=== PATIENT | female | born 1950 | race Caucasian/White ===

== ENCOUNTER 2021-05-15 10:32 | Emergency (ER) | payer OTHER ==
--- OUTSIDE RECORDS SUMMARY | 2021-05-15 10:36 | XMS REPORT | Clinical Summary ---
:1950 Author Organization [facility] MD [facility] Address [address] [place] [address] Care Team Providers Name Role Phone SpikesummerMel Unavailable Jacqueline Newell MD Primary Care Provider [phone] Perez Soto MD Unavailable Allergies Active Allergy Reactions Severity Noted Date Comments Codeine Itching, Rash Low 03/05/2021 Sulfa (Sulfonamide Antibiotics) Itching, Rash Low 03/05/19 22 Medications Medication Sig Dispensed Refills Start Date End Date Status lisinopril Take 10 mg 0 02/15/2021 Active (PRINIVIL,ZESTRIL) by mouth 10 mg tablet daily. atorvastatin Take 20 mg 0 Active (LIPITOR) 20 mg by mouth tablet daily. famotidine (Pepcid) Take 20 mg 0 Active 20 mg tablet by mouth as needed. esomeprazole Take 1 0 Active (NexIUM) 20 MG capsule by capsule mouth as needed. promethazine-dextro Take 5 mL by 0 Active methorphan mouth 4 (PROMETHAZINE-DM) (four) times 6.25-15 mg/5 mL a day as syrup needed for cough. dexamethasone Take 1 8 tablet 0 03/17/2021 Activ e (DECADRON) 4 mg tablet (4 tabletIndications: mg) by mouth Small cell twice a day carcinoma for 2 doses on Day 4. ondansetron Take 1 30 tablet 5 03/17/2021 Active (Zofran) 8 mg tablet (8 3 tabletIndications: mg) by mouth Small cell every 8 carcinoma (eight) hours as needed for nausea or vomiting. promethazine-codein Take 5 mL by 0 02 Discontinued e (PHENERGAN with mouth every 2 (Therapy CODEINE) 6.25-10 4 (four) com pleted) mg/5 mL syrup hours as needed for cough. promethazine-dextro TAKE 5ML BY 0 03/06/2021 02 Discontinued methorphan MOUTH EVERY 2 (Duplic ate order) (PROMETHAZINE-DM) 4 TO 6 HOURS 6.25-15 mg/5 mL NEEDED syrup FOR COUGH Active Problems Problem Noted Date Hypertension 03/05/2021 Dyslipidemia 03/05/2021 Mass of neck 03/05/2021 Small cell carcinoma 03/04/2021 Cancer Staging: Clinical: Unsigned Encounters Date Type Specialty Care Team Description 05/02/2021 Hospital Encounter Radiation Perez Soto MD [facility] Oncology malignant neoplasm of bra in 05/01/2021 Infusion Infusion Berkley Sanchez Small cell Services NANCY Mccloud carcinoma (Primary Dx) 05/01/2021 Travel 04/30/2021 Infusion Infusion Berkley Sanchez Small cell Services Rogers [employer] carcinoma (Primary Dx) 04/30/2021 Travel 04/29/2021 Infusion Infusion Berkley Sanchez Small cell Services Rogers [employer] carcinoma (Primary Dx) 04/29/2021 Telemedicine Thoracic Inocencia Alford Small cell Medicine carcinoma (Primary Dx) 04/29/2021 Ancillary Procedure Radiology Berkley Sanchez Small cell A, [employer] carcinoma 04/29/2021 Travel 04/28/2021 Ancillary Procedure Radiology Berkley Sanchez Small cell carcinoma; A, [employer] Malignant neopl asm of upper lobe, left bronchus or lung ; Malignant neopl asm of upper lobe, left bronchus or lung 04/28/2021 Travel 04/23/2021 Orders Only Thoracic Berkley Sanchez Small cell Medicine Rogers [employer] carcinoma (Primary Dx) 04/23/2021 Orders Only Radiation Huma Kate, SCOTT Secondary Oncology malignant neoplasm of bra in (Primary Dx) 04/10/2021 Infusion Infusion Berkley Sanchez Small cell Services A, [employer] carcinoma (Primary Dx) 04/10/2021 Travel 04/09/2021 Infusion Infusion Berkley Sanchez Small cell Services A, [employer] carcinoma (Primary Dx) 04/09/2021 Travel 04/08/2021 Infusion Infusion Berkley Sanchez Small cell Services A, [employer] carcinoma (Primary Dx) 04/08/2021 Office Visit Thoracic Sonny Lackey carc inoma (Primary Dx); Medicine MD Hadley Secondary malig nant neoplasm of brain; Leukopenia, not otherwise specified; Neutropenia due to and following chemotherapy; Malignant neopl asm of upper lobe, left bronchus or lung 04/08/2021 Hospital Encounter Lab Brooke Sancheznifer Small cell A, [employer] carcinoma 04/08/2021 Orders Only Radiology Joaquín Whitten PA 04/08/2021 Orders Only Thoracic Ramiro Prabhakar Medicine PharmD 04/08/2021 Orders Only Thoracic Sonny Lackey MD 04/08/2021 Travel 03/28/2021 Hospital Encounter Cardiology Berkley Sanchez Small cell A, [employer] carcinoma 03/28/2021 Hospital Encounter Cardiology Berkley Sanchez Small cell A, [employer] carcinoma 03/28/2021 Hospital Encounter Radiation Perez Soto MD Sma l cell Oncology carcinoma 03/28/2021 Travel 03/20/2021 Infusion Infusion Inocencia Alford Small cell Peter HAGAN carcinoma (Primary Dx) 03/20/2021 Telephone Infusion Peter Grajeda RN 03/20/2021 Travel 03/19/2021 Infusion Inocencia Carlos Small cell Peter HAGAN carcinoma (Primary Dx) 03/19/2021 Travel 03/18/2021 Infusion Infusion Inocencia Alford Small cell Peter HAGAN carcinoma (Primary Dx) 03/18/2021 Telemedicine Thoracic Inocencia Alford Small cell Medicine MD carcinoma (Primary Dx) 03/18/2021 Orders Only Thoracic Berkley Sanchez APN 03/18/2021 Orders Only Thoracic Ramiro Prabhakar Medicine PharmD 03/18/2021 Travel 03/14/2021 Ancillary Procedure Radiology Perez Soto MD Can cer 03/14/2021 Ancillary Procedure Radiology Perez Soto MD Can cer 03/12/2021 Orders Only Thoracic Ramiro Prabhakar Small cell Medicine PharmD carcinoma (Primary Dx) 03/11/2021 Hospital Encounter Lab Inocencia Alford Small cell MD carcinoma 03/11/2021 Consult Thoracic Ivonne Espinoza cell carc inoma (Primary Dx); Medicine Olivia, Inocencia Marcleo MD 03/11/2021 Ancillary Procedure Radiology Manuel Strange MD carcinoma of kendy ng <Unspecified side> 03/11/2021 Orders Only Thoracic Ramiro Prabhakar Small cell Medicine PharmD carcinoma (Primary Dx) 03/11/2021 Travel 03/10/2021 Orders Only Radiation Alexandr Small cell Oncology MD Hadley carcinoma of kendy ng <Unspecified side> (Primary Dx) 03/07/2021 Hospital Encounter Radiation Namrata Aldridge PA Small cell Oncology Alexandr, carcinoma MD Hadley (Primary Dx) 03/07/2021 Orders Only Radiation Ivonne Espinoza Small cell Oncology Olivia, SCOTT carcinoma of kendy ng <Unspecified side> (Primary Dx) 03/07/2021 Travel 03/07/2021 Multidisciplinary Visit Head and Neck Namrata Aldridge PA Surgery 03/07/2021 Orders Only Head and Neck Namrata Aldridge PA Small cell Surgery carcinoma (Primary Dx) 03/05/2021 Ancillary Procedure Radiology Namrata Aldridge PA Small cell carcinoma; 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, face and neck ; 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, face and neck 03/05/2021 Hospital Encounter Head and Neck Manuel Newell ll carcinoma (Primary Dx); Surgery MD Jacqueline Mass of neck 03/05/2021 NPR Patient Access Peter Newell MD 03/05/2021 Travel 03/04/2021 Orders Only Head and Neck Namrata Aldridge PA Small cell carcinoma (Primary Dx); Surgery 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, face and neck 03/04/2021 Lab Requisition Orla Cota MD Jackson, David Wayne, MD 03/03/2021 Clinical Support Amanda Galarza MD (Primary Dx) Napoleon Finney RN 03/03/2021 Travel 02/26/2021 Travel after 05/15/2020 Immunizations Name Administration Dates Next Due [place] SARS-CoV-2 Vaccination 06/10/2020, 05/13/2020 Surgical History Surgery Date Site/Laterality Comments COLONOSCOPY 03/01/2010 - 02/28/2011 HYSTERECTOMY 03/01/1988 - 02/28/1989 Medical History Medical History Date Comments Hypertension 1994 Hyperlipidemia 2001 Hearing loss 2014 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 Unspecified lump in unspecified breast 2014 Diverticulitis 2009 Polyp of colon 2009 Menopause 1988 Rheumatoid arthritis 2001 Arthritis 2001 Malignant tumor of breast 2014 Squamous cell carcinoma in situ of skin 2018 Family History Medical History Relation Name Comments Melanoma Father Lung cancer Maternal Grandfather Colon cancer Mother Mikayla Irvin Colon cancer Paternal Grandmother Breast cancer Sister Nataly Butler Relation Name Status Comments Father Maternal Grandfather Mother Mikayla Irvin Paternal Grandmother Sister Nataly Butler Social History Tobacco Use Types Packs/Day Years Used Date Current Every Day Smoker Cigarettes 1 49 Smokeless Tobacco: Never Used Tobacco Cessation: Ready to Quit: Yes Alcohol Use Standard Drinks/Week Comments Yes 2 (1 standard drink = 0.6 oz pure alcoho l) Sex Assigned at Date Recorded Female 03/01/2021 10:20 AM [employer] Job Start Date Occupation Industry Not on file Not on file Not on file COVID-19 Exposure Response Date Recorded In the last month, have you been in contact with No / Unsure 05/01/2021 1:21 PM [employer] someone who was confirmed or suspected to have Coronavirus / COVID-19? Obstetrics History Last Filed Vital Signs Vital Sign Reading Time Taken Comments Blood Pressure 139/75 05/01/2021 12:57 PM [employer] Pulse 75 05/01/2021 12:57 PM [employer] Temperature 36.6 C (97.9 F) 05/01/2021 12:57 PM [employer] Respiratory Rate 18 05/01/2021 12:57 PM [employer] Oxygen Saturation 98% 05/01/2021 12:57 PM [employer] Inhaled Oxygen Concentration - - Weight 59.9 kg (132 lb 0.9 oz) 05/01/2021 12:56 PM [employer] Height 155 cm (5' 1.02") 04/29/2021 9:23 AM [employer] Body Mass Index 24.93 04/29/2021 9:23 AM [employer] Plan of Treatment Date Type Specialty Care Team Description 05/20/2021 Telemedicine Thoracic Medicine Inocencia Alford MD [address] [place], [place] [address] (Wo rk) 05/20/2021 Lab Lab Inocencia Alford MD [address] [place], [place] [address] (Wo rk) 05/20/2021 Infusion [place] [address] [place] [id number] (Wo rk) 05/21/2021 Infusion Infusion Services Inocencia Alford MD [address] [place], [place] [address] (Wo rk) 05/22/2021 Infusion Infusion Services Inocencia Alford MD [address] [place], [place] [address] (Wo rk) Health Maintenance Due Date Last Done Comments COVID-19 Vaccination (3 - Moderna risk 07/08/2020 1, 05/13/2020 4-dose series) Procedures Procedure Name Priority Date/Time Associated Comments Diagnosis MRI BRAIN W WO CONTRAST Routine 04/29/2021 11:19 Small cell Results for this AM [employer] carcinoma procedure are i n the results section. FRACTIONATED BILIRUBIN Routine 04/29/2021 8:19 Small cell R esults for this AM [employer] carcinoma procedure are i n the results section. TOTAL PROTEIN Routine 04/29/2021 8:19 Small cell Results fo r this AM [employer] carcinoma procedure are i n the results section. ASPARTATE Routine 04/29/2021 8:19 Small cell Results for this AMINOTRANSFERASE AM [employer] carcinoma procedure a re in the results section. ALANINE AMINOTRANSFERASE Routine 04/29/2021 8:19 Small cell Results for this AM [employer] carcinoma procedure are i n the results section. ALKALINE PHOSPHATASE Routine 04/29/2021 8:19 Small cell Res ults for this AM [employer] carcinoma procedure are i n the results section. ALBUMIN LEVEL Routine 04/29/2021 8:19 Small cell Results fo r this AM [employer] carcinoma procedure are i n the results section. CALCIUM LEVEL TOTAL Routine 04/29/2021 8:19 Small cell Resu lts for this AM [employer] carcinoma procedure are i n the results section. .GLOMERULAR FILTRATION Routine 04/29/2021 8:19 Small cell R esults for this RATE AM [employer] carcinoma procedure are i n the results section. SERUM CREATININE Routine 04/29/2021 8:19 Small cell Results for this AM [employer] carcinoma procedure are i n the results section. ELECTROLYTE PANEL Routine 04/29/2021 8:19 Small cell Result s for this AM [employer] carcinoma procedure are i n the results section. BLOOD UREA NITROGEN Routine 04/29/2021 8:19 Small cell Resu lts for this AM [employer] carcinoma procedure are i n the results section. GLUCOSE LEVEL Routine 04/29/2021 8:19 Small cell Results fo r this AM [employer] carcinoma procedure are i n the results section. MANUAL DIFFERENTIAL Routine 04/29/2021 8:19 Small cell Resu lts for this AM [employer] carcinoma procedure are i n the results section. Results CBC Routine 04/29/2021 8:19 Small cell Results for this AM [employer] carcinoma procedure are i n the results section. FREE THYROXINE Routine 04/29/2021 8:19 Small cell Results f or this AM [employer] carcinoma procedure are i n the results section. THYROID STIMULATING Routine 04/29/2021 8:19 Small cell Resu lts for this HORMONE AM [employer] carcinoma procedure are i n the results section. MAGNESIUM LEVEL Routine 04/29/2021 8:19 Small cell Results for this AM [employer] carcinoma procedure are i n the results section. PHOSPHORUS LEVEL Routine 04/29/2021 8:19 Small cell Results for this AM [employer] carcinoma procedure are i n the results section. COMPREHENSIVE METABOLIC Routine 04/29/2021 8:19 Small cell PANEL AM [employer] carcinoma COMPLETE BLOOD COUNT W/ Routine 04/29/2021 8:19 Small cell DIFFERENTIAL AM [employer] carcinoma PETCT SUBSEQUENT Routine 04/28/2021 11:24 Small cell Results for this TREATMENT STRATEGY AM [employer] carcinoma procedure are in Malignant neoplasm the resul ts of upper lobe, left section. bronchus or lung FRACTIONATED BILIRUBIN Routine 04/08/2021 7:31 Small cell R esults for this AM [employer] carcinoma procedure are i n the results section. TOTAL PROTEIN Routine 04/08/2021 7:31 Small cell Results fo r this AM [employer] carcinoma procedure are i n the results section. ASPARTATE Routine 04/08/2021 7:31 Small cell Results for this AMINOTRANSFERASE AM [employer]ER carcinoma procedure a re in the results section. ALANINE AMINOTRANSFERASE Routine 04/08/2021 7:31 Small cell Results for this AM [employer] carcinoma procedure are i n the results section. ALKALINE PHOSPHATASE Routine 04/08/2021 7:31 Small cell Res ults for this AM [employer] carcinoma procedure are i n the results section. ALBUMIN LEVEL Routine 04/08/2021 7:31 Small cell Results fo r this AM [employer] carcinoma procedure are i n the results section. CALCIUM LEVEL TOTAL Routine 04/08/2021 7:31 Small cell Resu lts for this AM [employer] carcinoma procedure are i n the results section. .GLOMERULAR FILTRATION Routine 04/08/2021 7:31 Small cell R esults for this RATE AM [employer] carcinoma procedure are i n the results section. SERUM CREATININE Routine 04/08/2021 7:31 Small cell Results for this AM [employer] carcinoma procedure are i n the results section. ELECTROLYTE PANEL Routine 04/08/2021 7:31 Small cell Result s for this AM [employer] carcinoma procedure are i n the results section. BLOOD UREA NITROGEN Routine 04/08/2021 7:31 Small cell Resu lts for this AM [employer] carcinoma procedure are i n the results section. GLUCOSE LEVEL Routine 04/08/2021 7:31 Small cell Results fo r this AM [employer] carcinoma procedure are i n the results section. MANUAL DIFFERENTIAL Routine 04/08/2021 7:31 Small cell Resu lts for this AM [employer] carcinoma procedure are i n the results section. Results CBC Routine 04/08/2021 7:31 Small cell Results for this AM [employer] carcinoma procedure are i n the results section. MAGNESIUM LEVEL Routine 04/08/2021 7:31 Small cell Results for this AM [employer] carcinoma procedure are i n the results section. PHOSPHORUS LEVEL Routine 04/08/2021 7:31 Small cell Results for this AM [employer] carcinoma procedure are i n the results section. COMPREHENSIVE METABOLIC Routine 04/08/2021 7:31 Small cell PANEL AM [employer] carcinoma COMPLETE BLOOD COUNT W/ Routine 04/08/2021 7:31 Small cell DIFFERENTIAL AM [employer] carcinoma ECHOCARDIOGRAM 2D Routine 03/28/2021 12:49 Small cell Result s for this COMPLETE W CONTRAST PM [employer] carcinoma procedur e are in the results section. EKG, 12-LEAD (SCHEDULED) Routine 03/28/2021 Small cell carcinoma FRACTIONATED BILIRUBIN Routine 03/18/2021 7:31 Small cell R esults for this AM [employer] carcinoma procedure are i n the results section. TOTAL PROTEIN Routine 03/18/2021 7:31 Small cell Results fo r this AM [employer] carcinoma procedure are i n the results section. ASPARTATE Routine 03/18/2021 7:31 Small cell Results for this AMINOTRANSFERASE AM [employer] carcinoma procedure a re in the results section. ALANINE AMINOTRANSFERASE Routine 03/18/2021 7:31 Small cell Results for this AM [employer] carcinoma procedure are i n the results section. ALKALINE PHOSPHATASE Routine 03/18/2021 7:31 Small cell Res ults for this AM [employer] carcinoma procedure are i n the results section. ALBUMIN LEVEL Routine 03/18/2021 7:31 Small cell Results fo r this AM [employer] carcinoma procedure are i n the results section. CALCIUM LEVEL TOTAL Routine 03/18/2021 7:31 Small cell Resu lts for this AM [employer] carcinoma procedure are i n the results section. .GLOMERULAR FILTRATION Routine 03/18/2021 7:31 Small cell R esults for this RATE AM [employer] carcinoma procedure are i n the results section. SERUM CREATININE Routine 03/18/2021 7:31 Small cell Results for this AM [employer] carcinoma procedure are i n the results section. ELECTROLYTE PANEL Routine 03/18/2021 7:31 Small cell Result s for this AM [employer] carcinoma procedure are i n the results section. BLOOD UREA NITROGEN Routine 03/18/2021 7:31 Small cell Resu lts for this AM [employer] carcinoma procedure are i n the results section. GLUCOSE LEVEL Routine 03/18/2021 7:31 Small cell Results fo r this AM [employer] carcinoma procedure are i n the results section. MANUAL DIFFERENTIAL Routine 03/18/2021 7:31 Small cell Resu lts for this AM [employer] carcinoma procedure are i n the results section. Results CBC Routine 03/18/2021 7:31 Small cell Results for this AM [employer] carcinoma procedure are i n the results section. FREE THYROXINE Routine 03/18/2021 7:31 Small cell Results f or this AM [employer] carcinoma procedure are i n the results section. THYROID STIMULATING Routine 03/18/2021 7:31 Small cell Resu lts for this HORMONE AM [employer] carcinoma procedure are i n the results section. MAGNESIUM LEVEL Routine 03/18/2021 7:31 Small cell Results for this AM [employer] carcinoma procedure are i n the results section. PHOSPHORUS LEVEL Routine 03/18/2021 7:31 Small cell Results for this AM [employer] carcinoma procedure are i n the results section. COMPREHENSIVE METABOLIC Routine 03/18/2021 7:31 Small cell PANEL AM [employer] carcinoma COMPLETE BLOOD COUNT W/ Routine 03/18/2021 7:31 Small cell DIFFERENTIAL AM [employer] carcinoma MANUAL DIFFERENTIAL Routine 03/11/2021 2:03 Small cell Resu lts for this PM [employer] carcinoma procedure are i n the results section. Results CBC Routine 03/11/2021 2:03 Small cell Results for this PM [employer] carcinoma procedure are i n the results section. FRACTIONATED BILIRUBIN Routine 03/11/2021 2:03 Small cell R esults for this PM [employer] carcinoma procedure are i n the results section. TOTAL PROTEIN Routine 03/11/2021 2:03 Small cell Results fo r this PM [employer] carcinoma procedure are i n the results section. ASPARTATE Routine 03/11/2021 2:03 Small cell Results for this AMINOTRANSFERASE PM [employer] carcinoma procedure a re in the results section. ALANINE AMINOTRANSFERASE Routine 03/11/2021 2:03 Small cell Results for this PM [employer] carcinoma procedure are i n the results section. ALKALINE PHOSPHATASE Routine 03/11/2021 2:03 Small cell Res ults for this PM [employer] carcinoma procedure are i n the results section. ALBUMIN LEVEL Routine 03/11/2021 2:03 Small cell Results fo r this PM [employer] carcinoma procedure are i n the results section. CALCIUM LEVEL TOTAL Routine 03/11/2021 2:03 Small cell Resu lts for this PM [employer] carcinoma procedure are i n the results section. .GLOMERULAR FILTRATION Routine 03/11/2021 2:03 Small cell R esults for this RATE PM [employer] carcinoma procedure are i n the results section. SERUM CREATININE Routine 03/11/2021 2:03 Small cell Results for this PM [employer] carcinoma procedure are i n the results section. ELECTROLYTE PANEL Routine 03/11/2021 2:03 Small cell Result s for this PM [employer] carcinoma procedure are i n the results section. BLOOD UREA NITROGEN Routine 03/11/2021 2:03 Small cell Resu lts for this PM [employer] carcinoma procedure are i n the results section. GLUCOSE LEVEL Routine 03/11/2021 2:03 Small cell Results fo r this PM [employer] carcinoma procedure are i n the results section. COMPLETE BLOOD COUNT W/ Routine 03/11/2021 2:03 Small cell DIFFERENTIAL PM [employer] carcinoma COMPREHENSIVE METABOLIC Routine 03/11/2021 2:03 Small cell PANEL PM [employer] carcinoma MRI BRAIN W WO CONTRAST Routine 03/11/2021 8:56 Small cell Results for this AM [employer] carcinoma of lung procedure are in <Unspecified side> the resul ts section. PETCT INITIAL TREATMENT Routine 03/05/2021 2:53 Small cell Results for this STRATEGY PM [employer] carcinoma procedure are in Secondary and the results unspecified section. malignant neoplasm of lymph nodes of head, face and neck POC GLUCOSE SCREEN Routine 03/05/2021 1:29 Resul ts for this PM [employer] procedure are i n the results section. COVID-19 (SARS-COV-2) Routine 03/03/2021 12:14 Suspicion Results for this PCR ASYMPTOMATIC PM [employer] procedure a re in the results section. OSI US SOFT TISSUE MASS Routine 02/14/2021 2:30 Cancer Results for this AM [employer] procedure are i n the results section. PATHOLOGY OUTSIDE Routine 02/14/2021 Results fo r this INTERPRETATION procedure are in the results section. OSI US SOFT TISSUE MASS Routine 02/11/2021 2:29 Cancer Results for this AM [employer] procedure are i n the results section. after 05/15/2020 Results MRI Brain with and without Contrast (04/29/2021 11:19 AM [employer]ER)Only the most recent of2 resultswithin the time period is included. Specimen Impressions [id number] - 04/29/2021 11:27 AM [employer] 1. Interval resolution of previously documented 0.4 cm lesion in the left cerebellar hemisphere. 2. No new intracranial metastasis. Narrative [id number] - 04/29/2021 11:27 AM [employer]ER FULL RESULT: EXAMINATION: MRI BRAIN W WO CONTRAST on 04/29/2021 11:19 AM HISTORY: Small cell carcinoma INDICATION: Cancer staging or restaging, ES-SCLC revaluate singluar brain met COMPARISON: MRI dated 03/11/2021 TECHNIQUE: Multi-sequence MRI of the bra in with and without intravenous contrast as per standard departmental protocol. FINDINGS: These 0.4 cm enhancing nodule in the med ial left cerebellar hemisphere has result. No new or progressive parenchymal or leptomeningeal enhancement is seen. There is no mass effect, midline shift o r abnormal restricted diffusion. The ventricles and cerebral sulci have normal size and configuration. No extra-axial fluid collection is seen. No focal susceptib ility artifact is noted in the brain par enchyma. The orbits, paranasal sinuses and mastoid air cells are unremarkable. Major intracranial flow voids are maintained at the skull base. No destructive osseous lesion is identified. Procedure Note Julieta Mg MD - 04/29/2021 FULL RESULT: EXAMINATION: MRI BRAIN W WO CONTRAST on 04/29/2021 11:19 AM HISTORY: Small cell carcinoma INDICATION: Cancer staging or restaging, ES-SCLC revaluate singluar brain met COMPARISON: MRI dated 03/11/2021 TECHNIQUE: Multi-sequence MRI of the bra in with and without intravenous contrast as per standard departmental protocol. FINDINGS: These 0.4 cm enhancing nodule in the med ial left cerebellar hemisphere has result. No new or progressive parenchymal or leptomeningeal enhancement is seen. There is no mass effect, midline shift o r abnormal restricted diffusion. The ventricles and cerebral sulci have normal size and configuration. No extra-axial fluid collection is seen. No focal susceptibility artifact is noted in the brain parenchyma. The orbit s, paranasal sinuses and mastoid air cells are unremarkable. Major intracranial flow voids are maintained at the skull base. No destructive osseous lesion is identified. IMPRESSION: 1. Interval resolution of previously do cumented 0.4 cm lesion in the left cerebellar hemisphere. 2. No new intracranial metastasis. Performing Organization Address [facility] [[email or web address]] Code Phon e Number [id number] .Serum Creatinine (04/29/2021 8:19 AM BAR GAUGER AND LUBRICATOR TENDER)Only the most recent of4 results within the time period is included. Pathologist Sig nature Creatinine 0.53Comment: Testing 0.51 - 0.95 mg/dL BILLINGS performed at [facility], [address] [facility], [place] [address] Specimen Blood Narrative BILLINGS - 04/29/2021 8:48 AM BAR GAUGER AND LUBRICATOR TENDER Includes: Albumin, Alk Phos, ALT, AST, T otal Bilirubin (including fractionated), Calcium, Chloride, CO2, Creatinine, Gluc ose, Potassium, Protein, Sodium, BUN Performing Organization Address City/[facility]/ZIP Code Phon e Number [facility], [place] [id number] [place] [address] (ABNORMAL) .CBC (04/29/2021 8:19 AM BAR GAUGER AND LUBRICATOR TENDER)Only the most recent of4 resultswithin the time period is included. Pathologist Sig nature WBC 6.8Comment: All 4.0 - 11.0 K/uL BILLINGS components of the CBC performed at [facility], [address] [place] [address] [id number] RBC 3.81 (L)Comment: All 4.00 - 5.50 BILLINGS components of the CBC M/uL performed at [facility], [address] [place] [address] Hgb 11.5 (L)Comment: As 12.0 - 16.0 BILLINGS part of CBC or as an gm/dL individual orderable testing performed at [facility], [address] [place] [address] Hct 34.9 (L)Comment: As 37.0 - 47.0 % BILLINGS part of CBC testing performed at [facility], [address] [place] [address] MCV 92Comment: As part of 82 - 98 fL BILLINGS CBC testing performed at [facility], [address] [place] [address] MCH 30.2Comment: As part 27.0 - 31.0 pg BILLINGS of CBC testing performed at [facility], [address] [place] [address] MCHC 33.0Comment: As part 31.0 - 36.0 BILLINGS of CBC testing gm/dL performed at [facility], [address] [place] [address] RDW-SD 47.7 (H)Comment: As 35.1 - 46.3 fL BILLINGS part of CBC testing performed at [facility], [address] [place] [address] RDW-CV 14.8Comment: As part 12.0 - 15.5 % BILLINGS of CBC testing performed at [facility], [address] [place] [address], [place] [address] Platelet count 316Comment: As part 140 - 440 K/uL BILLINGS of CBC or an individual orderable testing performed at [facility], [address] [place] [address], [place] [address] MPV 9.5Comment: As part 4.0 - 10.4 fL BILLINGS of CBC testing performed at [facility], [address] [place] [address], [place] [address] Specimen Blood Performing Organization Address City/State/ZIP [place] [address] [place] [address] Glomerular Filtration Rate (04/29/2021 8:19 AM BAR GAUGER AND LUBRICATOR TENDER)Only the most recent of4 resultswithin the time period is included. Pathologist Sig nature eGFR-AA 112 >=60 mL/min/1.73 BILLINGS Comment: sq. m Normal eGFR >= 60 mL/min/1.73 m2 Note: The eGFR is calculated using the CKD-EPI equation. The eGFR declines with age. eGFR <60 mL/min/1.73 m2 is considered as "decreased". This equation should only be used for patients 18 and older. According to the National [facility]'s Kidney Disease Outcome Quality Initiative (KDOQI) classification and 2012 Kidney Disease Improving Global Outcomes (KDIGO) Clinical Practice Guideline, the stage of CKD should be categorized based on estimated GFR. Stage Description GFR mL/min/1.73 m2 1 Normal or high GFR >=90 2 Mildly decreased GFR 60-89 3a Mildly to moderately decreased GFR 45-59 3b Moderately to severely decreased GFR 30-44 4 Severely decreased GFR 15-29 5 Kidney failure <15 Testing performed at [facility], [address] [place] [address], [place] [address] eGFR-ALLISON 97 >=60 mL/min/1.73 BILLINGS Comment: sq. m Normal eGFR >= 60 mL/min/1.73 m2 Note: The eGFR is calculated using the CKD-EPI equation. The eGFR declines with age. eGFR <60 mL/min/1.73 m2 is considered as "decreased". This equation should only be used for patients 18 and older. According to the National [facility]'s Kidney Disease Outcome Quality Initiative (KDOQI) classification and 2012 Kidney Disease Improving Global Outcomes (KDIGO) Clinical Practice Guideline, the stage of CKD should be categorized based on estimated GFR. Stage Description GFR mL/min/1.73 m2 1 Normal or high GFR >=90 2 Mildly decreased GFR 60-89 3a Mildly to moderately decreased GFR 45-59 3b Moderately to severely decreased GFR 30-44 4 Severely decreased GFR 15-29 5 Kidney failure <15 Testing performed at [facility], [address] [place] [address] [facility] - 04/29/2021 8:48 AM BAR GAUGER AND LUBRICATOR TENDER Includes: Albumin, Alk Phos, ALT, AST, T otal Bilirubin (including fractionated), Calcium, Chloride, CO2, Creatinine, Gluc ose, Potassium, Protein, Sodium, BUN Performing Organization Address City/State/[place] [address] [place] [address] Fractionated Bilirubin (04/29/2021 8:19 AM BAR GAUGER AND LUBRICATOR TENDER)Only the most recent of4 results within the time period is included. Bili Total 0.3 <=1.2 mg/dL BILLINGS Comment: Indocyanine Green (ICG) may cause falsely elevated bilirubin results. Total and direct bilirubin must not be measured from samples containing indocyanine green. False elevation of total aida irubin can be seen in patients with IgG concentrations above 28 g/L. Testing performed at [facility], [address] [place] [address] Bili Direct <0.2 <=0.3 mg/dL BILLINGS Comment: Indocyanine Green (ICG) may cause falsely elevated bilirubin results. Total and direct bilirubin must not be measured from samples containing indocyanine green. Testing performed at [facility], [address] [place] [address] Bili Indirect See Note 0.0 - 0.9 BILLINGS Comment: mg/dL Unable to calculate Indirect Bilirubin result due to some parameters are outside reportable range Testing performed at [facility], [address] [place] [address] Specimen Blood Narrative BILLINGS - 04/29/2021 8:48 AM BAR GAUGER AND LUBRICATOR TENDER Includes: Albumin, Alk Phos, ALT, AST, T otal Bilirubin (including fractionated), Calcium, Chloride, CO2, Creatinine, Gluc ose, Potassium, Protein, Sodium, BUN Performing Organization Address City/State/[place] [address] [place] [address] (ABNORMAL) Differential (04/29/2021 8:19 AM BAR GAUGER AND LUBRICATOR TENDER)Only the most recent of4 resultswithin the time period is included. Neutrophil % 64.3Comment: All 42.0 - 66.0 % BILLINGS components of the Differential performed at [facility], [address] [place] [address] Lymphocyte % 20.6 (L)Comment: As 24.0 - 44.0 % BILLINGS part of the Differential testing performed at [facility], [address] [place] [address] Monocyte % 12.3 (H)Comment: As 2.0 - 7.0 % BILLINGS part of the Differential testing performed at [facility], [address] [place] [address] Eosinophil % 0.7 (L)Comment: As 1.0 - 4.0 % BILLINGS part of the Differential testing performed at [facility], [address] [place], [place] [id number] Basophil % 0.9Comment: As part of 0.0 - 1.0 % BILLINGS the Differential testing performed at [facility], [address] [place], [place] [id number] IGRE % 1.2 (H) 0.0 - 0.4 % BILLINGS Comment: IGRE % count includes Metamyelocytes, Myelocytes, and Promyelocytes. As part of the Differential testing performed at [facility], [address] [place], [place] [phone] Neutrophil Abs 4.38Comment: As part 1.70 - 7.30 BILLINGS of the Differential K/uL testing performed at [facility], [address] [place] [address] Lymphocyte Abs 1.40Comment: As part 1.00 - 4.80 BILLINGS of the Differential K/uL testing performed at [facility], [address] [place] [address] Monocyte Abs 0.84 (H)Comment: As 0.08 - 0.70 BILLINGS part of the K/uL Differential testing performed at [facility], [address] [place] [address] Eosinophil Abs 0.05Comment: As part 0.04 - 0.40 BILLINGS of the Differential K/uL testing performed at [facility], [address] [place] [address] Basophil Abs 0.06Comment: As part 0.00 - 0.10 BILLINGS of the Differential K/uL testing performed at [facility], [address] [place] [address] IG Abs 0.08 (H)Comment: As 0.00 - 0.04 BILLINGS part of the K/uL Differential testing performed at [facility], [address] [place] [address] Specimen Blood Performing Organization Address City/State/ZIP Code Phon e Number [address] BUN (04/29/2021 8:19 AM BAR GAUGER AND LUBRICATOR TENDER)Only the most recent of4 resultswithin the time period is included. Pathologist Sig nature BUN 12Comment: Testing 6 - 23 mg/dL BILLINGS performed at [facility], [address] [place] [address] Specimen Blood Narrative BILLINGS - 04/29/2021 8:48 AM BAR GAUGER AND LUBRICATOR TENDER Includes: Albumin, Alk Phos, ALT, AST, T otal Bilirubin (including fractionated), Calcium, Chloride, CO2, Creatinine, Gluc ose, Potassium, Protein, Sodium, BUN Performing Organization Address City/State/ZIP Code Phon e Number [address] ALT (04/29/2021 8:19 AM BAR GAUGER AND LUBRICATOR TENDER)Only the most recent of4 resultswithin the time period is included. Pathologist [facility] ALT 14Comment: Testing performed <=33 U/L [facility], [address] [place] [address] [facility] - 04/29/2021 8:48 AM BAR GAUGER AND LUBRICATOR TENDER Includes: Albumin, Alk Phos, ALT, AST, T otal Bilirubin (including fractionated), Calcium, Chloride, CO2, Creatinine, Gluc ose, Potassium, Protein, Sodium, BUN Performing Organization Address City/[facility]/ZIP Code Phon e [place], [place] [id number] [place] [address] Aspartate Aminotransferase (04/29/2021 8:19 AM BAR GAUGER AND LUBRICATOR TENDER)Only the most recent of4 resultswithin the time period is included. [facility] AST 13Comment: Testing performed <=32 U/L [facility], [address] [place] [address] [facility] - 04/29/2021 8:48 AM BAR GAUGER AND LUBRICATOR TENDER Includes: Albumin, Alk Phos, ALT, AST, T otal Bilirubin (including fractionated), Calcium, Chloride, CO2, Creatinine, Gluc ose, Potassium, Protein, Sodium, BUN Performing Organization Address City/[facility] [[email or web address]] Code Phon e [place], [place] [id number] [place] [address] TSH (04/29/2021 8:19 AM BAR GAUGER AND LUBRICATOR TENDER)Only the most recent of2 resultswithin the time period is included. [facility] TSH 1.32Comment: Testing 0.27 - 4.20 BILLINGS performed at [facility], [address] [place] [address] Specimen Blood Performing Organization Address City/State/ZIP Code Phon e [address] (ABNORMAL) Free T4 (04/29/2021 8:19 AM BAR GAUGER AND LUBRICATOR TENDER)Only the most recent of2 results within the time period is included. [facility] T4 Free 0.91 (L)Comment: 0.93 - 1.70 ng/dL BILLINGS Testing performed at [facility], [address] [place] [address] Specimen Blood Performing Organization Address City/[facility] Phon [address] Total Protein (04/29/2021 8:19 AM BAR GAUGER AND LUBRICATOR TENDER)Only the most recent of4 resultswithin the time period is included. Pathologist Sig nature Total Protein 6.7Comment: Testing 6.4 - 8.3 g/dL BILLINGS performed at [facility], [address] [place] [address] [facility] - 04/29/2021 8:48 AM BAR GAUGER AND LUBRICATOR TENDER Includes: Albumin, Alk Phos, ALT, AST, T otal Bilirubin (including fractionated), Calcium, Chloride, CO2, Creatinine, Gluc ose, Potassium, Protein, Sodium, BUN Performing Organization Address [facility]/[address] Phosphorus (04/29/2021 8:19 AM BAR GAUGER AND LUBRICATOR TENDER)Only the most recent of3 resultswithin the time period is included. Pathologist Sig nature Phosphorus 4.0Comment: Testing 2.5 - 4.5 mg/dL BILLINGS performed at [facility], [address] [place] [address] Specimen Blood Performing Organization Address [facility] Phon e [address] (ABNORMAL) Alkaline Phosphatase (04/29/2021 8:19 AM BAR GAUGER AND LUBRICATOR TENDER)Only the most recent of 4 resultswithin the time period is included. Pathologist Sig nature Alk Phos 105 (H)Comment: Testing 35 - 104 U/L BILLINGS performed at [facility], [address] [place] [address] [facility] - 04/29/2021 8:48 AM BAR GAUGER AND LUBRICATOR TENDER Includes: Albumin, Alk Phos, ALT, AST, T otal Bilirubin (including fractionated), Calcium, Chloride, CO2, Creatinine, Gluc ose, Potassium, Protein, Sodium, BUN Performing Organization Address City/[facility]/[place] [address] [place] [address] Magnesium (04/29/2021 8:19 AM BAR GAUGER AND LUBRICATOR TENDER)Only the most recent of3 resultswithin the time period is included. Pathologist Sig nature Magnesium 2.0Comment: Testing 1.6 - 2.6 mg/dL BILLINGS performed at [facility], [address] [place] [address] Specimen Blood Performing Organization Address City/[facility] Phon e Number [place], [place] [phone] [place] [address] (ABNORMAL) Glucose Level (04/29/2021 8:19 AM BAR GAUGER AND LUBRICATOR TENDER)Only the most recent of4 resultswithin the time period is included. Pathologist Sig nature Glucose Level 109 (H) 70 - 99 mg/dL BILLINGS Comment: Effective 09/25/15, the gluco se reference intervals have been updated based on [place] [employer] guidelines (Standards of Medical Care in Diabetes 2016. Diabetes Care 2016; 39: S13-S22). Fasting blood glucose: Normal: 70-99 mg/dL Impaired fasting glucose (in creased risk for diabetes or pre-diabetes): 100- 125 mg/dL Diabetes mellitus: >/=126 mg/dL Random blood glucose: Normal: 70-199 mg/dL Note: Random glucose >100 mg/dL is assoc iated with increased risk for diabetes Testing performed at [facility], [address] [place] [address] Specimen Blood Narrative BILLINGS - 04/29/2021 8:48 AM BAR GAUGER AND LUBRICATOR TENDER Includes: Albumin, Alk Phos, ALT, AST, T otal Bilirubin (including fractionated), Calcium, Chloride, CO2, Creatinine, Gluc ose, Potassium, Protein, Sodium, BUN Performing Organization Address City/[facility]/[place] [address] [place] [address] Calcium Level (04/29/2021 8:19 AM BAR GAUGER AND LUBRICATOR TENDER)Only the most recent of4 resultswithin the time period is included. Pathologist Sig nature Calcium Lvl 9.5Comment: Testing 8.4 - 10.2 mg/dL BILLINGS performed at [facility], [address] [place] [address] [facility] - 04/29/2021 8:48 AM BAR GAUGER AND LUBRICATOR TENDER Includes: Albumin, Alk Phos, ALT, AST, T otal Bilirubin (including fractionated), Calcium, Chloride, CO2, Creatinine, Gluc ose, Potassium, Protein, Sodium, BUN Performing Organization Address [facility]/[place], [place] [id number] [place] [address] Albumin Level (04/29/2021 8:19 AM BAR GAUGER AND LUBRICATOR TENDER)Only the most recent of4 resultswithin the time period is included. Pathologist Sig nature Albumin Lvl 4.1Comment: Testing 3.5 - 5.2 gm/dL BILLINGS performed at [facility], [address] [place] [address] [facility] - 04/29/2021 8:48 AM BAR GAUGER AND LUBRICATOR TENDER Includes: Albumin, Alk Phos, ALT, AST, T otal Bilirubin (including fractionated), Calcium, Chloride, CO2, Creatinine, Gluc ose, Potassium, Protein, Sodium, BUN Performing Organization Address [facility]/[place], [place] [id number] [place] [address] (ABNORMAL) Electrolyte Panel (04/29/2021 8:19 AM BAR GAUGER AND LUBRICATOR TENDER)Only the most recent of4 resultswithin the time period is included. Pathologist Sig nature Sodium Lvl 139Comment: Testing 136 - 145 mEq/L BILLINGS performed at [facility], [address] [place] [address] Potassium Lvl 5.3 (H)Comment: 3.5 - 5.1 mEq/L BILLINGS Testing performed at [facility], [address] [place] [address] Chloride 105Comment: Testing 98 - 107 mEq/L BILLINGS performed at [facility], [address] [place] [address] CO2 27Comment: Testing 22 - 29 mEq/L BILLINGS performed at [facility], [address] [facility], [place] [address] Anion Gap 7Comment: Testing 4 - 14 mEq/L [facility] performed at [facility], [address] [facility] [address] [facility], [place] [address] Specimen Blood Narrative CRISTIAN FRIAS - 04/29/2021 8:48 AM BAR GAUGER AND LUBRICATOR TENDER Includes: Albumin, Alk Phos, ALT, AST, T otal Bilirubin (including fractionated), Calcium, Chloride, CO2, Creatinine, Gluc ose, Potassium, Protein, Sodium, BUN Performing Organization Address City/State/ZIP Code Phon e Number CRISTINA [facility] [place] [address] [address] [facility] PETCT Subsequent Treatment Strategy (04/28/2021 11:24 AM BAR GAUGER AND LUBRICATOR TENDER) Specimen Impressions [id number] - 04/28/2021 12:00 PM BAR GAUGER AND LUBRICATOR TENDER Left upper lobe lung malignancy has decreased in size and FDG uptake. There has been a decrease in size and FDG uptake within intrathoracic extrathoracic reg metastases. Pleural metastases in the left hemithorax and a right lower lobe nodul e consistent with metastasis have decreased in size. There is focal increased FDG uptake within the right lobe of the liver that is most consistent with superim position of increased physiologic uptake within the colon rather than a metastasis. A brain metastasis detected on MR imaging is not FDG avid and is suboptimally visualized-assessed on PET/CT. 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 Indication: To determine response to the rapy and subsequent treatment strategy. Restaging. Comparison: PET/CT 03/05/2021. Technique: Following intravenous admi nistration of 10.9 mCi F-18 fluorodeoxyglucose (FDG), a CT attenuation corrected PET scan was obtained from the vertex to the thighs. Findings: 1. A 1 cm FDG avid (SUV max 3) nodule in the left upper lobe consistent with a primary lung malignancy has decreased in size and FDG uptake (previously 1.5 cm, SUV max 6.9). In addition, previously visu alized extension of malignancy in a bron chovascular distribution to the left perihilar region has decreased in extent and FDG uptake (SUV max 1.7, previously 7). 2. There has been a decrease in size and FDG uptake of left perihilar and ipsilateral mediastinal adenopathy. For instance, a left perihilar nodes has a SUV max of 6.2 (previously 16.2), adjacent conflu ent adenopathy in the aortopulmonary win malathi and left lower paratracheal adenopathy with a short axis diameter of 2 cm and a SUV max of 4 was previously 3.5 cm and had a SUV max 13.9, a 1.5 cm FDG avid ( SUV max 3.4) preaortic lymph node was pr eviously 3 cm and had a SUV max 15.5) and a 7 mm FDG avid (SUV max 3.1) upper left superior mediastinal node was previously 2.2 cm and had a SUV max of 14.2. A le ft supraclavicular lymph node has decrea sed in size and FDG uptake and now has a short axis diameter of 1.5 cm and a SUV max of 4.5 (previously 3.5 cm, SUV max of 14.8). In addition, previously visualiz ed adjacent separate 1 cm FDG avid lymph node and FDG avid right supraclavicular lymph nodes show complete anatomic and metabolic response to therapy. 3. There has been a decrease in pleural metastases in the left major fissure and small residual nodular opacities have low-grade FDG uptake (SUV max 1.7, previously 3.2). 4. A 6 mm nodular opacity in the right l ower lobe (image 127) consistent with residua of a treated metastasis has decreased in size (previously 1.3 cm) and previously visualized increased FDG uptake has resolved. 5. There is a focal region of increased FDG uptake in the region of the right lobe of the liver (image 163, SUV max 5.4). 6. The adrenals are normal. 7. There are no FDG avid osseous metasta ses. 8. Brain metastasis detected on MR imagi ng of 03/11/2019 is not FDG avid and is suboptimally visualized assessed on PET/CT. 9. The aorta is atherosclerotic and ther e is coronary artery calcification. Procedure Note Jeffery Michelle MD - 04/28/2021 FULL RESULT: Examination: FDG PET/CT, 04/28/2021 11:24 AM Clinical History: Small cell carcinoma [ C80.1 (ICD-10-CM)]. Indication: To determine response to the rapy and subsequent treatment strategy. Restaging. Comparison: PET/CT 03/05/2021. Technique: Following intravenous admin istration of 10.9 mCi F-18 fluorodeoxyglucose (FDG), a CT attenuation corrected PET scan was obtained from the vertex to the thighs. Findings: 1. A 1 cm FDG avid (SUV max 3) nodule in the left upper lobe consistent with a primary lung malignancy has decreased in size and FDG uptake (previously 1.5 cm, SUV max 6.9). In addition, previously visualized extension of malignancy in a bronchovasc ular distribution to the left perihilar region has decreased in extent and FDG uptake (SUV max 1.7, previously 7). 2. There has been a decrease in size and FDG uptake of left perihilar and ipsilateral mediastinal adenopathy. For instance, a left perihilar nodes has a SUV max of 6.2 (previously 16.2), adjacent confluent adenopathy in the aortopulmonary window and left lower paratracheal adenopathy with a short axis diameter of 2 cm and a SUV max of 4 was previously 3.5 cm and had a SUV max 13.9, a 1.5 cm FDG avid (SUV max 3.4) preaortic lymph node was previously 3 cm and had a SUV max 15 .5) and a 7 mm FDG avid (SUV max 3.1) upper left superior mediastinal node was previously 2.2 cm and had a SUV max of 14.2. A left supraclavicular lymph node has decreased in size and FDG uptake and now has a short axis diameter of 1.5 cm and a SUV max of 4.5 (previously 3.5 cm, SUV max of 14.8). In addition, previously visualized adjacent separate 1 cm FDG avid lymph node and FDG avid right supraclavicular lymph nodes show complet e anatomic and metabolic response to therapy. 3. There has been a decrease in pleural metastases in the left major fissure and small residual nodular opacities have low-grade FDG uptake (SUV max 1.7, previously 3.2). 4. A 6 mm nodular opacity in the right l ower lobe (image 127) consistent with residua of a treated metastasis has decreased in size (previously 1.3 cm) and previously visualized increased FDG uptake has resolved. 5. There is a focal region of increased FDG uptake in the region of the right lobe of the liver (image 163, SUV max 5.4). 6. The adrenals are normal. 7. There are no FDG avid osseous metasta ses. 8. Brain metastasis detected on MR imagi ng of 03/11/2019 is not FDG avid and is suboptimally visualized assessed on PET/CT. 9. The aorta is atherosclerotic and ther e is coronary artery calcification. IMPRESSION: Left upper lobe lung malignancy has decr eased in size and FDG uptake. There has been a decrease in size and FDG uptake within intrathoracic extrathoracic reg metastases. Pleural metastases in the left hemithorax and a right lower lobe nodule consistent with metastasis have decreased in size. There is focal increased FDG uptake within the right lobe of the liver that is most consistent with superimposition of increased physiologic uptake within the colon rath er than a metastasis. A brain metastasis detected on MR imaging is not FDG avid and is suboptimally visualized-assessed on PET/CT. Performing Organization Address City/State/ZIP Code Phon e Number [id number] Echocardiogram 2D Complete with Contrast (03/28/2021 12:49 PM BAR GAUGER AND LUBRICATOR TENDER) Specimen Narrative [facility] - 03/28/2021 3:07 PM BAR GAUGER AND LUBRICATOR TENDER Echocardiographic Report Interpretation Summary Patient is in Atrial Fibrillation. Micro -Bubbles injection performed because of poor endocardial resolution. There is no comparison study available. Normal left ventricular size and systoli c function. Microbubble enhanced LVEF using the Bi-p ricky method of disks method is >70%. The right ventricle is normal in size an d function. Right ventricular systolic pressure is n ormal. There is no pericardial effusion. Mitral annular calcification is present. There is increased in LV thickness with systolic anterior motion of the mitral valve. An intracavitary gradient is present. Left Ventricle: Normal left ventricular size and systoli c function. An intracavitary gradient is present. Microbubble enhanced LVEF using the Bi-plane method of disks method is >70%. No regional wall motion abnormalities noted. I WMSI = 1.00 % Normal = 1 00 Dynamic intracavitary gradient with Valsalva (165 mm Hg) X - Cannot 1 - Normal 2 - 3 - Akinetic 4 - Dyskinetic Interpret Hyp okinetic 5 - Aneurysmal 3D imaginD volumes were not performed in this st udy. Cardiac Mechanics/Speckle Tracking Imagi ng: Speckle tracking imaging was not perform ed in this study. (GE Study). Diastology: Impaired LV relaxation pattern of diasto lic dysfunction, Doppler suggests normal LA pressures. Right Ventricle: The right ventricle is normal in size an d function. Normal RV systolic function using TAPSE criteria. Atria: Atria are normal in size. Mitral Valve: Mild thickening changes are noted. Lorenza l annular calcification is present. A dynamic gradient is observed up to 165 mm Hg with Valsalva maneuver. There is systolic anterior motion of the mitral valve, with outlet obstruction. There is mild m itral regurgitation. Tricuspid Valve: The tricuspid valve is not well visualiz ed, but is grossly normal. There is trace tricuspid regurgitation. Right ventricular systolic pressure is normal. Aortic Valve: The aortic valve is trileaflet. The aort ic valve opens well. Pulmonic Valve: The pulmonic valve is not well visualize d. Trace pulmonic valvular regurgitation. Great Vessels: The aortic root is normal size. The infe rior vena cava demonstrates normal size and normal respiratory variation. Pericardium/Pleural: There is no pericardial effusion. Preliminary Reviewer Preliminary Interpretation: Judy luna MD. MMode/2D Measurements IVSd: 1.4 cm LVIDd: 3.7 cm LVIDs: 2.5 cm LVPWd: 1.5 cm FS: 33.7 % Ao root diam: 3.6 cm Ao root area: 10.0 cm2 LA dimension: 3.3 cm LVOT diam: 2.1 cm EDV(MOD-A4C): 73.9 ml ESV(MOD-A4C): 21.2 ml LVOT area: 3.3 cm2 EF(MOD-A4C): 71.3 % EDV(MOD-A2C): 55.7 ml ESV(MOD-A2C): 10.6 ml EDV(MOD-bp): 65.7 ml EF(MOD-A2C): 81.0 % ESV(MOD-bp): 16.5 ml EF(MOD-bp): 74.9 % LAV(MOD-A2C): 41.6 ml EDV (MOD-bp) Index: 42.1 ml/m2 LAV(MOD-A4C): 49.1 ml LAV(MOD-bp): 45.2 ml LAV(MOD-bp) Indexed: 28.9 ml/m2 ESV (MOD-bp) Index: 10.6 ml/m2 RWT: 0.82 cm TAPSE (>1.6): 2.5 cm Doppler Measurements MV E max ezra: 66.1 cm/sec MV V2 max: 126.3 cm/sec MV A max ezra: 99.7 cm/sec MV max P.4 mmHg MV E/A: 0.66 MV V2 mean: 71.0 cm/sec MV mean P.3 mmHg MV V2 VTI: 20.1 cm MV dec time: 0.14 sec Ao V2 max: 179.8 cm/sec Ao max P.9 mmHg Ao V2 mean: 118.6 cm/sec Ao mean P.5 mmHg Ao V2 VTI: 27.5 cm Med Peak E' Ezra: 2.7 cm/sec Lat Peak E' Ezra: 3.7 cm/sec RAP systole: 3.0 mmHg E/e' (avg): 20.7 E/e' (lat): 18.0 E/e' (sept): 24.4 Procedure Note Nirav Gutierrez MD - 03/28/2021 Echocardiographic Report Interpretation Summary Patient is in Atrial Fibrillation. Micro -Bubbles injection performed because of poor endocardial resolution. There is no comparison study available. Normal left ventricular size and systoli c function. Microbubble enhanced LVEF using the Bi-p ricky method of disks method is >70%. The right ventricle is normal in size an d function. Right ventricular systolic pressure is n ormal. There is no pericardial effusion. Mitral annular calcification is present. There is increased in LV thickness with systolic anterior motion of the mitral valve. An intracavitary gradient is present. Left Ventricle: Normal left ventricular size and systoli c function. An intracavitary gradient is present. Microbubble enhanced LVEF using the Bi-plane method of disks method is >70%. No regional wall motion abnormalities noted. I WMSI = 1.00 % Normal = 100 Dynamic intracavitary gradient with Valsalva (165 mm Hg) X - Cannot 1 - Normal 2 - 3 - Akinetic 4 - Dyskinetic Interpret Hypokinetic 5 - Aneurysmal 3D imaginD volumes were not performed in this st udy. Cardiac Mechanics/Speckle Tracking Imagi ng: Speckle tracking imaging was not perform ed in this study. (GE Study). Diastology: Impaired LV relaxation pattern of diasto lic dysfunction, Doppler suggests normal LA pressures. Right Ventricle: The right ventricle is normal in size an d function. Normal RV systolic function using TAPSE criteria. Atria: Atria are normal in size. Mitral Valve: Mild thickening changes are noted. Lorenza l annular calcification is present. A dynamic gradient is observed up to 165 mm Hg with Valsalva maneuver. There is systolic anterior motion of the mitral valve, with outlet obstruction. There is mild mitral regurgitation. Tricuspid Valve: The tricuspid valve is not well visualiz ed, but is grossly normal. There is trace tricuspid regurgitation. Right ventricular systolic pressure is normal. Aortic Valve: The aortic valve is trileaflet. The aort ic valve opens well. Pulmonic Valve: The pulmonic valve is not well visualize d. Trace pulmonic valvular regurgitation. Great Vessels: The aortic root is normal size. The infe rior vena cava demonstrates normal size and normal respiratory variation. Pericardium/Pleural: There is no pericardial effusion. Preliminary Reviewer Preliminary Interpretation: Judy luna MD. MMode/2D Measurements IVSd: 1.4 cm LVIDd: 3.7 cm LVIDs: 2.5 cm LVPWd: 1.5 cm FS: 33.7 % Ao root ezequiel m: 3.6 cm Ao root are a: 10.0 cm2 LA dimensio n: 3.3 cm LVOT diam: 2.1 cm EDV(MOD-A4C ): 73.9 ml ESV(MOD-A4C ): 21.2 ml LVOT area: 3.3 cm2 EF(MOD-A4C) : 71.3 % EDV(MOD-A2C): 55.7 ml ESV(MOD-A2C): 10.6 ml EDV(MOD-bp) : 65.7 ml EF(MOD-A2C): 81.0 % ESV(MOD-bp) : 16.5 ml EF(MOD-bp): 74.9 % LAV(MOD-A2C): 41.6 ml EDV (MOD-bp ) Index: 42.1 ml/m2 LAV(MOD-A4C): 49.1 ml LAV(MOD-bp): 45.2 ml LAV(MOD-bp) Indexed: 28.9 ml/m2 ESV (MOD-bp) Index: 10.6 ml/m2 RWT: 0.82 c m TAPSE (>1.6): 2.5 cm Doppler Measurements MV E max ezra: 66.1 cm/sec MV V2 max: 126. 3 cm/sec MV A max ezra: 99.7 cm/sec MV max P.4 mmHg MV E/A: 0.66 MV V2 mean: 71. 0 cm/sec MV mean P.3 mmHg MV V2 VTI: 20.1 cm MV dec time: 0.14 sec Ao V2 max: 179. 8 cm/sec Ao max P.9 mmHg Ao V2 mean: 118 .6 cm/sec Ao mean P.5 mmHg Ao V2 VTI: 27.5 cm Med Peak E' Ezra: 2.7 cm/sec Lat Peak E' Ezra : 3.7 cm/sec RAP systole: 3.0 mmHg E/e' (avg): 20. 7 E/e' (lat): 18.0 E/e' (sept): 24 .4 Performing Organization Address City/State/ZIP Code Phon e Number ISCV EKG, 12-Lead (Scheduled) (03/28/2021) Specimen Narrative This result has an attachment that is no t available. Performing Organization Address [facility] Phon e Number JAYDE IECG PETCT Initial Treatment Strategy (03/05/2021 2:53 PM BAR GAUGER AND LUBRICATOR TENDER) Specimen Impressions [id number] - 03/06/2021 11:12 AM BAR GAUGER AND LUBRICATOR TENDER There is a left upper lobe nodule consistent with a primary malignancy and there is extension of the malignancy in a bronchovascular distribution to the left perihilar region. There is also extension of the malignancy to involve the adjacent pleura in the left major fissure. There are intrathoracic and extrathoracic reg metastases. There is a right lung nodule consistent with a metastasis. There are no distant-extrathoracic systemic metastases. 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 Indication: To determine initial treatme nt strategy. Staging. Comparison: None. Technique: Following intravenous admi nistration of 8.3 mCi F-18 fluorodeoxyglucose (FDG), a CT attenuation corrected PET scan was obtained from the vertex to the thighs. Dedicated imaging was performed of the head and neck. Findings: 1. There is a 1.5 cm FDG avid (SUV max 6 .9) nodule in the left upper lobe consistent with a primary lung malignancy. There is extension of soft tissue from the nodule in a bronchovascular distribution t o the left perihilar region that is FDG avid (SUV max 7) and consistent with malignancy. The nodule abuts the pleura in the major fissure and there is focal nodularity of the adjacent pleura in the fiss ure that is FDG avid and suspicious for malignancy. For instance, a 1.2 cm pleural nodule has a SUV max of 3.2. 2. There is a 1.3 cm FDG avid (SUV max 4 .6) right lower lobe nodule suspicious for a metastasis. 3. Left perihilar adenopathy with a shor t axis diameter of 4 cm is FDG avid (SUV max 16.2). The adenopathy extends into the adjacent mediastinum and is confluent with FDG avid (SUV max 13.9) aortopulmon lele window and left lower paratracheal a denopathy. In addition, there are enlarged and FDG avid preaortic lymph nodes. For instance, a preaortic lymph node with a short axis diameter of 3 cm (image 41) has a SUV max of 15.5. There is also FDG avid upper left superior mediastinal adenopathy that extends into the left infraclavicular-supraclavicular region and into the lower aspect of the neck. Within t he left supraclavicular region adenopath y has a short axis diameter of 3.5 cm and a SUV max of 14.8. Adjacent to this adenopathy there is a separate 1 cm lymph node that is FDG avid (image 99, SUV max 1 2.1). There are also FDG avid (SUV max u p to 9.7) right supraclavicular lymph nodes (image 86, 99) the largest with a short axis diameter 1.1 cm. 4. FDG uptake in the liver and spleen is physiologic. There is a nodule adjacent to the spleen consistent with a splenule. 5. The adrenals are normal. 6. There are no FDG avid osseous metasta ses. 7. The aorta is atherosclerotic and ther e is coronary artery calcification. 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 Indication: To determine initial treatme nt strategy. Staging. Comparison: None. Technique: Following intravenous admin istration of 8.3 mCi F-18 fluorodeoxyglucose (FDG), a CT attenuation corrected PET scan was obtained from the vertex to the thighs. Dedicated imaging was performed of the head and neck. Findings: 1. There is a 1.5 cm FDG avid (SUV max 6 .9) nodule in the left upper lobe consistent with a primary lung malignancy. There is extension of soft tissue from the nodule in a bronchovascular distribution to the left perihilar region that is FDG avid (SUV m ax 7) and consistent with malignancy. The nodule abuts the pleura in the major fissure and there is focal nodularity of the adjacent pleura in the fissure that is FDG avid and suspicious for malignancy. For insta nce, a 1.2 cm pleural nodule has a SUV max of 3.2. 2. There is a 1.3 cm FDG avid (SUV max 4 .6) right lower lobe nodule suspicious for a metastasis. 3. Left perihilar adenopathy with a shor t axis diameter of 4 cm is FDG avid (SUV max 16.2). The adenopathy extends into the adjacent mediastinum and is confluent with FDG avid (SUV max 13.9) aortopulmonary window and left lower paratracheal adenopathy. In a ddition, there are enlarged and FDG avid preaortic lymph nodes. For instance, a preaortic lymph node with a short axis diameter of 3 cm (image 41) has a SUV max of 15.5. There is also FDG avid upper left superior medias tinal adenopathy that extends into the left infraclavicular-supraclavicular region and into the lower aspect of the neck. Within the left supraclavicular region adenopathy has a short axis diameter of 3.5 cm and a SUV max of 14.8. Adjacent to this adenopathy there is a separate 1 cm lymph node that is FDG avid (image 99, SUV max 12.1). There are also FDG avid (SUV max up to 9.7) right supraclavicular lymph nodes (image 86, 99) the largest w ith a short axis diameter 1.1 cm. 4. FDG uptake in the liver and spleen is physiologic. There is a nodule adjacent to the spleen consistent with a splenule. 5. The adrenals are normal. 6. There are no FDG avid osseous metasta ses. 7. The aorta is atherosclerotic and ther e is coronary artery calcification. IMPRESSION: There is a left upper lobe nodule consis tent with a primary malignancy and there is extension of the malignancy in a bronchovascular distribution to the left perihilar region. There is also extension of the malignancy to involve the adjacent pleura in the left major fissure. There are intrathoracic and extrathoracic reg metastases. There is a right lung nodule consistent with a metastasis. There are no distant-extrathoracic systemic metastases. Performing Organization Address City/State/ZIP Code Phon e Number [id number] (ABNORMAL) POC Glucose Screen (03/05/2021 1:29 PM BAR GAUGER AND LUBRICATOR TENDER) POC Glucose 112 (H) 70 - 99 mg/dL POC [facility] Comment: Capillary blood samples, e.g . obtained by fingerstick, may have inaccurate results in patients with decreased peripheral blood flow. Method description: All resu lts are measured using Electrochemistry test methodology. The glucose in the sample mixes with the reagents on the test strip. The reaction produces an electric current. The amount of current produced is proportional to the glucose concentration in the blood. PO Sample Type Venous POC [facility], [address], [place] [address]; Repossessor: Shayy Antunez MD Specimen Blood Performing Organization Address City/State/ZIP Code Phon e Number POC [facility] COVID-19 (HELADIO-CoV-2) PCR Asymptomatic (03/03/2021 12:14 PM BAR GAUGER AND LUBRICATOR TENDER) [facility] COVID19 SARS Pre-Out of OR [facility] Indication Procedure [facility] COVID19 SARS Result Not Detected Not Detected [facility] COVID19 SARS SARS-CoV-2 NOT Detected. [facility] Reference Range: Not Detected Methodology: The Herrera Real Time SARS-CoV-2 assay is a qualitative real-time reverse vegetable worker polymerase chain reaction (school librarian-PCR) test to detect RNA from SARS-CoV-2 in nasal, nasopharyngeal and oropharyngeal swabs from patients with signs and symptoms of infection who ar e suspected of COVID-19 by their health care provider. The Herrera RealTime SARS-CoV-2 performed on the Leotus000 System is a dual target assay with primers and probes for the RdRp and N genes. Results must be interpreted within the context of all relevant clinical and laboratory findings, and epidemiological risk factors. Positive results are indicative of the presence of SARS-CoV-2 RNA; clinical correlation with patient history and other diagnostic information is ne cessary to determine patient infection status. Positive results do not rule out bacterial infection or co-infection with other viruses. Negative results do not preclude SARS- CoV-2 infection and should not be used as the sole basis for patient management decisions. The Herrera RealTime SARS-CoV -2 assay is for in vitro diagnostic use under FDA Emergency Use Authorization only. Testing is limited to laboratories certified under the Clinical Laboratory Improvement Imelda ndments of 1988 (CLIA), 42U.S.C. 263a, to perform high complexity tests. The T est was performed by the CLIA-certified, high- complexity Molecular Diagnostics Laboratory (MDL) at [facility] under the Food and Drug Administration (FDA) s Emergency Use Authorization. Factsheet for patients: https://www.[facility].org/Abb ottFactSheetPatients Factsheet for healthcare pro viders: https://www.[facility].org/AbbottFactSheetHCP Test performed by: [facility] [address] [place] [address] Specimen Nasopharyngeal Swab Performing Organization Address City/State/ZIP Code Phon e Number [facility] Unless otherwise noted, [place] [address] CENTER all lab tests performed by: Division of Pathology and Laboratory Medicine [address] [place] OSI US Soft Tissue Mass (02/14/2021 2:30 AM BAR GAUGER AND LUBRICATOR TENDER)Only the most recent of2 resultswithin the time period is included. Specimen Narrative Systemgenerated, Documentation - 022 2:30 AM BAR GAUGER AND LUBRICATOR TENDER Study acquired at another institution. For comparison only. No [facility] originated interpretation requested or a vailable. Pathology Outside Interpretation (02/14/2021) Materials Accession#, Stained, Block, Unstained Collected Receiv ed [facility] Received A. [id number], 7 SS, 0 BLOCKS, 0 USS 02/14/2021 022 Diagnosis Outside ([id number], 7 SS): [facility] Electronically signed by Rachael roman Left neck mass, ultrasound-guided core needle biopsy ( A1, IHC x5) MD Gage on HIGH-GRADE NEUROENDOCRINE/ SMALL CELL CARCINOMA. (SEE COMMENT) 03/06/2021 at 10:01 AM Comment The submitted [facility] immunohistochemical stains show that neoplastic cells are immunoreactive for cytokeratin AE1/AE3 (perinuclear dot-like pattern), TTF-1, chromogranin (patchy), synaptophysin, CD56. These results support the above diagnosis. Biomarker Tumor: [id number], A1 [facility] Block(s) Disclaimer "Some tests reported here [facility] may have been developed and performance characteristics determined by [facility] Pathology and Laboratory Medicine. These tests have not been specifically cleared or approved by the U.S. Food and Drug Administration. If applicable, controls were reviewed and showed appropriate reactivity." Specimen Tissue Performing Organization Address City/State/ZIP Code Phon e Number [facility] [place] [address] [address] [facility] Insurance Payer Benefit Plan Subscriber ID Effective Phone Address Typ e / Group Dates MEDICARE MEDICARE PART [id number] 2016-Pres [phone] [facility] Medicare A AND B ent [id number] SOLUTIONS [address] [place] [address] [employer]UT[employer] OF M[employer]UAL OF [id number] 2019-Pres 3300 [employer] Med igap ELIM IRAMINERVA PARKS ent [place] [address] Care Teams Firesetter Relationship Specialty Start Date End Date Mel Avery PCP - External Referring 02/25/21 [address] [place] [address] MIKHAIL Newell - General Head and Neck Surgery 02/26/21 MD Jacqueline [address] [place] [id number] Perez Soto MD Physician Radiation Oncology 03/28/21 [address] [place] [address]
--- OUTSIDE RECORDS SUMMARY | 2021-05-15 10:37 | XMS REPORT | Continuity of Care Document ---
:1950 Author Organization [facility] t Address [address] [place] [address] Dr. Cross [address] [place] [id number] Care Team Providers Name Role Phone [phone] Primary Care Physician Unavailable SYSTEM, NOT IN Attending Clinician Unavailable CHARLES Attending Clinician Unavailable Charles HAGAN Attending Clinician Rogers Sanchez APN Attending Clinician Rogers SANCHEZ Attending Clinician Unavailable Prashanth HAGAN Attending Clinician PRASHANTH Attending Clinician Unavailable Humble CHAVEZ Attending Clinician Laly Barragan MD Attending Clinician LALY BARRAGAN Attending Clinician Unavailable Rudy Moreno Attending Clinician Aki Benson Attending Clinician Taras MANZANARES Attending Clinician Unavailable Tish Horton NP Attending Clinician TISH HORTON Attending Clinician Unavailable Alexandr HAGAN Attending Clinician ALEXANDR Attending Clinician Unavailable Shameka SPAULDING Attending Clinician SHAMEKA Attending Clinician Unavailable Pam HAGAN Attending Clinician PAM Attending Clinician Unavailable Son Cota MD Attending Clinician Lee Nunes MD Attending Clinician Reg RN Attending Clinician Unavailable Payers Payer Name Policy Type Policy Number Effective Date Expiration Date Samara brown MEDICARE PART A [id number] 2016 AND B 00:00:00 JENNIFER [id number] 2019 00:00:00 Problems Condition Condition Condition Status Onset Resolution Last Treating Co mments Source Name Details Category Date Date Treatment Clinician Date Hypertensi Hypertensi Disease Active 2021-0 M D on on 03-05 Anderso 00:00: n 00 Dyslipidem Dyslipidem Disease Active 0 M D ia ia 03-05 Anderso 00:00: n 00 Mass of Mass of Disease Active neck neck 03-05 Anderso 00:00: n 00 Small cell Small cell Disease Active M D carcinoma carcinoma 03-04 Alejandro rso 00:00: n 00 Allergies, Adverse Reactions, Alerts This patient has no known allergies or adverse reactions. Family History Family Member Diagnosis Comments Start Date Stop Date Source Natural father Melanoma MD Mari n Maternal grandfather Lung cancer MD Young Natural mother Colon cancer MD Haq son Paternal grandmother Colon cancer MD Young Natural sister Breast cancer MD Alejandro king Social History Social Habit Start Date Stop Date Quantity Comments Source History of tobacco Cigarette Smoker MD Young use Exposure to Not sure MD Young SARS-CoV-2 (event) Alcohol intake 2021-03-12 2021-03-12 Current drinker of MD Young 00:00:00 00:00:00 alcohol (finding) Cigarettes smoked 2021-03-05 2021-03-05 MD Alejandro king current (pack per 00:00:00 00:00:00 day) - Reported Cigarette 2021-03-05 2021-03-05 MD Young pack-years 00:00:00 00:00:00 Tobacco use and 2021-03-05 2021-03-05 Smokeless tobacco MD Young exposure 00:00:00 00:00:00 non-user Sex [birth year] F MD Mercedes on 00:00:00 00:00:00 Smoking Status Start Date Stop Date Source Smokes tobacco daily 2021-03-05 00:00:00 MD Alejandro king Medications Ordered Filled Start Stop Current Ordering Indication Dosage Frequency Signature Comments Components Source Medication Medication Date Date Medication? Clinician (SIG) Name Name atorzariatati Yes 20mg Take 20 mg MD n (LIPITOR) 04-29 by mouth Alejandro rso 20 mg 09:33: daily. n tablet 35 promethazin Yes 5mL Take 5 mL M D e-dextromet 04-29 by mouth 4 An derso horphan 09:33: (four) n (PROMETHAZI 30 times a NE-DM) day as 6.25-15 needed for mg/5 mL cough. syrup famotidine Yes 20mg Take 20 mg M D (Pepcid) 20 04-29 by mouth Alejandro rso mg tablet 09:33: as needed. n 23 esomeprazol Yes 1{capsu Take 1 M D e (NexIUM) 04-29 le} capsule by And erso 20 MG 09:33: mouth as n capsule 15 needed. promethazin 2021- No 5mL Take 5 mL MD e-codeine 04-24 by mouth Severino so (PHENERGAN 19:44: 00:00 every 4 n with 25 :00 (four) CODEINE) hours as 6.25-10 needed for mg/5 mL cough. syrup dexamethaso Yes Small cell Take 1 MD ne 1-17 carcinoma tablet (4 Severino so (DECADRON) 00:00: mg) by n 4 mg tablet 00 mouth twice a day for 2 doses on Day 4. ondansetron 2022- Yes Small cell 8mg Take 1 MD (Zofran) 8 1-17 01-18 carcinoma tablet (8 Anderso mg tablet 00:00: 05:59 mg) by n 00 :00 mouth every 8 (eight) hours as needed for nausea or vomiting. promethazin 2021- No TAKE 5ML M D e-dextromet 03-06 BY MOUTH And erso horphan 00:00: 00:00 EVERY 4 TO n (PROMETHAZI 00 :00 6 HOURS NE-DM) NEEDED FOR 6.25-15 COUGH mg/5 mL syrup lisinopril 2020-03 Yes 10mg Take 10 mg M D (PRINIVIL,Z 2-18 by mouth Alejandro rso ESTRIL) 10 00:00: daily. n mg tablet 00 Immunizations Ordered Immunization Filled Immunization Date Status Commen ts Source Name Name Christian SARS-CoV-2 2020-06-10 Completed MD And erson Vaccination 00:00:00 Christian SARS-CoV-2 2020-05-13 Completed MD And erson Vaccination 00:00:00 Vital Signs Vital Name Observation Time Observation Value Comments Source Systolic blood pressure 2021-05-01 18:57:39 139 mm[Hg] MD Young Diastolic blood pressure 2021-05-01 18:57:39 75 mm[Hg] MD Young Heart rate 2021-05-01 18:57:39 75 /min MD Haq son Body temperature 2021-05-01 18:57:39 36.61 Karoline MD Rogers moreno Respiratory rate 2021-05-01 18:57:39 18 /min MD Rogers moreno Oxygen saturation in 2021-05-01 18:57:39 98 /min MD Young Arterial blood by Pulse oximetry Body weight 2021-05-01 18:56:00 59.9 kg MD Haq son BMI 2021-05-01 18:56:00 24.93 kg/m2 MD Haq son Body height 2021-04-29 15:23:00 155 cm MD Severino berg Procedures Procedure Date / Time Performed Performing Clinician [facility] e MRI BRAIN W WO CONTRAST 2021-04-29 17:19:00 Berkley Sanchez MD COMPLETE BLOOD COUNT W/ 2021-04-29 14:19:00 Berkley Sanchez MD DIFFERENTIAL COMPREHENSIVE METABOLIC PANEL 2021-04-29 14:19:00 Chrystal Sanchez MD PHOSPHORUS LEVEL 2021-04-29 14:19:00 Berkley Sanchez MD on MAGNESIUM LEVEL 2021-04-29 14:19:00 Berkley Sanchez MD THYROID STIMULATING HORMONE 2021-04-29 14:19:00 Berkley Sanchez MD FREE THYROXINE 2021-04-29 14:19:00 Berkley Sanchez MD Results CBC 2021-04-29 14:19:00 Berkley Sanchez MD MANUAL DIFFERENTIAL 2021-04-29 14:19:00 Berkley Sanchez MD And erson GLUCOSE LEVEL 2021-04-29 14:19:00 Berkley Sanchez MD BLOOD UREA NITROGEN 2021-04-29 14:19:00 Berkley Sanchez MD And erson ELECTROLYTE PANEL 2021-04-29 14:19:00 Berkley Sanchez MD Severino son SERUM CREATININE 2021-04-29 14:19:00 Berkley Sanchez MD Daren on .GLOMERULAR FILTRATION RATE 2021-04-29 14:19:00 Berkley Sanchez MD CALCIUM LEVEL TOTAL 2021-04-29 14:19:00 Berkley Sanchez MD And erson ALBUMIN LEVEL 2021-04-29 14:19:00 Berkley Sanchez MD ALKALINE PHOSPHATASE 2021-04-29 14:19:00 [facility]AN[facility] AMINOTRANSFERASE 2021-04-29 14:19:00 Berkley Sanchez ASPARTATE AMINOTRANSFERASE 2021-04-29 14:19:00 Berkley Sanchez MD TOTAL PROTEIN 2021-04-29 14:19:00 Berkley Sanchez MD FRACTIONATED BILIRUBIN 2021-04-29 14:19:00 Berkley Sanchez MD PETCT SUBSEQUENT TREATMENT 2021-04-28 17:24:38 Berkley Sanchez MD STRATEGY COMPLETE BLOOD COUNT W/ 2021-04-08 13:31:00 Berkley Sanchez MD DIFFERENTIAL COMPREHENSIVE METABOLIC PANEL 2021-04-08 13:31:00 Chrystal Sanchez MD PHOSPHORUS LEVEL 2021-04-08 13:31:00 Berkley Sanchez MD Daren on MAGNESIUM LEVEL 2021-04-08 13:31:00 Berkley Sanchez MD Results CBC 2021-04-08 13:31:00 Berkley Sanchez MD MANUAL DIFFERENTIAL 2021-04-08 13:31:00 Berkley Sanchez MD And erson GLUCOSE LEVEL 2021-04-08 13:31:00 Berkley Sanchez MD BLOOD UREA NITROGEN 2021-04-08 13:31:00 Berkley Sanchez MD And erson ELECTROLYTE PANEL 2021-04-08 13:31:00 Berkley Sanchez MD Severino son SERUM CREATININE 2021-04-08 13:31:00 Berkley Sanchez MD Daren on .GLOMERULAR FILTRATION RATE 2021-04-08 13:31:00 Berkley Sanchez MD CALCIUM LEVEL TOTAL 2021-04-08 13:31:00 Berkley Sanchez MD And erson ALBUMIN LEVEL 2021-04-08 13:31:00 Berkley Sanchez MD ALKALINE PHOSPHATASE 2021-04-08 13:31:00 [facility] ALANINE AMINOTRANSFERASE 2021-04-08 13:31:00 Berkley Sanchez ASPARTATE AMINOTRANSFERASE 2021-04-08 13:31:00 Berkley Sanchez MD TOTAL PROTEIN 2021-04-08 13:31:00 Berkley Sanchez MD FRACTIONATED BILIRUBIN 2021-04-08 13:31:00 Berkley Sanchez MD ECHOCARDIOGRAM 2D COMPLETE W 2021-03-28 18:49:29 Berkley Sanchez MD CONTRAST EKG, 12-LEAD (SCHEDULED) 2021-03-28 00:00:00 Berkley Sanchez COMPLETE BLOOD COUNT W/ 2021-03-18 13:31:00 Inocencia Alford MD nderson DIFFERENTIAL COMPREHENSIVE METABOLIC PANEL 2021-03-18 13:31:00 Inocencia Alford MD PHOSPHORUS LEVEL 2021-03-18 13:31:00 Inocencia Alford MD MAGNESIUM LEVEL 2021-03-18 13:31:00 Inocencia Alford MD THYROID STIMULATING HORMONE 2021-03-18 13:31:00 Inocencia Alford MD FREE THYROXINE 2021-03-18 13:31:00 Inocencia Alford MD Results CBC 2021-03-18 13:31:00 Inocencia Alford MD MANUAL DIFFERENTIAL 2021-03-18 13:31:00 Inocencia Alford MD Severinochaitanya berg GLUCOSE LEVEL 2021-03-18 13:31:00 Inocencia Alford MD BLOOD UREA NITROGEN 2021-03-18 13:31:00 Inocencia Alford MD Severino son ELECTROLYTE PANEL 2021-03-18 13:31:00 Inocencia Alford MD SERUM CREATININE 2021-03-18 13:31:00 Inocencia Alford MD .GLOMERULAR FILTRATION RATE 2021-03-18 13:31:00 Inocencia Alford MD CALCIUM LEVEL TOTAL 2021-03-18 13:31:00 Inocencia Alford MD Severino son ALBUMIN LEVEL 2021-03-18 13:31:00 Inocencia Alford MD ALKALINE PHOSPHATASE 2021-03-18 13:31:00 Inocencia Alford MD rssree ALANINE AMINOTRANSFERASE 2021-03-18 13:31:00 Inocencia Alford MD ASPARTATE AMINOTRANSFERASE 2021-03-18 13:31:00 Inocencia Alford TOTAL PROTEIN 2021-03-18 13:31:00 Inocencia Alford MD FRACTIONATED BILIRUBIN 2021-03-18 13:31:00 Inocencia Alford MDson COMPREHENSIVE METABOLIC PANEL 2021-03-11 20:03:00 Inocencia Alford MD COMPLETE BLOOD COUNT W/ 2021-03-11 20:03:00 Inocencia Alford MD nderson DIFFERENTIAL GLUCOSE LEVEL 2021-03-11 20:03:00 Inocencia Alford MD BLOOD UREA NITROGEN 2021-03-11 20:03:00 Inocencia Alford MD Severino son ELECTROLYTE PANEL 2021-03-11 20:03:00 Inocencia Alford MD SERUM CREATININE 2021-03-11 20:03:00 Inocencia Alford MD .GLOMERULAR FILTRATION RATE 2021-03-11 20:03:00 Inocencia Alford MD CALCIUM LEVEL TOTAL 2021-03-11 20:03:00 Inocencia Alford MD Severino son ALBUMIN LEVEL 2021-03-11 20:03:00 Inocencia Alford MD ALKALINE PHOSPHATASE 2021-03-11 20:03:00 Inocencia Alford MD Alejandro rson ALANINE AMINOTRANSFERASE 2021-03-11 20:03:00 VoInocencia jay MD ASPARTATE AMINOTRANSFERASE 2021-03-11 20:03:00 Inocencia Alford TOTAL PROTEIN 2021-03-11 20:03:00 Inocencia Alford MD FRACTIONATED BILIRUBIN 2021-03-11 20:03:00 Inocencia Alford MD Results CBC 2021-03-11 20:03:00 Inocencia Alford MD MANUAL DIFFERENTIAL 2021-03-11 20:03:00 Inocencia Alford MD Severino son MRI BRAIN W WO CONTRAST 2021-03-11 14:56:55 OLaly Pennington MD PETCT INITIAL TREATMENT 2021-03-05 20:53:27 Namrata Myles MD nderson STRATEGY POC GLUCOSE SCREEN 2021-03-05 19:29:00 Namrata Myles MD on COVID-19 (SARS-COV-2) PCR 2021-03-03 18:14:00 Talon Orozco MD ASYMPTOMATIC OSI US SOFT TISSUE MASS 2021-02-14 08:30:00 Aurora Soto MD PATHOLOGY OUTSIDE 2021-02-14 00:00:00 Kwaku Nunes MD INTERPRETATION OSI US SOFT TISSUE MASS 2021-02-11 08:29:00 Aurora Soto MD Plan of Care Planned Activity Planned Date Details Comments Source Future Scheduled Test 2020-07-08 00:00:00 COVID-19 Vaccination (3 MD Young - Moderna risk 4-dose series) [code = COVID-19 Vaccination (3 - Moderna risk 4-dose series)] Encounters Start End Encounter Admission Attending Care Care Encounter Source Date/Time Date/Time Type Type Clinicians Facility Department ID 2021-04-02 Outpatient SYSTEM, SUGAR WOOTEN [id number] 10:02:21 PROVIDER Daren amaro 2021-02-26 Outpatient SYSTEMSUGAR MDA [id number] 14:33:19 INDIO amaro 2021-05-02 2021-05-02 Outpatient KRISTIN SOTO MDA MDA [id number] 09:30:00 23:59:00 AURORA amaro 2021-05-01 2021-05-01 Outpatient KRISTIN SANCHEZ MDA MDA [id number] 12:34:00 16:29:50 BERKLEY Haq so n 2021-04-30 2021-04-30 Outpatient KRISTIN SANCHEZ, MDA MDA [id number] 12:25:33 17:10:30 BERKLEY Haq so n 2021-04-29 2021-04-29 Outpatient EL SANCHEZ, MDA MDA [id number] 12:48:12 17:18:54 BERKLEY Haq so n 2021-04-29 2021-04-29 Outpatient EL PRASHANTH, MDA MDA [id number] 11:55:54 12:47:27 INOCENCIA kay n 2021-04-29 2021-04-29 Outpatient KRISTIN SANCHEZ, MDA MDA [id number] 09:14:53 09:14:53 BERKLEY Haq so n 2021-04-29 2021-04-29 Outpatient KRISTIN SANCHEZ, MDA MDA [id number] 08:10:52 08:13:50 BERKLEY Haq so n 2021-04-28 2021-04-28 Outpatient SANCHEZ, MDA MDA [id number] 09:36:46 09:36:46 BERKLEY Haq so n 2021-04-10 2021-04-10 Outpatient SANCHEZ, MDA MDA [id number] 11:31:49 15:37:14 BERKLEY stahl n 2021-04-09 2021-04-09 Outpatient KRISTIN SNACHEZ, MDA MDA [id number] 11:06:24 11:06:24 BERKLEY Haq so n 2021-04-08 2021-04-08 Outpatient SANCHEZ, MDA MDA [id number] 07:02:04 23:59:00 BERKLEY Haq so n 2021-04-08 2021-04-08 Outpatient SANCHEZ, MDA MDA [id number] 10:29:42 10:29:42 BERKLEYSILVIA Haq so n 2021-04-08 2021-04-08 Outpatient EL BARRAGAN, BLADIMIR MDA MDA [id number] 08:09:48 08:56:21 Daren amaro 2021-03-28 2021-03-28 Outpatient EL SANCHEZ, MDA MDA [id number] 11:07:41 23:59:00 BERKLEYSILVIA Haq so n 2021-03-28 2021-03-28 Outpatient KRISTIN SANCHEZ, MDA MDA [id number] MD 11:00:00 11:06:00 BERKLEY Haq so n 2021-03-28 2021-03-28 Outpatient KRISTIN SOTO, MDA MDA [id number] MD 09:44:44 10:59:00 AURORA amaro 2021-03-20 2021-03-20 Outpatient KRISTIN ALFORD, MDA MDA [id number] MD 10:28:53 15:20:18 INOCENCIA amaro 2021-03-19 2021-03-19 Outpatient KRISTIN ALFORD, MDA MDA [id number] MD 09:21:50 14:13:18 INOCENCIA amaro 2021-03-18 2021-03-18 Outpatient KRISTIN ALFORD, MDA MDA [id number] MD 08:10:50 15:27:54 INOCENCIA amaro 2021-03-18 2021-03-18 Outpatient KRISTIN ALFORD, MDA MDA [id number] MD 08:42:06 08:42:06 INOCENCIA amaro 2021-03-18 2021-03-18 Outpatient KRISTIN ALFORD, MDA MDA [id number] MD 07:30:35 07:31:29 INOCENCIA amaro 2021-03-14 2021-03-14 Outpatient KRISTIN SOTO, MDA MDA [id number] MD 01:28:28 01:28:28 AURORA amaro 2021-03-14 2021-03-14 Outpatient KRISTIN SOTO, MDA MDA [id number] MD 01:28:25 01:28:25 AURORA amaro 2021-03-11 2021-03-11 Outpatient KRISTIN ALFORD, MDA MDA [id number] 12:45:00 23:59:00 INOCENCIA amaro 2021-03-11 2021-03-11 Outpatient KRISTIN HORTON, MDA MDA [id number] MD 10:31:22 12:40:53 AYE amaro 2021-03-11 2021-03-11 Outpatient KRISTIN KayINNA, MDA MDA [id number] MD 07:20:48 07:20:48 LALY amaro 2021-03-07 2021-03-07 Outpatient EL NAMRATA MYLES MDA MDA [id number] 14:46:57 23:59:00 Daren o n 2021-03-05 2021-03-05 Outpatient KRISTIN OROZCO MDA [facility] [id number] 08:20:28 23:59:00 ANASTASIOS And erso n 2021-03-05 2021-03-05 Outpatient [facility]AVIER [facility] [id number] 10:43:34 10:43:34 Daren o n 2021-03-05 2021-03-05 Outpatient KRISTIN OROZCO MDA [facility] [id number] 08:15:46 08:15:46 ANASTASIOS And erso n 2021-03-03 2021-03-03 Outpatient KRISTIN OROZCO [facility] [id number] 11:36:23 12:15:05 ANASTASIOS And erso n Results Test Description Test Time Test Comments Results Result Comments Source Pathology Outside Interpretation 2021-03-06 16:01:55 Test Item Value Reference Range Interpretation Comme nts Materials h1iiwAEyJIPsaLHuYgOsGPOpVNFcd4taEDMzzNOtXhUkVfGeZnPwEropmETpLQFnXgQai0ysn246nKNt g1jeBOPsVkR2aUDxAUBfiOPnU846ZUBcAKdrs4lag5FgDNDkwEXpf9C4HFJMtptggDy4kKotL76rr1S2 ChffE7wvZTPfDQZbH3KuRF8gXWVsWqn0NED8UWR7GNE [facility] cSQHiX6IrOL3sNXKgyHXaGKt6u0hglMasMXYbNZN6o0dsKRcgnzYnUM3iua7epVt3o1xiajNpKSXeFFG zcYDNDCBpG0SdmZnhKd7zmRv3wHlcEgnmFOR7Gfc5HQ1ftn30nvf3hMrkJHNxdhsaOgD8MNneVDNyepk qMLe5SGrlHSWwcJesJLcaMOFcgzzmUUpwUMAjtYX0KJ (test code TwkMOtQ1KvQQNcSBrnASKhpvw8ToOfZl3puOLxxAmgANass9yos1fvzZRtKyz9RUKtHoEwRbajWVzfp9 Wfv3goHAKpcz9oAGR5jQGvpZimh3P4oLGdCDHsxOIlgnIvJGUmch36wCTotDAvbKRyaq1lxjEgtYNvlX SxHYA6aNOhnyTdIXPqfZLtRUNgHJ2afQJdYSAtpS7xy = 9973) indNBTvCnIncccsCCVbxNygzcKuLt5srJphVOZ2ERjsA7ugzL6cBiF3AOntB3btuO8rRFd9ZBdhyWW2M SNfyV0oSH0apkuuq0lnDaPeXB2exxnmr8daOgXzXV8mqki6f4jwDGS1CUswSXCvRmV0lkL3ETDhiMOwM HHspUkxBZmls999XQA6XvNgAVVet4TtG9PooOcdY98e rCbxN54xNKVnfBctdM4ruUgocY4uNtRuQgBxYPk0ra66OEb6zsjwkTdrVYv5ogQcWCRuVPG2XOFlgRHj FNAmH4z0mxHqPFRwYIB7YVQqlTTlOTEgS4o9amMjTQZ6AYh8xdYjKOLgkJQkpQRfZIPxTnLnzSDjQVWh EzVbCSShpZPsdGJfmWIzaT3rbRruBKAoyAEtmY2nYLW 8EMPcfrwgXqXooEWoJMTgaVYhgs43WGHczlWmdYYngMwztITaLIZ8HVFkXOKoXCDzRPP3PRRhTkVmlpD kMBpzhAQyHHCwBGMlEPOkDNYdEDG4SWHbWxGlfxAuNEbzhBNxYCUtVPFyLEHsYLViUFP3HNMbSmMbonU lMYcemWVrDMQuJFWjICZfRHYmJMD1YZMeBfHvjbMwCL atpOMuCPFuNVdapNKkHPM0Q8ecxWAiQBJrFLysaXCbJUUhG4cmiQOgWGwaBCJbdXTnHbxsYQLnkCOfSa TqG9ixDLYmVuSrQ4FxnNl9QKSoUXOljaLpuCGpcEqocMWaVYT0HFXvGQViXGVpSOR8ZNOqAeGxfzApZD rqtDRwZJYhLHIrKTZsYEVfFBV2DYHvLjJlrzDhQMgab IZtQTRkAJQkNGTqHQPeHOI6CUMyWfDrelYxVOgvfBSnGNFzZQDkMQJpHNUpICL5SKHiVsMjzaXiGDtxb HZtRGIxIXkcbPMyJBM1U8gvzAMfYOGmQWfqmJJbGJAiF0ftzUBaGNjwLVNssCYcXomoIBHozAImGkVxZ 0ldVGKsTxHqD4AeeHg3UtIcBDCszoCwhJFedTgxlHGq NQD9IBRaKFLpRRWyTNM1JWHqRkIpbzTxVNlzrGGjNXYfPUGaBNZmBBGlRJC5KTIyUkAibwAbWZmzuRSr LEHuNZZmURUmIZDdWDO3XNBeOqLcyzVqVSiubJXaYFDlOITyURKuKBXqQJS0BYPhFrPhdyVhHZcqxBSk SNLfFFtmaRHoACP2H5lxdPDrQIEjHNmjxRXlCSBcS6k ujGWpIAxdCMHsgJSlQfemPZTpjQLaSyIxT7tmYTNaMfXtO3JroOe6GrPcHUHilxFkkT38Cyqde0EsWZG fOAY8AVvhTGomtVgdwICpfxlzQNvlhkLzFNfgpgjpJKFxFCivH0cdUjLoDTJkzVxyETwwg3XxPFMdTYS yZojgffPeHFWkFFAfJODgrK1pQwmuX1DtwX6rJHbzLh mjJ6ppCNVng7IxbN2dEFhzfMDvsezxUAtlbsXbBHjwdizlAWXlAYyiN7yeAaFkEDBmiSpcGVwqi0JeIH SoMFFfJvmaxdWpGKt5jfRmDBEvtZgqrSNhWDauuoYnaEoat9UvoeKopTpwTGUbTTj6kgTwtohvbUl2yE SnrJixOWLgaEzpyZ4jPyQrQfQhWAycjQFopfwwFIrnk yDlKTdjytreUDVvTYljD6diZgWoFHYfkQuzFHiej5GnCOKjQKOoLhyucqCsRFRgI49vfCDqqKEtLRTzP RpfTIXbNVKmAtKffJXuTeEaWjVzpAqavJcuZSufCeImGJWdDRftQ1htOfFnK6PsUMUaItXniMAcR9haY 6WlaYfsBCTzRHltfYXxWNCdiPEdKDB2oRSunpMhaBAp kDUiBUYjTOwrIYK9pFJeydawzVRdjntmTTiinyS1PQCuNCkrZBZyEZLfFyIxiTGbQnLuGiOsnCjmaNqz DRrhZgJiBLFnWWdcN5uhYfGwH7LqNACkPtJfBbEXKTKloJVxLOegcJZvormhYZurpuRtCBwkajhnRRQd QIbfA2mvFlJkTLVxvDvnCCuiq8LiWQCsGDWeGbspwqB kLXb4oiVqKOAtbPtjiR00Ynntmh04DDRai6waNEYzQ3OggUCtPHKuiFRcHOxuPKgwcGJjTIAeHlddFQA bjZBeKJOfMIqejAIcFJCfQtGvHCJaqBPlMJLvZXRyyTLjSVY4X0s8ygOqPYRsLRs8onRsJGZdFxGrhDV rDSF5FFt9YotptwV6hUOiG4b9IxqiyfVcTPxwhNPhzm 08QHWglhTgxPIjkCbdtSLpPLE2VUXzMQHiSKQkRHD5GEHbRfRvceAwFWwzeIAdGROcVXDhKRUzJJSpSX D5KELjGePobmHwNJfifSSwBSDgHOEyAEZtLUXpZOY2OFDaFbYyqgWhSTxreQFcRKJsQDNuWSWgAQKuCR A0VFPaQiCybpMkLXehgBVdJZBxJSqurSCeRAR9V5syn IFlGSGwMYyfdSIdWOYdA2umsUQhYAyxOMEibRIjGjeyRFAchRByGuNmJ6alCRHhIiMlN0EcvBd9IMJtT AAvlpNuvTFlaTqajYVsNPA1FBNsWMFaYYUlCTL3PULpThDdklLgZLrfoNStTOClRVIkMLQcAEEiLDS8S MVuQoPspaTxRAbqpNHcONAaVDVoLLMaFERoTDS6MARz ViRaggEuMKgnfVZjWNRbLVUgVJQcQGInBRM7YHDhTmLykcPkSQqrsQTiZXIbZTmlqWBuFLE0D2urdBNx JUTsUVjqcXHtIRVlP3bprXYdZDvrRDFgeDGgNchpRTAgyKFqJvTyP8zrZCByCwWpQ9TbeDp1PeHzLOQb oqBepGKdeJexpCYiEUG5UZNdPMBfJXTdVNM7JLZwQqS engCaFBdsqPHwLDHcYFPpHFIdATQqOCC2JZLuOzWnnaKeNIvjzMNzUOXvXXCpDMQgQUPkVQW9LGMtYlY yfjKbEPpweLRpAXMfYJPqJOMrCSRzEJO0FDHwGwCcnaTtZCqfwTIdXCAcGMgxpDJgJFT3F4acvBVlCMK dVJpanGHoZUDqC1ueyKMlOSuqEAYkqLFqKsdaXJPewY AhIkCwS7wbJNKzOqDvB5PsqOp6CbNcXNDevsIevX22Hvpzl2SuZAGjRDY6IXanDEhrbKttuBSbzgufPO nhyeW7KVJvVCfvUTCaOALqPgBxdMLfGeXwWpQumOlulGwwZDlmUpJpBBKsWEetV7nbYzHjS7FeOQKxGv FsKC6bG05iRrWmGWOxNmivRIxqB7FiNAZgMhlGR2nDO TGhPGYTU4qvoWLwyvuvLQplhnDcWLogkjvgRYXmBMljU4jaBwRxHJIllYkaAEuen6XlGVLdIGOjGcwwa jIwDSy1zvXePBDtyVspcRXjOYfijyGagIxza8TcehPlhOraLAVgBKFhBAHxXOsnDHDtKREuVrZroCvye P3kCkCwFeYiLNrqKR6iESDsJ3gbmXBtGEMjWCSfZ5vh DnVvmP2sbVjgSNacGhGhRcYySXRaNe1tSn2cCMQtTDQqEMalNLOzPZXtBcKeiIAfIjIoRrXhxOmuhVaf ZJdaJuOaZDVeFXtfJ6ggOhXdT7AsJKKwOiSgeQDdR3lgN6PgpRfqFUAdLTvtqLFvWXWrhZLeMWK8pEYi sjYveYdflQnkdB9zZkUuRtKcCIaccOKnhmyjRQwnwhU yMQmweybxDKKzNMdmC2urWsYdWGNdhFtbPFkna7YoYTEcEWHwOhptzaXcEKRxTM1gKAJcVTKqYExhOOP jGKIeFdBisKRlNeHhOwVulFdexTusDGjjTnNfPHSuGFhrV0loZyTiI7ZhVCJsOeNoqKXeX6aaQ6FskDc wwqZaxPwgr3fhrJPiWRecv7LtopMxqOekACAzDQLiQP JlUDdyTNMaPJZeVlIvtGtiaC4nKzBdAyZfRVzsFL7hOIRtJ4rmfFOyBRPwFUOrI4acQxDdjG1csPctZU xmczIwXHBhcn0= Diagnosis b8lcpYZvCPUsuQZ0EeZlTNHtf3jct5LcrSYrdPNxPBpyaMNkymRdgh45vHH2tP16RJ3vSBPiWyM4GBHs hzD9Khi1AFRkZAAbuRXuH549d5euy4anueLqbDN7LCRjCAHbH7OcBO2dOFTakWMwF22enOZlACH5WIIo BVFypDVvCWQxPCX5KUMayENxW3hcUFNmVB4ezblyKAn (test code vKUekNWMmnNZ2OUJdtMKoU3LnGFBqPYvoZAOrthj8ArEgPq2woZQbjEhpSZfaCYJfRBJvWJvuDOHaOlE lS3FyYX12eKTbOPAwVJXTGKCvCOQtVSR9PFR8SNUFJLyvkIMgIBZvHSkeRQTrkFo5EnPjeRxiCiNcZHo sAfXhkxYnvgChMJHmFCS5jMUpXJFasL4kXPu4nQNzEC = 34) Pxx4YmLO0zPGIhMSFfuF5ya7zaYHEcZKZRARZeoXUtXUQgyruugPHpBcTdCwrdFpZmQVqgkuBuNuTbZV yJUI8ECoEOGHRHJGZXC9QHYA0OEvmRGM2rI23NIKshX9ARBZPYLZKPUX2JPJWuVIcTOHRfM58AZORABL lccGFyXHBhcmRccGFyfQ== Comment a7lknAEiXCXwlYS8JeMkVNWut5hyu0ZceAZjuYGwZXuyeWUmsyIenc93xCE4mV37XJ4gUZGzHlG7ZUYp ltP2Erb8VJDmQNOkaYOmU897t4xgm7dxieIflSE1sSdlYPBnemeuNfF1FLthJEYftinyEQh1PXnxGWMd jOW0EHLrqZGzE5ZdCFLlTJ6cdbd4WAQ3DTqkFCPsIeE (test code 5TARasODuNTFkwZblJQjvc424VJE5PaXrIDXbzkNtiJanzJ8lTzPvAMJVvTWjd0LjrJl5yKPmABmhmIK bk0wqh6ZhG1ajrNvmGRtqy4HupO7uUOGhn3edwZhlmIFzNV7eoKEatDoaVZPqfMimUAMjECOwiB67ay0 yVKZqpDy9JDJhu9TdN5u5h2passG3hK0aENNyX6DWVl = 9835) QkuLRcfX33Z9gwZMSiUB13SGfmy3UffRG8dTXrqvonKMCDXq5hOZZwzQIfbP4rmdYkrH2nVCKggMRxkY jdNQQ1tnRpwC1kwBtmqW5pDTZDUPKeLIBIpYBlJYUfWPX8zVXdCYE7lRVcrlLfqRbbXZIgg2OmVIOxRB xfh4Nwwp6yNPNrxb4= Biomarker z8kuaCZqTIVndOL9WwQaVTLka5cig9MpgEBvoYVnDLbnpJEurgRvze94iKU1yO20FL2tICUgLaZ3LISx vsW5Kzu0ZKQaMAEyhBEpN039w1vum5uvrnXjfTL2JXVfELYzZ3DoKD5aKIVhpOEsK32fsIMxXSM7TUMg VGRuaYUgAXPfJOD6XZSfoKVhQ1mrDNKhFH0hnahhPAu Block(s) wLBckQTXzyZT5CGLlpWUdM0MgCMHqIUxlEEZsqeu1SvXdEr2svKFfxIqaNGqyBTXiPSWmMVraPSBnMjR gLHOoz6D1DQuwMdLbK81bZyRfZIIkSuvnHYBvYAVydy6= (test code = 9841) Disclaimer e7tjuZRxFHVwrZUbMxUdJESgRYDdh8szKEIlfXJeUkUzFzMfTdVnHlmkuREdOAGhRqGcg3otp827uJDr t7vnGFZrTuD2jRCfYSJdjNHtW409DNXfOAnrp7anz7EiJDXgjROnf2G2RNMAxiwpdIy8zNnhF61wr7G0 YrprA1bzGRVyWBKoH1UgJW6dIXBoVcv9GZP6FKQ2FHL (test code jVTIdA2VaSR5fNEPbhUKiYLd2b9zosBhySJTqWGV2i4krXEmhxyCvRD6pap5nxLo5y6chdcUgUXCeXWL nnNNCIBZkT7QzeIstAf2kpTd8dHjeNujrAXE2Bgh0IA6yzo76efn4bMzsHHAmvabdKpT8ICbeYUOovcx aTWo2HQmjNKYgnIJ4MKCimKKcD4UuTVMeEH0torj6SS = 9844) H6ODsjSWWyFrL3MFWksXYeLOZitYfcPPcle181IER0KoUhQU0yT0Wog3K3wF5mcPNuINZykKAdXlRuVB Aint1ztLPvKIwxq1UsUSR7xxN1rZPftATuCVZlWH78Dkniw1UuZsnmYEH7MIQqtlGdz5Ehv9suXcIuzo TgW6zlI0NyDVDcLCBkMJVtDpJdgjDoz5Yil4QlcQJev Os5m1xxLOSeEMNgbWtbu5scTOI4IVBpG0T6mYMac6wyUUcvYUDdpUN6pmA9GDBvpLLsP4UuuQ3fMQAdG O1kcsi3o2jvABG4OZqtNDPxQxH0ayL6RTVhkPSwWDSimKaaJNdme653BXM5FbGbSTZqz4PjF3HzyTekG 92dfOqoQ60sLJDlnEogwA7hjYbgbX4qEfWnYnAcQIpy oMiarIQkyynjKTosuwR5UJsrxqfiRTXaTXkeB7mdUvFfSKSmaPffLYroa8VnMHUeYGNzHvghvmY8HAJP t09wWSLai6WoKUCoeY2qyJGnKHhixtObmJV3EVyqgjWbPaEudbAfWTGahJ0bQFRiHF7iVNTqvhWctc6o isDfBLDdCSIsM0WjkejnbEgizdCaLWIzhu8qitWxHBW 2NAIDFZ4PKICgEBUlh39qGHVqsAzxoF7kcQFidpIvBGVfv7EmzO7wcXMXWBLvT0fwMQ5cZYguh3OvmIH fdTZrbTK4ATTmk3MiXyGqeoViiODqgOWtJ5ZjjCliW9pmRYVrQRPcaiOukDQuw7CzZSTwhWK7gAXnKA0 HGlTEd27yBDXoOZOGzuAaBSKzdXzbrSX1ltD0cD5cHd HDDsJckQBdrJKpMugrEDXhc085hp0gjyF6MICvLJIkuqorj9PbOEIpPEKnjL31RLRuWQSsae2ytneweX MpheVvE5Jypdo5rK3fBFBiSEylXYMbSSUpPbDfmXWtVaYsSrZqrFlzfZouLUzaGfPaYJCwAMskS9gyDp FcZnMyMlxwYXJ9 [facility] Glucose [id number] 19:40:18 Test Item Value Reference Range Interpretation Comments POC Glucose (test 112 mg/dL 70-99 H Capillary blood code = 67833-7) samples, e.g . obtained by fingerstick, ma y have inaccurate resu lts in patients with decreased perip heral blood flow. Met hod description: Al l results are sharri sured using Electrochemistr y test methodology. Th e glucose in the sample mixes with the reagents on the test strip. The reac tion produces an hellen ctric current. The am ount of current prod uced is proportional to the glucose concentration i n the blood. PO Sample Type (test Venous code = 9554) Performing Lab (test MDA Main Main Ca mpus code = 45372) [facility], [address] [place] [address] [place] [address]; Drop Clipper: Barbara Antunez MD Lab Interpretation Abnormal (test code = 92967-6) [facility] COVID-19 (HELADIO-CoV-2) PCR [id number] 12:52:48 Test Item Value Reference Interpretation Comments Range COVID19 SARS Pre-Out of OR Procedure Indication (test code = 03765) COVID19 SARS Result Not Detected Not Detected (test code = 91213-8) COVID19 SARS SARS-CoV-2 NOT Detected. Interpretation (test Reference Range: Not code = [id number]) Detected Methodology: The Herrera RealTime SARS-CoV-2 assay is a qualitative real-time reverse line servicer polymerase chain reaction (cafeteria operator-PCR) test to detect RNA from SARS-CoV-2 in nasal, nasopharyngeal and oropharyngeal swabs from patients with signs and symptoms of infection who are suspected of COVID-19 by their health care provider. The Herrera RealTime SARS-CoV-2 performed on the [employer]000 System is a dual target assay with primers and probes for the RdRp and N genes. Results must be interpreted within the context of all relevant clinical and laboratory findings, and epidemiological risk factors. Positive results are indicative of the presence of SARS-CoV-2 RNA; clinical correlation with patient history and other diagnostic information is necessary to determine patient infection status. Positive results do not rule out bacterial infection or co-infection with other viruses. Negative results do not preclude SARS-CoV-2 infection and should not be used as the sole basis for patient management decisions. The Herrera RealTime SARS-CoV-2 assay is for in vitro diagnostic use under FDA Emergency Use Authorization only. Testing is limited to laboratories certified under the Clinical Laboratory Improvement Amendments of 1988 (CLIA), 42U.S.C. 263a, to perform high complexity tests. The Test was performed by the CLIA-certified, high-complexity Molecular Diagnostics Laboratory ([facility]) at [facility] under the Food and Drug Administration (FDA) s Emergency Use Authorization. Factsheet for patients: https://www.[facility].org/ AbbottFactSheetPatientsFact sheet for healthcare providers: https://www.[facility].org/ AbbottFactSheetHCP Test performed by:The [facility] [id number] [place] [address] MD Young
--- NOTE | 2021-05-15 12:52 | RAD REPORT ---
EXAM DESCRIPTION: US - UPPER EXTREMITY VENOUS UNILATE - 05/15/2021 12:44 pm CLINICAL HISTORY: Left arm pain and swelling COMPARISON: None. TECHNIQUE: Real-time sonographic evaluation of the left upper extremity deep venous systems was perf ormed. FINDINGS: Normal compressibility, flow augmentation, phasic flow and spontaneous flow are identified in the left upper extremity deep venous system. No intraluminal filling defects seen. Internal jugul ar and subclavian veins are normal as well. IMPRESSION: No DVT in the left upper extremity.
--- NOTE | 2021-05-15 13:04 | EDPHYS ---
Physician Documentation [facility] Name: Lucille Parekh Age: 70 yrs Sex: Female : 1950 Arrival Date: 05/15/2021 Time: 10:36 Bed 16 Private MD: ED Physician Ronak Ybarra HPI: 05/15 10:56 This 70 yrs old Female presents to ER via Ambulatory with complaints of Arm Problem - ms3 Left forearm swollen, recent chemotherapy. 10:56 The patient or guardian complains of pain, swelling, tenderness. The complaints affect ms3 the dorsal aspect of left forearm. Context: The problem was sustained at a While getting chemotherapy on 04/30/2021. Onset: The symptoms/episode began/occurred 2 week(s) ago. Treatment prior to arrival includes: icing the affected extremity, Ibuprofen. Modifying factors: The symptoms are alleviated by nothing. the symptoms are aggravated by nothing. Associated signs and symptoms: Pertinent positives: swelling, warmth, Pertinent negatives: fever. Severity of symptoms: At their worst the symptoms were moderate, in the emergency department the symptoms are unchanged. 70-year-old female with past medical history of lung cancer presents for left forearm swelling, erythema, tenderness status post chemotherapy infiltration on April 30, 2021. Patient states current pain is an 8/10 and aching. Patient denies alleviating factors. Patient states the pain is worse with palpation of the area. Patient denies fevers, chills, hand numbness.. Historical: - Allergies: 10:42 Codeine; tw2 10:42 Sulfa (Sulfonamide Antibiotics); tw2 - Home Meds: 10:42 Dexamethasone Oral [Active]; etoposide oral [Active]; tw2 - PMHx: 10:42 chemo; lung CA; tw2 - Immunization history:: Adult Immunizations. - Social history:: Smoking status: . ROS: 10:56 Constitutional: Negative for fever, and chills. Neck: Negative for injury, pain, and ms3 swelling, Cardiovascular: Negative for chest pain, and palpitations. Respiratory: Negative for shortness of breath, cough, wheezing, and pleuritic chest pain, Abdomen/GI: Negative for abdominal pain, nausea, vomiting, diarrhea, and constipation, MS/Extremity: Negative for injury and deformity. 10:56 Skin: Positive for erythema, swelling. 10:56 All other systems are negative. Exam: 10:56 Constitutional: This is a well developed, well nourished patient who is awake, alert, ms3 and in no acute distress. Chest/axilla: Normal chest wall appearance and motion. Nontender with no deformity. Cardiovascular: Regular rate and rhythm with a normal S1 and S2. No gallops, murmurs, or rubs. Normal PMI, no JVD. No pulse deficits. Respiratory: Lungs have equal breath sounds bilaterally, clear to auscultation and percussion. No rales, rhonchi or wheezes noted. No increased work of breathing, no retractions or nasal flaring. Abdomen/GI: Soft, non-tender, with normal bowel sounds. No distension or tympany. No guarding or rebound. No evidence of tenderness throughout. Psych: Awake, alert, with orientation to person, place and time. Behavior, mood, and affect are within normal limits. 10:56 Skin: Left lateral forearm 4x6cm induration with overlying erythema and TTP. Vital Signs: 10:40 BP 154 / 73; Pulse 99; Resp 17; Temp 98.8(TE); Pulse Ox 96% on R/A; tw2 11:00 BP 160 / 83; Pulse 95; Resp 20 S; Pulse Ox 98% ; Pain 10/10; jg9 12:50 BP 138 / 90; Pulse 97; Resp 18 S; Pulse Ox 97% on R/A; Pain 8/10; jg9 MDM: 10:51 Patient medically screened. ms3 10:56 Differential diagnosis: Cellulitis vs Skin necrosis vs Skin reaction to IV Chemo ms3 infiltration. 11:53 ED course: Discussed case with Dr Benton. Patient will need venous doppler of arm. ms3 Discharge with pain medication, abx. Patient can apply warm compress to the area.. 05/15 12:03 Order name: UPPER EXTREMITY VENOUS UNILATE; Complete Time: 12:55 EDMS Administered Medications: No medications were administered Disposition Summary: 05/15/21 13:03 Discharge Ordered Location: Home ms3 Condition: Stable ms3 Diagnosis - Left forearm cellulitis ms3 - Left forearm pain ms3 - IV Infiltration ms3 Followup: ms3 - With: Private Physician - When: 2 - 3 days - Reason: Discharge Instructions: - Discharge Summary Sheet ms3 - Cellulitis, Adult, [id number] ms3 Forms: - Medication Reconciliation Form ms3 - Thank You Letter ms3 - Antibiotic Education ms3 - Prescription Opioid Use ms3 Prescriptions: - Cephalexin 500 mg Oral Capsule - take 1 capsule by ORAL route every 6 hours for 10 days; 40 capsule; Refills: 0, ms3 Product Selection Permitted - Tylenol-Codeine #3 300 mg-30 mg Oral - take 1 tablet by ORAL route every 4-6 hours for 3 days; 18 tablet; Refills: 0, ms3 Product Selection Permitted Signatures: Dispatcher [employer] Marielena Forman, RN RN tw2 Ronak Ybarra DO DO ms3 Corrections: (The following items were deleted from the chart) 12:03 11:55 Extremity Venous Uni [email or web address] ordered. [facility]
--- NOTE | 2021-05-15 13:04 | ER ---
Nurse's Notes [facility] Name: Lucille Parekh Age: 70 yrs Sex: Female : 1950 Arrival Date: 05/15/2021 Time: 10:36 Bed 16 Private MD: Diagnosis: Left forearm cellulitis;Left forearm pain;IV Infiltration Presentation: 05/15 10:40 Chief complaint: Patient states: i had chemo 2 weeks ago and my IV was hurting me tw2 really bad. on my LEFT FA. it has bothered me since but has gotten red. Coronavirus screen: At this time, the client does not indicate any symptoms associated with coronavirus-19. Ebola Screen: Patient denies travel to an Ebola-affected area in the 21 days before illness onset. Initial Sepsis Screen: Does the patient meet any 2 criteria? HR > 90 bpm. No. Patient's initial sepsis screen is negative. Does the patient have a suspected source of infection? No. Patient's initial sepsis screen is negative. Risk Assessment: Do you want to hurt yourself or someone else? Patient reports no desire to harm self or others. Onset of symptoms was May 15, 2021. 10:40 Method Of Arrival: Ambulatory tw2 10:40 Acuity: CHOLO 4 tw2 10:[address] Ybarra in triage room assessment pt. tw2 Triage Assessment: 10:45 General: Appears in no apparent distress. slender, Behavior is cooperative, appropriate tw2 for age, anxious. Pain: Complains of pain in left arm. 10:45 Derm: redness and swelling noted to LEFT forearm. pt reports hotness. has been taking tw2 Tylenol and alternating with cold compresses waiting for her MD to return her call and tell her what she should do for the pain. pt reports pain is keeping her up. Historical: - Allergies: 10:42 Codeine; tw2 10:42 Sulfa (Sulfonamide Antibiotics); tw2 - Home Meds: 10:42 Dexamethasone Oral [Active]; etoposide oral [Active]; tw2 - PMHx: 10:42 chemo; lung CA; tw2 - Immunization history:: Adult Immunizations. - Social history:: Smoking status: . Screenin:45 Abuse screen: Denies threats or abuse. Nutritional screening: No deficits noted. tw2 Tuberculosis screening: No symptoms or risk factors identified. Fall Risk None identified. Assessment: 10:46 Reassessment: #[phone] Dr. Inocencia Benton. tw2 10:47 Reassessment: pt reports pain is keeping her up, painful and hot to the touch. tw2 12:00 Reassessment: No changes from previously documented assessment. Pain: Complains of pain jg9 in left arm and dorsal aspect of left forearm Pain currently is 10 out of 10 on a pain scale. 12:18 Reassessment: Patient in US. jg9 Vital Signs: 10:40 BP 154 / 73; Pulse 99; Resp 17; Temp 98.8(TE); Pulse Ox 96% on R/A; tw2 11:00 BP 160 / 83; Pulse 95; Resp 20 S; Pulse Ox 98% ; Pain 10/10; jg9 12:50 BP 138 / 90; Pulse 97; Resp 18 S; Pulse Ox 97% on R/A; Pain 8/10; jg9 ED Course: 10:36 Patient arrived in ED. kz 10:37 Ronak Ybarra DO is Attending Physician. ms3 10:42 Triage completed. tw2 10:45 Arm band placed on. tw2 10:50 Bed in low position. Call light in reach. Adult w/ patient. tw2 10:54 Berkley Kellogg, RN is Primary Nurse. jg9 10:[address] Benton office, at [phone]. bd 11:[address] Benton office again, will be paged again. bd 11:49 provider responded. bd 12:18 Pt visited by . jg9 12:44 UPPER EXTREMITY VENOUS UNILATE In Process Unspecified. EDMS 13:00 No provider procedures requiring assistance completed. jg9 13:01 Patient did not have IV access during this emergency room visit. jg9 Administered Medications: No medications were administered Outcome: 13:00 Discharged to home ambulatory. jg9 13:00 Condition: stable 13:00 Discharge instructions given to patient, Instructed on discharge instructions, follow up and referral plans. Demonstrated understanding of instructions, follow-up care. 13:03 Discharge ordered by MD. ms3 13:21 Patient left the ED. jg9 Signatures: Dispatcher [employer] EDMS Anjelica Lorenzo Tara RN RN tw2 Ronak Ybarra DO DO ms3 Berkley Kellogg RN RN jg9 Yuliana Cuello kz Corrections: (The following items were deleted from the chart) 10:55 10:45 General: Appears in no apparent distress. slender, Behavior is calm, cooperative, tw2 appropriate for age, tw2
[2021-05-15 13:26] VITALS: TEMP 98.8
[2021-05-15 13:29] VITALS: BP 138/90; O2SAT 97
== END 2021-05-15 13:21 | disposition home or self-care (01) ==
LOC: ER 10:32
DX: L03.114 Cellulitis of left upper limb (principal); T80.1XXA Vascular complications following infusion, transfusion and therapeutic injection, initial encounter; C34.90 Malignant neoplasm of unspecified part of unspecified bronchus or lung; Z88.2 Allergy status to sulfonamides; Z88.5 Allergy status to narcotic agent
CPT/HCPCS: 93971; 99283

== ENCOUNTER 2022-08-30 10:16 | Emergency (ER) | payer OTHER ==
--- NOTE | 2022-08-30 10:23 | EDPHYS ---
Physician Documentation [facility] Name: Lucille Parekh Age: 71 yrs Sex: Female : 1950 Arrival Date: 08/30/2022 Time: 10:16 Bed IW1 Private MD: ED Physician Chi Knapp HPI: 08/30 10:45 This 71 yrs old Female presents to ER via Ambulatory with complaints of Allergic kb Reaction. 10:45 The patient presents with rash. Onset: The symptoms/episode began/occurred 2 day(s) kb ago. Associated signs and symptoms: Pertinent positives: rash, Pertinent negatives: Altered mental status fever, shortness of breath, swelling, Syncope. Possible causes: chemical trial through MD Young for small cell carcinoma. At home the patient or guardian has treated the symptoms with Benadryl. Severity of symptoms: At their worst the symptoms were moderate in the emergency department the symptoms are unchanged. The patient has not experienced similar symptoms in the past. The patient has not recently seen a physician. Historical: - Allergies: 10:40 Codeine; ss 10:40 Sulfa (Sulfonamide Antibiotics); ss - PMHx: 10:40 CHEMO; Lung CA; ss ROS: 10:43 Constitutional: Negative for fever, chills, and weight loss. kb 10:43 Skin: Positive for rash, diffusely. 10:43 All other systems are negative. Exam: 10:43 Constitutional: This is a well developed, well nourished patient who is awake, alert, kb and in no acute distress. Head/Face: Normocephalic, atraumatic. ENT: Moist Mucous membranes Cardiovascular: Regular rate and rhythm with a normal S1 and S2. No gallops, murmurs, or rubs. No pulse deficits. Respiratory: Respirations even and unlabored. No increased work of breathing. Talking in full sentences MS/ Extremity: Pulses equal, no cyanosis. Neurovascular intact. Full, normal range of motion. Neuro: Awake and alert, GCS 15, oriented to person, place, time, and situation. Moves all extremities. Normal gait. 10:43 Skin: rash a moderate rash is noted, rash can be described as erythematous, papular, and is diffusely located. Vital Signs: 10:38 BP 108 / 67; Pulse 96; Resp 16; Pulse Ox 97% on R/A; Weight 58.51 kg; Height 5 ft. 0 ss in. ; 10:38 Body Mass Index 25.19 (58.51 kg, 152.4 cm) ss MDM: 10:18 Patient medically screened. kb 10:44 Differential diagnosis: anaphylaxis, non IgE mediated drug reaction urticaria. Data kb reviewed: vital signs, nurses notes. Historians other than the Patient: Daughter/Son: daughter. Counseling: I had a detailed discussion with the patient and/or guardian regarding: the historical points, exam findings, and any diagnostic results supporting the discharge/admit diagnosis, the need for outpatient follow up, a coal handling supervisor, a family practitioner, to return to the emergency department if symptoms worsen or persist or if there are any questions or concerns that arise at home. Administered Medications: 10:30 Drug: Dexamethasone IM 10 mg Route: IM; Site: right gluteus; ss 10:46 Follow up: Response: Medication administered at discharge. ss 10:30 Drug: Famotidine PO 20 mg Route: PO; ss 10:46 Follow up: Response: Medication administered at discharge. Disposition: 12:01 Co-signature as Attending Physician, Chi Knapp MD I agree with the assessment and kdr plan of care. Disposition Summary: 08/30/22 10:23 Discharge Ordered Location: Home kb Condition: Stable kb Diagnosis - Rash and other nonspecific skin eruption kb Followup: kb - With: Emergency Department - When: As needed - Reason: Worsening of condition Followup: kb - With: Private Physician - When: 2 - 3 days - Reason: Recheck today's complaints, Continuance of care, Re-evaluation by your physician Discharge Instructions: - Discharge Summary Sheet kb - Rash, Adult, [id number] kb Forms: - Medication Reconciliation Form kb - Thank You Letter kb - Antibiotic Education kb - Prescription Opioid Use kb - [email or web address] kb Prescriptions: - Pepcid 20 mg Oral Tablet - take 1 tablet by ORAL route every 12 hours for 5 days; 10 tablet; Refills: 0, kb Product Selection Permitted - Prednisone 20 mg Oral Tablet - take 1 tablet by ORAL route once daily for 5 days; 5 tablet; Refills: 0, kb Product Selection Permitted Signatures: Bettye Nunes, TAPPING MACHINE OPERATOR AUTOMATIC-C DANIEL-Ckb Rittger, Chi, MD MD kdr Upton, Patricia, RN RN ss Corrections: (The following items were deleted from the chart) 10:44 10:43 Skin: rash a moderate rash is noted, and is diffusely located, kb kb
--- OUTSIDE RECORDS SUMMARY | 2022-08-30 10:23 | XMS REPORT | Clinical Summary ---
:1950 Author Organization [facility] Address [address] [place] [address] Care Team Providers Name Role Phone Mel Avery Unavailable Jacqueline Newell MD Primary Care Provider [phone] Perez Soto MD Unavailable Inocencia Alford MD Primary Care Provider Allergies Active Allergy Reactions Severity Noted Date Comments Codeine Itching, Rash Low 03/05/2021 Sulfa (Sulfonamide Antibiotics) Itching, Rash Low 03/05/19 22 Medications Medication Sig Dispensed Refills Start Date End Date Status lisinopril Take 1 tablet (10 0 02/15/2021 Active (PRINIVIL,ZESTRIL) 10 mg) by mouth daily. mg tablet atorvastatin Take 1 tablet (20 0 Active (LIPITOR) 20 mg mg) by mouth daily. tablet famotidine (PEPCID) Take 1 tablet (20 0 Active 20 mg tablet mg) by mouth as needed. esomeprazole (NexIUM) Take 1 capsule (20 0 Active 20 MG capsule mg) by mouth as needed. cetirizine (ZyrTEC) Take 1 tablet (10 0 Active 10 mg tablet mg) by mouth as needed. loratadine (CLARITIN) Take 1 tablet (10 0 Active 10 mg tablet mg) by mouth daily as needed for allergies. polyethylene glycol Take 17 g by mouth 0 Active (MIRALAX) 17 g packet daily. dextromethorphan-guai Take by mouth every 0 Active FENesin 8 (eight) hours as (ROBITUSSIN-DM) 10 needed for cough or mg-100 mg/5 mL liquid congestion. lidocaine-prilocaine Apply to 30 g 0 06/09/2021 Active (EMLA) 2.5-2.5% Port-A-Cath area 30 creamIndications: to 45 minutes prior Small cell carcinoma to port access as directed (topical anesthetic use to the anterior chest only). Ventolin HFA 90 Inhale 1-2 puffs by 6.7 g 0 07/29/2021 Active mcg/actuation mouth every 6 (six) inhalerIndications: hours as needed for Small cell carcinoma wheezing or shortness of breath. ondansetron (Zofran) Take 1 tablet (8 30 tablet 5 09/22/2021 Active 8 mg mg) by mouth every tabletIndications: 8 (eight) hours as Small cell carcinoma needed for nausea or vomiting. Additional Information Patient not taking. Reason: No longer taking, Informant: Self, Reported on 08/10/2022 promethazine-dextromethorphan Take 5 mL by 118 mL 3 022 Active (PROMETHAZINE-DM) 6.25-15 mg/5 mL mouth 4 (four) syrupIndications: Secondary malignant times a day as neoplasm of brain needed for cough. rosuvastatin (CRESTOR) 10 mg tablet 0 04/2015 Active dexamethasone (DECADRON) 6 mg tablet TAKE 1 TABLET 0 09/02/2021 Active BY MOUTH EVERY DAY FOR 5 DAYS prochlorperazine (Compazine) 10 mg Take 1 tablet 16 tablet 0 0 05/11/2022 Active tabletIndications: Small cell (10 mg) by carcinoma mouth every 6 (six) hours as needed for nausea or vomiting. Additional Information Patient not taking. Reason: No longer taking, Informant: Self, Reported on 08/24/2022 traMADol (Ultram) 50 mg Take 1 tablet (50 30 tablet 0 08/25/19 23 Active tabletIndications: mg) by mouth Secondary malignant every 8 (eight) neoplasm of brain hours as needed for moderate pain. promethazine-dextrometh Take 5 mL by 0 Discontinued orphan mouth (four) /2021 (Reor emily) (PROMETHAZINE-DM) times a day as 6.25-15 mg/5 mL syrup needed for cough. dexamethasone Take 1 tablet (4 8 tablet 0 03/17/202109/22 Discontinued (DECADRON) 4 mg mg) by mouth tabletIndications: twice a day for 2 Small cell carcinoma doses on Day 4. ondansetron (Zofran) 8 Take 1 tablet (8 30 tablet 5 03/17/202109/22 Discontinued mg tabletIndications: mg) by mouth /2021 Small cell carcinoma every 8 (eight) hours as needed for nausea or vomiting. cephalexin (KEFLEX) 500 TAKE 1 CAPSULE BY 0 05/16/1910/27 Discontinued mg capsule MOUTH EVERY (Stop Taking at HOURS FOR 10 DAYS Radha meneses) dexamethasone Take 1 tablet (4 12 tablet 5 09/22/202108/16 Discontinued (DECADRON) 4 mg mg) by mouth tabletIndications: twice daily. On Small cell carcinoma days 2 and 3 of each chemotherapy cycle. ciprofloxacin HCl Take 1 tablet 14 tablet 0 10/27/2021 09/05 (Cipro) 500 mg (500 mg) by mouth tabletIndications: twice daily for 7 Febrile neutropenia days. amoxicillin-clavulanate Take 1 tablet 7 tablet 0 10/27/2021 0 9/05 (Augmentin) 875 mg-125 (875 mg) by mouth /2021 mg per daily for 7 days. tabletIndications: Febrile neutropenia traMADol (Ultram) 50 mg Take 1 tablet (50 30 tablet 0 11/25/1906/22 Discontinued tabletIndications: mg) by mouth /2022 (Reorder) Secondary malignant every 8 (eight) neoplasm of brain hours as needed for moderate pain. prochlorperazine Take 1 tablet (10 16 tablet 0 12/15/2021 03 3 Discontinued (Compazine) 10 mg mg) by mouth /2022 (Reorder) tabletIndications: every 6 (six) Small cell carcinoma hours as needed for nausea or vomiting. traMADol (Ultram) 50 mg Take 1 tablet (50 30 tablet 0 06/23/1908/24 Discontinued tabletIndications: mg) by mouth (Reorder) Secondary malignant every 8 (eight) neoplasm of brain hours as needed for moderate pain. 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 Hypertension 03/05/2021 Dyslipidemia 03/05/2021 Mass of neck 03/05/2021 Small cell carcinoma 03/04/2021 Cancer Staging: Clinical: Unsigned Encounters Date Type Specialty Care Team Description 08/27/2022 Education Radiology Luis Enrique Huston MA 08/24/2022 Hospital Encounter Infusion Services Vo, Iris Sma ll cell Alida, PA-C carcinoma (Primary Yana Valdivia, RN Dx) 08/24/2022 Hospital Encounter Infusion Services Vo, Iris Sma ll cell Alida, PA-C carcinoma 08/24/2022 Follow-Up Thoracic Medicine Lizbeth Brasher Small ce ll carcinoma; Secondary malig nant neoplasm of brain 08/24/2022 Hospital Encounter Lab Iris Hernandez Small ce ll Alida, PA-C carcinoma 08/24/2022 Documentation Thoracic Medicine Edin Barlow 08/24/2022 Orders Only Thoracic Medicine Ramiro Prabhakar, PharmD 08/24/2022 Travel 08/21/2022 Orders Only Thoracic Medicine Jeramie Hernandeze Small ivone l Alida, PA-C carcinoma (Prim lele Dx) 08/16/2022 Emergency Emergency Medicine Edgar Patton, Small ce ll carcinoma (Primary Dx); Mass of neck; Hypertension 08/16/2022 Travel 08/12/2022 Orders Only Radiology Jayashree Murphy PA 08/10/2022 Hospital Encounter Infusion Services Vo, Iris Sma ll cell Alida, PA-C carcinoma 08/10/2022 Hospital Encounter Infusion Services Vo, Iris Sma ll cell Alida, PA-C carcinoma (Primary Sophie Barlow Dx) 08/10/2022 Follow-Up Thoracic Medicine Inocencia Alford Small c ell MD carcinoma 08/10/2022 Hospital Encounter Lab David Iris Small ce ll Alida, PA-C carcinoma 08/10/2022 Documentation Thoracic Medicine Edin Barlow 08/10/2022 Documentation Thoracic Medicine Edin Barlow 08/10/2022 Orders Only Thoracic Medicine Ramiro Prabhakar, PharmD 08/10/2022 Travel 08/07/2022 Documentation Genesis Ronquillo CRC 08/06/2022 Orders Only Gastrointestinal Isaiah, Medical Oncology Cindy, GLENNA 08/05/2022 Hospital Encounter Cardiology Iris Hernandez PA-C carcinoma 08/05/2022 Hospital Encounter Lab Iris Hernandez PA-C carcinoma 08/05/2022 Hospital Encounter Lab Vo, Iris Irwin PA-C carcinoma 08/05/2022 Orders Only Radiology Richard Tyler PA 08/05/2022 Telephone Radiology Patty Bush MA 08/05/2022 Travel 08/03/2022 Orders Only Thoracic Medicine Iris Hernandez PA-C carcinoma (Prim lele Dx) 07/31/2022 Telephone Sandra Ronquillo CRC (Spoke with patient she nee ds time to review the consent for APO LLO and requested a memo l back on ) 07/28/2022 Documentation Thoracic Medicine Edin Barlow 07/13/2022 Follow-Up Thoracic Medicine Inocencia Alford Small c ell MD carcinoma 07/13/2022 Hospital Encounter Lab Inocencia Alford Small cell MD carcinoma 07/13/2022 Orders Only Thoracic Medicine Jey Narayanan, PharmD 07/13/2022 Travel 07/10/2022 Ancillary Procedure Radiology David, Iris downing ell carcinoma; MICHAEL Irwin 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 07/10/2022 Travel 06/22/2022 Infusion Infusion Services Manuel Baker cell BRAD Roy carcinoma (Prim lele Dx) 06/22/2022 Telemedicine Thoracic Medicine Inocencia Alford Small c ell carcinoma (Primary Dx); Secondary brenda rankint neoplasm of brain; 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 06/22/2022 Orders Only Thoracic Medicine Erlinda Huston, carcinoma (Prim lele PharmD Dx) 06/22/2022 Travel 06/11/2022 Hospital Encounter Radiation Oncology Perez Soto S econaugie HAGAN malignant neopl asm of brain (Prima ry Dx) 06/09/2022 Ancillary Procedure Radiology Latonia Forte Second lele Alcaraz, SERVER SUPPORT TECHNICIAN malignant neopl asm of brain 06/09/2022 Travel 06/03/2022 Orders Only Thoracic Medicine Manuel Baker cell Manuela, SERVER SUPPORT TECHNICIAN carcinoma (Prim lele Dx) 06/01/2022 Infusion Infusion Services Manuel Baker cell Manuela, SERVER SUPPORT TECHNICIAN carcinoma (Prim lele Dx) 06/01/2022 Telemedicine Thoracic Medicine Manuel Baker cell Manuela, SERVER SUPPORT TECHNICIAN carcinoma (Prim lele Dx) 06/01/2022 Orders Only Thoracic Medicine Samuel, Small cell Manuela, SERVER SUPPORT TECHNICIAN carcinoma (Prim lele Dx) 06/01/2022 Travel 05/31/2022 Orders Only Thoracic Medicine Manuela Baker, SERVER SUPPORT TECHNICIAN 05/29/2022 Ancillary Procedure Radiology Manuel Baker ll carcinoma; Manuela, SERVER SUPPORT TECHNICIAN Malignant neopl asm of left main bronchus 05/29/2022 Travel 05/13/2022 Orders Only Head and Neck Medical Baker, Oncology Manuela, SERVER SUPPORT TECHNICIAN 05/12/2022 Orders Only Head and Neck Medical Baker, Oncology Amnuela, SERVER SUPPORT TECHNICIAN 05/12/2022 Orders Only Head and Neck Medical Samuel, Second lele malignant neoplasm of brain (Primary Dx); Oncology Manuela, SERVER SUPPORT TECHNICIAN Small cell carc inoma; Malignant neopl asm of left main bronchus 05/12/2022 Refill Thoracic Medicine Inocencia Alford Small c ell MD carcinoma 05/11/2022 Infusion Infusion Services Samuel Small cell Manuela, SERVER SUPPORT TECHNICIAN carcinoma (Prim lele Dx) 05/11/2022 Telemedicine Thoracic Medicine Inocencia Alford Small c ell MD carcinoma 05/11/2022 Orders Only Thoracic Medicine Ramiro Prabhakar, PharmD 05/11/2022 Travel 05/11/2022 Orders Only Thoracic Medicine Manuela Baker, SERVER SUPPORT TECHNICIAN 04/21/2022 Orders Only Thoracic Medicine Manuel Baker cell Manuela, SERVER SUPPORT TECHNICIAN carcinoma (Prim lele Dx) 04/20/2022 Infusion Infusion Services Manuel Baker cell Manuela, SERVER SUPPORT TECHNICIAN carcinoma (Primary Seven, Dx) Deandre Riggins RN 04/20/2022 Follow-Up Thoracic Medicine Inocencia Alford Small c ell MD carcinoma 04/20/2022 Hospital Encounter Lab Manuel Baker ivone l Manuela, SERVER SUPPORT TECHNICIAN carcinoma 04/20/2022 Orders Only Thoracic Medicine Shannon Wright, PharmD 04/20/2022 Orders Only Thoracic Medicine Baker, Manuela, SERVER SUPPORT TECHNICIAN 04/20/2022 Travel 04/19/2022 Orders Only Thoracic Medicine Baker, Manuela, SERVER SUPPORT TECHNICIAN 04/17/2022 Ancillary Procedure Radiology Manuel Baker ce ll carcinoma; Manuela, SERVER SUPPORT TECHNICIAN Malignant neopl asm of lower lobe, left bronchus or lung 04/17/2022 Travel 04/07/2022 Orders Only Thoracic Medicine Flora Bakeran, SERVER SUPPORT TECHNICIAN 04/06/2022 Telemedicine Thoracic Medicine Inocencia Alford Small c ell MD carcinoma Didi Addison, RN 04/06/2022 Orders Only Thoracic Medicine Baker, Small cell carcinoma (Primary Dx); Manuela SERVER SUPPORT TECHNICIAN Malignant neopl asm of lower lobe, left bronchus or lung 04/01/2022 Orders Only Thoracic Medicine Samuel Manuela, SERVER SUPPORT TECHNICIAN 03/30/2022 Infusion Infusion Services Baker, Small cell Manuela, SERVER SUPPORT TECHNICIAN carcinoma (Prim lele Dx) 03/30/2022 Telemedicine Thoracic Medicine Baker, Small cell Manuela, SERVER SUPPORT TECHNICIAN carcinoma (Prim lele Dx) 03/30/2022 Orders Only Thoracic Medicine Dawood Fraire MD 03/30/2022 Orders Only Thoracic Medicine Jey Narayanan, PharmD 03/30/2022 Orders Only Thoracic Medicine Inocencia Alford MD 03/30/2022 Orders Only Thoracic Medicine Baker, Small cell Manuela, SERVER SUPPORT TECHNICIAN carcinoma (Prim lele Dx) 03/30/2022 Travel 03/29/2022 Orders Only Thoracic Medicine Samuel Manuela, SERVER SUPPORT TECHNICIAN 03/26/2022 Orders Only Thoracic Medicine Baker Manuela, SERVER SUPPORT TECHNICIAN 03/25/2022 Orders Only Thoracic Medicine Baker, Small cell Manuela, SERVER SUPPORT TECHNICIAN carcinoma (Prim lele Dx) 03/25/2022 Orders Only Thoracic Medicine Baker, Small cell Manuela, SERVER SUPPORT TECHNICIAN carcinoma (Prim lele Dx) 03/25/2022 Orders Only Thoracic Medicine Baker, Small cell Manuela, SERVER SUPPORT TECHNICIAN carcinoma (Prim lele Dx) 03/24/2022 Orders Only Thoracic Medicine Samuel, Small cell Manuela, SERVER SUPPORT TECHNICIAN carcinoma (Prim llee Dx) 03/23/2022 Orders Only Thoracic Medicine Manuela Baker, SERVER SUPPORT TECHNICIAN 03/20/2022 Orders Only Thoracic Medicine Manuela Baker, SERVER SUPPORT TECHNICIAN 03/12/2022 Hospital Encounter Radiation Oncology Perez Soto S econdary MD malignant neopl asm of brain (Prima ry Dx) 03/11/2022 Ancillary Procedure Radiology Huma Kate, Second lele SERVER SUPPORT TECHNICIAN malignant neopl asm of brain 03/11/2022 Travel 02/25/2022 Infusion Infusion Services Samuel Small cell Manuela, BRAD carcinoma (Prim lele Dx) 02/25/2022 Travel 02/24/2022 Telemedicine Thoracic Medicine Inocencia Alford Small c ell MD carcinoma (Prim lele Dx) 02/24/2022 Ancillary Procedure Radiology Samuel Secondar y BRAD Roy malignant neopl asm of brain 02/24/2022 Orders Only Thoracic Medicine Jey Narayanan, PharmD 02/24/2022 Travel 02/06/2022 Telephone Radiation Oncology Manuela Farias RN 02/03/2022 Orders Only Thoracic Medicine Manuela Baker, SERVER SUPPORT TECHNICIAN 02/03/2022 Orders Only Thoracic Medicine Samuel, Manuel cell Manuela, SERVER SUPPORT TECHNICIAN carcinoma (Prim lele Dx) 02/03/2022 Orders Only Thoracic Medicine Samuel, Secondary Manuela, SERVER SUPPORT TECHNICIAN malignant neopl asm of brain (Prima ry Dx) 02/02/2022 Infusion Infusion Services Manuel Baker cell Manuela, SERVER SUPPORT TECHNICIAN carcinoma (Prim lele Dx) 02/02/2022 Telemedicine Thoracic Medicine Inocencia Alford Small c ell MD carcinoma 02/02/2022 Orders Only Thoracic Medicine Lance Greco, PharmD 02/02/2022 Orders Only Thoracic Medicine Samuel, Secondary malignant neoplasm of brain (Primary Dx); BRAD Roy Small cell carc inoma 02/02/2022 Travel 01/26/2022 Hospital Encounter Radiation Oncology Inocencia Alford MD 01/26/2022 Documentation Radiation Oncology Hadley Strange MD 01/26/2022 Travel 01/21/2022 Hospital Encounter Radiation Oncology Inocencia Alford MD 01/21/2022 Travel 01/20/2022 Hospital Encounter Radiation Oncology Inocencia Alford MD 01/20/2022 Hospital Encounter Radiation Oncology Sma olu Strange MD carcinoma (Prim lele Dx) 01/20/2022 Travel 01/19/2022 Hospital Encounter Radiation Oncology Inocencia Alford MD 01/19/2022 Telemedicine Thoracic Medicine Inocencia Alford Small c ell MD carcinoma (Prim lele Dx) 01/19/2022 Travel 01/18/2022 Hospital Encounter Radiation Oncology Inocencia Alford MD 01/18/2022 Travel 01/16/2022 Hospital Encounter Radiation Oncology Inocencia Alford MD 01/16/2022 Travel 01/15/2022 Hospital Encounter Radiation Inocencia Bonilla MD 01/15/2022 Travel 01/14/2022 Hospital Encounter Radiation Inocencia Bonilla MD 01/14/2022 Travel 01/13/2022 Hospital Encounter Radiation Oncology Inocencia Alford MD 01/13/2022 Hospital Encounter Radiation Oncology Sma olu Strange MD carcinoma (Prim lele Dx) 01/13/2022 Travel 01/12/2022 Hospital Encounter Radiation Inocencia Bonilla MD 01/12/2022 Travel 01/09/2022 Hospital Encounter Radiation Inocencia Bonilla MD 01/09/2022 Travel 01/08/2022 Hospital Encounter Radiation Inocencia Bonilla MD 01/08/2022 Travel 01/07/2022 Hospital Encounter Radiation Oncology Inocencia Alford MD 01/07/2022 Travel 01/07/2022 Orders Only Thoracic Medicine Manuela Baker APRN 01/07/2022 Orders Only Thoracic Medicine Manuel Baker APRN carcinoma (Prim lele Dx) 01/06/2022 Hospital Encounter Radiation Oncology Inocencia Alford MD 01/06/2022 Hospital Encounter Radiation Oncology Sma olu Strange MD carcinoma (Prim lele Dx) 01/06/2022 Travel 01/05/2022 Telemedicine Thoracic Inocencia Alfaro Small c ell MD carcinoma (Prim lele Dx) 01/05/2022 Hospital Encounter Radiation Oncology Inocencia Alford MD 01/05/2022 Travel 01/02/2022 Documentation Radiation Oncology Hadley Strange MD 12/29/2021 Hospital Encounter Radiation Oncology Inocencia Alford MD 12/26/2021 Hospital Encounter Radiation Oncology Sma Alexandr ll ana cristina Butcher MD carcinoma of kendy ng <Unspecified si de> 12/26/2021 Hospital Encounter Radiation Oncology Sma Alexandr ll ana cristina Butcher MD carcinoma of kendy ng <Unspecified si de> (Primary Dx) 12/26/2021 Clinical Support Covid Alexandr, Suspected C OVID-19 (Primary Dx); MD Hadley Small cell carcinoma of lung <Unspecifie d side> Awais Arguello, RN 12/26/2021 Documentation Radiation Oncology Hadley Strange MD 12/26/2021 Documentation Radiation Oncology Hadley Strange MD 12/26/2021 Travel 12/22/2021 Telephone Radiation Oncology Yesy Otto, RN 12/19/2021 Orders Only Thoracic Medicine Ramiro Prabhakar, PharmD 12/19/2021 Orders Only Thoracic Medicine Manuel Baker APRN carcinoma (Prim lele Dx) 12/18/2021 Orders Only Radiation Oncology Manuel Strange MD carcinoma of kendy ng <Unspecified si de> (Primary Dx) 12/18/2021 Refill Thoracic Medicine Inocencia Alford Small c ell MD carcinoma 12/17/2021 Refill Thoracic Medicine Inocencia Alford Small c ell MD carcinoma 12/16/2021 Refill Thoracic Medicine Inocencia Alford Small c ell MD carcinoma 12/15/2021 Infusion Infusion Services Manuel Baker, SERVER SUPPORT TECHNICIAN carcinoma (Prim lele Dx) 12/15/2021 Telemedicine Thoracic Medicine Inocenica Alford Small c ell MD carcinoma (Prim lele Dx) 12/15/2021 Orders Only Thoracic Medicine Manuel Baker, SERVER SUPPORT TECHNICIAN carcinoma (Prim lele Dx) 12/15/2021 Orders Only Thoracic Medicine Lance Greco, PharmD 12/15/2021 Travel 12/12/2021 Ancillary Procedure Radiology Samuel, Tumor in vasion BRAD Roy into bronchus 12/12/2021 Travel 12/09/2021 Orders Only Radiology Viviane Boykin MD 12/05/2021 Hospital Encounter Radiation Oncology Perez Soto S econdary MD malignant neopl asm of brain (Prima ry Dx) 12/05/2021 Travel 12/04/2021 Ancillary Procedure Radiology Cas Hicks y Cinda Tsang, SERVER SUPPORT TECHNICIAN malignant ne oplasm of brain 12/04/2021 Travel 11/25/2021 Orders Only Thoracic Medicine Manuela Baker, SERVER SUPPORT TECHNICIAN 11/24/2021 Infusion Infusion Services Inocencia Alford Small c ell MD carcinoma (Prim lele Dx) 11/24/2021 Telemedicine Thoracic Medicine Inocencia Alford Seconda ry malignant neoplasm of brain (Primary Dx); Small cell carc inoma; Small cell carc inoma, NOS of main bronchus <Unspecified> 11/24/2021 Orders Only Thoracic Medicine Ramiro Prabhakar, PharmD 11/24/2021 Travel 11/04/2021 Infusion Infusion Services Inocencia Alford Small c ell MD carcinoma (Primary Mo, Hugh, RN Dx) 11/04/2021 Telemedicine Thoracic Medicine Inocencia Alford Small c ell MD carcinoma (Prim lele Dx) 11/04/2021 Hospital Encounter Radiology Inoecncia Alford Second ary MD malignant neopl asm of brain 11/04/2021 Hospital Encounter Lab Inocencia Alford Small cell MD carcinoma 11/04/2021 Orders Only Thoracic Medicine Manuela Baker, SERVER SUPPORT TECHNICIAN 11/04/2021 Orders Only Thoracic Medicine Manuel Baker cell carcinoma (Primary Dx); BRAD Roy Tumor invasion into bronchus 11/04/2021 Orders Only Thoracic Medicine Manuel Baker cell carcinoma (Primary Dx); BRAD Roy Malignant neopl asm of anterior mediastinum ; Small cell carc inoma, NOS of main bronchus <Unspecified> 11/04/2021 Orders Only Thoracic Medicine Manuel Baker APRN carcinoma (Prim lele Dx) 11/04/2021 Orders Only Thoracic Medicine Lance Greco, PharmD 11/04/2021 Travel 10/28/2021 Documentation Radiation Oncology Perez Soto MD 10/27/2021 Telephone Radiation Oncology Deborah Dave, GLENNA 10/27/2021 Orders Only Thoracic Medicine Shannon Wright, PharmD 10/26/2021 Orders Only Thoracic Medicine Inocencia Alford Small c ell MD carcinoma (Prim lele Dx) 10/25/2021 Travel 10/24/2021 Hospital Encounter Neuro/Rehab Edita Bessie, Manuel ce ll carcinoma (Primary Dx); - Fever; 10/27/2021 Jennifer Lomax, Headache; Richard Morris MD Febrile neutropenia; Hallie Vega Dyslipidemia MD 10/24/2021 Hospital Encounter Radiation Oncology Inocencia Alford MD 10/24/2021 Documentation Radiation Oncology Perez Soto MD 10/24/2021 Documentation Radiation Oncology Perez Soto MD 10/24/2021 Documentation Radiation Oncology Perez Soto MD 10/24/2021 Documentation Radiation Oncology Perez Soto MD 10/24/2021 Nurse Triage Alejandra Helton PA 10/24/2021 Documentation Radiation Oncology Yunior Barlow 10/24/2021 Travel 10/23/2021 Ancillary Procedure Radiology Slime Hicks APRN malignant ne oplasm of brain 10/23/2021 Clinical Support Randy Hicks, Encounter f or observation for other suspected exposure to biological agent ruled out (Primary Dx); Cinda Tsang APRN Secondary malignant neoplasm of brain Evi Palacios RN 10/23/2021 Telephone Radiation Oncology Madhav Castellanos RN 10/23/2021 Travel 10/22/2021 Orders Only Radiation Oncology Perez Soto Seconda ry MD malignant neopl asm of brain (Prima ry Dx) 10/21/2021 Orders Only Radiation Oncology Yunior Barlow malignant neopl asm of brain (Prima ry Dx) 10/20/2021 Hospital Encounter Radiation Oncology Inocencia Alford MD 10/20/2021 Documentation Radiation Oncology Yunior Barlow 10/20/2021 Orders Only Radiology Carolina Severino APRN 10/20/2021 Orders Only Radiation Oncology Gretchen Hicks APRN malignant ne oplasm of brain (Prima ry Dx) 10/17/2021 Hospital Encounter Radiation Oncology Perez Soto S econdary malignant neoplasm of brain; MD Manuel henriquez inoma 10/17/2021 Travel 10/14/2021 Orders Only Thoracic Medicine Skye Solorio, JASSON 10/13/2021 Infusion Infusion Services Inocencia Alford Small c ell MD carcinoma (Prim lele Dx) 10/13/2021 Telemedicine Thoracic Medicine Inocencia Alford Seconda ry malignant neoplasm of brain (Primary Dx); MD Manuel henriquez inoma 10/13/2021 Orders Only Thoracic Medicine Inocencia Alford MD 10/13/2021 Orders Only Thoracic Medicine Skye Solorio Small ce ll PA carcinoma (Prim lele Dx) 10/13/2021 Travel 09/30/2021 Ancillary Procedure Radiology Cas Baker y BRAD Roy malignant neopl asm of brain 09/30/2021 Travel 09/23/2021 Infusion Infusion Services Inocencia Alford Small c ell MD carcinoma (Prim lele Dx) 09/23/2021 Travel 09/23/2021 Orders Only Radiology Hitesh Jaimes MD 09/23/2021 Orders Only Thoracic Medicine Gretchen Baker APRN malignant neopl asm of brain (Prima ry Dx) 09/22/2021 Office Visit Thoracic Medicine Inocencia Alford Seconda ry malignant neoplasm of brain (Primary Dx); MD Manuel henriquez inoma 09/22/2021 Hospital Encounter Lab Baker, Secondary malignant neoplasm of brain; BRAD Roy Small cell carc inoma 09/22/2021 Orders Only Thoracic Medicine Manuela Baker APRN 09/22/2021 Travel 09/19/2021 Ancillary Procedure Radiology Cas Baker y BRAD Roy malignant neopl asm of brain 09/19/2021 Travel 09/03/2021 Orders Only Thoracic Medicine Manuel Baker APRN carcinoma (Prim lele Dx) after 08/30/2021 Immunizations Name Administration Dates Next Due Moderna SARS-CoV-2 Vaccination 06/10/2020, 05/13/2020 Surgical History Surgery Date Site/Laterality Comments COLONOSCOPY 03/01/2010 - 02/28/2011 HYSTERECTOMY 03/01/1988 - 02/28/1989 Medical History Medical History Date Comments Hypertension 1994 Hyperlipidemia 2002 Hearing loss 2015 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 Unspecified lump in unspecified breast 2015 Diverticulitis 2010 Polyp of colon 2010 Menopause 1988 Rheumatoid arthritis 2001 Arthritis 2002 Malignant tumor of breast 2015 Squamous cell carcinoma in situ of skin 2018 Family History Medical History Relation Name Comments Melanoma Father Lung cancer Maternal Grandfather Colon cancer Mother Mikayla Irvin Colon cancer Paternal Grandmother Breast cancer Sister Nataly Butler Relation Name Status Comments Father Maternal Grandfather Mother Mkiayla Irvin Paternal Grandmother Sister Nataly Butler Social History Tobacco Use Types Packs/Day Years Used Date Smoking Tobacco: Every Day Cigarettes 1 49 Smokeless Tobacco: Never Tobacco Cessation: Ready to Quit: Yes Alcohol Use Standard Drinks/Week Comments Yes 2 (1 standard drink = 0.6 oz pure alcoho l) Sex Assigned at Date Recorded Female 03/01/2021 10:20 AM [employer] Job Start Date Occupation Industry Not on file Not on file Not on file COVID-19 Exposure Response Date Recorded In the last 10 days, have you been in contact with No / Unsu re 08/16/2022 9:55 AM CDT someone who was confirmed or suspected to have Coronavirus/COVID-19? Obstetrics History Last Filed Vital Signs Vital Sign Reading Time Taken Comments Blood Pressure 117/70 08/24/2022 1:03 PM CDT Pulse 81 08/24/2022 1:03 PM CDT Temperature 36.9 C (98.4 F) 08/24/2022 1:03 PM CDT Respiratory Rate 18 08/24/2022 1:03 PM CDT Oxygen Saturation 94% 08/24/2022 1:03 PM CDT Inhaled Oxygen Concentration - - Weight 59.5 kg (131 lb 2.8 oz) 08/24/2022 9:58 AM CDT Height 157.5 cm (5' 2.01") 07/10/2022 9:45 AM CDT Body Mass Index 23.99 07/10/2022 9:45 AM CDT Plan of Treatment Date Type Specialty Care Team Description 08/31/2022 Appointment Radiology Inocencia Alford MD [address] [place], [place] [address] (Wo rk) 08/31/2022 Appointment Lab JeffreyJayashree mendez PA [address] [place], [place] [address] (Wo rk) 09/03/2022 Appointment Radiology Iris Hernandez PA-C [address] [place], [place] [address] (Wo rk) 09/07/2022 Appointment Lab Iris Hernandez PA-C [address] [place], [place] [address] (Wo rk) 09/07/2022 Follow-Up Thoracic Medicine Inocencia Alford MD [address] [place], [place] [address] (Wo rk) 09/07/2022 Appointment Infusion Services Iris Hernandez PA-C [address] [place], [place] [address] (Wo rk) 09/10/2022 Ancillary Procedure Radiology Cinda Hicks, SERVER SUPPORT TECHNICIAN 09/18/2022 Appointment Radiation Oncology Perez Soto MD [address] [place] [address] (Wo rk) 09/21/2022 Appointment Lab Iris Hernandez PA-C [address] [place], [place] [address] (Wo rk) 09/21/2022 Follow-Up Thoracic Medicine Naga Corcoran MD [address] [place], [place] [address] (Wo rk) 09/21/2022 Appointment Infusion Services Iris Hernandez PA-C [address] [place], [place] [address] (Wo rk) 10/05/2022 Appointment Lab Iris Hernandez PA-C [address] [place], [place] [address] (Wo rk) 10/05/2022 Ancillary Procedure Radiology Iris Hernandez PA-C [address] [place], [place] [address] (Wo rk) 10/05/2022 Follow-Up Thoracic Medicine Inocencia Alford MD [address] [place], [place] [address] (Wo rk) 10/05/2022 Appointment Infusion Services Iris Hernandez PA-C [address] [place], [place] [address] (Wo rk) 10/19/2022 Appointment Lab Iris Hernandez PA-C [address] [place], [place] [address] (Wo rk) 10/19/2022 Follow-Up Thoracic Medicine Inocencia Alford MD [address] [place], [place] [address] (Wo rk) 10/19/2022 Appointment Infusion Services Iris Hernandez PA-C [address] [place], [place] [address] (Wo rk) Health Maintenance Due Date Last Done Comments COVID-19 Vaccination (3 - Moderna risk 07/08/2020 1, 05/13/2020 series) Medical Devices Implanted Type Area Ic Designer Gate Arrays Device Shelf Model / Identifier Expiration Date Ser ial / Lot Pwrport, Geovannyvue Slim 8fr - [id number] Port BARD PERIPH ERAL 07/29/2022 [id number] / Implanted: Qty: 1 on 06/06/[address] [facility] [id number] / [id number] Procedures Procedure Name Priority Date/Time Associated Comments Diagnosis FRACTIONATED BILIRUBIN Routine 08/24/2022 7:15 Small cell Re sults for this AM CDT carcinoma procedure are i n the results section. TOTAL PROTEIN Routine 08/24/2022 7:15 Small cell Results for this AM CDT carcinoma procedure are i n the results section. ASPARTATE Routine 08/24/2022 7:15 Small cell Results for this AMINOTRANSFERASE AM CDT carcinoma procedure a re in the results section. ALANINE AMINOTRANSFERASE Routine 08/24/2022 7:15 Small cell Results for this AM CDT carcinoma procedure are i n the results section. ALKALINE PHOSPHATASE Routine 08/24/2022 7:15 Small cell Resu lts for this AM CDT carcinoma procedure are i n the results section. ALBUMIN LEVEL Routine 08/24/2022 7:15 Small cell Results for this AM CDT carcinoma procedure are i n the results section. CALCIUM LEVEL TOTAL Routine 08/24/2022 7:15 Small cell Resul ts for this AM CDT carcinoma procedure are i n the results section. .GLOMERULAR FILTRATION Routine 08/24/2022 7:15 Small cell Re sults for this RATE AM CDT carcinoma procedure are i n the results section. SERUM CREATININE Routine 08/24/2022 7:15 Small cell Results for this AM CDT carcinoma procedure are i n the results section. ELECTROLYTE PANEL Routine 08/24/2022 7:15 Small cell Results for this AM CDT carcinoma procedure are i n the results section. BLOOD UREA NITROGEN Routine 08/24/2022 7:15 Small cell Resul ts for this AM CDT carcinoma procedure are i n the results section. MANUAL DIFFERENTIAL Routine 08/24/2022 7:15 Small cell Resul ts for this AM CDT carcinoma procedure are i n the results section. Results CBC Routine 08/24/2022 7:15 Small cell Results for this AM CDT carcinoma procedure are i n the results section. LIPASE LEVEL Routine 08/24/2022 7:15 Small cell Results for this AM CDT carcinoma procedure are i n the results section. URINALYSIS MICROSCOPIC Routine 08/24/2022 7:15 Small cell Re sults for this AM CDT carcinoma procedure are i n the results section. PHOSPHORUS LEVEL Routine 08/24/2022 7:15 Small cell Results for this AM CDT carcinoma procedure are i n the results section. MAGNESIUM LEVEL Routine 08/24/2022 7:15 Small cell Results f or this AM CDT carcinoma procedure are i n the results section. LACTATE DEHYDROGENASE Routine 08/24/2022 7:15 Small cell Res ults for this AM CDT carcinoma procedure are i n the results section. GLUCOSE, FASTING Routine 08/24/2022 7:15 Small cell Results for this AM CDT carcinoma procedure are i n the results section. GAMMA GLUTAMYL Routine 08/24/2022 7:15 Small cell Results fo r this TRANSFERASE AM CDT carcinoma procedure are i n the results section. AMYLASE LEVEL Routine 08/24/2022 7:15 Small cell Results for this AM CDT carcinoma procedure are i n the results section. COMPREHENSIVE METABOLIC Routine 08/24/2022 7:15 Small cell PANEL AM CDT carcinoma COMPLETE BLOOD COUNT W/ Routine 08/24/2022 7:15 Small cell DIFFERENTIAL AM CDT carcinoma CTRC EKG, 12-LEAD Routine 08/24/2022 Small cell carcinoma CTRC EKG, 12-LEAD Routine 08/24/[address] ABDOMEN PELVIS W Routine 08/16/2022 1:27 Resul ts for this CONTRAST PM CDT procedure are i n the results section. POC CHEM 8 Routine 08/16/2022 11:14 Results for this AM CDT procedure are i n the results section. URINALYSIS MICROSCOPIC Routine 08/16/2022 11:13 R esults for this EXAM AM CDT procedure are i n the results section. FRACTIONATED BILIRUBIN Routine 08/16/2022 11:13 R esults for this AM CDT procedure are i n the results section. TOTAL PROTEIN Routine 08/16/2022 11:13 Results fo r this AM CDT procedure are i n the results section. ASPARTATE Routine 08/16/2022 11:13 Results for this AMINOTRANSFERASE AM CDT procedure a re in the results section. ALANINE AMINOTRANSFERASE Routine 08/16/2022 11:13 Results for this AM CDT procedure are i n the results section. ALKALINE PHOSPHATASE Routine 08/16/2022 11:13 Res ults for this AM CDT procedure are i n the results section. ALBUMIN LEVEL Routine 08/16/2022 11:13 Results fo r this AM CDT procedure are i n the results section. CALCIUM LEVEL TOTAL Routine 08/16/2022 11:13 Resu lts for this AM CDT procedure are i n the results section. .GLOMERULAR FILTRATION Routine 08/16/2022 11:13 R esults for this RATE AM CDT procedure are i n the results section. SERUM CREATININE Routine 08/16/2022 11:13 Results for this AM CDT procedure are i n the results section. ELECTROLYTE PANEL Routine 08/16/2022 11:13 Result s for this AM CDT procedure are i n the results section. BLOOD UREA NITROGEN Routine 08/16/2022 11:13 Resu lts for this AM CDT procedure are i n the results section. GLUCOSE LEVEL Routine 08/16/2022 11:13 Results fo r this AM CDT procedure are i n the results section. MANUAL DIFFERENTIAL Routine 08/16/2022 11:13 Resu lts for this AM CDT procedure are i n the results section. Results CBC STAT 08/16/2022 11:13 Results for this AM CDT procedure are i n the results section. URINALYSIS WITH Routine 08/16/2022 11:13 Results for this MICROSCOPIC IF INDICATED AM CDT pro cedure are in the results section. APTT Routine 08/16/2022 11:13 Results for this AM CDT procedure are i n the results section. PROTHROMBIN TIME Routine 08/16/2022 11:13 Results for this AM CDT procedure are i n the results section. PHOSPHORUS LEVEL Routine 08/16/2022 11:13 Results for this AM CDT procedure are i n the results section. MAGNESIUM LEVEL Routine 08/16/2022 11:13 Results for this AM CDT procedure are i n the results section. COMPREHENSIVE METABOLIC Routine 08/16/2022 11:13 PANEL AM CDT COMPLETE BLOOD COUNT W/ Routine 08/16/2022 11:13 DIFFERENTIAL AM CDT FRACTIONATED BILIRUBIN Routine 08/10/2022 10:42 Small cell R esults for this AM CDT carcinoma procedure are i n the results section. TOTAL PROTEIN Routine 08/10/2022 10:42 Small cell Results fo r this AM CDT carcinoma procedure are i n the results section. ASPARTATE Routine 08/10/2022 10:42 Small cell Results for this AMINOTRANSFERASE AM CDT carcinoma procedure a re in the results section. ALANINE AMINOTRANSFERASE Routine 08/10/2022 10:42 Small cell Results for this AM CDT carcinoma procedure are i n the results section. ALKALINE PHOSPHATASE Routine 08/10/2022 10:42 Small cell Res ults for this AM CDT carcinoma procedure are i n the results section. ALBUMIN LEVEL Routine 08/10/2022 10:42 Small cell Results fo r this AM CDT carcinoma procedure are i n the results section. CALCIUM LEVEL TOTAL Routine 08/10/2022 10:42 Small cell Resu lts for this AM CDT carcinoma procedure are i n the results section. .GLOMERULAR FILTRATION Routine 08/10/2022 10:42 Small cell R esults for this RATE AM CDT carcinoma procedure are i n the results section. SERUM CREATININE Routine 08/10/2022 10:42 Small cell Results for this AM CDT carcinoma procedure are i n the results section. ELECTROLYTE PANEL Routine 08/10/2022 10:42 Small cell Result s for this AM CDT carcinoma procedure are i n the results section. BLOOD UREA NITROGEN Routine 08/10/2022 10:42 Small cell Resu lts for this AM CDT carcinoma procedure are i n the results section. MANUAL DIFFERENTIAL Routine 08/10/2022 10:42 Small cell Resu lts for this AM CDT carcinoma procedure are i n the results section. Results CBC Routine 08/10/2022 10:42 Small cell Results for this AM CDT carcinoma procedure are i n the results section. URINALYSIS MICROSCOPIC Routine 08/10/2022 10:42 Small cell R esults for this AM CDT carcinoma procedure are i n the results section. PHOSPHORUS LEVEL Routine 08/10/2022 10:42 Small cell Results for this AM CDT carcinoma procedure are i n the results section. MAGNESIUM LEVEL Routine 08/10/2022 10:42 Small cell Results for this AM CDT carcinoma procedure are i n the results section. LACTATE DEHYDROGENASE Routine 08/10/2022 10:42 Small cell Re sults for this AM CDT carcinoma procedure are i n the results section. GLUCOSE, FASTING Routine 08/10/2022 10:42 Small cell Results for this AM CDT carcinoma procedure are i n the results section. GAMMA GLUTAMYL Routine 08/10/2022 10:42 Small cell Results f or this TRANSFERASE AM CDT carcinoma procedure are i n the results section. AMYLASE LEVEL Routine 08/10/2022 10:42 Small cell Results fo r this AM CDT carcinoma procedure are i n the results section. COMPREHENSIVE METABOLIC Routine 08/10/2022 10:42 Small cell PANEL AM CDT carcinoma COMPLETE BLOOD COUNT W/ Routine 08/10/2022 10:42 Small cell DIFFERENTIAL AM CDT carcinoma LIPASE LEVEL Routine 08/10/2022 10:42 Small cell Results for this AM CDT carcinoma procedure are i n the results section. CTRC EKG, 12-LEAD Routine 08/10/2022 Small cell carcinoma CTRC EKG, 12-LEAD Routine 08/10/2022 Small cell carcinoma URINALYSIS MICROSCOPIC Routine 08/05/2022 11:55 Small cell R esults for this AM CDT carcinoma procedure are i n the results section. FRACTIONATED BILIRUBIN Routine 08/05/2022 10:58 Small cell R esults for this AM CDT carcinoma procedure are i n the results section. TOTAL PROTEIN Routine 08/05/2022 10:58 Small cell Results fo r this AM CDT carcinoma procedure are i n the results section. MANUAL DIFFERENTIAL Routine 08/05/2022 10:58 Small cell Resu lts for this AM CDT carcinoma procedure are i n the results section. ASPARTATE Routine 08/05/2022 10:58 Small cell Results for this AMINOTRANSFERASE AM CDT carcinoma procedure a re in the results section. Results CBC Routine 08/05/2022 10:58 Small cell Results for this AM CDT carcinoma procedure are i n the results section. ALANINE AMINOTRANSFERASE Routine 08/05/2022 10:58 Small cell Results for this AM CDT carcinoma procedure are i n the results section. ALKALINE PHOSPHATASE Routine 08/05/2022 10:58 Small cell Res ults for this AM CDT carcinoma procedure are i n the results section. ALBUMIN LEVEL Routine 08/05/2022 10:58 Small cell Results fo r this AM CDT carcinoma procedure are i n the results section. CALCIUM LEVEL TOTAL Routine 08/05/2022 10:58 Small cell Resu lts for this AM CDT carcinoma procedure are i n the results section. .GLOMERULAR FILTRATION Routine 08/05/2022 10:58 Small cell R esults for this RATE AM CDT carcinoma procedure are i n the results section. SERUM CREATININE Routine 08/05/2022 10:58 Small cell Results for this AM CDT carcinoma procedure are i n the results section. ELECTROLYTE PANEL Routine 08/05/2022 10:58 Small cell Result s for this AM CDT carcinoma procedure are i n the results section. BLOOD UREA NITROGEN Routine 08/05/2022 10:58 Small cell Resu lts for this AM CDT carcinoma procedure are i n the results section. PHOSPHORUS LEVEL Routine 08/05/2022 10:58 Small cell Results for this AM CDT carcinoma procedure are i n the results section. MAGNESIUM LEVEL Routine 08/05/2022 10:58 Small cell Results for this AM CDT carcinoma procedure are i n the results section. LACTATE DEHYDROGENASE Routine 08/05/2022 10:58 Small cell Re sults for this AM CDT carcinoma procedure are i n the results section. GLUCOSE, FASTING Routine 08/05/2022 10:58 Small cell Results for this AM CDT carcinoma procedure are i n the results section. GAMMA GLUTAMYL Routine 08/05/2022 10:58 Small cell Results f or this TRANSFERASE AM CDT carcinoma procedure are i n the results section. AMYLASE LEVEL Routine 08/05/2022 10:58 Small cell Results fo r this AM CDT carcinoma procedure are i n the results section. COMPREHENSIVE METABOLIC Routine 08/05/2022 10:58 Small cell PANEL AM CDT carcinoma COMPLETE BLOOD COUNT W/ Routine 08/05/2022 10:58 Small cell DIFFERENTIAL AM CDT carcinoma FOLLICLE STIMULATING Routine 08/05/2022 10:58 Small cell Res ults for this HORMONE LEVEL AM CDT carcinoma procedure are in the results section. LIPASE LEVEL Routine 08/05/2022 10:58 Small cell Results for this AM CDT carcinoma procedure are i n the results section. THYROID STIMULATING Routine 08/05/2022 10:58 Small cell Resu lts for this HORMONE AM CDT carcinoma procedure are i n the results section. FREE THYROXINE Routine 08/05/2022 10:58 Small cell Results f or this AM CDT carcinoma procedure are i n the results section. FREE T3 Routine 08/05/2022 10:58 Small cell Results for this AM CDT carcinoma procedure are i n the results section. APTT Routine 08/05/2022 10:58 Small cell Results for this AM CDT carcinoma procedure are i n the results section. PROTHROMBIN TIME Routine 08/05/2022 10:58 Small cell Results for this AM CDT carcinoma procedure are i n the results section. HIV-1/2 ANTIGEN AND Routine 08/05/2022 10:58 Small cell Resu lts for this ANTIBODIES, FOURTH AM CDT carcinoma procedure are in GENERATION the results section. HEPATITIS C VIRUS Routine 08/05/2022 10:58 Small cell Result s for this ANTIBODY AM CDT carcinoma procedure are i n the results section. HEPATITIS B CORE Routine 08/05/2022 10:58 Small cell Results for this ANTIBODY AM CDT carcinoma procedure are i n the results section. HEPATITIS B SURFACE Routine 08/05/2022 10:58 Small cell Resu lts for this ANTIGEN, SERUM AM CDT carcinoma procedure are in the results section. HEPATITIS B SURFACE Routine 08/05/2022 10:58 Small cell Resu lts for this ANTIBODY, SERUM AM CDT carcinoma procedure ar e in the results section. QIAC SERVICES Routine 08/05/2022 7:50 Small cell Results for this AM CDT carcinoma procedure are i n the results section. EKG, 12-LEAD (SCHEDULED) Routine 08/05/2022 Small cell carcinoma FRACTIONATED BILIRUBIN Routine 07/13/2022 7:15 Small cell Re sults for this AM CDT carcinoma procedure are i n the results section. TOTAL PROTEIN Routine 07/13/2022 7:15 Small cell Results for this AM CDT carcinoma procedure are i n the results section. ASPARTATE Routine 07/13/2022 7:15 Small cell Results for this AMINOTRANSFERASE AM CDT carcinoma procedure a re in the results section. ALANINE AMINOTRANSFERASE Routine 07/13/2022 7:15 Small cell Results for this AM CDT carcinoma procedure are i n the results section. ALKALINE PHOSPHATASE Routine 07/13/2022 7:15 Small cell Resu lts for this AM CDT carcinoma procedure are i n the results section. ALBUMIN LEVEL Routine 07/13/2022 7:15 Small cell Results for this AM CDT carcinoma procedure are i n the results section. CALCIUM LEVEL TOTAL Routine 07/13/2022 7:15 Small cell Resul ts for this AM CDT carcinoma procedure are i n the results section. .GLOMERULAR FILTRATION Routine 07/13/2022 7:15 Small cell Re sults for this RATE AM CDT carcinoma procedure are i n the results section. SERUM CREATININE Routine 07/13/2022 7:15 Small cell Results for this AM CDT carcinoma procedure are i n the results section. ELECTROLYTE PANEL Routine 07/13/2022 7:15 Small cell Results for this AM CDT carcinoma procedure are i n the results section. BLOOD UREA NITROGEN Routine 07/13/2022 7:15 Small cell Resul ts for this AM CDT carcinoma procedure are i n the results section. GLUCOSE LEVEL Routine 07/13/2022 7:15 Small cell Results for this AM CDT carcinoma procedure are i n the results section. MANUAL DIFFERENTIAL Routine 07/13/2022 7:15 Small cell Resul ts for this AM CDT carcinoma procedure are i n the results section. Results CBC Routine 07/13/2022 7:15 Small cell Results for this AM CDT carcinoma procedure are i n the results section. PHOSPHORUS LEVEL Routine 07/13/2022 7:15 Small cell Results for this AM CDT carcinoma procedure are i n the results section. MAGNESIUM LEVEL Routine 07/13/2022 7:15 Small cell Results f or this AM CDT carcinoma procedure are i n the results section. 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 TOTAL PROTEIN Routine 06/22/2022 11:09 Small cell Results fo r this AM CDT carcinoma procedure are i n the results section. ASPARTATE Routine 06/22/2022 11:09 Small cell Results for this AMINOTRANSFERASE AM CDT carcinoma procedure a re in the results section. ALANINE AMINOTRANSFERASE Routine 06/22/2022 11:09 Small cell Results for this AM CDT carcinoma procedure are i n the results section. ALKALINE PHOSPHATASE Routine 06/22/2022 11:09 Small cell Res ults for this AM CDT carcinoma procedure are i n the results section. ALBUMIN LEVEL Routine 06/22/2022 11:09 Small cell Results fo r this AM CDT carcinoma procedure are i n the results section. CALCIUM LEVEL TOTAL Routine 06/22/2022 11:09 Small cell Resu lts for this AM CDT carcinoma procedure are i n the results section. .GLOMERULAR FILTRATION Routine 06/22/2022 11:09 Small cell R esults for this RATE AM CDT carcinoma procedure are i n the results section. SERUM CREATININE Routine 06/22/2022 11:09 Small cell Results for this AM CDT carcinoma procedure are i n the results section. ELECTROLYTE PANEL Routine 06/22/2022 11:09 Small cell Result s for this AM CDT carcinoma procedure are i n the results section. BLOOD UREA NITROGEN Routine 06/22/2022 11:09 Small cell Resu lts for this AM CDT carcinoma procedure are i n the results section. GLUCOSE LEVEL Routine 06/22/2022 11:09 Small cell Results fo r this AM CDT carcinoma procedure are i n the results section. MANUAL DIFFERENTIAL Routine 06/22/2022 11:09 Small cell Resu lts for this AM CDT carcinoma procedure are i n the results section. Results CBC Routine 06/22/2022 11:09 Small cell Results for this AM CDT carcinoma procedure are i n the results section. PHOSPHORUS LEVEL Routine 06/22/2022 11:09 Small cell Results for this AM CDT carcinoma procedure are i n the results section. MAGNESIUM LEVEL Routine 06/22/2022 11:09 Small cell Results for this AM CDT carcinoma procedure are i n the results section. 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 FRACTIONATED BILIRUBIN Routine 06/01/2022 9:00 Small cell Re sults for this AM CDT carcinoma procedure are i n the results section. TOTAL PROTEIN Routine 06/01/2022 9:00 Small cell Results for this AM CDT carcinoma procedure are i n the results section. ASPARTATE Routine 06/01/2022 9:00 Small cell Results for this AMINOTRANSFERASE AM CDT carcinoma procedure a re in the results section. ALANINE AMINOTRANSFERASE Routine 06/01/2022 9:00 Small cell Results for this AM CDT carcinoma procedure are i n the results section. ALKALINE PHOSPHATASE Routine 06/01/2022 9:00 Small cell Resu lts for this AM CDT carcinoma procedure are i n the results section. ALBUMIN LEVEL Routine 06/01/2022 9:00 Small cell Results for this AM CDT carcinoma procedure are i n the results section. CALCIUM LEVEL TOTAL Routine 06/01/2022 9:00 Small cell Resul ts for this AM CDT carcinoma procedure are i n the results section. .GLOMERULAR FILTRATION Routine 06/01/2022 9:00 Small cell Re sults for this RATE AM CDT carcinoma procedure are i n the results section. SERUM CREATININE Routine 06/01/2022 9:00 Small cell Results for this AM CDT carcinoma procedure are i n the results section. ELECTROLYTE PANEL Routine 06/01/2022 9:00 Small cell Results for this AM CDT carcinoma procedure are i n the results section. BLOOD UREA NITROGEN Routine 06/01/2022 9:00 Small cell Resul ts for this AM CDT carcinoma procedure are i n the results section. GLUCOSE LEVEL Routine 06/01/2022 9:00 Small cell Results for this AM CDT carcinoma procedure are i n the results section. MANUAL DIFFERENTIAL Routine 06/01/2022 9:00 Small cell Resul ts for this AM CDT carcinoma procedure are i n the results section. Results CBC Routine 06/01/2022 9:00 Small cell Results for this AM CDT carcinoma procedure are i n the results section. PHOSPHORUS LEVEL Routine 06/01/2022 9:00 Small cell Results for this AM CDT carcinoma procedure are i n the results section. MAGNESIUM LEVEL Routine 06/01/2022 9:00 Small cell Results f or this AM CDT carcinoma procedure are i n the results section. 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 TOTAL PROTEIN Routine 05/11/2022 11:16 Small cell Results fo r this AM CDT carcinoma procedure are i n the results section. ASPARTATE Routine 05/11/2022 11:16 Small cell Results for this AMINOTRANSFERASE AM CDT carcinoma procedure a re in the results section. ALANINE AMINOTRANSFERASE Routine 05/11/2022 11:16 Small cell Results for this AM CDT carcinoma procedure are i n the results section. ALKALINE PHOSPHATASE Routine 05/11/2022 11:16 Small cell Res ults for this AM CDT carcinoma procedure are i n the results section. ALBUMIN LEVEL Routine 05/11/2022 11:16 Small cell Results fo r this AM CDT carcinoma procedure are i n the results section. CALCIUM LEVEL TOTAL Routine 05/11/2022 11:16 Small cell Resu lts for this AM CDT carcinoma procedure are i n the results section. .GLOMERULAR FILTRATION Routine 05/11/2022 11:16 Small cell R esults for this RATE AM CDT carcinoma procedure are i n the results section. SERUM CREATININE Routine 05/11/2022 11:16 Small cell Results for this AM CDT carcinoma procedure are i n the results section. ELECTROLYTE PANEL Routine 05/11/2022 11:16 Small cell Result s for this AM CDT carcinoma procedure are i n the results section. BLOOD UREA NITROGEN Routine 05/11/2022 11:16 Small cell Resu lts for this AM CDT carcinoma procedure are i n the results section. GLUCOSE LEVEL Routine 05/11/2022 11:16 Small cell Results fo r this AM CDT carcinoma procedure are i n the results section. MANUAL DIFFERENTIAL Routine 05/11/2022 11:16 Small cell Resu lts for this AM CDT carcinoma procedure are i n the results section. Results CBC Routine 05/11/2022 11:16 Small cell Results for this AM CDT carcinoma procedure are i n the results section. PHOSPHORUS LEVEL Routine 05/11/2022 11:16 Small cell Results for this AM CDT carcinoma procedure are i n the results section. MAGNESIUM LEVEL Routine 05/11/2022 11:16 Small cell Results for this AM CDT carcinoma procedure are i n the results section. COMPREHENSIVE METABOLIC Routine 05/11/2022 11:16 Small cell PANEL AM CDT carcinoma COMPLETE BLOOD COUNT W/ Routine 05/11/2022 11:16 Small cell DIFFERENTIAL AM CDT carcinoma FRACTIONATED BILIRUBIN Routine 04/20/2022 8:11 Small cell Re sults for this AM BAKER CHEF carcinoma procedure are i n the results section. TOTAL PROTEIN Routine 04/20/2022 8:11 Small cell Results for this AM BAKER CHEF carcinoma procedure are i n the results section. ASPARTATE Routine 04/20/2022 8:11 Small cell Results for this AMINOTRANSFERASE AM BAKER CHEF carcinoma procedure a re in the results section. ALANINE AMINOTRANSFERASE Routine 04/20/2022 8:11 Small cell Results for this AM BAKER CHEF carcinoma procedure are i n the results section. ALKALINE PHOSPHATASE Routine 04/20/2022 8:11 Small cell Resu lts for this AM BAKER CHEF carcinoma procedure are i n the results section. ALBUMIN LEVEL Routine 04/20/2022 8:11 Small cell Results for this AM BAKER CHEF carcinoma procedure are i n the results section. CALCIUM LEVEL TOTAL Routine 04/20/2022 8:11 Small cell Resul ts for this AM BAKER CHEF carcinoma procedure are i n the results section. .GLOMERULAR FILTRATION Routine 04/20/2022 8:11 Small cell Re sults for this RATE AM BAKER CHEF carcinoma procedure are i n the results section. SERUM CREATININE Routine 04/20/2022 8:11 Small cell Results for this AM BAKER CHEF carcinoma procedure are i n the results section. ELECTROLYTE PANEL Routine 04/20/2022 8:11 Small cell Results for this AM BAKER CHEF carcinoma procedure are i n the results section. BLOOD UREA NITROGEN Routine 04/20/2022 8:11 Small cell Resul ts for this AM BAKER CHEF carcinoma procedure are i n the results section. GLUCOSE LEVEL Routine 04/20/2022 8:11 Small cell Results for this AM BAKER CHEF carcinoma procedure are i n the results section. MANUAL DIFFERENTIAL Routine 04/20/2022 8:11 Small cell Resul ts for this AM BAKER CHEF carcinoma procedure are i n the results section. Results CBC Routine 04/20/2022 8:11 Small cell Results for this AM BAKER CHEF carcinoma procedure are i n the results section. PHOSPHORUS LEVEL Routine 04/20/2022 8:11 Small cell Results for this AM BAKER CHEF carcinoma procedure are i n the results section. MAGNESIUM LEVEL Routine 04/20/2022 8:11 Small cell Results f or this AM BAKER CHEF carcinoma procedure are i n the results section. COMPREHENSIVE METABOLIC Routine 04/20/2022 8:11 Small cell PANEL AM BAKER CHEF carcinoma COMPLETE BLOOD COUNT W/ Routine 04/20/2022 8:11 Small cell DIFFERENTIAL AM BAKER CHEF carcinoma PETCT SUBSEQUENT Routine 04/17/2022 9:02 Small cell Results for this TREATMENT STRATEGY AM BAKER CHEF carcinoma procedure are in Malignant neoplasm the resul ts of lower lobe, left section. bronchus or lung FRACTIONATED BILIRUBIN Routine 03/30/2022 9:01 Small cell Re sults for this AM BAKER CHEF carcinoma procedure are i n the results section. TOTAL PROTEIN Routine 03/30/2022 9:01 Small cell Results for this AM BAKER CHEF carcinoma procedure are i n the results section. ASPARTATE Routine 03/30/2022 9:01 Small cell Results for this AMINOTRANSFERASE AM BAKER CHEF carcinoma procedure a re in the results section. ALANINE AMINOTRANSFERASE Routine 03/30/2022 9:01 Small cell Results for this AM BAKER CHEF carcinoma procedure are i n the results section. ALKALINE PHOSPHATASE Routine 03/30/2022 9:01 Small cell Resu lts for this AM BAKER CHEF carcinoma procedure are i n the results section. ALBUMIN LEVEL Routine 03/30/2022 9:01 Small cell Results for this AM BAKER CHEF carcinoma procedure are i n the results section. CALCIUM LEVEL TOTAL Routine 03/30/2022 9:01 Small cell Resul ts for this AM BAKER CHEF carcinoma procedure are i n the results section. .GLOMERULAR FILTRATION Routine 03/30/2022 9:01 Small cell Re sults for this RATE AM BAKER CHEF carcinoma procedure are i n the results section. SERUM CREATININE Routine 03/30/2022 9:01 Small cell Results for this AM BAKER CHEF carcinoma procedure are i n the results section. ELECTROLYTE PANEL Routine 03/30/2022 9:01 Small cell Results for this AM BAKER CHEF carcinoma procedure are i n the results section. BLOOD UREA NITROGEN Routine 03/30/2022 9:01 Small cell Resul ts for this AM BAKER CHEF carcinoma procedure are i n the results section. GLUCOSE LEVEL Routine 03/30/2022 9:01 Small cell Results for this AM BAKER CHEF carcinoma procedure are i n the results section. MANUAL DIFFERENTIAL Routine 03/30/2022 9:01 Small cell Resul ts for this AM BAKER CHEF carcinoma procedure are i n the results section. Results CBC Routine 03/30/2022 9:01 Small cell Results for this AM BAKER CHEF carcinoma procedure are i n the results section. PHOSPHORUS LEVEL Routine 03/30/2022 9:01 Small cell Results for this AM BAKER CHEF carcinoma procedure are i n the results section. MAGNESIUM LEVEL Routine 03/30/2022 9:01 Small cell Results f or this AM BAKER CHEF carcinoma procedure are i n the results section. 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 FRACTIONATED BILIRUBIN Routine 02/24/2022 9:47 Small cell Re sults for this AM BAKER CHEF carcinoma procedure are i n the results section. TOTAL PROTEIN Routine 02/24/2022 9:47 Small cell Results for this AM BAKER CHEF carcinoma procedure are i n the results section. ASPARTATE Routine 02/24/2022 9:47 Small cell Results for this AMINOTRANSFERASE AM BAKER CHEF carcinoma procedure a re in the results section. ALANINE AMINOTRANSFERASE Routine 02/24/2022 9:47 Small cell Results for this AM BAKER CHEF carcinoma procedure are i n the results section. ALKALINE PHOSPHATASE Routine 02/24/2022 9:47 Small cell Resu lts for this AM BAKER CHEF carcinoma procedure are i n the results section. ALBUMIN LEVEL Routine 02/24/2022 9:47 Small cell Results for this AM BAKER CHEF carcinoma procedure are i n the results section. CALCIUM LEVEL TOTAL Routine 02/24/2022 9:47 Small cell Resul ts for this AM BAKER CHEF carcinoma procedure are i n the results section. .GLOMERULAR FILTRATION Routine 02/24/2022 9:47 Small cell Re sults for this RATE AM BAKER CHEF carcinoma procedure are i n the results section. SERUM CREATININE Routine 02/24/2022 9:47 Small cell Results for this AM BAKER CHEF carcinoma procedure are i n the results section. ELECTROLYTE PANEL Routine 02/24/2022 9:47 Small cell Results for this AM BAKER CHEF carcinoma procedure are i n the results section. BLOOD UREA NITROGEN Routine 02/24/2022 9:47 Small cell Resul ts for this AM BAKER CHEF carcinoma procedure are i n the results section. GLUCOSE LEVEL Routine 02/24/2022 9:47 Small cell Results for this AM BAKER CHEF carcinoma procedure are i n the results section. MANUAL DIFFERENTIAL Routine 02/24/2022 9:47 Small cell Resul ts for this AM BAKER CHEF carcinoma procedure are i n the results section. Results CBC Routine 02/24/2022 9:47 Small cell Results for this AM BAKER CHEF carcinoma procedure are i n the results section. PHOSPHORUS LEVEL Routine 02/24/2022 9:47 Small cell Results for this AM BAKER CHEF carcinoma procedure are i n the results section. MAGNESIUM LEVEL Routine 02/24/2022 9:47 Small cell Results f or this AM BAKER CHEF carcinoma procedure are i n the results section. COMPREHENSIVE METABOLIC Routine 02/24/2022 9:47 Small cell PANEL AM BAKER CHEF carcinoma COMPLETE BLOOD COUNT W/ Routine 02/24/2022 9:47 Small cell DIFFERENTIAL AM BAKER CHEF carcinoma FRACTIONATED BILIRUBIN Routine 02/02/2022 8:57 Small cell Re sults for this AM BAKER CHEF carcinoma procedure are i n the results section. TOTAL PROTEIN Routine 02/02/2022 8:57 Small cell Results for this AM BAKER CHEF carcinoma procedure are i n the results section. ASPARTATE Routine 02/02/2022 8:57 Small cell Results for this AMINOTRANSFERASE AM BAKER CHEF carcinoma procedure a re in the results section. ALANINE AMINOTRANSFERASE Routine 02/02/2022 8:57 Small cell Results for this AM BAKER CHEF carcinoma procedure are i n the results section. ALKALINE PHOSPHATASE Routine 02/02/2022 8:57 Small cell Resu lts for this AM BAKER CHEF carcinoma procedure are i n the results section. ALBUMIN LEVEL Routine 02/02/2022 8:57 Small cell Results for this AM BAKER CHEF carcinoma procedure are i n the results section. CALCIUM LEVEL TOTAL Routine 02/02/2022 8:57 Small cell Resul ts for this AM BAKER CHEF carcinoma procedure are i n the results section. .GLOMERULAR FILTRATION Routine 02/02/2022 8:57 Small cell Re sults for this RATE AM BAKER CHEF carcinoma procedure are i n the results section. SERUM CREATININE Routine 02/02/2022 8:57 Small cell Results for this AM BAKER CHEF carcinoma procedure are i n the results section. ELECTROLYTE PANEL Routine 02/02/2022 8:57 Small cell Results for this AM BAKER CHEF carcinoma procedure are i n the results section. BLOOD UREA NITROGEN Routine 02/02/2022 8:57 Small cell Resul ts for this AM BAKER CHEF carcinoma procedure are i n the results section. GLUCOSE LEVEL Routine 02/02/2022 8:57 Small cell Results for this AM BAKER CHEF carcinoma procedure are i n the results section. MANUAL DIFFERENTIAL Routine 02/02/2022 8:57 Small cell Resul ts for this AM BAKER CHEF carcinoma procedure are i n the results section. Results CBC Routine 02/02/2022 8:57 Small cell Results for this AM BAKER CHEF carcinoma procedure are i n the results section. PHOSPHORUS LEVEL Routine 02/02/2022 8:57 Small cell Results for this AM BAKER CHEF carcinoma procedure are i n the results section. MAGNESIUM LEVEL Routine 02/02/2022 8:57 Small cell Results f or this AM BAKER CHEF carcinoma procedure are i n the results section. COMPREHENSIVE METABOLIC Routine 02/02/2022 8:57 Small cell PANEL AM BAKER CHEF carcinoma COMPLETE BLOOD COUNT W/ Routine 02/02/2022 8:57 Small cell DIFFERENTIAL AM BAKER CHEF carcinoma COVID-19 (SARS-COV-2) Routine 12/26/2021 8:05 Suspected COVID- 19 Results for this PCR-ASYMPTOMATIC MC AM CDT procedur e are in the results section. FRACTIONATED BILIRUBIN Routine 12/15/2021 8:53 Small cell Re sults for this AM CDT carcinoma procedure are i n the results section. TOTAL PROTEIN Routine 12/15/2021 8:53 Small cell Results for this AM CDT carcinoma procedure are i n the results section. ASPARTATE Routine 12/15/2021 8:53 Small cell Results for this AMINOTRANSFERASE AM CDT carcinoma procedure a re in the results section. ALANINE AMINOTRANSFERASE Routine 12/15/2021 8:53 Small cell Results for this AM CDT carcinoma procedure are i n the results section. ALKALINE PHOSPHATASE Routine 12/15/2021 8:53 Small cell Resu lts for this AM CDT carcinoma procedure are i n the results section. ALBUMIN LEVEL Routine 12/15/2021 8:53 Small cell Results for this AM CDT carcinoma procedure are i n the results section. CALCIUM LEVEL TOTAL Routine 12/15/2021 8:53 Small cell Resul ts for this AM CDT carcinoma procedure are i n the results section. .GLOMERULAR FILTRATION Routine 12/15/2021 8:53 Small cell Re sults for this RATE AM CDT carcinoma procedure are i n the results section. SERUM CREATININE Routine 12/15/2021 8:53 Small cell Results for this AM CDT carcinoma procedure are i n the results section. ELECTROLYTE PANEL Routine 12/15/2021 8:53 Small cell Results for this AM CDT carcinoma procedure are i n the results section. BLOOD UREA NITROGEN Routine 12/15/2021 8:53 Small cell Resul ts for this AM CDT carcinoma procedure are i n the results section. GLUCOSE LEVEL Routine 12/15/2021 8:53 Small cell Results for this AM CDT carcinoma procedure are i n the results section. MANUAL DIFFERENTIAL Routine 12/15/2021 8:53 Small cell Resul ts for this AM CDT carcinoma procedure are i n the results section. Results CBC Routine 12/15/2021 8:53 Small cell Results for this AM CDT carcinoma procedure are i n the results section. PHOSPHORUS LEVEL Routine 12/15/2021 8:53 Small cell Results for this AM CDT carcinoma procedure are i n the results section. MAGNESIUM LEVEL Routine 12/15/2021 8:53 Small cell Results f or this AM CDT carcinoma procedure are i n the results section. COMPREHENSIVE METABOLIC Routine 12/15/2021 8:53 Small cell PANEL AM CDT carcinoma COMPLETE BLOOD COUNT W/ Routine 12/15/2021 8:53 Small cell DIFFERENTIAL AM CDT carcinoma PETCT SUBSEQUENT Routine 12/12/2021 9:51 Tumor invasion into R esults for this TREATMENT STRATEGY AM CDT bronchus procedure are in the results section. 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 FRACTIONATED BILIRUBIN Routine 11/24/2021 7:43 Small cell Re sults for this AM CDT carcinoma procedure are i n the results section. TOTAL PROTEIN Routine 11/24/2021 7:43 Small cell Results for this AM CDT carcinoma procedure are i n the results section. ASPARTATE Routine 11/24/2021 7:43 Small cell Results for this AMINOTRANSFERASE AM CDT carcinoma procedure a re in the results section. ALANINE AMINOTRANSFERASE Routine 11/24/2021 7:43 Small cell Results for this AM CDT carcinoma procedure are i n the results section. ALKALINE PHOSPHATASE Routine 11/24/2021 7:43 Small cell Resu lts for this AM CDT carcinoma procedure are i n the results section. ALBUMIN LEVEL Routine 11/24/2021 7:43 Small cell Results for this AM CDT carcinoma procedure are i n the results section. CALCIUM LEVEL TOTAL Routine 11/24/2021 7:43 Small cell Resul ts for this AM CDT carcinoma procedure are i n the results section. .GLOMERULAR FILTRATION Routine 11/24/2021 7:43 Small cell Re sults for this RATE AM CDT carcinoma procedure are i n the results section. SERUM CREATININE Routine 11/24/2021 7:43 Small cell Results for this AM CDT carcinoma procedure are i n the results section. ELECTROLYTE PANEL Routine 11/24/2021 7:43 Small cell Results for this AM CDT carcinoma procedure are i n the results section. BLOOD UREA NITROGEN Routine 11/24/2021 7:43 Small cell Resul ts for this AM CDT carcinoma procedure are i n the results section. GLUCOSE LEVEL Routine 11/24/2021 7:43 Small cell Results for this AM CDT carcinoma procedure are i n the results section. MANUAL DIFFERENTIAL Routine 11/24/2021 7:43 Small cell Resul ts for this AM CDT carcinoma procedure are i n the results section. Results CBC Routine 11/24/2021 7:43 Small cell Results for this AM CDT carcinoma procedure are i n the results section. THYROXINE Routine 11/24/2021 7:43 Small cell Results for this AM CDT carcinoma procedure are i n the results section. THYROID STIMULATING Routine 11/24/2021 7:43 Small cell Resul ts for this HORMONE AM CDT carcinoma procedure are i n the results section. CORTISOL FREE Routine 11/24/2021 7:43 Small cell Results for this AM CDT carcinoma procedure are i n the results section. PHOSPHORUS LEVEL Routine 11/24/2021 7:43 Small cell Results for this AM CDT carcinoma procedure are i n the results section. MAGNESIUM LEVEL Routine 11/24/2021 7:43 Small cell Results f or this AM CDT carcinoma procedure are i n the results section. 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 FRACTIONATED BILIRUBIN Routine 11/04/2021 10:36 Small cell R esults for this AM CDT carcinoma procedure are i n the results section. TOTAL PROTEIN Routine 11/04/2021 10:36 Small cell Results fo r this AM CDT carcinoma procedure are i n the results section. ASPARTATE Routine 11/04/2021 10:36 Small cell Results for this AMINOTRANSFERASE AM CDT carcinoma procedure a re in the results section. ALANINE AMINOTRANSFERASE Routine 11/04/2021 10:36 Small cell Results for this AM CDT carcinoma procedure are i n the results section. ALKALINE PHOSPHATASE Routine 11/04/2021 10:36 Small cell Res ults for this AM CDT carcinoma procedure are i n the results section. ALBUMIN LEVEL Routine 11/04/2021 10:36 Small cell Results fo r this AM CDT carcinoma procedure are i n the results section. CALCIUM LEVEL TOTAL Routine 11/04/2021 10:36 Small cell Resu lts for this AM CDT carcinoma procedure are i n the results section. .GLOMERULAR FILTRATION Routine 11/04/2021 10:36 Small cell R esults for this RATE AM CDT carcinoma procedure are i n the results section. SERUM CREATININE Routine 11/04/2021 10:36 Small cell Results for this AM CDT carcinoma procedure are i n the results section. ELECTROLYTE PANEL Routine 11/04/2021 10:36 Small cell Result s for this AM CDT carcinoma procedure are i n the results section. BLOOD UREA NITROGEN Routine 11/04/2021 10:36 Small cell Resu lts for this AM CDT carcinoma procedure are i n the results section. GLUCOSE LEVEL Routine 11/04/2021 10:36 Small cell Results fo r this AM CDT carcinoma procedure are i n the results section. MANUAL DIFFERENTIAL Routine 11/04/2021 10:36 Small cell Resu lts for this AM CDT carcinoma procedure are i n the results section. Results CBC Routine 11/04/2021 10:36 Small cell Results for this AM CDT carcinoma procedure are i n the results section. PHOSPHORUS LEVEL Routine 11/04/2021 10:36 Small cell Results for this AM CDT carcinoma procedure are i n the results section. MAGNESIUM LEVEL Routine 11/04/2021 10:36 Small cell Results for this AM CDT carcinoma procedure are i n the results section. COMPREHENSIVE METABOLIC Routine 11/04/2021 10:36 Small cell PANEL AM CDT carcinoma COMPLETE BLOOD COUNT W/ Routine 11/04/2021 10:36 Small cell DIFFERENTIAL AM CDT carcinoma VANCOMYCIN LEVEL TROUGH STAT 10/27/2021 9:12 R esults for this AM CDT procedure are i n the results section. MANUAL DIFFERENTIAL STAT 10/27/2021 8:34 Resul ts for this AM CDT procedure are i n the results section. Results CBC STAT 10/27/2021 8:34 Results for this AM CDT procedure are i n the results section. CALCIUM LEVEL TOTAL STAT 10/27/2021 8:34 Resul ts for this AM CDT procedure are i n the results section. .GLOMERULAR FILTRATION STAT 10/27/2021 8:34 Re sults for this RATE AM CDT procedure are i n the results section. SERUM CREATININE STAT 10/27/2021 8:34 Results for this AM CDT procedure are i n the results section. ELECTROLYTE PANEL STAT 10/27/2021 8:34 Results for this AM CDT procedure are i n the results section. BLOOD UREA NITROGEN STAT 10/27/2021 8:34 Resul ts for this AM CDT procedure are i n the results section. GLUCOSE LEVEL STAT 10/27/2021 8:34 Results for this AM CDT procedure are i n the results section. BASIC METABOLIC PANEL, STAT 10/27/2021 8:34 CALCIUM TOTAL AM CDT COMPLETE BLOOD COUNT W/ STAT 10/27/2021 8:34 DIFFERENTIAL AM CDT LOWER RESPIRATORY Now 10/26/2021 1:48 Results for this CULTURE W/ GRAM STAIN PM CDT proced ure are in the results section. MRSA SCREENING CULTURE Now 10/26/2021 10:07 R esults for this AM CDT procedure are i n the results section. MANUAL DIFFERENTIAL Now 10/26/2021 5:56 Resul ts for this AM CDT procedure are i n the results section. Results CBC Now 10/26/2021 5:56 Results for this AM CDT procedure are i n the results section. FRACTIONATED BILIRUBIN Routine 10/26/2021 5:56 Re sults for this AM CDT procedure are i n the results section. TOTAL PROTEIN Routine 10/26/2021 5:56 Results fo r this AM CDT procedure are i n the results section. ASPARTATE Routine 10/26/2021 5:56 Results for this AMINOTRANSFERASE AM CDT procedure a re in the results section. ALANINE AMINOTRANSFERASE Routine 10/26/2021 5:56 Results for this AM CDT procedure are i n the results section. ALKALINE PHOSPHATASE Routine 10/26/2021 5:56 Resu lts for this AM CDT procedure are i n the results section. ALBUMIN LEVEL Routine 10/26/2021 5:56 Results for this AM CDT procedure are i n the results section. CALCIUM LEVEL TOTAL Routine 10/26/2021 5:56 Resul ts for this AM CDT procedure are i n the results section. .GLOMERULAR FILTRATION Routine 10/26/2021 5:56 Re sults for this RATE AM CDT procedure are i n the results section. SERUM CREATININE Routine 10/26/2021 5:56 Results for this AM CDT procedure are i n the results section. ELECTROLYTE PANEL Routine 10/26/2021 5:56 Results for this AM CDT procedure are i n the results section. BLOOD UREA NITROGEN Routine 10/26/2021 5:56 Resul ts for this AM CDT procedure are i n the results section. GLUCOSE LEVEL Routine 10/26/2021 5:56 Results for this AM CDT procedure are i n the results section. COMPREHENSIVE METABOLIC Routine 10/26/2021 5:56 PANEL AM CDT COMPLETE BLOOD COUNT W/ Now 10/26/2021 5:56 DIFFERENTIAL AM CDT BLOODCULTURE Now 10/24/2021 11:49 Results for this PM CDT procedure are i n the results section. URINALYSIS WITH Now 10/24/2021 11:12 Results for this MICROSCOPIC IF INDICATED PM CDT pro cedure are in the results section. URINE CULTURE Now 10/24/2021 11:12 Results fo r this PM CDT procedure are i n the results section. XR CHEST 1 VW Routine 10/24/2021 11:08 Results fo r this PM CDT procedure are i n the results section. LACTIC ACID, VENOUS Routine 10/24/2021 9:58 Resul ts for this PM CDT procedure are i n the results section. FRACTIONATED BILIRUBIN Now 10/24/2021 9:57 Re sults for this PM CDT procedure are i n the results section. TOTAL PROTEIN Now 10/24/2021 9:57 Results for this PM CDT procedure are i n the results section. ASPARTATE Now 10/24/2021 9:57 Results for this AMINOTRANSFERASE PM CDT procedure a re in the results section. ALANINE AMINOTRANSFERASE Now 10/24/2021 9:57 Results for this PM CDT procedure are i n the results section. ALKALINE PHOSPHATASE Now 10/24/2021 9:57 Resu lts for this PM CDT procedure are i n the results section. ALBUMIN LEVEL Now 10/24/2021 9:57 Results for this PM CDT procedure are i n the results section. CALCIUM LEVEL TOTAL Now 10/24/2021 9:57 Resul ts for this PM CDT procedure are i n the results section. .GLOMERULAR FILTRATION Now 10/24/2021 9:57 Re sults for this RATE PM CDT procedure are i n the results section. SERUM CREATININE Now 10/24/2021 9:57 Results for this PM CDT procedure are i n the results section. ELECTROLYTE PANEL Now 10/24/2021 9:57 Results for this PM CDT procedure are i n the results section. BLOOD UREA NITROGEN Now 10/24/2021 9:57 Resul ts for this PM CDT procedure are i n the results section. GLUCOSE LEVEL Now 10/24/2021 9:57 Results for this PM CDT procedure are i n the results section. MANUAL DIFFERENTIAL STAT 10/24/2021 9:57 Resul ts for this PM CDT procedure are i n the results section. Results CBC STAT 10/24/2021 9:57 Results for this PM CDT procedure are i n the results section. PROCALCITONIN Now 10/24/2021 9:57 Results for this PM CDT procedure are i n the results section. C REACTIVE PROTEIN Now 10/24/2021 9:57 Result s for this PM CDT procedure are i n the results section. LACTATE DEHYDROGENASE Now 10/24/2021 9:57 Res ults for this PM CDT procedure are i n the results section. PHOSPHORUS LEVEL Now 10/24/2021 9:57 Results for this PM CDT procedure are i n the results section. MAGNESIUM LEVEL Now 10/24/2021 9:57 Results f or this PM CDT procedure are i n the results section. COMPREHENSIVE METABOLIC Now 10/24/2021 9:57 PANEL PM CDT COMPLETE BLOOD COUNT W/ Now 10/24/2021 9:57 DIFFERENTIAL PM CDT RESPIRATORY VIRAL Now 10/24/2021 9:57 Results for this MULTIPLEX PCR PANEL, PM CDT procedu re are in NASOPHARYNGEAL SWAB the resu lts section. BLOODCULTURE Now 10/24/2021 9:57 Results for this PM CDT procedure are i n the results section. 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 COVID-19 (SARS-COV-2) Routine 10/23/2021 9:54 Encounter for Re sults for this PCR-ASYMPTOMATIC [facility] AM CDT observation for [place] are in other suspected the results exposure to section. 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 ASPARTATE Routine 10/13/2021 7:48 Small cell Results for this AMINOTRANSFERASE AM CDT carcinoma procedure a re in the results section. 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 ALKALINE PHOSPHATASE Routine 10/13/2021 7:48 Small cell Resu lts for this AM CDT carcinoma procedure are i n the results section. 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 CALCIUM LEVEL TOTAL Routine 10/13/2021 7:48 Small cell Resul ts for this AM CDT carcinoma procedure are i n the results section. .GLOMERULAR FILTRATION Routine 10/13/2021 7:48 Small cell Re sults for this RATE AM CDT carcinoma procedure are i n the results section. 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 BLOOD UREA NITROGEN Routine 10/13/2021 7:48 Small cell Resul ts for this AM CDT carcinoma procedure are i n the results section. 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 MANUAL DIFFERENTIAL Routine 10/13/2021 7:48 Small cell Resul ts for this AM CDT carcinoma procedure are i n the results section. 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 MAGNESIUM LEVEL Routine 10/13/2021 7:48 Small cell Results f or this AM CDT carcinoma procedure are i n the results section. COMPREHENSIVE METABOLIC Routine 10/13/2021 7:48 Small cell PANEL AM CDT carcinoma COMPLETE BLOOD COUNT W/ Routine 10/13/2021 7:48 Small cell DIFFERENTIAL AM CDT carcinoma MRI BRAIN W WO CONTRAST Routine 09/30/2021 10:55 Secondary mal ignant Results for this AM CDT neoplasm of brain procedure are in the results section. FRACTIONATED BILIRUBIN Routine 09/22/2021 7:29 Small cell Re sults for this AM CDT carcinoma procedure are i n the results section. 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 ASPARTATE Routine 09/22/2021 7:29 Small cell Results for this AMINOTRANSFERASE AM CDT carcinoma procedure a re in the results section. ALANINE AMINOTRANSFERASE Routine 09/22/2021 7:29 Small cell Results for this AM CDT carcinoma procedure are i n the results section. ALKALINE PHOSPHATASE Routine 09/22/2021 7:29 Small cell Resu lts for this AM CDT carcinoma procedure are i n the results section. ALBUMIN LEVEL Routine 09/22/2021 7:29 Small cell Results for this AM CDT carcinoma procedure are i n the results section. CALCIUM LEVEL TOTAL Routine 09/22/2021 7:29 Small cell Resul ts for this AM CDT carcinoma procedure are i n the results section. .GLOMERULAR FILTRATION Routine 09/22/2021 7:29 Small cell R esults for this RATE AM CDT carcinoma procedure are i n the results section. SERUM CREATININE Routine 09/22/2021 7:29 Small cell Results for this AM CDT carcinoma procedure are i n the results section. 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 BLOOD UREA NITROGEN Routine 09/22/2021 7:29 Small cell Resul ts for this AM CDT carcinoma procedure are i n the results section. GLUCOSE LEVEL Routine 09/22/2021 7:29 Small cell Results for this AM CDT carcinoma procedure are i n the results section. MANUAL DIFFERENTIAL Routine 09/22/2021 7:29 Small cell Resul ts for this AM CDT carcinoma procedure are i n the results section. Results CBC Routine 09/22/2021 7:29 Small cell Results for this AM CDT carcinoma procedure are i n the results section. MAGNESIUM LEVEL Routine 09/22/2021 7:29 Small cell Results f or this AM CDT carcinoma procedure are i n the results section. PHOSPHORUS LEVEL Routine 09/22/2021 7:29 Small cell Results for this AM CDT carcinoma procedure are i n the results section. COMPREHENSIVE METABOLIC Routine 09/22/2021 7:29 Small cell PANEL AM CDT carcinoma COMPLETE BLOOD COUNT W/ Routine 09/22/2021 7:29 Small cell DIFFERENTIAL AM CDT carcinoma FREE THYROXINE Routine 09/22/2021 7:29 Secondary malignant Res ults for this AM CDT neoplasm of brain procedure are in the results section. THYROID STIMULATING Routine 09/22/2021 7:29 Secondary malignan t Results for this HORMONE AM CDT neoplasm of brain procedure are in the results section. PETCT SUBSEQUENT Routine 09/19/2021 1:15 Secondary malignant R esults for this TREATMENT STRATEGY PM CDT neoplasm of brain proc edure are in the results section. after 08/30/2021 Results .Serum Creatinine (08/24/2022 7:15 AM CDT)Only the most recent of20 results within the time period is included. athologist Signature Creatinine 0.63 0.51 - 0.95 [facility] mg/dL [facility] Specimen Anatomical Collection Method Collection Time Receive d Time (Source) Location / / Volume Laterality Blood 08/24/2022 7:15 AM 7:38 CDT AM CDT Iris Hernandez PA-C LAB BLOOD ORDERABLES Performing Organization Address City/State/ZIP Code Phon e Number [facility] DIAGNOSTIC Unless otherwise noted, [place], [place] [address] CENTER all lab tests performed by: Division of Pathology and Laboratory Medicine [address] .CBC (08/24/2022 7:15 AM CDT)Only the most recent of20 resultswithin the time period is included. athologist Signature WBC 5.0 4.0 - 11.0 [facility] K/uL DI[facility]IC CENTER RBC 4.51 4.00 - [facility] 5.50 M/uL [facility]ENTER Hgb 13.4 12.0 - [facility] 16.0 gm/dL DI[facility]ENTER Hct 41.2 37.0 - [facility] 47.0 % DI[facility]IC CENTER MCV 91 82 - 98 fL [facility] DIAGNOSTIC CENTER MCH 29.7 27.0 - [facility] 31.0 pg DIAGNOSTIC CENTER MCHC 32.5 31.0 - [facility] 36.0 gm/dL DI[facility]STIC CENTER RDW-SD 45.0 35.1 - [facility] 46.3 fL DIAGNOSTIC CENTER RDW-CV 13.4 12.0 - [facility] 15.5 % [facility] Platelet count 304 140 - 440 [facility] K/uL DI[facility]IC CENTER MPV 10.0 4.0 - 10.4 [facility] fL DI[facility]NOSTIC CENTER INRBC 0.0 <=0.0 % [facility] Comment: The INRBC (instrument NRBC) value reflec ts the enumeration of nucleated red blood cells contained i n a 200uL sample of whole blood analyzed by the instrumen t. This value may differ from the NRBC value reported in a manual differential, which is based on a 100 cell differentia l. Specimen Anatomical Collection Method Collection Time Receive d Time (Source) Location / / Volume Laterality Blood 08/24/2022 7:15 AM 3 7:27 CDT AM CDT Iris Hernandez PA-C LAB BLOOD ORDERABLES Performing Organization Address City/[facility]/ZIP Code Phon e Number [facility] DIAGNOSTIC Unless otherwise noted, [address] all lab tests performed by: Division of Pathology and Laboratory Medicine [facility] (ABNORMAL) Glucose, Fasting (08/24/2022 7:15 AM CDT)Only the most recent of3 resultswithin the time period is included. athologist Signature Glucose 105 (H) 70 - 99 [facility] Fasting mg/dL DI[facility]STIC CENTER Comment: Impaired fasting glucose (increased risk for diabetes or prediabetes): 100-125 mg/dL Diabetes mellitus: >= 126 mg/dL Specimen Anatomical Collection Method Collection Time Receive d Time (Source) Location / / Volume Laterality Blood 08/24/2022 7:15 AM 3 7:38 CDT AM CDT Iris Hernandez PA-C LAB BLOOD ORDERABLES Performing Organization Address City/State/ZIP Code Phon e Number [facility] DIAGNOSTIC Unless otherwise noted, [place] [phone] [place] all lab tests performed by: Division of Pathology and Laboratory Medicine [address] [place] Glomerular Filtration Rate (08/24/2022 7:15 AM CDT)Only the most recent of20 resultswithin the time period is included. athologist Signature eGFR 95 >=60 [facility] mL/min/1.73 DIAGNOSTIC sq. m CENTER Comment: The eGFRcr is calculated with the 2020 KD-EPI creatinine equation using creatinine, patient's age, and sex for adults 18 years of age and older. Other factors, especially muscle mass, may affect accuracy and need to be considered. According to the Kidney Disease: Improvi ng Global Outcomes (KDIGO) CKD Work Group 2012 Clinical Practice Guideline, chronic kidney disease (CKD) is defined as the abnormalities of kidney structure or function, present for more than 3 months, with implications for health. CKD should be c lassified by cause, GFR category, and albuminuria category. KDIGO guidelines provide the following GFR categories Stage Description GFR mL/min/1.73 m2 G1* Normal or high >= 90 G2* Mildly decreased 60-89 G3a Mildly to moderately decreased 45-59 G3b Moderately to severely decreased 30- 44 G4 Severely decreased 15-29 G5 Kidney failure <15 *In the absence of evidence of kidney da mage, neither G1 nor G2 fulfill criteria for CKD. Specimen Anatomical Collection Method Collection Time Receive d Time (Source) Location / / Volume Laterality Blood 08/24/2022 7:15 AM 7:38 CDT AM CDT Iris Hernandez PA-C LAB BLOOD ORDERABLES Performing Organization Address City/State/ZIP Code Phon e Number [facility] Unless otherwise noted, [place], [place] [address] [place] all lab tests performed by: Division of Pathology and Laboratory Medicine [address] [place] [address] Fractionated Bilirubin (08/24/2022 7:15 AM CDT)Only the most recent of19 results within the time period is included. athologist Signature Bili Total 0.3 <=1.2 mg/dL [facility] Comment: Indocyanine Green (ICG) may cause falsel y elevated bilirubin results. Total and direct bilirubin must not be measured from samples containing indocyanine green. False elevation of total bilirubin can b e seen in patients with IgG concentrations above 28 g/L. Bili Direct <0.2 <=0.3 mg/dL [facility] Comment: Indocyanine Green (ICG) may cau se falsely elevated bilirubin results. Total and direct bilirubin must not be measure d from samples containing indocyanine green. Bili Indirect See Note 0.0 - 0.9 mg/dL [facility] [place] Comment: Unable to calculate Indirect Bi lirubin result due to some parameters are outside reportable range Specimen Anatomical Collection Method Collection Time Receive d Time (Source) Location / / Volume Laterality Blood 08/24/2022 7:15 AM 3 7:38 CDT AM CDT Iris Alidaalverto Hernandez PA-C LAB BLOOD ORDERABLES Performing Organization Address City/State/ZIP Code Phon e Number [facility] DIAGNOSTIC Unless otherwise noted, [place], [place] [phone] CENTER all lab tests performed by: Division of Pathology and Laboratory Medicine [address] [facility] ([facility]AL) Urinalysis with Microscopic (08/24/2022 7:15 AM CDT)Only the most recent of3 resultswithin the time period is included. [facility] gist Method Time Signature UA Color Straw [facility] UA Appear Clear Clear [facility] UA Glucose NEG NEG mg/dL [facility] UA Bili NEG NEG [facility] UA Ketones NEG NEG mg/dL [facility] UA Spec Grav 1.006 1.003 - [facility] 1.035 [facility] UA Blood NEG NEG [facility] UA pH 6.0 5.0 - 9.0 [facility] UA Protein NEG NEG mg/dL [facility] UA Urobilinogen NEG NEG [facility] UA Nitrite NEG NEG [facility] UA Leuk Est NEG NEG [facility] UA WBC NOT SEEN 0 - 2 /HPF [facility] Comment: Some reporting parameters within the Uri nalysis test have changed due to the implementation of new instrumentation in the [facility], allowing greater sensitivity of measurement. Urinalysis results rep orted by the [facility] using existing instrumentation, as well as Urinalysis t esting performed manually or by backup methodology at the [facility] will remain relatively unchanged. New reporting parameters and units will not be reported for all campuses. UA RBC NOT SEEN 0 - 2 /HPF [facility] UA Mucous NOT SEEN Not Seen-Trace /HPF [facility] UA Bacteria OCC (A) NOT SEEN /HPF [facility] UA Squam Epi OCC None-Occasional /HPF [facility] Specimen Anatomical Collection Method Collection Time Receive d Time (Source) Location / / Volume Laterality Urine 08/24/2022 7:15 AM 3 7:44 CDT AM CDT Iris Hernandez PA-C URINE ORDERABLES Performing Organization Address City/State/ZIP Code Phon e Number [facility] CANCER Unless otherwise noted, [place] [address] CENTER all lab tests performed by: Division of Pathology and Laboratory Medicine [address] [place] (ABNORMAL) Differential (08/24/2022 7:15 AM CDT)Only the most recent of20 resultswithin the time period is included. athologist Signature Neutrophil % 58.0 42.0 - [facility] 66.0 % DIAGNOSTIC CENTER Lymphocyte % 17.9 (L) 24.0 - [facility] 44.0 % DIAG[facility]STIC CENTER Monocyte % 13.9 (H) 2.0 - 7.0 [facility] % DIAGNOSTIC CENTER Eosinophil % 8.4 (H) 1.0 - 4.0 [facility] % DI[facility]NOSTIC CENTER Basophil % 1.4 (H) 0.0 - 1.0 [facility] % DIAGNOSTIC CENTER IGRE % 0.4 0.0 - 0.4 [facility] % [facility]ENTER Comment: IGRE % count includes Metamyelo cytes, Myelocytes, and Promyelocytes. Neutrophil Abs 2.89 1.70 - 7.30 K/uL [facility] Lymphocyte Abs 0.89 (L) 1.00 - 4.80 K/uL [facility] Monocyte Abs 0.69 0.08 - 0.70 K/uL [facility] Eosinophil Abs 0.42 (H) 0.04 - 0.40 K/uL [facility] Basophil Abs 0.07 0.00 - 0.10 K/uL [facility] DIAGNOSTIC [place] IG Abs 0.02 0.00 - 0.04 K/uL [facility] [place] Specimen Anatomical Collection Method Collection Time Receive d Time (Source) Location / / Volume Laterality Blood 08/24/2022 7:15 AM 3 7:27 CDT AM CDT Iris Hernandez PA-C LAB BLOOD ORDERABLES Performing Organization Address City/State/ZIP Code Phon e Number [facility] DIAGNOSTIC Unless otherwise noted, [place] [phone] [place] all lab tests performed by: Division of Pathology and Laboratory Medicine [facility] BUN (08/24/2022 7:15 AM CDT)Only the most recent of20 resultswithin the time period is included. athologist Signature BUN 10 6 - 23 [facility] mg/dL DI[facility]NOSTIC CENTER Specimen Anatomical Collection Method Collection Time Receive d Time (Source) Location / / Volume Laterality Blood 08/24/2022 7:15 AM 3 7:38 CDT AM CDT Irisjax Hernandez PA-C LAB BLOOD ORDERABLES Performing Organization Address City/[facility] Phon e Number [facility] DIAGNOSTIC Unless otherwise noted, [address] all lab tests performed by: Division of Pathology and Laboratory Medicine [facility] ALT (08/24/2022 7:15 AM CDT)Only the most recent of19 resultswithin the time period is included. athologist Signature ALT 19 <=33 U/L [facility] Specimen Anatomical Collection Method Collection Time Receive d Time (Source) Location / / Volume Laterality Blood 08/24/2022 7:15 AM 3 7:38 CDT AM CDT Iris Alida Hernandez PA-C LAB BLOOD ORDERABLES Performing Organization Address [facility]/ZIP [facility] Phon e Number [facility] DIAGNOSTIC Unless otherwise noted, [place] [phone] [place] all lab tests performed by: Division of Pathology and Laboratory Medicine [address] [place] [address] Aspartate Aminotransferase (08/24/2022 7:15 AM CDT)Only the most recent of19 resultswithin the time period is included. athologist Signature AST 18 <=32 U/L [facility] Specimen Anatomical Collection Method Collection Time Receive d Time (Source) Location / / Volume Laterality Blood 08/24/2022 7:15 AM 3 7:38 CDT AM CDT Iris Alida Vo PA-C LAB BLOOD ORDERABLES Performing Organization Address City/[facility]/ZIP [facility] Phon e Number [facility] DIAGNOSTIC Unless otherwise noted, [address] all lab tests performed by: Division of Pathology and Laboratory Medicine [address] [place] Total Protein (08/24/2022 7:15 AM CDT)Only the most recent of19 resultswithin the time period is included. athologist [facility] Total Protein 7.1 6.4 - 8.3 [facility] g/dL DI[facility]IC CENTER Specimen Anatomical Collection Method Collection Time Receive d Time (Source) Location / / Volume Laterality Blood 08/24/2022 7:15 AM 3 7:38 CDT AM CDT Iris Alida Hernandez PA-C LAB BLOOD ORDERABLES Performing Organization Address [facility] Phon e Number [facility] DIAGNOSTIC Unless otherwise noted, [address] all lab tests performed by: Division of Pathology and Laboratory Medicine [address] [place] Phosphorus Level (08/24/2022 7:15 AM CDT)Only the most recent of18 resultswithin the time period is included. athologist Signature Phosphorus 4.1 2.5 - 4.5 [facility] mg/dL [facility] Specimen Anatomical Collection Method Collection Time Receive d Time (Source) Location / / Volume Laterality Blood 08/24/2022 7:15 AM 3 7:38 CDT AM CDT Iris Alida Hernandez PA-C LAB BLOOD ORDERABLES Performing Organization Address [facility] Phon e Number [facility] DIAGNOSTIC Unless otherwise noted, [address] all lab tests performed by: Division of Pathology and Laboratory Medicine [address] [place] Alkaline Phosphatase (08/24/2022 7:15 AM CDT)Only the most recent of19 results within the time period is included. P athologist Signature Alk Phos 98 35 - 104 [facility] U/L DI[facility]IC CENTER Specimen Anatomical Collection Method Collection Time Receive d Time (Source) Location / / Volume Laterality Blood 08/24/2022 7:15 AM 3 7:38 CDT AM CDT Iris Alida Vo PA-C LAB BLOOD ORDERABLES Performing Organization Address City/[facility] Phon e Number [facility] DIAGNOSTIC Unless otherwise noted, [address] all lab tests performed by: Division of Pathology and Laboratory Medicine [address] [place] Magnesium Level (08/24/2022 7:15 AM CDT)Only the most recent of18 resultswithin the time period is included. athologist Signature Magnesium 2.1 1.6 - 2.6 [facility] mg/dL DI[facility]NOSTIC CENTER Specimen Anatomical Collection Method Collection Time Receive d Time (Source) Location / / Volume Laterality Blood 08/24/2022 7:15 AM 3 7:38 CDT AM CDT Iris Hernandez PA-C LAB BLOOD ORDERABLES Performing Organization Address [facility] Phon e Number [facility] DIAGNOSTIC Unless otherwise noted, [address] all lab tests performed by: Division of Pathology and Laboratory Medicine [address] [place] Lipase Level (08/24/2022 7:15 AM CDT)Only the most recent of3 resultswithin the time period is included. athologist Signature Lipase Lvl 24 13 - 60 U/L [facility] Specimen Anatomical Collection Method Collection Time Receive d Time (Source) Location / / Volume Laterality Blood 08/24/2022 7:15 AM 3 7:38 CDT AM CDT Iris SPAULDING-Britt[place] LAB BLOOD ORDERABLES Performing Organization Address [facility] Phon e Number [facility] DIAGNOSTIC Unless otherwise noted, [address] all lab tests performed by: Division of Pathology and Laboratory Medicine [address] [place] LDH (08/24/2022 7:15 AM CDT)Only the most recent of4 resultswithin the time period is included. athologist Signature LDH 148 135 - 214 [facility] U/L [facility] Comment: Results greater than 1651 U/L m ay not be reliable due to matrix effect with extended dilution as it exceeds the manu facturer's recommended limit. Caution should be exercised when interpreting such valu es and done in conjunction with clinical context. Specimen Anatomical Collection Method Collection Time Receive d Time (Source) Location / / Volume Laterality Blood 08/24/2022 7:15 AM 3 7:33 CDT AM CDT Iris Alida Hernandez PA-C LAB BLOOD ORDERABLES Performing Organization Address City/[facility]/ZIP [facility] Phon e Number [facility] DIAGNOSTIC Unless otherwise noted, [address] all lab tests performed by: Division of Pathology and Laboratory Medicine [address] [place] GGT (08/24/2022 7:15 AM CDT)Only the most recent of3 resultswithin the time period is included. P athologist Signature GGT 26 5 - 36 U/L [facility] Specimen Anatomical Collection Method Collection Time Receive d Time (Source) Location / / Volume Laterality Blood 08/24/2022 7:15 AM 3 7:38 CDT AM CDT Iris Alida S[place]UL[place] LAB BLOOD ORDERABLES Performing Organization Address [facility] Phon e Number [facility] DIAGNOSTIC Unless otherwise noted, [address] all lab tests performed by: Division of Pathology and Laboratory Medicine [address] [place] Calcium Level (08/24/2022 7:15 AM CDT)Only the most recent of20 resultswithin the time period is included. athologist Signature Calcium Lvl 9.6 8.4 - 10.2 [facility] mg/dL [facility] Specimen Anatomical Collection Method Collection Time Receive d Time (Source) Location / / Volume Laterality Blood 08/24/2022 7:15 AM 3 7:38 CDT AM CDT Iris Alida Hernandez PA-C LAB BLOOD ORDERABLES Performing Organization Address City/[facility] Phon e Number [facility] DIAGNOSTIC Unless otherwise noted, [address] all lab tests performed by: Division of Pathology and Laboratory Medicine [address] [place] Amylase Level (08/24/2022 7:15 AM CDT)Only the most recent of3 resultswithin the time period is included. P athologist Signature Amylase Lvl 57 28 - 100 [facility] U/L DIAGNOSTIC CENTER Specimen Anatomical Collection Method Collection Time Receive d Time (Source) Location / / Volume Laterality Blood 08/24/2022 7:15 AM 3 7:38 CDT AM CDT Iris Alida SPAULDING-Brittany LAB BLOOD ORDERABLES Performing Organization Address City/[facility]/ZIP Code Phon e Number [facility] DIAGNOSTIC Unless otherwise noted, [address] all lab tests performed by: Division of Pathology and Laboratory Medicine [address] [place] Albumin Level (08/24/2022 7:15 AM CDT)Only the most recent of19 resultswithin the time period is included. athologist Signature Albumin Lvl 4.3 3.5 - 5.2 [facility] gm/dL DIAGNOSTIC CENTER Specimen Anatomical Collection Method Collection Time Receive d Time (Source) Location / / Volume Laterality Blood 08/24/2022 7:15 AM 3 7:38 CDT AM CDT Iris Alida SPAULDING-C LAB BLOOD ORDERABLES Performing Organization Address [facility] Phon e Number [facility] DIAGNOSTIC Unless otherwise noted, [place] [phone] [place] all lab tests performed by: Division of Pathology and Laboratory Medicine [address] [place] Electrolyte Panel (08/24/2022 7:15 AM CDT)Only the most recent of20 results within the time period is included. P athologist Signature Sodium Lvl 138 136 - 145 [facility] mEq/L DIAGNOSTIC CENTER Potassium Lvl 4.5 3.5 - 5.1 [facility] mEq/L DIAGNOSTIC CENTER Chloride 103 98 - 107 [facility] mEq/L DIAGNOSTIC CENTER CO2 29 22 - 29 [facility] mEq/L DIAGNOSTIC CENTER Anion Gap 6 4 - 14 [facility] mEq/L DIAGNOSTIC CENTER Specimen Anatomical Collection Method Collection Time Receive d Time (Source) Location / / Volume Laterality Blood 08/24/2022 7:15 AM 3 7:38 CDT AM CDT Iris Vickersalverto SPAULDING-C LAB BLOOD ORDERABLES Performing Organization Address City/[facility]/ZIP [facility] Phon e Number [facility] DIAGNOSTIC Unless otherwise noted, [place] [phone] [place] all lab tests performed by: Division of Pathology and Laboratory Medicine [address] [place] [facility] EKG, 12-Lead (08/24/2022)Only the most recent of4 resultswithin the time period is included. Specimen (Source) Anatomical Location Collection Method / Collectio n Time Received Time / Laterality Volume Narrative This result has an attachment that is no t available. Irisjax Irwin David RODRIGUEZ ECG ORDERABLES Performing Organization Address City/State/ZIP Code Phon e Number JAYDE IECG CT Abdomen Pelvis with Contrast (08/16/2022 1:27 PM CDT) Anatomical Region Laterality Modality Abdomen, Pelvis Computed Tomography Specimen (Source) Anatomical Collection Method Collection Time Re ceived Time Location / / Volume Laterality 08/16/2022 2:34 PM CDT Impressions 08/16/2022 2:51 PM CDT 1. Since 07/10/2022, the suspected rig ht lower lobe metastatic pulmonary nodule slightly increased in size. 2. No suspicious mass, metastasis or a cute findings identified in the abdomen and pelvis by CT imaging. Narrative 08/16/2022 2:51 PM CDT Examination: CT ABDOMEN PELVIS W CONTRAS T, 08/16/2022 1:27 PM Clinical History: Small cell carcinoma Mass of neck Hypertension Indication: right flank pain, DD: urol ithiasis, appendicitis, new tumor Comparison: PET/CT from 07/10/2022 and e arlier examinations Technique: CT of the abdomen and pelvis was performed with intravenous contrast. Findings: LUNG BASES Since 07/10/2022, suspected right lower lobe metastatic pulmonary nodule slightly increased in size from 1.2 cm to 1.6 cm. No pleural effusions. ABDOMEN/PELVIS Hepatobiliary: No suspicious liver lesio ns. No significant hepatic steatosis. The gallbladder is normal. No intrahepatic or extrahepatic biliary ductal dilatation. Pancreas: Normal. Spleen: No suspicious splenic lesions or splenomegaly. Genitourinary: The adrenal glands are no rmal. The kidneys contain several small cortical cysts, the largest measures 1.1 cm in the right upper pole. No hydronephrosis. The bladder is normal. No renal, u reteral or bladder stones. Prior hystere ctomy. No suspicious adnexal mass.. Gastrointestinal: No suspicious bowel wa ll thickening or mass. Moderate to severe diverticular disease of the descending and sigmoid colon, but without imaging evidence of acute diverticulitis. The appendix is normal. No bowel obstruction. Peritoneum: No ascites or suspicious per itoneal nodules. Lymphatics: No lymphadenopathy in the abdomen, pelvis or inguinal regions. Vessels: Moderate atherosclerotic diseas e of the abdominal aorta and its branching vessels. Soft tissues/bones: No suspicious soft tissue or osseous lesions seen in the imaged chest or within the abdomen and pelvis. Moderate degenerative changes in the thoracic and lumbar spine consisting of osteophyte formations. Procedure Note Checo Head MD - 08/16/2022Formatting of th is note might be different from the original. Examination: CT ABDOMEN PELVIS W CONTRAS T, 08/16/2022 1:27 PM Clinical History: Small cell carcinoma Mass of neck Hypertension Indication: right flank pain, DD: urolit hiasis, appendicitis, new tumor Comparison: PET/CT from 07/10/2022 and e arlier examinations Technique: CT of the abdomen and pelvis was performed with intravenous contrast. Findings: LUNG BASES Since 07/10/2022, suspected right lower lobe metastatic pulmonary nodule slightly increased in size from 1.2 cm to 1.6 cm. No pleural effusions. ABDOMEN/PELVIS Hepatobiliary: No suspicious liver lesio ns. No significant hepatic steatosis. The gallbladder is normal. No intrahepatic or extrahepatic biliary ductal dilatation. Pancreas: Normal. Spleen: No suspicious splenic lesions or splenomegaly. Genitourinary: The adrenal glands are no rmal. The kidneys contain several small cortical cysts, the largest measures 1.1 cm in the right upper pole. No hydronephrosis. The bladder is normal. No renal, ureteral or bladder stones. Prior hysterectomy. No suspiciou s adnexal mass.. Gastrointestinal: No suspicious bowel wa ll thickening or mass. Moderate to severe diverticular disease of the descending and sigmoid colon, but without imaging evidence of acute diverticulitis. The appendix is normal. No bowel obstruction. Peritoneum: No ascites or suspicious per itoneal nodules. Lymphatics: No lymphadenopathy in the ab domen, pelvis or inguinal regions. Vessels: Moderate atherosclerotic diseas e of the abdominal aorta and its branching vessels. Soft tissues/bones: No suspicious soft t issue or osseous lesions seen in the imaged chest or within the abdomen and pelvis. Moderate degenerative changes in the thoracic and lumbar spine consisting of osteophyte formations. IMPRESSION: 1. Since 07/10/2022, the suspected right lower lobe metastatic pulmonary nodule slightly increased in size. 2. No suspicious mass, metastasis or acu te findings identified in the abdomen and pelvis by CT imaging. Edgar Patton MD IMG CT ORDERABLES (ABNORMAL) POC Chem 8 without Hemoglobin and Hematocrit (08/16/2022 11:14 AM CDT) P athologist Signature POC NA 135 (L) 138 - 146 [facility] mEq/L POC K 4.2 3.5 - 4.9 [facility] mEq/L Comment: Method description: The i-STAT is an tashi lyzer used for in vitro quantification of various analytes in whole blood. The device uses a single disposable cartridge which contains microfabricated sensors, a calibration solution, fluidics system, and a waste chamber. Each test cartridge contains ch emically sensitive biosensors on a silicon chip that are configured to perform specific tests. The microfabricated sensors measure analyte concentration by an electrochemical assay. POC CL 100 98 - 109 mEq/L [facility] POC VTCO2 25 24 - 29 mEq/L [facility] POC Anion Gap 16 10 - 20 mmol/L [facility] POC BUN 11 8 - 26 mg/dL [facility] POC Crea 0.5 (L) 0.6 - 1.3 mg/dL [facility] Comment: Medications, especially hydroxyurea or s upplements, such as ascorbate, can interfere with test results causing a falsely and significantly higher result than expected. If a problem is suspected with a patient's result, a sample should be sent to the laboratory for confirmatory testing. Method description: The i-STAT is an tashi lyzer used for in vitro quantification of various analytes in whole blood. The device uses a single disposable cartridge which contains microfabricated sensors, a calibration solution, fluidics system, and a waste chamber. Each test cartridge contains ch emically sensitive biosensors on a silicon chip that are configured to perform specific tests. The microfabricated sensors measure analyte concentration by an electrochemical assay. POC EGFR 101 >=60 mL/min/1.73 sq. m [facility] Comment: The eGFRcr is calculated with the 2020 KD-EPI creatinine equation using creatinine, patient's age, and sex for adults 18 years of age and older. Other factors, especially muscle mass, may affect accuracy and need to be considered. According to the Kidney Disease: Improvi ng Global Outcomes (KDIGO) CKD Work Group 2012 Clinical Practice Guideline, chronic kidney disease (CKD) is defined as the abnormalities of kidney structure or function, present for more than 3 months, with implications for health. CKD should be c lassified by cause, GFR category, and albuminuria category. KDIGO guidelines provide the following GFR categories Stage Description GFR mL/min/1.73 m2 G1* Normal or high >= 90 G2* Mildly decreased 60-89 G3a Mildly to moderately decreased 45-59 G3b Moderately to severely decreased 30- 44 G4 Severely decreased 15-29 G5 Kidney failure <15 *In the absence of evidence of kidney da mage, neither G1 nor G2 fulfill criteria for CKD. POC Glucose 98 70 - 99 mg/dL [facility] Comment: Medications, especially hydroxy urea, can interfere with test results causing a falsely and significantly higher resul t than expected. If a problem is suspected with a patient's result, a sample should be sent to the laboratory for confirmatory testing. POC Ion Ca 1.23 1.12 - 1.32 mmol/L [facility] POC Sample Type Venous [facility]OC [facility] POC Clean Dev Yes POC [facility] Performing Lab [facility] POC TELCO R Comment: [facility] Clinical Lab, [address] [place] [address], [place] [address]; Lab Direct or: Shayy Antunez MD; Waived Point of Care Testing - Pau Valdivia MD Specimen Anatomical Collection Method Collection Time Receive d Time (Source) Location / / Volume Laterality Blood 08/16/2022 11:14 08/16/2022 AM CDT 11:14 AM CDT Edgar Patton MD POINT OF CARE TEST ORDERABLE S Performing Organization Address City/State/ZIP Code Phon e Number POC [facility] Unless otherwise noted, [place] [address] lab tests performed by: Division of Pathology and Laboratory Medicine [address] [place] [address] (ABNORMAL) Urinalysis Microscopic Exam (08/16/2022 11:13 AM CDT) athologist Signature UA WBC 1 0 - 2 /HPF [facility] Comment: Some reporting parameters within the Uri nalysis test have changed due to the implementation of new instrumentation in the [facility], allowing greater sensitivity of measurement. Urinalysis results rep orted by the [facility] using existing instrumentation, as well as Urinalysis t esting performed manually or by backup methodology at the [facility] [place] will remain relatively unchanged. New reporting parameters and units will not be reported for all campuses. UA RBC 1 0 - 2 /HPF [facility] UA Mucous NOT SEEN Not Seen-Trace /HPF CA MD [facility] UA Bacteria OCC (A) NOT SEEN /HPF [facility] UA Squam Epi OCC None-Occasional /HPF [facility] Specimen Anatomical Collection Method Collection Time Receive d Time (Source) Location / / Volume Laterality Urine 08/16/2022 11:13 08/16/2022 AM CDT 11:17 AM CDT Edgar Patton MD LAB BLOOD ORDERABLES Performing Organization Address City/State/ZIP Code Phon e Number [facility] Unless otherwise noted, [address] all lab tests performed by: Division of Pathology and Laboratory Medicine [facility] [place] (ABNORMAL) aPTT (08/16/2022 11:13 AM CDT)Only the most recent of2 resultswithin the time period is included. P athologist Signature aPTT 47.6 (H) 24.1 - 35.5 [facility] Comment: Repeated and Verified Specimen Anatomical Collection Method Collection Time Receive d Time (Source) Location / / Volume Laterality Blood 08/16/2022 11:13 08/16/2022 AM CDT 11:17 AM CDT Edgar Patton MD LAB BLOOD ORDERABLES Performing Organization Address City/[facility]/ZIP Code Phon e Number [facility] Unless otherwise noted, [address] all lab tests performed by: Division of Pathology and Laboratory Medicine [facility] [employer] (ABNORMAL) Urinalysis w/Microscopic if Indicated (08/16/2022 11:13 AM CDT)Only the most recent of2 resultswithin the time period is included. Patholo gist Method Time Signature UA Color Colorless (A) [facility] UA Appear Clear Clear [facility] UA Glucose NEG NEG mg/dL [facility] UA Bili NEG NEG [facility] UA Ketones NEG NEG mg/dL [facility] UA Spec Grav 1.006 1.003 - [facility] 1.035 [facility] UA Blood NEG NEG [facility] UA pH 6.5 5.0 - 9.0 [facility] UA Protein NEG NEG mg/dL [facility] UA Urobilinogen NEG NEG [facility] UA Nitrite NEG NEG [facility] UA Leuk Est Small (A) NEG [facility] Specimen Anatomical Collection Method Collection Time Receive d Time (Source) Location / / Volume Laterality Urine 08/16/2022 11:13 08/16/2022 AM CDT 11:17 AM CDT Edgar Patton MD URINE ORDERABLES Performing Organization Address City/[facility]/ZIP Code Phon e Number [facility] Unless otherwise noted, [address] all lab tests performed by: Division of Pathology and Laboratory Medicine [address] Prothrombin Time with INR (08/16/2022 11:13 AM CDT)Only the most recent of2 resultswithin the time period is included. athologist Signature PT 13.1 11.9 - 14.5 [facility](s) [facility] Comment: Repeated and Verified INR 1.00 0.87 - 1.12 [facility] CAN [facility] Comment: Repeated and Verified Specimen Anatomical Collection Method Collection Time Receive d Time (Source) Location / / Volume Laterality Blood 08/16/2022 11:13 08/16/2022 AM CDT 11:17 AM CDT Edgar Patton MD LAB BLOOD ORDERABLES Performing Organization Address City/[facility]/ZIP Code Phon e Number [facility] Unless otherwise noted, [address] all lab tests performed by: Division of Pathology and Laboratory Medicine [address] Glucose Level (08/16/2022 11:13 AM CDT)Only the most recent of17 resultswithin the time period is included. P athologist Signature Glucose Level 99 70 - 99 [facility] mg/dL [facility] [place] Comment: Effective 09/25/15, the glucose reference intervals have been updated based on [place] Diabetes [employer] guidelines (Standards of Medical Care in Diabetes 2016. Diabetes Care 2016; 39: S13-S22). Fasting blood glucose: Normal: 70-99 mg/dL Impaired fasting glucose (increased risk for diabetes or pre-diabetes): 100- 125 mg/dL Diabetes mellitus: >/=126 mg/dL Random blood glucose: Normal: 70-199 mg/dL Note: Random glucose >100 mg/dL is assoc iated with increased risk for diabetes Specimen Anatomical Collection Method Collection Time Receive d Time (Source) Location / / Volume Laterality Blood 08/16/2022 11:13 08/16/2022 AM CDT 11:46 AM CDT Edgar Patton MD LAB BLOOD ORDERABLES Performing Organization Address City/State/ZIP Code Phon e Number [facility] CANCER Unless otherwise noted, [place], [place] [id number] [place] [address] all lab tests performed by: Division of Pathology and Laboratory Medicine [facility] HIV-1/2 Antigen and Antibodies, Fourth Generation (08/05/2022 10:58 AM CDT) Analysis Performed At Patho logist Time Signature HIV Ag/Ab, 4TH NON-REACTI NON-REACTI [facility] VE Comment: HIV-1 antigen and HIV-1/HIV-2 antibodies were not detected. There is no laboratory evidenc e of HIV infection. PLEASE NOTE: This information has been d isclosed to you from records whose confidentiality m ay be protected by state law. If your state requires such protection, then the state law prohibits you from making any further disclosure of the inf ormation without the specific written consent of the person to whom it pertains, or as otherwise per mitted by law. A general authorization for the release of medical or other information is NOT sufficient for this purpose. For additional information please refer to http://education.[employer]/fa q/EBE614 (This link is being provided for informa tional/ educational purposes only.) The performance of this assay has not be en clinically validated in patients less than 2 years old. Lab test performed by: Lab Mnemonic: [facility] [address] [id number] SUDEEP ANAYA MD Specimen Anatomical Collection Method Collection Time Receive d Time (Source) Location / / Volume Laterality Blood 08/05/2022 10:58 08/05/2022 1:44 AM CDT PM CDT Iris Hernandez PA-C LAB BLOOD ORDERABLES Performing Organization Address [facility] Code Phon e Number [facility] Hepatitis C Virus Antibody (08/05/2022 10:58 AM CDT) [facility] Signature HCVAb. Non Reactive Non Reactive [facility] Comment: Antibody detection in the immunocompromi sed and immunosuppressed population may be delayed or absent entirely. Therefore serial testing, correlation with other clinical findings, and supplemental testin g (if available) should be taken into co nsideration when interpreting the results. Specimen Anatomical Collection Method Collection Time Receive d Time (Source) Location / / Volume Laterality Blood 08/05/2022 10:58 08/05/2022 AM CDT 12:09 PM CDT Iris Hernandez PA-C LAB BLOOD ORDERABLES Performing Organization Address [facility] Phon e Number [facility] CANCER Unless otherwise noted, [address] all lab tests performed by: Division of Pathology and Laboratory Medicine [address] [place], [place] [address]d (ABNORMAL) Hepatitis B Total Ig Core Ab (SCREENING) (anti-HBc total Ig; HBcAb total Ig) (08/05/2022 10:58 AM CDT) [facility] Signature HBcAb. Reactive (A) Non Reactive [facility] Specimen Anatomical Collection Method Collection Time Receive d Time (Source) Location / / Volume Laterality Blood 08/05/2022 10:58 08/05/2022 AM CDT 12:09 PM CDT Iris Hernandez PA-C LAB BLOOD ORDERABLES Performing Organization Address [facility] Phon e Number [facility] Unless otherwise noted, [address] all lab tests performed by: Division of Pathology and Laboratory Medicine [address] [place] (ABNORMAL) Hepatitis B Surface Antibody (08/05/2022 10:58 AM CDT) [facility] Signature HBs Ab Reactive (A) Non Reactive [facility] Specimen Anatomical Collection Method Collection Time Receive d Time (Source) Location / / Volume Laterality Blood 08/05/2022 10:58 08/05/2022 AM CDT 12:09 PM CDT Iris Hernandez PA-C LAB BLOOD ORDERABLES Performing Organization Address City/State/ZIP Code Phon e Number [facility] CANCER Unless otherwise noted, [place] [address] [place] all lab tests performed by: Division of Pathology and Laboratory Medicine [address] [place] [address] Hepatitis Surface B Ag (08/05/2022 10:58 AM CDT) Patholo gist Method Time Signature HBsAg. Non Reactive Non Reactive [facility] Specimen Anatomical Collection Method Collection Time Receive d Time (Source) Location / / Volume Laterality Blood 08/05/2022 10:58 08/05/2022 AM CDT 12:09 PM CDT Iris Alida Hernandez PA-C LAB BLOOD ORDERABLES Performing Organization Address City/[facility]/ZIP Code Phon e Number [facility] CANCER Unless otherwise noted, [place] [address] [place] all lab tests performed by: Division of Pathology and Laboratory Medicine [address] [place] [address] Free T3 (08/05/2022 10:58 AM CDT) athologist Signature Free T3 2.9 2.0 - 4.4 [facility] pg/mL CAN[facility]ER CENTER Specimen Anatomical Collection Method Collection Time Receive d Time (Source) Location / / Volume Laterality Blood 08/05/2022 10:58 08/05/2022 AM CDT 12:20 PM CDT Iris Alida Hernandez PA-C LAB BLOOD ORDERABLES Performing Organization Address City/[facility]/ZIP Code Phon e Number [facility] CANCER Unless otherwise noted, [place] [address] [place] all lab tests performed by: Division of Pathology and Laboratory Medicine [address] [place] [address] TSH (08/05/2022 10:58 AM CDT)Only the most recent of3 resultswithin the time period is included. P athologist Signature TSH 0.82 0.27 - 4.20 [facility] mcunit/mL DIAG[facility]STIC CENTER Specimen Anatomical Collection Method Collection Time Receive d Time (Source) Location / / Volume Laterality Blood 08/05/2022 10:58 08/05/2022 AM CDT 11:23 AM CDT Iris Alida Hernandez PA-C LAB BLOOD ORDERABLES Performing Organization Address City/[facility]/ZIP Code Phon e Number [facility] DIAGNOSTIC Unless otherwise noted, [place] [phone] [place] all lab tests performed by: Division of Pathology and Laboratory Medicine [address] [place], [place] [address]d Free T4 (08/05/2022 10:58 AM CDT)Only the most recent of2 resultswithin the time period is included. athologist Signature T4 Free 1.14 0.93 - 1.70 [facility] ng/dL DIAGNOSTIC CENTER Specimen Anatomical Collection Method Collection Time Receive d Time (Source) Location / / Volume Laterality Blood 08/05/2022 10:58 08/05/2022 AM CDT 11:23 AM CDT Iris Henrandez PA-C LAB BLOOD ORDERABLES Performing Organization Address City/[facility]/ZIP Code Phon e Number [facility] DIAGNOSTIC Unless otherwise noted, [place] [phone] [place] all lab tests performed by: Division of Pathology and Laboratory Medicine [address] [place] [address] FSH Level (08/05/2022 10:58 AM CDT) athologist Signature FSH 71.4 mIU/mL [facility] Comment: Female Follicle Stimulating Hormone Refe rence Ranges: L OW HIGH Follicular 3.5 12.5 Ovulation 4.7 21.5 Luteal 1.7 7.7 Postmenopause 25.8 134.8 Specimen Anatomical Collection Method Collection Time Receive d Time (Source) Location / / Volume Laterality Blood 08/05/2022 10:58 08/05/2022 AM CDT 12:20 PM CDT Iris Hernandez PA-C LAB BLOOD ORDERABLES Performing Organization Address City/State/ZIP Code Phon e Number [facility] CANCER Unless otherwise noted, [place] [phone] [place] all lab tests performed by: Division of Pathology and Laboratory Medicine [address] [address] [place], [place] [address]d [facility] (08/05/2022 7:50 AM CDT) Anatomical Region Laterality Modality Other Specimen (Source) Anatomical Collection Method Collection Time Re ceived Time Location / / Volume Laterality 08/05/2022 1:57 PM CDT Impressions 08/05/2022 1:57 PM CDT Tumor metrics have been completed. I personally reviewed these images and agree with the tumor metrics. Narrative 08/05/2022 1:57 PM CDT FULL RESULT: Examination: [facility] on 08/05/2022 13:57 PM Indication:Small cell carcinoma Findings: Tumor metrics have been comple manuela. Procedure Note Pedro Huang MD - 08/05/2022F ormatting of this note might be different from the original. FULL RESULT: Examination: [facility] SERVICES on 08/05/2022 13:57 PM Indication:Small cell carcinoma Findings: Tumor metrics have been comple manuela. IMPRESSION: Tumor metrics have been completed. I per sonally reviewed these images and agree with the tumor metrics. Iris SPAULDING-rBittany IMG [facility] ORDERABLES EKG, 12-Lead (Scheduled) (08/05/2022) Specimen (Source) Anatomical Location Collection Method / Collectio n Time Received Time / Laterality Volume Narrative This result has an attachment that is no t available. Iris SPAULDING-C ECG ORDERABLES Performing Organization Address City/State/ZIP Code Phon e Number JAYDE IECG PETCT Subsequent Treatment Strategy (07/10/2022 11:28 AM CDT)Only the most recent of6 resultswithin the time period is included. Anatomical Region Laterality Modality Whole Body Positron Emission To mography (PET) Specimen (Source) Anatomical Collection Method Collection Time Re ceived Time Location / / Volume Laterality 07/10/2022 6:37 PM CDT Impressions 07/10/2022 6:49 PM CDT 1. Increasing extent/intensity of FDG-avidity in the left mediastinum near the main bronchus is worrisome for progressive active small cell lung cancer. 2. The FDG-avid opacities in the left up per lobe and right lower lobe have mildly increased in size with some increase in conspicuity of activity, suspicious for additional disease progression. Narrative 07/10/2022 6:49 PM CDT FULL RESULT: Examination: FDG PET/CT, 07/10/2022 11:28 AM Clinical History: 71-year-old female wit h extensive stage small cell lung cancer treated with systemic therapy. Indication: Reevaluate extent of FDG-vanesa d disease, for subsequent treatment strategy purposes. Comparison: PET/CT dated 05/29/2022 Technique: F-18 fluorodeoxyglucose (FDG) 9.2 mCi was administered intravenously via the right antecubital fossa. To allow for distribution and uptake of radiotracer, the patient was asked to rest quie tly for approximately 60 minutes. PET/ CT imaging was performed from the skull vertex to the proximal thigh. CT scanning was done for attenuation correction, image registration, and diagnosis with scan parameters optimized to minimize radiat ion exposure to the patient. SUV measurements are reported as maximum SUV based on body weight unless otherwise specified. Findings: Head and Neck: There is no focal abnorma l metabolic activity within the brain. The sinuses are well aerated. No lymphadenopathy is identified in the neck. Chest: The residual left upper lobe lung cancer measures larger with some increase in extent of activity, now 2.0 x 1.3 cm with SUV of 4.4 compared to 1.8 x 1.1 cm with SUV of 3.2 (image 91 versus 89). The active nodule in the right lower lob e has mildly increased in size, now measuring 1.4 x 1.1 cm with SUV of 8.2 compared to 1.1 x 0.8 cm with SUV of 7.4 (image 130 versus 127). No new sites of abnorm al activity are appreciated in the lungs . A new peripheral triangular opacity in the posterior right upper lobe (image 94) is nonspecific and can be followed. The FDG-avidity within the left mediasti num below the main bronchus has increased in extent/intensity with current SUV of 13.2 compared to 5.8 (image 105 versus 102). Anatomically, there is a suggestion of some increase in soft tissue attenua tion in the region. No separate enlarged or FDG-avid mediastinal, hilar, or axillary lymph nodes are present. There is no pleural nor pericardial effusion. Abdomen and Pelvis: Evaluation of the un enhanced liver, spleen, pancreas, gallbladder, adrenal glands, kidneys, and bowel is unremarkable. No lymphadenopathy is identified within the abdomen, pelvis, or inguinal regions. Musculoskeletal: No foci of FDG-avidity are noted in the imaged skeleton to indicate active malignancy. No suspicious lytic or blastic skeletal abnormalities are observed. Procedure Note Ade Lambert MD - 07/10/2022 FULL RESULT: Examination: FDG PET/CT, 07/10/2022 11:28 AM Clinical History: 71-year-old female wit h extensive stage small cell lung cancer treated with systemic therapy. Indication: Reevaluate extent of FDG-vanesa d disease, for subsequent treatment strategy purposes. Comparison: PET/CT dated 05/29/2022 Technique: F-18 fluorodeoxyglucose (FDG) 9.2 mCi was administered intravenously via the right antecubital fossa. To allow for distribution and uptake of radiotracer, the patient was asked to rest quietly for approximately 60 minutes. PET/CT imaging was performed from the skull vertex to the proximal thigh. CT scanning was done for attenuation correction, image registration, and diagnosis with scan parameters optimized to minimize radiation exposure to the patient. SUV measurements are reported as maximum SUV based on body weight unless otherwise specified. Findings: Head and Neck: There is no focal abnorma l metabolic activity within the brain. The sinuses are well aerated. No lymphadenopathy is identified in the neck. Chest: The residual left upper lobe lung cancer measures larger with some increase in extent of activity, now 2.0 x 1.3 cm with SUV of 4.4 compared to 1.8 x 1.1 cm with SUV of 3.2 (image 91 versus 89). The active nodule in the right lower lobe has mildly increase d in size, now measuring 1.4 x 1.1 cm with SUV of 8.2 compared to 1.1 x 0.8 cm with SUV of 7.4 (image 130 versus 127). No new sites of abnormal activity are appreciated in the lungs. A new peripheral triangular opaci ty in the posterior right upper lobe (image 94) is nonspecific and can be followed. The FDG-avidity within the left mediasti num below the main bronchus has increased in extent/intensity with current SUV of 13.2 compared to 5.8 (image 105 versus 102). Anatomically, there is a suggestion of some increase in soft tissue attenuation in t he region. No separate enlarged or FDG- avid mediastinal, hilar, or axillary lymph nodes are present. There is no pleural nor pericardial effusion. Abdomen and Pelvis: Evaluation of the un enhanced liver, spleen, pancreas, gallbladder, adrenal glands, kidneys, and bowel is unremarkable. No lymphadenopathy is identified within the abdomen, pelvis, or inguinal regions. Musculoskeletal: No foci of FDG-avidity are noted in the imaged skeleton to indicate active malignancy. No suspicious lytic or blastic skeletal abnormalities are observed. IMPRESSION: 1. Increasing extent/intensity of FDG-av idity in the left mediastinum near the main bronchus is worrisome for progressive active small cell lung cancer. 2. The FDG-avid opacities in the left up per lobe and right lower lobe have mildly increased in size with some increase in conspicuity of activity, suspicious for additional disease progression. Iris Hernandez PA-C IMG PETCT ORDERABLES MRI Brain with and without Contrast (06/09/2022 8:44 AM CDT)Only the most recent of4 resultswithin the time period is included. Anatomical Region Laterality Modality Head Magnetic Resonance Specimen (Source) Anatomical Collection Method Collection Time Re ceived Time Location / / Volume Laterality 06/10/2022 2:22 PM CDT Impressions 06/10/2022 3:19 PM CDT 1. No evidence for new intracranial metastasis. 2. The previously treated left cerebel lar metastasis no longer enhances. There is improving posttreatment change in the region. 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 INDICATION: evaluate disease progression COMPARISON: MRI of the brain on 3, 12/04/2021, and 10/23/2021. TECHNIQUE: MRI of the brain without and with administration of intravenous contrast. FINDINGS: Intracranial: The the images are degraded by mild-to-m oderate motion artifacts. In this context, the previously treated left cerebellar enhancing metastasis no longer enhances. There is tiny T2/FLAIR hyperintense foc us in the treated region (image 9, serie s 19), improved compared to the 12/04/2021 examination. There is no new abnormal intracranial en hancing lesion to suggest new metastasis. There is no acute hemorrhage or acute in farction. There is no mass effect or midline shift . The ventricles and extra-axial spaces ar e appropriate for age. There is no worrisome parenchymal or lep tomeningeal enhancement. There is no sellar or suprasellar abnorm alities. The major intracranial flow voids appear patent. Bone: There are no suspicious calvarial or sku ll base lesions. Extracranial: The orbits are unremarkable. The visualized paranasal sinuses are pre dominantly clear. The mastoid air cells are clear. 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 INDICATION: evaluate disease progression COMPARISON: MRI of the brain on 3, 12/04/2021, and 10/23/2021. TECHNIQUE: MRI of the brain without and with administration of intravenous contrast. FINDINGS: Intracranial: The the images are degraded by mild-to-m oderate motion artifacts. In this context, the previously treated left cerebellar enhancing metastasis no longer enhances. There is tiny T2/FLAIR hyperintense focus in the treated region (image 9, series 19), improved co mpared to the 12/04/2021 examination. There is no new abnormal intracranial en hancing lesion to suggest new metastasis. There is no acute hemorrhage or acute in farction. There is no mass effect or midline shift . The ventricles and extra-axial spaces ar e appropriate for age. There is no worrisome parenchymal or lep tomeningeal enhancement. There is no sellar or suprasellar abnorm alities. The major intracranial flow voids appear patent. Bone: There are no suspicious calvarial or sku ll base lesions. Extracranial: The orbits are unremarkable. The visualized paranasal sinuses are pre dominantly clear. The mastoid air cells are clear. IMPRESSION: 1. No evidence for new intracranial meta stasis. 2. The previously treated left cerebella r metastasis no longer enhances. There is improving posttreatment change in the region. Latonia Forte APRN IM MRI ORDERABLES COVID-19 (SARS-CoV-2) PCR-Asymptomatic [facility] (12/26/2021 8:05 AM CDT)Only the most recent of2 resultswithin the time period is included. [facility] Method Time Signature COVID19 (SARS Not Detected Not Detected [place] CoV-2) [facility] Comment: This test is a qualitative reverse-trans criptase polymerase chain reaction (RT- PCR) developed for the [employer] gDecide0 system and intended for qualitative detection of SARS CoV-2 RNA in nasopharyngeal a nd oropharyngeal swab specimens collecte d from any individuals, including those suspected o f COVID-19 by their healthcare provider, and those without symptoms or other reasons to suspect COVID-19. A fact sheet for patients provided by the inside sales assistant ( [employer]) can be rev iewed at: https://www.GOSO.gov/media/834181/downloa d. A fact sheet for Health Care providers is provided by the inside sales assistant ([employer]) and can be reviewed at: https://www.GOSO.gov/media/592573/download Results must be interpreted within the c ontext of all relevant clinical and laboratory findings and should not form the sole basis for a diagnosis or treatment decision. Positive results do not rule out bacterial infection or co- infection with other viruses. Negative results do not rule ou t SARS-CoV-2 and must be combined with clinical observations, patient history, and/or epidemiological information. "Presumptive Positive" results are due t o partial amplification of SARS-CoV-2 targets and indicates low amounts of virus present in the specimen at or near the limit of detection. Regardless, individuals with "Presumptive Positive" results should be managed per institutional guidelines as individuals positive for SARS-CoV-2 virus, including use of appropriate infection control protocols. Internal controls are included to assess for possible amplification inhibitors. If inhibition is detected, testing is repeated and if inhibition is confirmed the specimen is resulted as "Invalid". When an "Invalid" result occurs, it is recomm ended to wait 3 days before submitting a new spec imen for testing if clinically indicated. This assay has been approved by the FDA for use only under Emergency Use Authorization (EUA) in laboratories that have been CLIA-certified to perform moderate-complexity and high-complexity tests. The performance characteristics of this assay were verified by the Microbiology Laboratory at [facility], CLIA Accreditation #: [id number] and CAP Accreditation #: [id number]. COVID19 SARS Source [facility] Swab [place] MD [facility] COVID19 SARS Indication Pre-Radiation Therapy [facility] Specimen (Source) Anatomical Collection Method Collection Time Re ceived Time Location / / Volume Laterality Nasopharyngeal Swab 12/26/2021 8:05 12/26 AM CDT 10:33 AM CDT Hadley Strange MD MICROBIOLOGY - GENERAL ORDER DOC Performing Organization Address City/[facility] Phon e Number [facility] Unless otherwise noted, [address] all lab tests performed by: Division of Pathology and Laboratory Medicine [address] [place] Free Cortisol (11/24/2021 7:43 AM CDT) athologist Signature Cortisol 0.233 mcg/dL [facility] Comment: REFERENCE VALUE------ 6:00-10:30 AM Collection 0.121-1.065 mcg /dL ADDITIONAL INFORMATIO N This test was developed and its performa nce characteristics determined by [facility] in a manner co nsistent with CLIA requirements. This test has not been eddie ared or approved by the U.S. Food and Drug Administration. Test Performed by: [facility] - [place] [address] Headline Writer: Larry Santacruz M.D. Ph. D.; CLIA# [id number] Specimen Anatomical Collection Method Collection Time Receive d Time (Source) Location / / Volume Laterality Varies 11/24/2021 7:43 AM 7:43 CDT AM CDT Inocencia Alford MD LAB BLOOD ORDERABLES Performing Organization Address City/[facility] Phon e Number [facility] Unless otherwise noted, [address] all lab tests performed by: Division of Pathology and Laboratory Medicine [address] [place] Thyroxine (11/24/2021 7:43 AM CDT) athologist Signature T4 7.0 4.5 - 11.7 [facility] mcg/dL [facility] Specimen Anatomical Collection Method Collection Time Receive d Time (Source) Location / / Volume Laterality Blood 11/24/2021 7:43 AM 2:46 CDT PM CDT Inocencia Alford MD LAB BLOOD ORDERABLES Performing Organization Address City/State/ZIP Code Phon e Number [facility] Unless otherwise noted, [place] [address] CENTER all lab tests performed by: Division of Pathology and Laboratory Medicine [facility] PETCT Contrast Enhanced Subsequent Treatment Strategy (11/04/2021 1:06 PM CDT) Anatomical Region Laterality Modality Whole Body Positron Emission To mography (PET) Specimen (Source) Anatomical Collection Method Collection Time Re ceived Time Location / / Volume Laterality 11/04/2021 3:31 PM CDT Impressions 11/04/2021 4:34 PM CDT 1. The FDG-avid left upper lobe lung nodule and the active left mediastinal lymphadenopathy are anatomically and metabolically stable. 2. No new sites of FDG-avid small cell l jayne cancer are identified. Narrative 11/04/2021 4:34 PM CDT FULL RESULT: Examination: Contrast-Enhanced FDG PET /CT, 11/04/2021 1:06 PM Clinical History: 70-year-old female wit h extensive stage small cell lung cancer treated with systemic therapy. Indication: Reevaluate extent of FDG-vanesa d disease, for subsequent treatment strategy purposes. Comparison: PET/CT dated 09/19/2021 Technique: F-18 fluorodeoxyglucose (FD G) 9.6 mCi was administered intravenously via the right internal jugular central venous catheter. To allow for distribution and uptake of radiotracer, the patie nt was asked to rest quietly for approxi mately 65 minutes. PET/CT imaging was performed from the skull vertex to the proximal thigh. CT scanning was done for attenuation correction, image registration , and diagnosis with scan parameters opt imized to minimize radiation exposure to the patient. The CT portion of the examination was performed with intravenous contrast. SUV measurements are reported as maximum SUV based on body weight unless otherwise specified. Findings: Head and Neck: There is no focal abnorma l metabolic activity in the brain. The sinuses are well aerated. No lymphadenopathy is identified in the neck. Chest: The left upper lobe perifissural lung nodule measures a stable 1.5 x 1.2 cm and has stable associated activity with current SUV of 6.9 compared to 7.0 (image 118 versus 125). No separate lung nodules or other new lung abnormalities are noted. The FDG-avid left mediastinal lymphadeno krissy near the AP window measures a stable 1.5 x 2.4 cm with current SUV of 13.4 compared to 13.9 (image 121 versus 127). No enlarging or newly FDG-avid mediastin al, hilar, or axillary lymph nodes are p resent. There is no pleural nor pericardial effusion. Abdomen and Pelvis: Evaluation of the li yossi, spleen, pancreas, gallbladder, adrenal glands, and kidneys is unremarkable. No concerning activity is seen in the bowel. No lymphadenopathy is identified in the abdomen, pelvis, or inguinal regions. Musculoskeletal: No focal FDG-avidity is noted in the imaged skeleton to indicate active malignancy. No suspicious lytic or blastic skeletal abnormalities are observed. Procedure Note Ade Lamebrt MD - 11/04/2021 FULL RESULT: Examination: Contrast-Enhanced FDG PET/C T, 11/04/2021 1:06 PM Clinical History: 70-year-old female wit h extensive stage small cell lung cancer treated with systemic therapy. Indication: Reevaluate extent of FDG-vanesa d disease, for subsequent treatment strategy purposes. Comparison: PET/CT dated 09/19/2021 Technique: F-18 fluorodeoxyglucose (FDG) 9.6 mCi was administered intravenously via the right internal jugular central venous catheter. To allow for distribution and uptake of radiotracer, the patient was asked to rest quietly for approximately 65 minute s. PET/CT imaging was performed from the skull vertex to the proximal thigh. CT scanning was done for attenuation correction, image registration, and diagnosis with scan parameters optimized to minimize radiati on exposure to the patient. The CT portion of the examination was performed with intravenous contrast. SUV measurements are reported as maximum SUV based on body weight unless otherwise specified. Findings: Head and Neck: There is no focal abnorma l metabolic activity in the brain. The sinuses are well aerated. No lymphadenopathy is identified in the neck. Chest: The left upper lobe perifissural lung nodule measures a stable 1.5 x 1.2 cm and has stable associated activity with current SUV of 6.9 compared to 7.0 (image 118 versus 125). No separate lung nodules or other new lung abnormalities are noted. The FDG-avid left mediastinal lymphadeno krissy near the AP window measures a stable 1.5 x 2.4 cm with current SUV of 13.4 compared to 13.9 (image 121 versus 127). No enlarging or newly FDG-avid mediastinal, hilar, or axillary lymph nodes are present. There is no pleural nor pericardial effusion. Abdomen and Pelvis: Evaluation of the li yossi, spleen, pancreas, gallbladder, adrenal glands, and kidneys is unremarkable. No concerning activity is seen in the bowel. No lymphadenopathy is identified in the abdomen, pelvis, or inguinal regions. Musculoskeletal: No focal FDG-avidity is noted in the imaged skeleton to indicate active malignancy. No suspicious lytic or blastic skeletal abnormalities are observed. IMPRESSION: 1. The FDG-avid left upper lobe lung nod ule and the active left mediastinal lymphadenopathy are anatomically and metabolically stable. 2. No new sites of FDG-avid small cell l jayne cancer are identified. Inocencia Alford MD IMG PETCT ORDERABLES Vancomycin Trough (10/27/2021 9:12 AM CDT) P athologist Signature Vanco Trough 11.1 5.0 - 20.0 [place] MD [facility] mcg/mL [facility] Comment: Toxic Trough Level: >20 mcg/mL Vanco Tr Dose Time 0020 CA MD MELÉNDEZ [facility] Vanco Tr Dose Date 10/27/2021 [place] MD [facility] Specimen Anatomical Collection Method Collection Time Receive d Time (Source) Location / / Volume Laterality Blood 10/27/2021 9:12 AM 2 CDT 10:00 AM CDT Karina Shaw APRN LAB BLOOD ORDERABLES Performing Organization Address City/State/ZIP Code Phon e Number [place] [facility] Unless otherwise noted, [place] [address] CENTER all lab tests performed by: Division of Pathology and Laboratory Medicine [place] Estela Justice (ABNORMAL) Lower Respiratory Culture w/Gram Stain (10/26/2021 1:48 PM CDT) Component Value Ref Test Analysis Performed At Patholo gist Range Method Time Signature Final Report Normal site jai present. DEEPAK HAGAN Generally of low significance. ARACELIS Correlate with clinical data and culture history. [facility] Path Review The results have been review ed and electronically signed by Pathologist: [place] MD Mat Rush MD, PhD #[id number] [facility] Gram Stain No WBC's seen. [place] Report Epithelial cells seen ARACELIS Moderate Gram Negative Rods [place] [facility] Few Gram Positive Cocci [place] (A) Specimen Anatomical Collection Method Collection Time Receive d Time (Source) Location / / Volume Laterality Sputum 10/26/2021 1:48 PM 2 2:52 CDT PM CDT Hallie Vega MD MICROBIOLOGY - GENERAL ORDER DOC Performing Organization Address City/[facility]/ZIP Code Phon e Number [facility] Unless otherwise noted, [address] all lab tests performed by: Division of Pathology and Laboratory Medicine [facility] [place] MRSA Screening Culture (10/26/2021 10:07 AM CDT) Component Value Ref Test Analysis Performed At [facility] gist Range Method Time Signature Final Report No Methicillin [facility] Staphylococcus CANCER aureus isolated. [place] Path Review Culture yield may be affecte d by sample quality, prior treatment, and transportation conditions. [place] ..Roberto Carlos [facility] The results have been reviewed and electronically signed b y Pathologist: TREVON Rush MD, PhD #[id number] C [facility] Specimen Anatomical Collection Method Collection Time Receive d Time (Source) Location / / Volume Laterality Nasal 10/26/2021 10:07 10/26/2021 AM CDT 11:13 AM CDT Karina Shaw APRN MICROBIOLOGY - GENERAL ORDER DOC Performing Organization Address City/[facility]/ZIP Code Phon e Number [facility] Unless otherwise noted, [address] all lab tests performed by: Division of Pathology and Laboratory Medicine [facility] [place] Blood culture (10/24/2021 11:49 PM CDT)Only the most recent of2 resultswithin the time period is included. Component Value Ref Test Analysis Performed At [facility] [facility] gist Range Method Time Signature Final Report No growth [facility] Path Review - Culture yield may be affecte d by sample quality, prior treatment, and transportation conditions. CA Bottle/Isolat ... ARACELIS or The results have been reviewed and electronically signed b y Pathologist: TREVON Rush MD, PhD #[id number] C ENTER Specimen Anatomical Collection Method Collection Time Receive d Time (Source) Location / / Volume Laterality Blood 10/24/2021 11:49 10/25/2021 (Venipuncture) PM CDT 12:05 AM CDT Narrative [facility] - 6:35 AM CDT If patient has a Central Venous Catheter please draw a blood culture from the line. If no central line, draw a second periph eral culture. Elida Shafer MD MICROBIOLOGY - GENERAL ORDER DOC Performing Organization Address City/[facility] Code Phon e Number [facility] Unless otherwise noted, [address] all lab tests performed by: Division of Pathology and Laboratory Medicine [facility] [place] (ABNORMAL) Urine Culture (10/24/2021 11:12 PM CDT) Component Value Ref Test Analysis Performed At [facility] gist Range Method Time Signature Final Report <10,000 cfu/ml Gram Negative Rods DEEPAK HAGAN <10,000 cfu/ml Normal site jai present. ARACELIS (A) [facility] Path Review - The results have been review ed and electronically signed by Pathologist: [place] Urine SHERRILL MOSQUEDA MD #[id number] [place] () [facility] Specimen Anatomical Collection Method Collection Time Receive d Time (Source) Location / / Volume Laterality Urine 10/24/2021 11:12 10/25/2021 PM CDT 12:52 AM CDT Elida Shafer MD MICROBIOLOGY - GENERAL ORDER DOC Performing Organization Address [facility] Phon e Number [facility] Unless otherwise noted, [address] all lab tests performed by: Division of Pathology and Laboratory Medicine [facility] X-ray Chest 1 View (10/24/2021 11:08 PM CDT) Anatomical Region Laterality Modality Chest Digital Radiography Specimen (Source) Anatomical Collection Method Collection Time Re ceived Time Location / / Volume Laterality 10/25/2021 2:40 AM CDT Impressions 10/25/2021 7:36 AM CDT No acute cardiopulmonary abnormality. The final report contains minor changes from the overnight senior resident/fellow report. I personally reviewed these image(s) jeanette ng with the resident's/fellow's interpretations, certify that if a procedure was performed I was physically present, and agree with the final report. Narrative 10/25/2021 7:36 AM CDT FULL RESULT: Examination: AP Portable Chest, 1 view, October 24, 2021 at 10:42 PM Clinical History: Small cell lung cancer Indication: Fever Comparison: Images through the chest fro m PET/CT September 19, 2021 Technique: Single portable anteroposteri or radiograph of the chest. Findings: Lungs and pleura: Elevation of the left hemidiaphragm is evident as on the PET/CT. The left-sided pulmonary nodule evident on PET/CT is not identified on this examination.No large pleural effusions or pneumothorax. Heart and mediastinum: The cardiomediast inal silhouette is within normal limits. Bones: No acute bony abnormality is iden tified. Mild scoliosis. Mild degenerative change at the left shoulder. Right-sided central line projects over t he area of the cavoatrial junction. Metallic objects apparently relate to a bra that was not removed. Procedure Note Clary Goodwin MD - 10/25/2021Formatti ng of this note might be different from the original. FULL RESULT: Examination: AP Portable Chest, 1 view, October 24, 2021 at 10:42 PM Clinical History: Small cell lung cancer Indication: Fever Comparison: Images through the chest fro m PET/CT September 19, 2021 Technique: Single portable anteroposteri or radiograph of the chest. Findings: Lungs and pleura: Elevation of the left hemidiaphragm is evident as on the PET/CT. The left-sided pulmonary nodule evident on PET/CT is not identified on this examination.No large pleural effusions or pneumothorax. Heart and mediastinum: The cardiomediast inal silhouette is within normal limits. Bones: No acute bony abnormality is iden tified. Mild scoliosis. Mild degenerative change at the left shoulder. Right-sided central line projects over t he area of the cavoatrial junction. Metallic objects apparently relate to a bra that was not removed. IMPRESSION: No acute cardiopulmonary abnormality. The final report contains minor changes from the overnight senior resident/fellow report. I personally reviewed these image(s) jeanette monets with the resident's/fellow's interpretations, certify that if a procedure was performed I was physically present, and agree with the final report. Elida Shafer MD IMG DIAGNOSTIC IMAGING ORDER DOC VB Lactate (10/24/2021 9:58 PM CDT) P athologist Signature V Lactate 1.2 0.5 - 1.6 [place] ARACELIS mmol/L [facility] Specimen Anatomical Collection Method Collection Time Receive d Time (Source) Location / / Volume Laterality Blood 10/24/2021 9:58 PM 2 CDT 10:06 PM CDT Elida Shafer MD LAB BLOOD ORDERABLES Performing Organization Address City/State/ZIP Code Phon e Number [facility] Unless otherwise noted, [place] [address] [place] all lab tests performed by: Division of Pathology and Laboratory Medicine [address] [facility] Respiratory Viral Panel + COVID-19, Nasopharyngeal Swab (10/24/2021 9:57 PM CDT) Component Value Ref Range Test Analysis Performed Pathologis t Method Time At [facility] RMP Source Not [place] MD Applicable [facility] Adenovirus Not Detected Not [place] MD Detected [facility] Coronavirus 229E Not Detected Not [place] MD Detected [facility] Coronavirus HKU1 Not Detected Not [place] MD Detected [facility] Coronavirus NL63 Not Detected Not [place] MD Detected [facility] Coronavirus OC43 Not Detected Not [facility] MD Detected [facility] COVID19 Not Detected Not [place] (SARS-CoV-2) Detected [facility] Human Not Detected Not [facility] [place] Metapneumovirus Detected [facility] Human Not Detected Not [facility] [place] Rhinovirus/Enterov Detected [facility] Influenza A Not Detected Not [place] MD Detected [facility] Influenza A H1 Not Detected Not [place] MD Detected [facility] Influenza A H1 Not Detected Not [place] 2009 Detected [facility] Influenza A H3 Not Detected Not [place] MD Detected [facility] Influenza B Not Detected Not [place] MD Detected [facility] Parainfluenza 1 Not Detected Not [place] MD Detected [facility] Parainfluenza 2 Not Detected Not [place] MD Detected [facility] Parainfluenza 3 Not Detected Not [place] MD Detected [facility] Parainfluenza 4 Not Detected Not [place] MD Detected [facility] Respiratory Not Detected Not [place] MD Syncytial Virus Detected [facility] Bordetella Not Detected Not [facility] MD Parapertussis Detected [facility] Bordetella Not Detected Not [place] pertussis Detected [facility] Chlamydiophila Not Detected Not [place] MD pneumoniae Detected [facility] Mycoplasma Not Detected Not [place] MD pneumoniae Detected [facility] Specimen (Source) Anatomical Collection Method Collection Time Re ceived Time Location / / Volume Laterality Nasopharyngeal Swab 10/24/2021 9:57 10/24 PM CDT 10:45 PM CDT [facility] - 11:41 PM CDT The BioFire RP2.1 is a real-time, nested multiplexed polymerase chain reaction test designed to simul taneously identify nucleic acids from 22 different viruses and bacteria associated with respiratory tract infection, including SARS-CoV-2, from a single nasopharyngeal swab (HAND CLERICAL VERIFIER) specimen obtai chel from individuals suspected of respiratory tract infections, including COVID-19. Results must be interpreted within the c ontext of all relevant clinical and laboratory findings and should not form the sole basis for a diagnosis or treatment decision. Positive results do not rule out coninfection with other organisms. Nega tive results in the setting of a respiratory illness may be due to infection with pathogens that are not detected by this panel, or a lower respiratory tract infection that may not be detected by an HAND CLERICAL VERIFIER specimen. Internal controls are used to monitor al l stages of the test process and assess for possible amplification inhibitors. If inhibition is detected, testing is repeated and if inhibition is confirmed the s pecimen is resulted as "Invalid". When a n "Invalid" result occurs, it is recommended to wait 3 days before submitting a new specimen for testing if clinically indicated. This assay has been approved by the FDA for use in laboratories that have been CLIA-certified to perform moderate-complexity and high-complexity tests. The [facility] at [facility], CLIA Accreditation #[id number] and CAP Accreditation #[id number], verified the per formance characteristics of this assay. [facility] performs the assay using the [employer] System. The BioFire RP 2.1 is a real-time, nested multiplexed p olymerase chain reaction test designed to simultan eously identify nucleic acids from 22 different viruses and bacteria associated with respiratory tract infection, including SARS-CoV-2, from a single nasopharynge al swab (HAND CLERICAL VERIFIER) specimen obtained from ind ividuals suspected of respiratory tract infection s, including COVID-19. Results must be interpreted within the c ontext of all relevant clinical and laboratory findings and should not form the sole basis for a diagnosis or treatment decision. Positive results do not rule out coninfection with other organisms. Nega tive results in the setting of a respiratory illness may be due to infection with pathogens that are not detected by this panel, or a lower respiratory tract infection that may not be detected by an HAND CLERICAL VERIFIER specimen. Internal controls are used to monitor al l stages of the test process and assess for possible amplification inhibitors. If inhibition is detected, testing is repeated and if inhibition is confirmed the s pecimen is resulted as "Invalid". When a n "Invalid" result occurs, it is recommended to wait 3 days before submitting a new specimen for testing if clinically indicated. This assay has been approved by the FDA for use in laboratories that have been CLIA-certified to perform moderate-complexity and high-complexity tests. The [facility], CLIA Accreditation #[id number] and CAP Accreditation #[id number], verified the per formance characteristics of this assay. [facility] performs the assay using the [employer] System. Elida Shafer MD MICROBIOLOGY - GENERAL ORDER DOC Performing Organization Address City/State/ZIP Code Phon e Number [facility] Unless otherwise noted, [place] [address] [place] all lab tests performed by: Division of Pathology and Laboratory Medicine [address] [place] (ABNORMAL) Procalcitonin (PCT) (10/24/2021 9:57 PM CDT) athologist Signature Procalcitonin 0.09 (H) <=0.08 [facility] ng/mL [facility] Comment: Procalcitonin > 2.00 ng/mL: Procalcit onin levels above 2.00 ng/mL are highly suggestive of a high risk for systematic bacterial infection/ severe sepsis and/or septic shock. Procalcitonin < 0.50 ng/mL: Procalcito aleena levels below 0.50 ng/mL are at low risk for progression to severe sepsis and/ or septic shock. Procalcitonin (ProCT) between 0.15 and 2 .0 ng/mL do not exclude infection, because localized infections (without systemic signs) may be associated with such low levels. Results greater than 400 ng/mL may not b e reliable due to the matrix effect with extended dilution as it exceeds the inside sales assistant's recommended limit. Caution should be exercised when interpreting such values and done in conjunction with clinical context. Specimen Anatomical Collection Method Collection Time Receive d Time (Source) Location / / Volume Laterality Blood 10/24/2021 9:57 PM 2 CDT 10:17 PM CDT Elida Shafer MD LAB BLOOD ORDERABLES Performing Organization Address [facility] Phon e Number [facility] Unless otherwise noted, [address] all lab tests performed by: Division of Pathology and Laboratory Medicine [address] [place] [address] CRP (C-reactive protein) (10/24/2021 9:57 PM CDT) athologist Signature CRP 5.09 mg/L [facility] Comment: Reference ranges for HS CRP assay are as follows: Reference ranges when used to assess car diac risk: <1.00 mg/L Low cardiovascular risk 1.00-3.00 mg/L Average cardiovascular risk >3.00 mg/L High cardiovascular risk. Reference ranges when used to assess inf lammatory responses: Less than or equal to 10.00 mg/L. Specimen Anatomical Collection Method Collection Time Receive d Time (Source) Location / / Volume Laterality Blood 10/24/2021 9:57 PM 2 CDT 10:17 PM CDT Elida Shafer MD LAB BLOOD ORDERABLES Performing Organization Address [facility] Phon e Number [facility] Unless otherwise noted, [address] all lab tests performed by: Division of Pathology and Laboratory Medicine [address] [place] [address] MRI Brain with and without Contrast - Frameless Gamma Knife (10/23/2021 12:08 PM CDT) Anatomical Region Laterality Modality Head Magnetic Resonance Specimen (Source) Anatomical Collection Method Collection Time Re ceived Time Location / / Volume Laterality 10/23/2021 12:25 PM CDT Impressions 10/23/2021 12:34 PM CDT Impression: 1. Left cerebellar lesion measuring 1. 2 cm in size. 2. No new intracranial metastasis. Narrative 10/23/2021 12:34 PM CDT FULL RESULT: EXAMINATION: MRI BRAIN WITH AND WITHOUT CONTRAST - FRAMELESS GAMMA KNIFE on 10/23/2021 12:08 PM HISTORY: Secondary malignant neoplasm of brain INDICATION: Frameless Gamma Knife Protoc ol COMPARISON: MRI brain 09/30/2021 06/16/2021 . TECHNIQUE: MRI of the brain was performe d with and without intravenous contrast as per standard departmental protocol. FINDINGS: There is a 1.2 cm in size Gamma knife na mari enhancing nodule in the left cerebellum (series 10 image 77). No new abnormal parenchymal or leptomeni ngeal enhancement is seen. There is no restricted diffusion. No new intra-axial or extra-axial hemorrhage. No mass effect or midline shift. The ventricles are normal in size and midline. Major intracranial flow voids are maintained. Calvarial and skull base bone marrow sig nal is unremarkable. Bilateral orbits are unremarkable. Paranasal sinuses are clear. Procedure Note Mariana Gibbons MD - 10/23/2021Formatting o f this note might be different from the original. FULL RESULT: EXAMINATION: MRI BRAIN WITH AND WITHOUT CONTRAST - FRAMELESS GAMMA KNIFE on 10/23/2021 12:08 PM HISTORY: Secondary malignant neoplasm of brain INDICATION: Frameless Gamma Knife Protoc ol COMPARISON: MRI brain 09/30/2021 06/16/2021 . TECHNIQUE: MRI of the brain was performe d with and without intravenous contrast as per standard departmental protocol. FINDINGS: There is a 1.2 cm in size Gamma knife na mari enhancing nodule in the left cerebellum (series 10 image 77). No new abnormal parenchymal or leptomeni ngeal enhancement is seen. There is no restricted diffusion. No new intra-axial or extra-axial hemorrhage. No mass effect or midline shift. The ventricles are normal in size and midline. Major intracranial flow voids are maintained. Calvarial and skull base bone marrow sig nal is unremarkable. Bilateral orbits are unremarkable. Paranasal sinuses are clear. IMPRESSION: Impression: 1. Left cerebellar lesion measuring 1.2 cm in size. 2. No new intracranial metastasis. Cinda Hicks APRN IMG MRI ORDERABLES after 08/30/2021 Insurance Payer Benefit Plan Subscriber ID Effective Phone Address Typ e / Group Dates MEDICARE MEDICARE PART [id number] 2016-Pres [phone] [facility] Medicare A AND B ent 82 SOLUTIONS [address] [place]ONE[place] [phone] [facility] OF [id number] 2019-Pres [id number] [facility] KASEY PARKS ent OF [place] [address] (Work) [phone] Lucille Parekh Personal/Family Self 1950 [address] [place] [address] Advance Directives Code Status Date Activated Date Inactivated Comments Full Code 08/16/2022 10:47 AM 08/16/2022 6:03 PM Code Status Date Activated Date Inactivated Comments Full Code 10/25/2021 4:40 AM 10/27/2021 6:02 PM Care Teams Plasterer Spot Relationship Specialty Start Date End Date Mel Avery PCP - External Referring 02/25/21 [address] [place] [address] MIKHAIL Newell - General Head and Neck Surgery 02/26/21 MD Jacqueline [address] [place] [id number] Inocencia Alford MD PCP - General Thoracic Medicine 09/22/[address] [place] [id number] Perez Soto MD Physician Radiation Oncology 03/28/[address] [place] [id number]
--- OUTSIDE RECORDS SUMMARY | 2022-08-30 10:32 | XMS REPORT | Continuity of Care Document ---
:1950 Author Organization [facility] t Address [address] [facility] [address] [place] [address] Care Team Providers Name Role Phone [phone] Primary Care Physician Unavailable SYSTEM, PROVIDER NOT IN Attending Clinician Unavailable Luis Enrique Huston MA, I Attending Clinician Unavailable Iris Wynn PA-C Attending Clinician Yana Valdivia RN Attending Clinician IRIS WYNN Attending Clinician Unavailable Mary Brasher MD Attending Clinician MARY BRASHER Attending Clinician Unavailable Edin Barlow Attending Clinician Unavailable Ramiro Prabhakar PharmD Attending Clinician Estevan Patton MD Attending Clinician ESTEVAN PATTON Attending Clinician Unavailable Jayashree Karimi Attending Clinician Sophie Barlow Attending Clinician Unavailable Noemi Myrick MD Attending Clinician NOEMI MYRICK Attending Clinician Unavailable Genesis Ruvalcaba Attending Clinician Unavailable Cindy Colon RN Attending Clinician Richard Celestin Attending Clinician Patty Bush MA Attending Clinician Unavailable Lucia Greco PharmD, Jey Attending Clinician [phone] YULISSA BAKER Attending Clinician Unavailable Yulissa Baker APRN Attending Clinician Robel PharmDErlinda Attending Clinician [phone] Layla HAGAN, [place] Attending Clinician AURORA RICH Attending Clinician Unavailable Nuvia SALINAS, Lazaro Alcaraz Attending Clinician [phone] LAZARO PEDERSEN Attending Clinician Unavailable Seven MANZANARES, Deandre Riggins Attending Clinician [phone] Kyle PharmD, Shannon Morris Attending Clinician Unavailable Didi Addison RN Attending Clinician Dawood Fraire MD Attending Clinician Huma Tabor APRN Attending Clinician HUMA TABOR Attending Clinician Unavailable Yulissa Farias RN Attending Clinician Unavailable Angus PharmD, Lance Attending Clinician Laly Rao MD Attending Clinician LALY RAO Attending Clinician Unavailable Awais Arguello RN Attending Clinician Yesy Otto RN Attending Clinician Unavailable Viviane Boykin MD Attending Clinician Cinda Hicks APRN Attending Clinician Unavailable CINDA HICKS Attending Clinician Unavailable Hugh Sainz RN Attending Clinician Unavailable Bessie Kohler MD Attending Clinician Richard Cooley MD Attending Clinician [phone] Luz Wilson MD, Hallie Attending Clinician HALLIE VEGA Attending Clinician Unavailable Deborah Dave RN Attending Clinician Unavailable Alejandra Barnes Attending Clinician Yunior Barlow Attending Clinician Unavailable Evi Palacios RN Attending Clinician Unavailable Emanuel MANZANARES, Madhav W Attending Clinician Carolina Severino APRN Attending Clinician Skye Del Real Attending Clinician VEL Attending Clinician Unavailable Fiona HAGAN, Hitesh Whitney Attending Clinician ERICK OROZCO Attending Clinician Unavailable DEBRA GR Attending Clinician Unavailable ASTER LOPEZ Attending Clinician Unavailable KAITLIN PEDROZA Attending Clinician Unavailable BLADIMIR BARARGAN Attending Clinician Unavailable AYE HORTON Attending Clinician Unavailable YAJAIRA MYLES Attending Clinician Unavailable Kiran Alarcon Attending Clinician HALLIE VEGA Admitting Clinician Unavailable VEL Admitting Clinician Unavailable Payers Payer Name Policy Type Policy Number Effective Date Expiration Date S ource Problems Condition Condition Condition Status Onset Resolution Last Treating Co mments Source Name Details Category Date Date Treatment Clinician Date Febrile Febrile Disease Active Univers neutropeni neutropeni 8 it y of a a 00:00: 00 [facility] Headache Headache Disease Active Unive rs 8 ity of 00:00: 00 MD [facility] 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 00:00: [place] of brain of brain 00 MD [facility] Hypertensi Hypertensi Disease Active U nivers on on 03-05 ity of 00:00: 00 MD [facility] Dyslipidem Dyslipidem Disease Active U nivers ia ia 03-05 ity of 00:00: 00 MD [facility] Mass of Mass of Disease Active Univers neck neck 03-05 ity of 00:00: 00 MD [facility] 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 03-04 ity of 00:00: 00 MD [facility] Ulnar Ulnar Problem Active 2020-09-12 [facility] neuropathy neuropathy 00:53:30 l (disorder) (disorder) He rmann Active Problem 09/12/2020 [facility] 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 [facility] 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 Active Diagnosis 08/31/2015 [place] [facility] Inconclusi Inconclus Diagnosis Active 2015-08-31 Memoria ve mari 03:06:34 l mammogram mammogram Herm wen Active Diagnosis 08/31/2015 [place] [facility] Encounter Encounter Problem Active 2015-08-31 [facility] for for 03:06:34 l follow-up follow-up Herm wen examinatio examinatio n after n after completed completed treatment treatment for for malignant malignant neoplasm neoplasm Active Problem 08/31/2015 [place] [facility] Family Family Problem Active 2015-08-31 Porfirio zainab history of history of 03:06:34 l malignant malignant Herm wen neoplasm neoplasm of breast of breast Active Problem 08/31/2015 [facility] 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[facility] 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 Active Problem 08/31/2015 [facility] Estrogen Estrogen Problem Active 2015-08-31 [facility] receptor receptor 03:06:34 l positive positive [place] n status status [ER+] [ER+] Active Problem 08/31/2015 [place] [facility] ER+ ER+ Problem Active 2015-02-28 [facility] (estrogen (estrogen 04:04:37 l receptor receptor [place]ingo n positive positive status) status) Active Problem 02/28/2015 [facility] FU Family FU Family Problem Active 2015-02-28 [facility] Hist of Hist of 04:04:37 l Breast CA Breast CA Herm wen Active Problem 02/28/2015 [facility] DCIS/LCIS DCIS/LCIS Problem Active 2015-02-28 [facility] Active 04:04:37 l Problem [place] 02/28/2015 [place] [facility] Allergies, Adverse Reactions, Alerts Allergy Allergy Status Severity Reaction(s) Onset Inactive Treating Comm ents Source Name Type Date Date Clinician Codeine Propensi Active Rash Univers ty to 1-05 ity of adverse 00:00: [place] reaction 00 MD [facility] Sulfa Propensi Active Rash Univers (Sulfona ty to 1-05 ity of mide adverse 00:00: [place] Antibiot reaction 00 MD ics) [facility] CODEINE DRUG Active Low Itching 2022-0 MD INGREDI 1-05 [facility] 00:00: n 00 SULFA Drug Active Low Itching 2022-0 MD (SULFONA Class 1-05 [facility] MIDE 00:00: n ANTIBIOT 00 ICS) CODEINE DRUG Active Low Itching 2022-0 MD INGREDI 1-05 [facility] 00:00: n 00 SULFA Drug Active Low Itching 2022-0 MD (SULFONA Class 1-05 [facility] MIDE 00:00: n ANTIBIOT 00 ICS) CODEINE DRUG Active Low Itching 2022-0 MD INGREDI 1-05 [facility] 00:00: n 00 SULFA Drug Active Low Itching 2022-0 MD (SULFONA Class 1-05 [facility] MIDE 00:00: n ANTIBIOT 00 ICS) CODEINE DRUG Active Low Itching 2022-0 MD INGREDI 1-05 [facility] 00:00: n 00 SULFA Drug Active Low Itching 2022-0 MD (SULFONA Class 1-05 [facility] MIDE 00:00: n ANTIBIOT 00 ICS) CODEINE DRUG Active Low Itching 2022-0 MD INGREDI 1-05 [facility] 00:00: n 00 SULFA Drug Active Low Itching 2022-0 MD (SULFONA Class 1-05 [facility] MIDE 00:00: n ANTIBIOT 00 ICS) CODEINE DRUG Active Low Itching 2022-0 MD INGREDI 1-05 [facility] 00:00: n 00 SULFA Drug Active Low Itching 2022-0 MD (SULFONA Class 1-05 [facility] MIDE 00:00: n ANTIBIOT 00 ICS) CODEINE DRUG Active Low Itching 2022-0 MD INGREDI 1-05 [facility] 00:00: n 00 SULFA Drug Active Low Itching 2022-0 MD (SULFONA Class 1-05 [facility] MIDE 00:00: n ANTIBIOT 00 ICS) CODEINE DRUG Active Low Itching 2022-0 MD INGREDI 1-05 [facility] 00:00: n 00 SULFA Drug Active Low Itching 2022-0 MD (SULFONA Class 1-05 [facility] MIDE 00:00: n ANTIBIOT 00 ICS) CODEINE DRUG Active Low Itching 2022-0 MD INGREDI 1-05 [facility] 00:00: n 00 SULFA Drug Active Low Itching 2022-0 MD (SULFONA Class 1-05 [facility] MIDE 00:00: n ANTIBIOT 00 ICS) CODEINE DRUG Active Low Itching 2022-0 MD INGREDI 1-05 [facility] 00:00: n 00 SULFA Drug Active Low Itching 2022-0 MD (SULFONA Class 1-05 [facility] MIDE 00:00: n ANTIBIOT 00 ICS) CODEINE DRUG Active Low Itching 2022-0 MD INGREDI 1-05 [facility] 00:00: n 00 SULFA Drug Active Low Itching 2022-0 MD (SULFONA Class 1-05 [facility] MIDE 00:00: n ANTIBIOT 00 ICS) CODEINE DRUG Active Low Itching 2022-0 MD INGREDI 1-05 [facility] 00:00: n 00 SULFA Drug Active Low Itching 2022-0 MD (SULFONA Class 1-05 [facility] MIDE 00:00: n ANTIBIOT 00 ICS) CODEINE DRUG Active Low Itching 2022-0 MD INGREDI 1-05 [facility] 00:00: n 00 SULFA Drug Active Low Itching 2022-0 MD (SULFONA Class 1-05 [facility] MIDE 00:00: n ANTIBIOT 00 ICS) CODEINE DRUG Active Low Itching 2022-0 MD INGREDI 1-05 [facility] 00:00: n 00 SULFA Drug Active Low Itching 2022-0 MD (SULFONA Class 1-05 [facility] MIDE 00:00: n ANTIBIOT 00 ICS) CODEINE DRUG Active Low Itching 2022-0 MD INGREDI 1-05 [facility] 00:00: n 00 SULFA Drug Active Low Itching 2022-0 MD (SULFONA Class 1-05 [facility] MIDE 00:00: n ANTIBIOT 00 ICS) CODEINE DRUG Active Low Itching 2022-0 MD INGREDI 1-05 [facility] 00:00: n 00 SULFA Drug Active Low Itching 2022-0 MD (SULFONA Class 1-05 [facility] MIDE 00:00: n ANTIBIOT 00 ICS) CODEINE DRUG Active Low Itching 2022-0 MD INGREDI 1-05 [facility] 00:00: n 00 SULFA Drug Active Low Itching 2022-0 MD (SULFONA Class 1-05 [facility] MIDE 00:00: n ANTIBIOT 00 ICS) CODEINE DRUG Active Low Itching 2022-0 MD INGREDI 1-05 [facility] 00:00: n 00 SULFA Drug Active Low Itching 2022-0 MD (SULFONA Class 1-05 [facility] MIDE 00:00: n ANTIBIOT 00 ICS) CODEINE DRUG Active Low Itching 2022-0 MD INGREDI 1-05 [facility] 00:00: n 00 SULFA Drug Active Low Itching 2022-0 MD (SULFONA Class 1-05 [facility] MIDE 00:00: n ANTIBIOT 00 ICS) CODEINE DRUG Active Low Itching 2022-0 MD INGREDI 1-05 [facility] 00:00: n 00 SULFA Drug Active Low Itching 2022-0 MD (SULFONA Class 1-05 [facility] MIDE 00:00: n ANTIBIOT 00 ICS) CODEINE DRUG Active Low Itching 2022-0 MD INGREDI 1-05 [facility] 00:00: n 00 SULFA Drug Active Low Itching 2022-0 MD (SULFONA Class 1-05 [facility] MIDE 00:00: n ANTIBIOT 00 ICS) CODEINE DRUG Active Low Itching 2022-0 MD INGREDI 1-05 [facility] 00:00: n 00 SULFA Drug Active Low Itching 2022-0 MD (SULFONA Class 1-05 [facility] MIDE 00:00: n ANTIBIOT 00 ICS) CODEINE DRUG Active Low Itching 2022-0 MD INGREDI 1-05 [facility] 00:00: n 00 SULFA Drug Active Low Itching 2022-0 MD (SULFONA Class 1-05 [facility] MIDE 00:00: n ANTIBIOT 00 ICS) CODEINE DRUG Active Low Itching 2022-0 MD INGREDI 1-05 [facility] 00:00: n 00 SULFA Drug Active Low Itching 2022-0 MD (SULFONA Class 1-05 [facility] MIDE 00:00: n ANTIBIOT 00 ICS) CODEINE DRUG Active Low Itching 2022-0 MD INGREDI 1-05 [facility] 00:00: n 00 SULFA Drug Active Low Itching 2022-0 MD (SULFONA Class 1-05 [facility] MIDE 00:00: n ANTIBIOT 00 ICS) CODEINE DRUG Active Low Itching 2022-0 MD INGREDI 1-05 [facility] 00:00: n 00 SULFA Drug Active Low Itching 2022-0 MD (SULFONA Class 1-05 [facility] MIDE 00:00: n ANTIBIOT 00 ICS) CODEINE DRUG Active Low Itching 2022-0 MD INGREDI 1-05 [facility] 00:00: n 00 SULFA Drug Active Low Itching 2022-0 MD (SULFONA Class 1-05 [facility] MIDE 00:00: n ANTIBIOT 00 ICS) CODEINE DRUG Active Low Itching 2022-0 MD INGREDI 1-05 [facility] 00:00: n 00 SULFA Drug Active Low Itching 2022-0 MD (SULFONA Class 1-05 [facility] MIDE 00:00: n ANTIBIOT 00 ICS) CODEINE DRUG Active Low Itching 2022-0 MD INGREDI 1-05 [facility] 00:00: n 00 SULFA Drug Active Low Itching 2022-0 MD (SULFONA Class 1-05 [facility] MIDE 00:00: n ANTIBIOT 00 ICS) CODEINE DRUG Active Low Itching 2022-0 MD INGREDI 1-05 [facility] 00:00: n 00 SULFA Drug Active Low Itching 2022-0 MD (SULFONA Class 1-05 [facility] MIDE 00:00: n ANTIBIOT 00 ICS) CODEINE DRUG Active Low Itching 2022-0 MD INGREDI 1-05 [facility] 00:00: n 00 SULFA Drug Active Low Itching 2022-0 MD (SULFONA Class 1-05 [facility] MIDE 00:00: n ANTIBIOT 00 ICS) CODEINE DRUG Active Low Itching 2022-0 MD INGREDI 1-05 [facility] 00:00: n 00 SULFA Drug Active Low Itching 2022-0 MD (SULFONA Class 1-05 [facility] MIDE 00:00: n ANTIBIOT 00 ICS) CODEINE DRUG Active Low Itching 2022-0 MD INGREDI 1-05 [facility] 00:00: n 00 SULFA Drug Active Low Itching 2022-0 MD (SULFONA Class 1-05 [facility] MIDE 00:00: n ANTIBIOT 00 ICS) CODEINE DRUG Active Low Itching 2022-0 MD INGREDI 1-05 [facility] 00:00: n 00 SULFA Drug Active Low Itching 2022-0 MD (SULFONA Class 1-05 [facility] MIDE 00:00: n ANTIBIOT 00 ICS) CODEINE DRUG Active Low Itching 2022-0 MD INGREDI 1-05 [facility] 00:00: n 00 SULFA Drug Active Low Itching 2022-0 MD (SULFONA Class 1-05 [facility] MIDE 00:00: n ANTIBIOT 00 ICS) CODEINE DRUG Active Low Itching 2022-0 MD INGREDI 1-05 [facility] 00:00: n 00 SULFA Drug Active Low Itching 2022-0 MD (SULFONA Class 1-05 [facility] MIDE 00:00: n ANTIBIOT 00 ICS) CODEINE DRUG Active Low Itching 2022-0 MD INGREDI 1-05 [facility] 00:00: n 00 SULFA Drug Active Low Itching 2022-0 MD (SULFONA Class 1-05 [facility] MIDE 00:00: n ANTIBIOT 00 ICS) CODEINE DRUG Active Low Itching 2022-0 MD INGREDI 1-05 [facility] 00:00: n 00 SULFA Drug Active Low Itching 2022-0 MD (SULFONA Class 1-05 [facility] MIDE 00:00: n ANTIBIOT 00 ICS) CODEINE DRUG Active Low Itching 2022-0 MD INGREDI 1-05 [facility] 00:00: n 00 SULFA Drug Active Low Itching 2022-0 MD (SULFONA Class 1-05 [facility] MIDE 00:00: n ANTIBIOT 00 ICS) CODEINE DRUG Active Low Itching 2022-0 MD INGREDI 1-05 [facility] 00:00: n 00 SULFA Drug Active Low Itching 2022-0 MD (SULFONA Class 1-05 [facility] MIDE 00:00: n ANTIBIOT 00 ICS) CODEINE DRUG Active Low Itching 2022-0 MD INGREDI 1-05 [facility] 00:00: n 00 SULFA Drug Active Low Itching 2022-0 MD (SULFONA Class 1-05 [facility] MIDE 00:00: n ANTIBIOT 00 ICS) CODEINE DRUG Active Low Itching 2022-0 MD INGREDI 1-05 [facility] 00:00: n 00 SULFA Drug Active Low Itching 2022-0 MD (SULFONA Class 1-05 [facility] MIDE 00:00: n ANTIBIOT 00 ICS) CODEINE DRUG Active Low Itching 2022-0 MD INGREDI 1-05 [facility] 00:00: n 00 SULFA Drug Active Low Itching 2022-0 MD (SULFONA Class 1-05 [facility] MIDE 00:00: n ANTIBIOT 00 ICS) CODEINE DRUG Active Low Itching 2022-0 MD INGREDI 1-05 [facility] 00:00: n 00 SULFA Drug Active Low Itching 2022-0 MD (SULFONA Class 1-05 [facility] MIDE 00:00: n ANTIBIOT 00 ICS) CODEINE DRUG Active Low Itching 2022-0 MD INGREDI 1-05 [facility] 00:00: n 00 SULFA Drug Active Low Itching 2022-0 MD (SULFONA Class 1-05 [facility] MIDE 00:00: n ANTIBIOT 00 ICS) CODEINE DRUG Active Low Itching 2022-0 MD INGREDI 1-05 [facility] 00:00: n 00 SULFA Drug Active Low Itching 2022-0 MD (SULFONA Class 1-05 [facility] MIDE 00:00: n ANTIBIOT 00 ICS) CODEINE DRUG Active Low Itching 2022-0 MD INGREDI 1-05 [facility] 00:00: n 00 SULFA Drug Active Low Itching 2022-0 MD (SULFONA Class 1-05 [facility] MIDE 00:00: n ANTIBIOT 00 ICS) CODEINE DRUG Active Low Itching 2022-0 MD INGREDI 1-05 [facility] 00:00: n 00 SULFA Drug Active Low Itching 2022-0 MD (SULFONA Class 1-05 [facility] MIDE 00:00: n ANTIBIOT 00 ICS) CODEINE DRUG Active Low Itching 2022-0 MD INGREDI 1-05 [facility] 00:00: n 00 SULFA Drug Active Low Itching 2022-0 MD (SULFONA Class 1-05 [facility] MIDE 00:00: n ANTIBIOT 00 ICS) CODEINE DRUG Active Low Itching 2022-0 MD INGREDI 1-05 [facility] 00:00: n 00 SULFA Drug Active Low Itching 2022-0 MD (SULFONA Class 1-05 [facility] MIDE 00:00: n ANTIBIOT 00 ICS) CODEINE DRUG Active Low Itching 2022-0 MD INGREDI 1-05 [facility] 00:00: n 00 SULFA Drug Active Low Itching 2022-0 MD (SULFONA Class 1-05 [facility] MIDE 00:00: n ANTIBIOT 00 ICS) CODEINE DRUG Active Low Itching 2022-0 MD INGREDI 1-05 [facility] 00:00: n 00 SULFA Drug Active Low Itching 2022-0 MD (SULFONA Class 1-05 [facility] MIDE 00:00: n ANTIBIOT 00 ICS) CODEINE DRUG Active Low Itching 2022-0 MD INGREDI 1-05 [facility] 00:00: n 00 SULFA Drug Active Low Itching 2022-0 MD (SULFONA Class 1-05 [facility] MIDE 00:00: n ANTIBIOT 00 ICS) CODEINE DRUG Active Low Itching 2022-0 MD INGREDI 1-05 [facility] 00:00: n 00 SULFA Drug Active Low Itching 2022-0 MD (SULFONA Class 1-05 [facility] MIDE 00:00: n ANTIBIOT 00 ICS) CODEINE DRUG Active Low Itching 2022-0 MD INGREDI 1-05 [facility] 00:00: n 00 SULFA Drug Active Low Itching 2022-0 MD (SULFONA Class 1-05 [facility] MIDE 00:00: n ANTIBIOT 00 ICS) CODEINE DRUG Active Low Itching 2022-0 MD INGREDI 1-05 [facility] 00:00: n 00 SULFA Drug Active Low Itching 2022-0 MD (SULFONA Class 1-05 [facility] MIDE 00:00: n ANTIBIOT 00 ICS) CODEINE DRUG Active Low Itching 2022-0 MD INGREDI 1-05 [facility] 00:00: n 00 SULFA Drug Active Low Itching 2022-0 MD (SULFONA Class 1-05 [facility] MIDE 00:00: n ANTIBIOT 00 ICS) CODEINE DRUG Active Low Itching 2022-0 MD INGREDI 1-05 [facility] 00:00: n 00 SULFA Drug Active Low Itching 2022-0 MD (SULFONA Class 1-05 [facility] MIDE 00:00: n ANTIBIOT 00 ICS) CODEINE DRUG Active Low Itching 2022-0 MD INGREDI 1-05 [facility] 00:00: n 00 SULFA Drug Active Low Itching 2022-0 MD (SULFONA Class 1-05 [facility] MIDE 00:00: n ANTIBIOT 00 ICS) CODEINE DRUG Active Low Itching 2022-0 MD INGREDI 1-05 [facility] 00:00: n 00 SULFA Drug Active Low Itching 2022-0 MD (SULFONA Class 1-05 [facility] MIDE 00:00: n ANTIBIOT 00 ICS) CODEINE DRUG Active Low Itching 2022-0 MD INGREDI 1-05 [facility] 00:00: n 00 SULFA Drug Active Low Itching 2022-0 MD (SULFONA Class 1-05 [facility] MIDE 00:00: n ANTIBIOT 00 ICS) CODEINE DRUG Active Low Itching 2022-0 MD INGREDI 1-05 [facility] 00:00: n 00 SULFA Drug Active Low Itching 2022-0 MD (SULFONA Class 1-05 [facility] MIDE 00:00: n ANTIBIOT 00 ICS) CODEINE DRUG Active Low Itching 2022-0 MD INGREDI 1-05 [facility] 00:00: n 00 SULFA Drug Active Low Itching 2022-0 MD (SULFONA Class 1-05 [facility] MIDE 00:00: n ANTIBIOT 00 ICS) CODEINE DRUG Active Low Itching 2022-0 MD INGREDI 1-05 [facility] 00:00: n 00 SULFA Drug Active Low Itching 2022-0 MD (SULFONA Class 1-05 [facility] M[facility] 00:00: n ANTIBIOT 00 ICS) CODEINE DRUG Active Low Itching 2022-0 MD INGREDI 1-05 [facility] 00:00: n 00 SULFA Drug Active Low Itching 2022-0 MD (SULFONA Class 1-05 [facility] MIDE 00:00: n ANTIBIOT 00 ICS) CODEINE DRUG Active Low Itching 2022-0 MD INGREDI 1-05 [facility] 00:00: n 00 SULFA Drug Active Low Itching 2022-0 MD (SULFONA Class 1-05 [facility] M[facility] 00:00: n ANTIBIOT 00 ICS) CODEINE DRUG Active Low Itching 2022-0 MD INGREDI 1-05 [facility] 00:00: n 00 SULFA Drug Active Low Itching 2022-0 MD (SULFONA Class 1-05 [facility] M[facility] 00:00: n ANTIBIOT 00 ICS) CODEINE DRUG Active Low Itching 2022-0 MD INGREDI 1-05 [facility] 00:00: n 00 SULFA Drug Active Low Itching 2022-0 MD (SULFONA Class 1-05 [facility] M[facility] 00:00: n ANTIBIOT 00 ICS) CODEINE DRUG Active Low Itching 2022-0 MD INGREDI 1-05 [facility] 00:00: n 00 SULFA Drug Active Low Itching 2022-0 MD (SULFONA Class 1-05 [facility] M[facility] 00:00: n ANTIBIOT 00 ICS) CODEINE DRUG Active Low Itching 2022-0 MD INGREDI 1-05 [facility] 00:00: n 00 SULFA Drug Active Low Itching 2022-0 MD (SULFONA Class 1-05 [facility] M[facility] 00:00: n ANTIBIOT 00 ICS) CODEINE DRUG Active Low Itching 2022-0 MD INGREDI 1-05 [facility] 00:00: n 00 SULFA Drug Active Low Itching 2022-0 MD (SULFONA Class 1-05 [facility] M[facility] 00:00: n ANTIBIOT 00 ICS) CODEINE DRUG Active Low Itching 2022-0 MD INGREDI 1-05 [facility] 00:00: n 00 SULFA Drug Active Low Itching 2022-0 MD (SULFONA Class 1-05 [facility] M[facility] 00:00: n ANTIBIOT 00 ICS) CODEINE DRUG Active Low Itching 2022-0 MD INGREDI 1-05 [facility] 00:00: n 00 SULFA Drug Active Low Itching 2022-0 MD (SULFONA Class 1-05 [facility] M[facility] 00:00: n ANTIBIOT 00 ICS) CODEINE DRUG Active Low Itching 2022-0 MD INGREDI 1-05 [facility] 00:00: n 00 SULFA Drug Active Low Itching 2022-0 MD (SULFONA Class 1-05 [facility] M[facility] 00:00: n ANTIBIOT 00 ICS) CODEINE DRUG Active Low Itching 2022-0 MD INGREDI 1-05 [facility] 00:00: n 00 SULFA Drug Active Low Itching 2022-0 MD (SULFONA Class 1-05 [facility] M[facility] 00:00: n ANTIBIOT 00 ICS) CODEINE DRUG Active Low Itching 2022-0 MD INGREDI 1-05 [facility] 00:00: n 00 SULFA Drug Active Low Itching 2022-0 MD (SULFONA Class 1-05 [facility] M[facility] 00:00: n ANTIBIOT 00 ICS) CODEINE DRUG Active Low Itching 2022-0 MD INGREDI 1-05 [facility] 00:00: n 00 SULFA Drug Active Low Itching 2022-0 MD (SULFONA Class 1-05 [facility] MIDE 00:00: n ANTIBIOT 00 ICS) CODEINE DRUG Active Low Itching 2022-0 MD INGREDI 1-05 [facility] 00:00: n 00 SULFA Drug Active Low Itching 2022-0 MD (SULFONA Class 1-05 [facility] M[facility] 00:00: n ANTIBIOT 00 ICS) CODEINE DRUG Active Low Itching 2022-0 MD INGREDI 1-05 [facility] 00:00: n 00 SULFA Drug Active Low Itching 2022-0 MD (SULFONA Class 1-05 [facility] M[facility] 00:00: n ANTIBIOT 00 ICS) CODEINE DRUG Active Low Itching 2022-0 MD INGREDI 1-05 [facility] 00:00: n 00 SULFA Drug Active Low Itching 2022-0 MD (SULFONA Class 1-05 [facility] M[facility] 00:00: n ANTIBIOT 00 ICS) CODEINE DRUG Active Low Itching 2022-0 MD INGREDI 1-05 [facility] 00:00: n 00 SULFA Drug Active Low Itching 2022-0 MD (SULFONA Class 1-05 [facility] M[facility] 00:00: n ANTIBIOT 00 ICS) CODEINE DRUG Active Low Itching 2022-0 MD INGREDI 1-05 [facility] 00:00: n 00 SULFA Drug Active Low Itching 2022-0 MD (SULFONA Class 1-05 [facility] M[facility] 00:00: n ANTIBIOT 00 ICS) CODEINE DRUG Active Low Itching 2022-0 MD INGREDI 1-05 [facility] 00:00: n 00 SULFA Drug Active Low Itching 2022-0 MD (SULFONA Class 1-05 [facility] M[facility] 00:00: n ANTIBIOT 00 ICS) CODEINE DRUG Active Low Itching 2022-0 MD INGREDI 1-05 [facility] 00:00: n 00 SULFA Drug Active Low Itching 2022-0 MD (SULFONA Class 1-05 [facility] M[facility] 00:00: n ANTIBIOT 00 ICS) CODEINE DRUG Active Low Itching 2022-0 MD INGREDI 1-05 [facility] 00:00: n 00 SULFA Drug Active Low Itching 2022-0 MD (SULFONA Class 1-05 [facility] MIDE 00:00: n ANTIBIOT 00 ICS) CODEINE DRUG Active Low Itching 2022-0 MD INGREDI 1-05 [facility] 00:00: n 00 SULFA Drug Active Low Itching 2022-0 MD (SULFONA Class 1-05 [facility] M[facility] 00:00: n ANTIBIOT 00 ICS) CODEINE DRUG Active Low Itching 2022-0 MD INGREDI 1-05 [facility] 00:00: n 00 SULFA Drug Active Low Itching 2022-0 MD (SULFONA Class 1-05 [facility] M[facility] 00:00: n ANTIBIOT 00 ICS) CODEINE DRUG Active Low Itching 2022-0 MD INGREDI 1-05 [facility] 00:00: n 00 SULFA Drug Active Low Itching 2022-0 MD (SULFONA Class 1-05 [facility] M[facility] 00:00: n ANTIBIOT 00 ICS) CODEINE DRUG Active Low Itching 2022-0 MD INGREDI 1-05 [facility] 00:00: n 00 SULFA Drug Active Low Itching 2022-0 MD (SULFONA Class 1-05 [facility] MIDE 00:00: n ANTIBIOT 00 ICS) CODEINE DRUG Active Low Itching 2022-0 MD INGREDI 1-05 [facility] 00:00: n 00 SULFA Drug Active Low Itching 2022-0 MD (SULFONA Class 1-05 [facility] MIDE 00:00: n ANTIBIOT 00 ICS) CODEINE DRUG Active Low Itching 2022-0 MD INGREDI 1-05 [facility] 00:00: n 00 SULFA Drug Active Low Itching 2022-0 MD (SULFONA Class 1-05 [facility] MIDE 00:00: n ANTIBIOT 00 ICS) CODEINE DRUG Active Low Itching 2022-0 MD INGREDI 1-05 [facility] 00:00: n 00 SULFA Drug Active Low Itching 2022-0 MD (SULFONA Class 1-05 [facility] MIDE 00:00: n ANTIBIOT 00 ICS) CODEINE DRUG Active Low Itching 2022-0 MD INGREDI 1-05 [facility] 00:00: n 00 SULFA Drug Active Low Itching 2022-0 MD (SULFONA Class 1-05 [facility] MIDE 00:00: n ANTIBIOT 00 ICS) CODEINE DRUG Active Low Itching 2022-0 MD INGREDI 1-05 [facility] 00:00: n 00 SULFA Drug Active Low Itching 2022-0 MD (SULFONA Class 1-05 Anderso MIDE 00:00: n ANTIBIOT 00 ICS) CODEINE DRUG Active Low Itching 2022-0 MD INGREDI 1-05 Anderso 00:00: n 00 SULFA Drug Active Low Itching 2022-0 MD (SULFONA Class 1-05 Anderso MIDE 00:00: n ANTIBIOT 00 ICS) CODEINE DRUG Active Low Itching 2022-0 MD INGREDI 1-05 Anderso 00:00: n 00 SULFA Drug Active Low Itching 2022-0 MD (SULFONA Class 1-05 Anderso MIDE 00:00: n ANTIBIOT 00 ICS) CODEINE DRUG Active Low Itching 2022-0 MD INGREDI 1-05 Anderso 00:00: n 00 SULFA Drug Active Low Itching 2022-0 MD (SULFONA Class 1-05 Anderso MIDE 00:00: n ANTIBIOT 00 ICS) CODEINE DRUG Active Low Itching 2022-0 MD INGREDI 1-05 Anderso 00:00: n 00 SULFA Drug Active Low Itching 2022-0 MD (SULFONA Class 1-05 Anderso MIDE 00:00: n ANTIBIOT 00 ICS) CODEINE DRUG Active Low Itching 2022-0 MD INGREDI 1-05 Anderso 00:00: n 00 SULFA Drug Active Low Itching 2022-0 MD (SULFONA Class 1-05 Anderso MIDE 00:00: n ANTIBIOT 00 ICS) CODEINE DRUG Active Low Itching 2022-0 MD INGREDI 1-05 Anderso 00:00: n 00 SULFA Drug Active Low Itching 2022-0 MD (SULFONA Class 1-05 Anderso MIDE 00:00: n ANTIBIOT 00 ICS) CODEINE DRUG Active Low Itching 2022-0 MD INGREDI 1-05 Anderso 00:00: n 00 SULFA Drug Active Low Itching 2022-0 MD ([facility] Class 1-05 Anderso MIDE 00:00: n ANTIBIOT 00 ICS) CODEINE DRUG Active Low Itching 2022-0 MD INGREDI 1-05 Anderso 00:00: n 00 SULFA Drug Active Low Itching 2022-0 MD ([facility] Class 1-05 Anderso MIDE 00:00: n ANTIBIOT 00 ICS) CODEINE DRUG Active Low Itching 2022-0 MD INGREDI 1-05 Anderso 00:00: n 00 SULFA Drug Active Low Itching 2022-0 MD ([facility] Class 1-05 Anderso MIDE 00:00: n ANTIBIOT 00 ICS) CODEINE DRUG Active Low Itching 2022-0 MD INGREDI 1-05 Anderso 00:00: n 00 SULFA Drug Active Low Itching 2022-0 MD ([facility] Class 1-05 Anderso MIDE 00:00: n ANTIBIOT 00 ICS) CODEINE DRUG Active Low Itching 2022-0 MD INGREDI 1-05 Anderso 00:00: n 00 SULFA Drug Active Low Itching 2022-0 MD ([facility] Class 1-05 Anderso MIDE 00:00: n ANTIBIOT 00 ICS) CODEINE DRUG Active Low Itching 2022-0 MD INGREDI 1-05 Anderso 00:00: n 00 SULFA Drug Active Low Itching 2022-0 MD ([facility] Class 1-05 Anderso MIDE 00:00: n ANTIBIOT 00 ICS) CODEINE DRUG Active Low Itching 2022-0 MD INGREDI 1-05 Anderso 00:00: n 00 SULFA Drug Active Low Itching 2022-0 MD ([facility] Class 1-05 Anderso MIDE 00:00: n ANTIBIOT 00 ICS) CODEINE DRUG Active Low Itching 2022-0 MD INGREDI 1-05 Anderso 00:00: n 00 SULFA Drug Active Low Itching 2022-0 MD ([facility] Class 1-05 Anderso MIDE 00:00: n ANTIBIOT 00 ICS) CODEINE DRUG Active Low Itching 2022-0 MD INGREDI 1-05 Anderso 00:00: n 00 SULFA Drug Active Low Itching 2022-0 MD ([facility] Class 1-05 Anderso MIDE 00:00: n ANTIBIOT 00 ICS) CODEINE DRUG Active Low Itching 2022-0 MD INGREDI 1-05 Anderso 00:00: n 00 SULFA Drug Active Low Itching 2022-0 MD ([facility] Class 1-05 Anderso MIDE 00:00: n ANTIBIOT 00 ICS) CODEINE DRUG Active Low Itching 2022-0 MD INGREDI 1-05 Anderso 00:00: n 00 SULFA Drug Active Low Itching 2022-0 MD ([facility] Class 1-05 Anderso MIDE 00:00: n ANTIBIOT 00 ICS) CODEINE DRUG Active Low Itching 2022-0 MD INGREDI 1-05 Anderso 00:00: n 00 SULFA Drug Active Low Itching 2022-0 MD ([facility] Class 1-05 Anderso MIDE 00:00: n ANTIBIOT 00 ICS) CODEINE DRUG Active Low Itching 2022-0 MD INGREDI 1-05 Anderso 00:00: n 00 SULFA Drug Active Low Itching 2022-0 MD ([facility] Class 1-05 Anderso MIDE 00:00: n ANTIBIOT 00 ICS) CODEINE DRUG Active Low Itching 2022-0 MD INGREDI 1-05 Anderso 00:00: n 00 SULFA Drug Active Low Itching 2022-0 MD ([facility] Class 1-05 Anderso MIDE 00:00: n ANTIBIOT 00 ICS) CODEINE DRUG Active Low Itching 2022-0 MD INGREDI 1-05 Anderso 00:00: n 00 SULFA Drug Active Low Itching 2022-0 MD ([facility] Class 1-05 Anderso MIDE 00:00: n ANTIBIOT 00 ICS) CODEINE DRUG Active Low Itching 2022-0 MD INGREDI 1-05 Anderso 00:00: n 00 SULFA Drug Active Low Itching 2022-0 MD ([facility] Class 1-05 Anderso MIDE 00:00: n ANTIBIOT 00 ICS) CODEINE DRUG Active Low Itching 2022-0 MD INGREDI 1-05 Anderso 00:00: n 00 SULFA Drug Active Low Itching 2022-0 MD ([facility] Class 1-05 Anderso MIDE 00:00: n ANTIBIOT 00 ICS) CODEINE DRUG Active Low Itching 2022-0 MD INGREDI 1-05 Anderso 00:00: n 00 SULFA Drug Active Low Itching 2022-0 MD ([facility] Class 1-05 Anderso MIDE 00:00: n ANTIBIOT 00 ICS) CODEINE DRUG Active Low Itching 2022-0 MD INGREDI 1-05 Anderso 00:00: n 00 SULFA Drug Active Low Itching 2022-0 MD ([facility] Class 1-05 Anderso MIDE 00:00: n ANTIBIOT 00 ICS) CODEINE DRUG Active Low Itching 2022-0 MD INGREDI 1-05 Anderso 00:00: n 00 SULFA Drug Active Low Itching 2022-0 MD ([facility] Class 1-05 Anderso MIDE 00:00: n ANTIBIOT 00 ICS) CODEINE DRUG Active Low Itching 2022-0 MD INGREDI 1-05 Anderso 00:00: n 00 SULFA Drug Active Low Itching 2022-0 MD ([facility] Class 1-05 Anderso MIDE 00:00: n ANTIBIOT 00 ICS) CODEINE DRUG Active Low Itching 2022-0 MD INGREDI 1-05 Anderso 00:00: n 00 SULFA Drug Active Low Itching 2022-0 MD ([facility] Class 1-05 Anderso MIDE 00:00: n ANTIBIOT 00 ICS) CODEINE DRUG Active Low Itching 2022-0 MD INGREDI 1-05 Anderso 00:00: n 00 SULFA Drug Active Low Itching 2022-0 MD ([facility] Class 1-05 Anderso MIDE 00:00: n ANTIBIOT 00 ICS) CODEINE DRUG Active Low Itching 2022-0 MD INGREDI 1-05 Anderso 00:00: n 00 SULFA Drug Active Low Itching 2022-0 MD ([facility] Class 1-05 Anderso MIDE 00:00: n ANTIBIOT 00 ICS) CODEINE DRUG Active Low Itching 2022-0 MD INGREDI 1-05 Anderso 00:00: n 00 SULFA Drug Active Low Itching 2022-0 MD ([facility] Class 1-05 Anderso MIDE 00:00: n ANTIBIOT 00 ICS) CODEINE DRUG Active Low Itching 2022-0 MD INGREDI 1-05 Anderso 00:00: n 00 SULFA Drug Active Low Itching 2022-0 MD ([facility] Class 1-05 Anderso MIDE 00:00: n ANTIBIOT 00 ICS) CODEINE DRUG Active Low Itching 2022-0 MD INGREDI 1-05 Anderso 00:00: n 00 SULFA Drug Active Low Itching 2022-0 MD ([facility] Class 1-05 Anderso MIDE 00:00: n ANTIBIOT 00 ICS) CODEINE DRUG Active Low Itching 2022-0 MD INGREDI 1-05 Anderso 00:00: n 00 SULFA Drug Active Low Itching 2022-0 MD ([facility] Class 1-05 Anderso MIDE 00:00: n ANTIBIOT 00 ICS) CODEINE DRUG Active Low Itching 2022-0 MD INGREDI 1-05 Anderso 00:00: n 00 SULFA Drug Active Low Itching 2022-0 MD ([facility] Class 1-05 Anderso MIDE 00:00: n ANTIBIOT 00 ICS) CODEINE DRUG Active Low Itching 2022-0 MD INGREDI 1-05 Anderso 00:00: n 00 SULFA Drug Active Low Itching 2022-0 MD ([facility] Class 1-05 Anderso MIDE 00:00: n ANTIBIOT 00 ICS) CODEINE DRUG Active Low Itching 2022-0 MD INGREDI 1-05 Anderso 00:00: n 00 SULFA Drug Active Low Itching 2022-0 MD ([facility] Class 1-05 Anderso MIDE 00:00: n ANTIBIOT 00 ICS) CODEINE DRUG Active Low Itching 2022-0 MD INGREDI 1-05 Anderso 00:00: n 00 SULFA Drug Active Low Itching 2022-0 MD ([facility] Class 1-05 Anderso MIDE 00:00: n ANTIBIOT 00 ICS) CODEINE DRUG Active Low Itching 2022-0 MD INGREDI 1-05 Anderso 00:00: n 00 SULFA Drug Active Low Itching 2022-0 MD ([facility] Class 1-05 Anderso MIDE 00:00: n ANTIBIOT 00 ICS) CODEINE DRUG Active Low Itching 2022-0 MD INGREDI 1-05 Anderso 00:00: n 00 SULFA Drug Active Low Itching 2022-0 MD ([facility] Class 1-05 Anderso MIDE 00:00: n ANTIBIOT 00 ICS) CODEINE DRUG Active Low Itching 2022-0 MD INGREDI 1-05 Anderso 00:00: n 00 SULFA Drug Active Low Itching 2022-0 MD ([facility] Class 1-05 Anderso MIDE 00:00: n ANTIBIOT 00 ICS) CODEINE DRUG Active Low Itching 2022-0 MD INGREDI 1-05 Anderso 00:00: n 00 SULFA Drug Active Low Itching 2022-0 MD ([facility] Class 1-05 Anderso MIDE 00:00: n ANTIBIOT 00 ICS) CODEINE DRUG Active Low Itching 2022-0 MD INGREDI 1-05 Anderso 00:00: n 00 SULFA Drug Active Low Itching 2022-0 MD ([facility] Class 1-05 Anderso MIDE 00:00: n ANTIBIOT 00 ICS) CODEINE DRUG Active Low Itching 2022-0 MD INGREDI 1-05 Anderso 00:00: n 00 SULFA Drug Active Low Itching 2022-0 MD ([facility] Class 1-05 Anderso MIDE 00:00: n ANTIBIOT 00 ICS) CODEINE DRUG Active Low Itching 2022-0 MD INGREDI 1-05 Anderso 00:00: n 00 SULFA Drug Active Low Itching 2022-0 MD ([facility] Class 1-05 Anderso MIDE 00:00: n ANTIBIOT 00 ICS) CODEINE DRUG Active Low Itching 2022-0 MD INGREDI 1-05 Anderso 00:00: n 00 SULFA Drug Active Low Itching 2022-0 MD ([facility] Class 1-05 Anderso MIDE 00:00: n ANTIBIOT 00 ICS) CODEINE DRUG Active Low Itching 2022-0 MD INGREDI 1-05 Anderso 00:00: n 00 SULFA Drug Active Low Itching 2022-0 MD ([facility] Class 1-05 Anderso MIDE 00:00: n ANTIBIOT 00 ICS) CODEINE DRUG Active Low Itching 2022-0 MD INGREDI 1-05 Anderso 00:00: n 00 SULFA Drug Active Low Itching 2022-0 MD ([facility] Class 1-05 Anderso MIDE 00:00: n ANTIBIOT 00 ICS) CODEINE DRUG Active Low Itching 2022-0 MD INGREDI 1-05 Anderso 00:00: n 00 SULFA Drug Active Low Itching 2022-0 MD ([facility] Class 1-05 Anderso MIDE 00:00: n ANTIBIOT 00 ICS) CODEINE DRUG Active Low Itching 2022-0 MD INGREDI 1-05 Anderso 00:00: n 00 SULFA Drug Active Low Itching 2022-0 MD ([facility] Class 1-05 Anderso MIDE 00:00: n ANTIBIOT 00 ICS) CODEINE DRUG Active Low Itching 2022-0 MD INGREDI 1-05 Anderso 00:00: n 00 SULFA Drug Active Low Itching 2022-0 MD ([facility] Class 1-05 Anderso MIDE 00:00: n ANTIBIOT 00 ICS) CODEINE DRUG Active Low Itching 2022-0 MD INGREDI 1-05 Anderso 00:00: n 00 SULFA Drug Active Low Itching 2022-0 MD ([facility] Class 1-05 Anderso MIDE 00:00: n ANTIBIOT 00 ICS) CODEINE DRUG Active Low Itching 2022-0 MD INGREDI 1-05 Anderso 00:00: n 00 SULFA Drug Active Low Itching 2022-0 MD ([facility] Class 1-05 Anderso MIDE 00:00: n ANTIBIOT 00 ICS) CODEINE DRUG Active Low Itching 2022-0 MD INGREDI 1-05 Anderso 00:00: n 00 SULFA Drug Active Low Itching 2022-0 MD ([facility] Class 1-05 Anderso MIDE 00:00: n ANTIBIOT 00 ICS) CODEINE DRUG Active Low Itching 2022-0 MD INGREDI 1-05 Anderso 00:00: n 00 SULFA Drug Active Low Itching 2022-0 MD ([facility] Class 1-05 Anderso MIDE 00:00: n ANTIBIOT 00 ICS) CODEINE DRUG Active Low Itching 2022-0 MD INGREDI 1-05 Anderso 00:00: n 00 SULFA Drug Active Low Itching 2022-0 MD ([facility] Class 1-05 Anderso MIDE 00:00: n ANTIBIOT 00 ICS) CODEINE DRUG Active Low Itching 2022-0 MD INGREDI 1-05 Anderso 00:00: n 00 SULFA Drug Active Low Itching 2022-0 MD ([facility] Class 1-05 Anderso MIDE 00:00: n ANTIBIOT 00 ICS) CODEINE DRUG Active Low Itching 2022-0 MD INGREDI 1-05 Anderso 00:00: n 00 SULFA Drug Active Low Itching 2022-0 MD ([facility] Class 1-05 Anderso MIDE 00:00: n ANTIBIOT 00 ICS) CODEINE DRUG Active Low Itching 2022-0 MD INGREDI 1-05 Anderso 00:00: n 00 SULFA Drug Active Low Itching 2022-0 MD ([facility] Class 1-05 Anderso MIDE 00:00: n ANTIBIOT 00 ICS) CODEINE DRUG Active Low Itching 2022-0 MD INGREDI 1-05 Anderso 00:00: n 00 SULFA Drug Active Low Itching 2022-0 MD ([facility] Class 1-05 Anderso MIDE 00:00: n ANTIBIOT 00 ICS) CODEINE DRUG Active Low Itching 2022-0 MD INGREDI 1-05 Anderso 00:00: n 00 SULFA Drug Active Low Itching 2022-0 MD ([facility] Class 1-05 Anderso MIDE 00:00: n ANTIBIOT 00 ICS) CODEINE DRUG Active Low Itching 2022-0 MD INGREDI 1-05 Anderso 00:00: n 00 SULFA Drug Active Low Itching 2022-0 MD ([facility] Class 1-05 Anderso MIDE 00:00: n ANTIBIOT 00 ICS) CODEINE DRUG Active Low Itching 2022-0 MD INGREDI 1-05 Anderso 00:00: n 00 SULFA Drug Active Low Itching 2022-0 MD ([facility] Class 1-05 Anderso MIDE 00:00: n ANTIBIOT 00 ICS) CODEINE DRUG Active Low Itching 2022-0 MD INGREDI 1-05 Anderso 00:00: n 00 SULFA Drug Active Low Itching 2022-0 MD ([facility] Class 1-05 Anderso MIDE 00:00: n ANTIBIOT 00 ICS) CODEINE DRUG Active Low Itching 2022-0 MD INGREDI 1-05 Anderso 00:00: n 00 SULFA Drug Active Low Itching 2022-0 MD ([facility] Class 1-05 Anderso MIDE 00:00: n ANTIBIOT 00 ICS) CODEINE DRUG Active Low Itching 2022-0 MD INGREDI 1-05 Anderso 00:00: n 00 SULFA Drug Active Low Itching 2022-0 MD ([facility] Class 1-05 Anderso MIDE 00:00: n ANTIBIOT 00 ICS) CODEINE DRUG Active Low Itching 2022-0 MD INGREDI 1-05 Anderso 00:00: n 00 SULFA Drug Active Low Itching 2022-0 MD ([facility] Class 1-05 Anderso MIDE 00:00: n ANTIBIOT 00 ICS) CODEINE DRUG Active Low Itching 2022-0 MD INGREDI 1-05 Anderso 00:00: n 00 SULFA Drug Active Low Itching 2022-0 MD ([facility] Class 1-05 Anderso MIDE 00:00: n ANTIBIOT 00 ICS) CODEINE DRUG Active Low Itching 2022-0 MD INGREDI 1-05 Anderso 00:00: n 00 SULFA Drug Active Low Itching 2022-0 MD ([facility] Class 1-05 Anderso MIDE 00:00: n ANTIBIOT 00 ICS) CODEINE DRUG Active Low Itching 2022-0 MD INGREDI 1-05 Anderso 00:00: n 00 SULFA Drug Active Low Itching 2022-0 MD ([facility] Class 1-05 Anderso MIDE 00:00: n ANTIBIOT 00 ICS) CODEINE DRUG Active Low Itching 2022-0 MD INGREDI 1-05 Anderso 00:00: n 00 SULFA Drug Active Low Itching 2022-0 MD ([facility] Class 1-05 Anderso MIDE 00:00: n ANTIBIOT 00 ICS) CODEINE DRUG Active Low Itching 2022-0 MD INGREDI 1-05 Anderso 00:00: n 00 SULFA Drug Active Low Itching 2022-0 MD ([facility] Class 1-05 Anderso MIDE 00:00: n ANTIBIOT 00 ICS) CODEINE DRUG Active Low Itching 2022-0 MD INGREDI 1-05 Anderso 00:00: n 00 SULFA Drug Active Low Itching 2022-0 MD ([facility] Class 1-05 Anderso MIDE 00:00: n ANTIBIOT 00 ICS) CODEINE DRUG Active Low Itching 2022-0 MD INGREDI 1-05 Anderso 00:00: n 00 SULFA Drug Active Low Itching 2022-0 MD ([facility] Class 1-05 Anderso MIDE 00:00: n ANTIBIOT 00 ICS) CODEINE DRUG Active Low Itching 2022-0 MD INGREDI 1-05 Anderso 00:00: n 00 SULFA Drug Active Low Itching 2022-0 MD ([facility] Class 1-05 Anderso MIDE 00:00: n ANTIBIOT 00 ICS) CODEINE DRUG Active Low Itching 2022-0 MD INGREDI 1-05 Anderso 00:00: n 00 SULFA Drug Active Low Itching 2022-0 MD ([facility] Class 1-05 Anderso MIDE 00:00: n ANTIBIOT 00 ICS) CODEINE DRUG Active Low Itching 2022-0 MD INGREDI 1-05 Anderso 00:00: n 00 SULFA Drug Active Low Itching 2022-0 MD ([facility] Class 1-05 Anderso MIDE 00:00: n ANTIBIOT 00 ICS) CODEINE DRUG Active Low Itching 2022-0 MD INGREDI 1-05 Anderso 00:00: n 00 SULFA Drug Active Low Itching 2022-0 MD ([facility] Class 1-05 Anderso MIDE 00:00: n ANTIBIOT 00 ICS) CODEINE DRUG Active Low Itching 2022-0 MD INGREDI 1-05 Anderso 00:00: n 00 SULFA Drug Active Low Itching 2022-0 MD ([facility] Class 1-05 Anderso MIDE 00:00: n ANTIBIOT 00 ICS) CODEINE DRUG Active Low Itching 2022-0 MD INGREDI 1-05 Anderso 00:00: n 00 SULFA Drug Active Low Itching 2022-0 MD ([facility] Class 1-05 Anderso MIDE 00:00: n ANTIBIOT 00 ICS) CODEINE DRUG Active Low Itching 2022-0 MD INGREDI 1-05 Anderso 00:00: n 00 SULFA Drug Active Low Itching 2022-0 MD ([facility] Class 1-05 Anderso MIDE 00:00: n ANTIBIOT 00 ICS) CODEINE DRUG Active Low Itching 2022-0 MD INGREDI 1-05 Anderso 00:00: n 00 SULFA Drug Active Low Itching 2022-0 MD ([facility] Class 1-05 Anderso MIDE 00:00: n ANTIBIOT 00 ICS) CODEINE DRUG Active Low Itching 2022-0 MD INGREDI 1-05 Anderso 00:00: n 00 SULFA Drug Active Low Itching 2022-0 MD ([facility] Class 1-05 Anderso MIDE 00:00: n ANTIBIOT 00 ICS) CODEINE DRUG Active Low Itching 2022-0 MD INGREDI 1-05 Anderso 00:00: n 00 SULFA Drug Active Low Itching 2022-0 MD ([facility] Class 1-05 Anderso MIDE 00:00: n ANTIBIOT 00 ICS) CODEINE DRUG Active Low Itching 2022-0 MD INGREDI 1-05 Anderso 00:00: n 00 SULFA Drug Active Low Itching 2022-0 MD ([facility] Class 1-05 Anderso MIDE 00:00: n ANTIBIOT 00 ICS) CODEINE DRUG Active Low Itching 2022-0 MD INGREDI 1-05 Anderso 00:00: n 00 SULFA Drug Active Low Itching 2022-0 MD ([facility] Class 1-05 Anderso MIDE 00:00: n ANTIBIOT 00 ICS) CODEINE DRUG Active Low Itching 2022-0 MD INGREDI 1-05 Anderso 00:00: n 00 SULFA Drug Active Low Itching 2022-0 MD ([facility] Class 1-05 Anderso MIDE 00:00: n ANTIBIOT 00 ICS) CODEINE DRUG Active Low Itching 2022-0 MD INGREDI 1-05 Anderso 00:00: n 00 SULFA Drug Active Low Itching 2022-0 MD ([facility] Class 1-05 Anderso MIDE 00:00: n ANTIBIOT 00 ICS) CODEINE DRUG Active Low Itching 2022-0 MD INGREDI 1-05 Anderso 00:00: n 00 SULFA Drug Active Low Itching 2022-0 MD ([facility] Class 1-05 Anderso MIDE 00:00: n ANTIBIOT 00 ICS) CODEINE DRUG Active Low Itching 2022-0 MD INGREDI 1-05 Anderso 00:00: n 00 SULFA Drug Active Low Itching 2022-0 MD ([facility] Class 1-05 Anderso MIDE 00:00: n ANTIBIOT 00 ICS) CODEINE DRUG Active Low Itching 2022-0 MD INGREDI 1-05 Anderso 00:00: n 00 SULFA Drug Active Low Itching 2022-0 MD ([facility] Class 1-05 Anderso MIDE 00:00: n ANTIBIOT 00 ICS) CODEINE DRUG Active Low Itching 2022-0 MD INGREDI 1-05 Anderso 00:00: n 00 SULFA Drug Active Low Itching 2022-0 MD ([facility] Class 1-05 Anderso MIDE 00:00: n ANTIBIOT 00 ICS) CODEINE DRUG Active Low Itching 2022-0 MD INGREDI 1-05 Anderso 00:00: n 00 SULFA Drug Active Low Itching 2022-0 MD ([facility] Class 1-05 Anderso MIDE 00:00: n ANTIBIOT 00 ICS) CODEINE DRUG Active Low Itching 2022-0 MD INGREDI 1-05 Anderso 00:00: n 00 SULFA Drug Active Low Itching 2022-0 MD ([facility] Class 1-05 Anderso MIDE 00:00: n ANTIBIOT 00 ICS) CODEINE DRUG Active Low Itching 2022-0 MD INGREDI 1-05 Anderso 00:00: n 00 SULFA Drug Active Low Itching 2022-0 MD ([facility] Class 1-05 Anderso MIDE 00:00: n ANTIBIOT 00 ICS) CODEINE DRUG Active Low Itching 2022-0 MD INGREDI 1-05 Anderso 00:00: n 00 SULFA Drug Active Low Itching 2022-0 MD ([facility] Class 1-05 Anderso MIDE 00:00: n ANTIBIOT 00 ICS) CODEINE DRUG Active Low Itching 2022-0 MD INGREDI 1-05 Anderso 00:00: n 00 SULFA Drug Active Low Itching 2022-0 MD ([facility] Class 1-05 Anderso MIDE 00:00: n ANTIBIOT 00 ICS) CODEINE DRUG Active Low Itching 2022-0 MD INGREDI 1-05 Anderso 00:00: n 00 SULFA Drug Active Low Itching 2022-0 MD ([facility] Class 1-05 Anderso MIDE 00:00: n ANTIBIOT 00 ICS) CODEINE DRUG Active Low Itching 2022-0 MD INGREDI 1-05 Anderso 00:00: n 00 SULFA Drug Active Low Itching 2022-0 MD ([facility] Class 1-05 Anderso MIDE 00:00: n ANTIBIOT 00 ICS) CODEINE DRUG Active Low Itching 2022-0 MD INGREDI 1-05 Anderso 00:00: n 00 SULFA Drug Active Low Itching 2022-0 MD ([facility] Class 1-05 Anderso MIDE 00:00: n ANTIBIOT 00 ICS) CODEINE DRUG Active Low Itching 2022-0 MD INGREDI 1-05 Anderso 00:00: n 00 SULFA Drug Active Low Itching 2022-0 MD ([facility] Class 1-05 Anderso MIDE 00:00: n ANTIBIOT 00 ICS) CODEINE DRUG Active Low Itching 2022-0 MD INGREDI 1-05 Anderso 00:00: n 00 SULFA Drug Active Low Itching 2022-0 MD ([facility] Class 1-05 Anderso MIDE 00:00: n ANTIBIOT 00 ICS) CODEINE DRUG Active Low Itching 2022-0 MD INGREDI 1-05 Anderso 00:00: n 00 SULFA Drug Active Low Itching 2022-0 MD ([facility] Class 1-05 Anderso MIDE 00:00: n ANTIBIOT 00 ICS) CODEINE DRUG Active Low Itching 2022-0 MD INGREDI 1-05 Anderso 00:00: n 00 SULFA Drug Active Low Itching 2022-0 MD ([facility] Class 1-05 Anderso MIDE 00:00: n ANTIBIOT 00 ICS) CODEINE DRUG Active Low Itching 2022-0 MD INGREDI 1-05 Anderso 00:00: n 00 SULFA Drug Active Low Itching 2022-0 MD ([facility] Class 1-05 Anderso MIDE 00:00: n ANTIBIOT 00 ICS) CODEINE DRUG Active Low Itching 2022-0 MD INGREDI 1-05 Anderso 00:00: n 00 SULFA Drug Active Low Itching 2022-0 MD ([facility] Class 1-05 Anderso MIDE 00:00: n ANTIBIOT 00 ICS) CODEINE DRUG Active Low Itching 2022-0 MD INGREDI 1-05 Anderso 00:00: n 00 SULFA Drug Active Low Itching 2022-0 MD ([facility] Class 1-05 Anderso MIDE 00:00: n ANTIBIOT 00 ICS) CODEINE DRUG Active Low Itching 2022-0 MD INGREDI 1-05 Anderso 00:00: n 00 SULFA Drug Active Low Itching 2022-0 MD ([facility] Class 1-05 Anderso MIDE 00:00: n ANTIBIOT 00 ICS) CODEINE DRUG Active Low Itching 2022-0 MD INGREDI 1-05 Anderso 00:00: n 00 SULFA Drug Active Low Itching 2022-0 MD ([facility] Class 1-05 Anderso MIDE 00:00: n ANTIBIOT 00 ICS) CODEINE DRUG Active Low Itching 2022-0 MD INGREDI 1-05 Anderso 00:00: n 00 SULFA Drug Active Low Itching 2022-0 MD ([facility] Class 1-05 Anderso MIDE 00:00: n ANTIBIOT 00 ICS) CODEINE DRUG Active Low Itching 2022-0 MD INGREDI 1-05 Anderso 00:00: n 00 SULFA Drug Active Low Itching 2022-0 MD ([facility] Class 1-05 Anderso MIDE 00:00: n ANTIBIOT 00 ICS) CODEINE DRUG Active Low Itching 2022-0 MD INGREDI 1-05 Anderso 00:00: n 00 SULFA Drug Active Low Itching 2022-0 MD ([facility] Class 1-05 Anderso MIDE 00:00: n ANTIBIOT 00 ICS) CODEINE DRUG Active Low Itching 2022-0 MD INGREDI 1-05 Anderso 00:00: n 00 SULFA Drug Active Low Itching 2022-0 MD ([facility] Class 1-05 Anderso MIDE 00:00: n ANTIBIOT 00 ICS) CODEINE DRUG Active Low Itching 2022-0 MD INGREDI 1-05 Anderso 00:00: n 00 SULFA Drug Active Low Itching 2022-0 MD ([facility] Class 1-05 Anderso MIDE 00:00: n ANTIBIOT 00 ICS) CODEINE DRUG Active Low Itching 2022-0 MD INGREDI 1-05 Anderso 00:00: n 00 SULFA Drug Active Low Itching 2022-0 MD ([facility] Class 1-05 Anderso MIDE 00:00: n ANTIBIOT 00 ICS) CODEINE DRUG Active Low Itching 2022-0 MD INGREDI 1-05 Anderso 00:00: n 00 SULFA Drug Active Low Itching 2022-0 MD ([facility] Class 1-05 Anderso MIDE 00:00: n ANTIBIOT 00 ICS) CODEINE DRUG Active Low Itching 2022-0 MD INGREDI 1-05 Anderso 00:00: n 00 SULFA Drug Active Low Itching 2022-0 MD ([facility] Class 1-05 Anderso MIDE 00:00: n ANTIBIOT 00 ICS) CODEINE DRUG Active Low Itching 2022-0 MD INGREDI 1-05 Anderso 00:00: n 00 SULFA Drug Active Low Itching 2022-0 MD ([facility] Class 1-05 Anderso MIDE 00:00: n ANTIBIOT 00 ICS) CODEINE DRUG Active Low Itching 2022-0 MD INGREDI 1-05 Anderso 00:00: n 00 SULFA Drug Active Low Itching 2022-0 MD ([facility] Class 1-05 Anderso MIDE 00:00: n ANTIBIOT 00 ICS) CODEINE DRUG Active Low Itching 2022-0 MD INGREDI 1-05 Anderso 00:00: n 00 SULFA Drug Active Low Itching 2022-0 MD ([facility] Class 1-05 Anderso MIDE 00:00: n ANTIBIOT 00 ICS) CODEINE DRUG Active Low Itching 2022-0 MD INGREDI 1-05 Anderso 00:00: n 00 SULFA Drug Active Low Itching 2022-0 MD ([facility] Class 1-05 Anderso MIDE 00:00: n ANTIBIOT 00 ICS) CODEINE DRUG Active Low Itching 2022-0 MD INGREDI 1-05 Anderso 00:00: n 00 SULFA Drug Active Low Itching 2022-0 MD ([facility] Class 1-05 Anderso MIDE 00:00: n ANTIBIOT 00 ICS) CODEINE DRUG Active Low Itching 2022-0 MD INGREDI 1-05 Anderso 00:00: n 00 SULFA Drug Active Low Itching 2022-0 MD (S[facility] Class 1-05 Anderso MIDE 00:00: n ANTIBIOT 00 ICS) CODEINE DRUG Active Low Itching 2022-0 MD INGREDI 1-05 Anderso 00:00: n 00 SULFA Drug Active Low Itching 2022-0 MD ([facility] Class 1-05 Anderso MIDE 00:00: n ANTIBIOT 00 ICS) CODEINE DRUG Active Low Itching 2022-0 MD INGREDI 1-05 Anderso 00:00: n 00 SULFA Drug Active Low Itching 2022-0 MD ([facility] Class 1-05 Anderso MIDE 00:00: n ANTIBIOT 00 ICS) CODEINE DRUG Active Low Itching 2022-0 MD INGREDI 1-05 Anderso 00:00: n 00 SULFA Drug Active Low Itching 2022-0 MD (SULFONA Class 1-05 Anderso MIDE 00:00: n ANTIBIOT 00 ICS) CODEINE DRUG Active Low Itching 2022-0 MD INGREDI 1-05 Anderso 00:00: n 00 SULFA Drug Active Low Itching 2022-0 MD (SULFONA Class 1-05 Anderso MIDE 00:00: n ANTIBIOT 00 ICS) CODEINE DRUG Active Low Itching 2022-0 MD INGREDI 1-05 Anderso 00:00: n 00 SULFA Drug Active Low Itching 2022-0 MD (SULFONA Class 1-05 Anderso MIDE 00:00: n ANTIBIOT 00 ICS) CODEINE DRUG Active Low Itching 2022-0 MD INGREDI 1-05 Anderso 00:00: n 00 SULFA Drug Active Low Itching 2022-0 MD (SULFONA Class 1-05 Anderso MIDE 00:00: n ANTIBIOT 00 ICS) CODEINE DRUG Active Low Itching 2022-0 MD INGREDI 1-05 Anderso 00:00: n 00 SULFA Drug Active Low Itching 2022-0 MD (SULFONA Class 1-05 Anderso MIDE 00:00: n ANTIBIOT 00 ICS) CODEINE DRUG Active Low Itching 2022-0 MD INGREDI 1-05 Anderso 00:00: n 00 SULFA Drug Active Low Itching 2022-0 MD (SULFONA Class 1-05 Anderso MIDE 00:00: n ANTIBIOT 00 ICS) CODEINE DRUG Active Low Itching 2022-0 MD INGREDI 1-05 Anderso 00:00: n 00 SULFA Drug Active Low Itching 2022-0 MD (SULFONA Class 1-05 Anderso MIDE 00:00: n ANTIBIOT 00 ICS) CODEINE DRUG Active Low Itching 2022-0 MD INGREDI 1-05 Anderso 00:00: n 00 SULFA Drug Active Low Itching 2022-0 MD (SULFONA Class 1-05 Anderso MIDE 00:00: n ANTIBIOT 00 ICS) CODEINE DRUG Active Low Itching 2022-0 MD INGREDI 1-05 Anderso 00:00: n 00 SULFA Drug Active Low Itching 2022-0 MD (SULFONA Class 1-05 Anderso MIDE 00:00: n ANTIBIOT 00 ICS) CODEINE DRUG Active Low Itching 2022-0 MD INGREDI 1-05 Anderso 00:00: n 00 SULFA Drug Active Low Itching 2022-0 MD (SULFONA Class 1-05 Anderso MIDE 00:00: n ANTIBIOT 00 ICS) CODEINE DRUG Active Low Itching 2022-0 MD INGREDI 1-05 Anderso 00:00: n 00 SULFA Drug Active Low Itching 2022-0 MD (SULFONA Class 1-05 Anderso MIDE 00:00: n ANTIBIOT 00 ICS) CODEINE DRUG Active Low Itching 2022-0 MD INGREDI 1-05 Anderso 00:00: n 00 SULFA Drug Active Low Itching 2022-0 MD (SULFONA Class 1-05 Anderso MIDE 00:00: n ANTIBIOT 00 ICS) CODEINE DRUG Active Low Itching 2022-0 MD INGREDI 1-05 Anderso 00:00: n 00 SULFA Drug Active Low Itching 2022-0 MD (SULFONA Class 1-05 Anderso MIDE 00:00: n ANTIBIOT 00 ICS) CODEINE DRUG Active Low Itching 2022-0 MD INGREDI 1-05 Anderso 00:00: n 00 SULFA Drug Active Low Itching 2022-0 MD (SULFONA Class 1-05 Anderso MIDE 00:00: n ANTIBIOT 00 ICS) CODEINE DRUG Active Low Itching 2022-0 MD INGREDI 1-05 Anderso 00:00: n 00 SULFA Drug Active Low Itching 2022-0 MD (SULFONA Class 1-05 Anderso MIDE 00:00: n ANTIBIOT 00 ICS) CODEINE DRUG Active Low Itching 2022-0 MD INGREDI 1-05 Anderso 00:00: n 00 SULFA Drug Active Low Itching 2022-0 MD (SULFONA Class 1-05 Anderso MIDE 00:00: n ANTIBIOT 00 ICS) CODEINE DRUG Active Low Itching 2022-0 MD INGREDI 1-05 Anderso 00:00: n 00 SULFA Drug Active Low Itching 2022-0 MD (SULFONA Class 1-05 Anderso MIDE 00:00: n ANTIBIOT 00 ICS) CODEINE DRUG Active Low Itching 2022-0 MD INGREDI 1-05 Anderso 00:00: n 00 SULFA Drug Active Low Itching 2022-0 MD (SULFONA Class 1-05 Anderso MIDE 00:00: n ANTIBIOT 00 ICS) CODEINE DRUG Active Low Itching 2022-0 MD INGREDI 1-05 Anderso 00:00: n 00 SULFA Drug Active Low Itching 2022-0 MD (SULFONA Class 1-05 Anderso MIDE 00:00: n ANTIBIOT 00 ICS) CODEINE DRUG Active Low Itching 2022-0 MD INGREDI 1-05 Anderso 00:00: n 00 SULFA Drug Active Low Itching 2022-0 MD (SULFONA Class 1-05 Anderso MIDE 00:00: n ANTIBIOT 00 ICS) CODEINE DRUG Active Low Itching 2022-0 MD INGREDI 1-05 Anderso 00:00: n 00 SULFA Drug Active Low Itching 2022-0 MD (SULFONA Class 1-05 Anderso MIDE 00:00: n ANTIBIOT 00 ICS) CODEINE DRUG Active Low Itching 2022-0 MD INGREDI 1-05 Anderso 00:00: n 00 SULFA Drug Active Low Itching 2022-0 MD (SULFONA Class 1-05 Anderso MIDE 00:00: n ANTIBIOT 00 ICS) CODEINE DRUG Active Low Itching 2022-0 MD INGREDI 1-05 Anderso 00:00: n 00 SULFA Drug Active Low Itching 2022-0 MD (SULFONA Class 1-05 Anderso MIDE 00:00: n ANTIBIOT 00 ICS) CODEINE DRUG Active Low Itching 2022-0 MD INGREDI 1-05 Anderso 00:00: n 00 SULFA Drug Active Low Itching 2022-0 MD (SULFONA Class 1-05 Anderso MIDE 00:00: n ANTIBIOT 00 ICS) CODEINE DRUG Active Low Itching 2022-0 MD INGREDI 1-05 Anderso 00:00: n 00 SULFA Drug Active Low Itching 2022-0 MD (SULFONA Class 1-05 Anderso MIDE 00:00: n ANTIBIOT 00 ICS) CODEINE DRUG Active Low Itching 2022-0 MD INGREDI 1-05 Anderso 00:00: n 00 SULFA Drug Active Low Itching 2022-0 MD (SULFONA Class 1-05 Anderso MIDE 00:00: n ANTIBIOT 00 ICS) CODEINE DRUG Active Low Itching 2022-0 MD INGREDI 1-05 Anderso 00:00: n 00 SULFA Drug Active Low Itching 2022-0 MD (SULFONA Class 1-05 Anderso MIDE 00:00: n ANTIBIOT 00 ICS) CODEINE DRUG Active Low Itching 2022-0 MD INGREDI 1-05 Anderso 00:00: n 00 SULFA Drug Active Low Itching 2022-0 MD (SULFONA Class 1-05 Anderso MIDE 00:00: n ANTIBIOT 00 ICS) CODEINE DRUG Active Low Itching 2022-0 MD INGREDI 1-05 Anderso 00:00: n 00 SULFA Drug Active Low Itching 2022-0 MD (SULFONA Class 1-05 Anderso MIDE 00:00: n ANTIBIOT 00 ICS) CODEINE DRUG Active Low Itching 2022-0 MD INGREDI 1-05 Anderso 00:00: n 00 SULFA Drug Active Low Itching 2022-0 MD (SULFONA Class 1-05 Anderso MIDE 00:00: n ANTIBIOT 00 ICS) CODEINE DRUG Active Low Itching 2022-0 MD INGREDI 1-05 Anderso 00:00: n 00 SULFA Drug Active Low Itching 2022-0 MD (SULFONA Class 1-05 Anderso MIDE 00:00: n ANTIBIOT 00 ICS) CODEINE DRUG Active Low Itching 2022-0 MD INGREDI 1-05 Anderso 00:00: n 00 SULFA Drug Active Low Itching 2022-0 MD (SULFONA Class 1-05 Anderso MIDE 00:00: n ANTIBIOT 00 ICS) CODEINE DRUG Active Low Itching 2022-0 MD INGREDI 1-05 Anderso 00:00: n 00 SULFA Drug Active Low Itching 2022-0 MD (SULFONA Class 1-05 Anderso MIDE 00:00: n ANTIBIOT 00 ICS) CODEINE DRUG Active Low Itching 2022-0 MD INGREDI 1-05 Anderso 00:00: n 00 SULFA Drug Active Low Itching 2022-0 MD (SULFONA Class 1-05 Anderso MIDE 00:00: n ANTIBIOT 00 ICS) CODEINE DRUG Active Low Itching 2022-0 MD INGREDI 1-05 Anderso 00:00: n 00 SULFA Drug Active Low Itching 2022-0 MD (SULFONA Class 1-05 Anderso MIDE 00:00: n ANTIBIOT 00 ICS) CODEINE DRUG Active Low Itching 2022-0 MD INGREDI 1-05 Anderso 00:00: n 00 SULFA Drug Active Low Itching 2022-0 MD (SULFONA Class 1-05 Anderso MIDE 00:00: n ANTIBIOT 00 ICS) CODEINE DRUG Active Low Itching 2022-0 MD INGREDI 1-05 Anderso 00:00: n 00 SULFA Drug Active Low Itching 2022-0 MD (SULFONA Class 1-05 Anderso MIDE 00:00: n ANTIBIOT 00 ICS) CODEINE DRUG Active Low Itching 2022-0 MD INGREDI 1-05 Anderso 00:00: n 00 SULFA Drug Active Low Itching 2022-0 MD (SULFONA Class 1-05 Anderso MIDE 00:00: n ANTIBIOT 00 ICS) CODEINE DRUG Active Low Itching 2022-0 MD INGREDI 1-05 Anderso 00:00: n 00 SULFA Drug Active Low Itching 2022-0 MD (SULFONA Class 1-05 Anderso MIDE 00:00: n ANTIBIOT 00 ICS) CODEINE DRUG Active Low Itching 2022-0 MD INGREDI 1-05 Anderso 00:00: n 00 SULFA Drug Active Low Itching 2022-0 MD (SULFONA Class 1-05 Anderso MIDE 00:00: n ANTIBIOT 00 ICS) CODEINE DRUG Active Low Itching 2022-0 MD INGREDI 1-05 Anderso 00:00: n 00 SULFA Drug Active Low Itching 2022-0 MD (SULFONA Class 1-05 Anderso MIDE 00:00: n ANTIBIOT 00 ICS) CODEINE DRUG Active Low Itching 2022-0 MD INGREDI 1-05 Anderso 00:00: n 00 SULFA Drug Active Low Itching 2022-0 MD (SULFONA Class 1-05 Anderso MIDE 00:00: n ANTIBIOT 00 ICS) CODEINE DRUG Active Low Itching 2022-0 MD INGREDI 1-05 Anderso 00:00: n 00 SULFA Drug Active Low Itching 2022-0 MD (SULFONA Class 1-05 Anderso MIDE 00:00: n ANTIBIOT 00 ICS) CODEINE DRUG Active Low Itching 2022-0 MD INGREDI 1-05 Anderso 00:00: n 00 SULFA Drug Active Low Itching 2022-0 MD (SULFONA Class 1-05 Anderso MIDE 00:00: n ANTIBIOT 00 ICS) CODEINE DRUG Active Low Itching 2022-0 MD INGREDI 1-05 Anderso 00:00: n 00 SULFA Drug Active Low Itching 2022-0 MD (SULFONA Class 1-05 Anderso MIDE 00:00: n ANTIBIOT 00 ICS) CODEINE DRUG Active Low Itching 2022-0 MD INGREDI 1-05 Anderso 00:00: n 00 SULFA Drug Active Low Itching 2022-0 MD (SULFONA Class 1-05 Anderso MIDE 00:00: n ANTIBIOT 00 ICS) CODEINE DRUG Active Low Itching 2022-0 MD INGREDI 1-05 Anderso 00:00: n 00 SULFA Drug Active Low Itching 2022-0 MD (SULFONA Class 1-05 Anderso MIDE 00:00: n ANTIBIOT 00 ICS) CODEINE DRUG Active Low Itching 2022-0 MD INGREDI 1-05 Anderso 00:00: n 00 SULFA Drug Active Low Itching 2022-0 MD (SULFONA Class 1-05 Anderso MIDE 00:00: n ANTIBIOT 00 ICS) CODEINE DRUG Active Low Itching 2022-0 MD INGREDI 1-05 Anderso 00:00: n 00 SULFA Drug Active Low Itching 2022-0 MD (SULFONA Class 1-05 Anderso MIDE 00:00: n ANTIBIOT 00 ICS) CODEINE DRUG Active Low Itching 2022-0 MD INGREDI 1-05 Anderso 00:00: n 00 SULFA Drug Active Low Itching 2022-0 MD (SULFONA Class 1-05 Anderso MIDE 00:00: n ANTIBIOT 00 ICS) CODEINE DRUG Active Low Itching 2022-0 MD INGREDI 1-05 Anderso 00:00: n 00 SULFA Drug Active Low Itching 2022-0 MD (SULFONA Class 1-05 Anderso MIDE 00:00: n ANTIBIOT 00 ICS) CODEINE DRUG Active Low Itching 2022-0 MD INGREDI 1-05 Anderso 00:00: n 00 SULFA Drug Active Low Itching 2022-0 MD (SULFONA Class 1-05 Anderso MIDE 00:00: n ANTIBIOT 00 ICS) CODEINE DRUG Active Low Itching 2022-0 MD INGREDI 1-05 Anderso 00:00: n 00 SULFA Drug Active Low Itching 2022-0 MD (SULFONA Class 1-05 Anderso MIDE 00:00: n ANTIBIOT 00 ICS) CODEINE DRUG Active Low Itching 2022-0 MD INGREDI 1-05 Anderso 00:00: n 00 SULFA Drug Active Low Itching 2022-0 MD (SULFONA Class 1-05 Anderso MIDE 00:00: n ANTIBIOT 00 ICS) CODEINE DRUG Active Low Itching 2022-0 MD INGREDI 1-05 Anderso 00:00: n 00 SULFA Drug Active Low Itching 2022-0 MD (SULFONA Class 1-05 Anderso MIDE 00:00: n ANTIBIOT 00 ICS) CODEINE DRUG Active Low Itching 2022-0 MD INGREDI 1-05 Anderso 00:00: n 00 SULFA Drug Active Low Itching 2022-0 MD (SULFONA Class 1-05 Anderso MIDE 00:00: n ANTIBIOT 00 ICS) CODEINE DRUG Active Low Itching 2022-0 MD INGREDI 1-05 Anderso 00:00: n 00 SULFA Drug Active Low Itching 2022-0 MD (SULFONA Class 1-05 Anderso MIDE 00:00: n ANTIBIOT 00 ICS) CODEINE DRUG Active Low Itching 2022-0 MD INGREDI 1-05 Anderso 00:00: n 00 SULFA Drug Active Low Itching 2022-0 MD (SULFONA Class 1-05 Anderso MIDE 00:00: n ANTIBIOT 00 ICS) CODEINE DRUG Active Low Itching 2022-0 MD INGREDI 1-05 Anderso 00:00: n 00 SULFA Drug Active Low Itching 2022-0 MD (SULFONA Class 1-05 Anderso MIDE 00:00: n ANTIBIOT 00 ICS) CODEINE DRUG Active Low Itching 2022-0 MD INGREDI 1-05 Anderso 00:00: n 00 SULFA Drug Active Low Itching 2022-0 MD (SULFONA Class 1-05 Anderso MIDE 00:00: n ANTIBIOT 00 ICS) CODEINE DRUG Active Low Itching 2022-0 MD INGREDI 1-05 Anderso 00:00: n 00 SULFA Drug Active Low Itching 2022-0 MD (SULFONA Class 1-05 Anderso MIDE 00:00: n ANTIBIOT 00 ICS) CODEINE DRUG Active Low Itching 2022-0 MD INGREDI 1-05 Anderso 00:00: n 00 SULFA Drug Active Low Itching 2022-0 MD (SULFONA Class 1-05 Anderso MIDE 00:00: n ANTIBIOT 00 ICS) CODEINE DRUG Active Low Itching 2022-0 MD INGREDI 1-05 Anderso 00:00: n 00 SULFA Drug Active Low Itching 2022-0 MD (SULFONA Class 1-05 Anderso MIDE 00:00: n ANTIBIOT 00 ICS) CODEINE DRUG Active Low Itching 2022-0 MD INGREDI 1-05 Anderso 00:00: n 00 SULFA Drug Active Low Itching 2022-0 MD (SULFONA Class 1-05 Anderso MIDE 00:00: n ANTIBIOT 00 ICS) CODEINE DRUG Active Low Itching 2022-0 MD INGREDI 1-05 Anderso 00:00: n 00 SULFA Drug Active Low Itching 2022-0 MD (SULFONA Class 1-05 Anderso MIDE 00:00: n ANTIBIOT 00 ICS) CODEINE DRUG Active Low Itching 2022-0 MD INGREDI 1-05 Anderso 00:00: n 00 SULFA Drug Active Low Itching 2022-0 MD (SULFONA Class 1-05 Anderso MIDE 00:00: n ANTIBIOT 00 ICS) CODEINE DRUG Active Low Itching 2022-0 MD INGREDI 1-05 Anderso 00:00: n 00 SULFA Drug Active Low Itching 2022-0 MD (SULFONA Class 1-05 Anderso MIDE 00:00: n ANTIBIOT 00 ICS) CODEINE DRUG Active Low Itching 2022-0 MD INGREDI 1-05 Anderso 00:00: n 00 SULFA Drug Active Low Itching 2022-0 MD (SULFONA Class 1-05 Anderso MIDE 00:00: n ANTIBIOT 00 ICS) CODEINE DRUG Active Low Itching 2022-0 MD INGREDI 1-05 Anderso 00:00: n 00 SULFA Drug Active Low Itching 2022-0 MD (SULFONA Class 1-05 Anderso MIDE 00:00: n ANTIBIOT 00 ICS) CODEINE DRUG Active Low Itching 2022-0 MD INGREDI 1-05 Anderso 00:00: n 00 SULFA Drug Active Low Itching 2022-0 MD (SULFONA Class 1-05 Anderso MIDE 00:00: n ANTIBIOT 00 ICS) CODEINE DRUG Active Low Itching 2022-0 MD INGREDI 1-05 Anderso 00:00: n 00 SULFA Drug Active Low Itching 2022-0 MD (SULFONA Class 1-05 Anderso MIDE 00:00: n ANTIBIOT 00 ICS) CODEINE DRUG Active Low Itching 2022-0 MD INGREDI 1-05 Anderso 00:00: n 00 SULFA Drug Active Low Itching 2022-0 MD (SULFONA Class 1-05 Anderso MIDE 00:00: n ANTIBIOT 00 ICS) CODEINE DRUG Active Low Itching 2022-0 MD INGREDI 1-05 Anderso 00:00: n 00 SULFA Drug Active Low Itching 2022-0 MD (SULFONA Class 1-05 Anderso MIDE 00:00: n ANTIBIOT 00 ICS) CODEINE DRUG Active Low Itching 2022-0 MD INGREDI 1-05 Anderso 00:00: n 00 SULFA Drug Active Low Itching 2022-0 MD (SULFONA Class 1-05 Anderso MIDE 00:00: n ANTIBIOT 00 ICS) CODEINE DRUG Active Low Itching 2022-0 MD INGREDI 1-05 Anderso 00:00: n 00 SULFA Drug Active Low Itching 2022-0 MD (SULFONA Class 1-05 Anderso MIDE 00:00: n ANTIBIOT 00 ICS) CODEINE DRUG Active Low Itching 2022-0 MD INGREDI 1-05 Anderso 00:00: n 00 SULFA Drug Active Low Itching 2022-0 MD (SULFONA Class 1-05 Anderso MIDE 00:00: n ANTIBIOT 00 ICS) CODEINE DRUG Active Low Itching 2022-0 MD INGREDI 1-05 Anderso 00:00: n 00 SULFA Drug Active Low Itching 2022-0 MD (SULFONA Class 1-05 Anderso MIDE 00:00: n ANTIBIOT 00 ICS) CODEINE DRUG Active Low Itching 2022-0 MD INGREDI 1-05 Anderso 00:00: n 00 SULFA Drug Active Low Itching 2022-0 MD (SULFONA Class 1-05 Anderso MIDE 00:00: n ANTIBIOT 00 ICS) CODEINE DRUG Active Low Itching 2022-0 MD INGREDI 1-05 Anderso 00:00: n 00 SULFA Drug Active Low Itching 2022-0 MD (SULFONA Class 1-05 Anderso MIDE 00:00: n ANTIBIOT 00 ICS) CODEINE DRUG Active Low Itching 2022-0 MD INGREDI 1-05 Anderso 00:00: n 00 SULFA Drug Active Low Itching 2022-0 MD (SULFONA Class 1-05 Anderso MIDE 00:00: n ANTIBIOT 00 ICS) CODEINE DRUG Active Low Itching 2022-0 MD INGREDI 1-05 Anderso 00:00: n 00 SULFA Drug Active Low Itching 2022-0 MD (SULFONA Class 1-05 Anderso MIDE 00:00: n ANTIBIOT 00 ICS) CODEINE DRUG Active Low Itching 2022-0 MD INGREDI 1-05 Anderso 00:00: n 00 SULFA Drug Active Low Itching 2022-0 MD (SULFONA Class 1-05 Anderso MIDE 00:00: n ANTIBIOT 00 ICS) CODEINE DRUG Active Low Itching 2022-0 MD INGREDI 1-05 Anderso 00:00: n 00 SULFA Drug Active Low Itching 2022-0 MD (SULFONA Class 1-05 Anderso MIDE 00:00: n ANTIBIOT 00 ICS) CODEINE DRUG Active Low Itching 2022-0 MD INGREDI 1-05 Anderso 00:00: n 00 SULFA Drug Active Low Itching 2022-0 MD (SULFONA Class 1-05 Anderso MIDE 00:00: n ANTIBIOT 00 ICS) CODEINE DRUG Active Low Itching 2022-0 MD INGREDI 1-05 Anderso 00:00: n 00 SULFA Drug Active Low Itching 2022-0 MD (SULFONA Class 1-05 Anderso MIDE 00:00: n ANTIBIOT 00 ICS) CODEINE DRUG Active Low Itching 2022-0 MD INGREDI 1-05 Anderso 00:00: n 00 SULFA Drug Active Low Itching 2022-0 MD (SULFONA Class 1-05 Anderso MIDE 00:00: n ANTIBIOT 00 ICS) CODEINE DRUG Active Low Itching 2022-0 MD INGREDI 1-05 Anderso 00:00: n 00 SULFA Drug Active Low Itching 2022-0 MD (SULFONA Class 1-05 Anderso MIDE 00:00: n ANTIBIOT 00 ICS) CODEINE DRUG Active Low Itching 2022-0 MD INGREDI 1-05 Anderso 00:00: n 00 SULFA Drug Active Low Itching 2022-0 MD (SULFONA Class 1-05 Anderso MIDE 00:00: n ANTIBIOT 00 ICS) CODEINE DRUG Active Low Itching 2022-0 MD INGREDI 1-05 Anderso 00:00: n 00 SULFA Drug Active Low Itching 2022-0 MD (SULFONA Class 1-05 Anderso MIDE 00:00: n ANTIBIOT 00 ICS) CODEINE DRUG Active Low Itching 2022-0 MD INGREDI 1-05 Anderso 00:00: n 00 SULFA Drug Active Low Itching 2022-0 MD (SULFONA Class 1-05 Anderso MIDE 00:00: n ANTIBIOT 00 ICS) CODEINE DRUG Active Low Itching 2022-0 MD INGREDI 1-05 Anderso 00:00: n 00 SULFA Drug Active Low Itching 2022-0 MD (SULFONA Class 1-05 Anderso MIDE 00:00: n ANTIBIOT 00 ICS) CODEINE DRUG Active Low Itching 2022-0 MD INGREDI 1-05 Anderso 00:00: n 00 SULFA Drug Active Low Itching 2022-0 MD (SULFONA Class 1-05 Anderso MIDE 00:00: n ANTIBIOT 00 ICS) CODEINE DRUG Active Low Itching 2022-0 MD INGREDI 1-05 Anderso 00:00: n 00 SULFA Drug Active Low Itching 2022-0 MD (SULFONA Class 1-05 Anderso MIDE 00:00: n ANTIBIOT 00 ICS) CODEINE DRUG Active Low Itching 2022-0 MD INGREDI 1-05 Anderso 00:00: n 00 SULFA Drug Active Low Itching 2022-0 MD (SULFONA Class 1-05 Anderso MIDE 00:00: n ANTIBIOT 00 ICS) CODEINE DRUG Active Low Itching 2022-0 MD INGREDI 1-05 Anderso 00:00: n 00 SULFA Drug Active Low Itching 2022-0 MD (SULFONA Class 1-05 Anderso MIDE 00:00: n ANTIBIOT 00 ICS) CODEINE DRUG Active Low Itching 2022-0 MD INGREDI 1-05 Anderso 00:00: n 00 SULFA Drug Active Low Itching 2022-0 MD (SULFONA Class 1-05 Anderso MIDE 00:00: n ANTIBIOT 00 ICS) CODEINE DRUG Active Low Itching 2022-0 MD INGREDI 1-05 Anderso 00:00: n 00 SULFA Drug Active Low Itching 2022-0 MD (SULFONA Class 1-05 Anderso MIDE 00:00: n ANTIBIOT 00 ICS) CODEINE DRUG Active Low Itching 2022-0 MD INGREDI 1-05 Anderso 00:00: n 00 SULFA Drug Active Low Itching 2022-0 MD (SULFONA Class 1-05 Anderso MIDE 00:00: n ANTIBIOT 00 ICS) CODEINE DRUG Active Low Itching 2022-0 MD INGREDI 1-05 Anderso 00:00: n 00 SULFA Drug Active Low Itching 2022-0 MD (SULFONA Class 1-05 Anderso MIDE 00:00: n ANTIBIOT 00 ICS) CODEINE DRUG Active Low Itching 2022-0 MD INGREDI 1-05 Anderso 00:00: n 00 SULFA Drug Active Low Itching 2022-0 MD (SULFONA Class 1-05 Anderso MIDE 00:00: n ANTIBIOT 00 ICS) CODEINE DRUG Active Low Itching 2022-0 MD INGREDI 1-05 Anderso 00:00: n 00 SULFA Drug Active Low Itching 2022-0 MD (SULFONA Class 1-05 Anderso MIDE 00:00: n ANTIBIOT 00 ICS) CODEINE DRUG Active Low Itching 2022-0 MD INGREDI 1-05 Anderso 00:00: n 00 SULFA Drug Active Low Itching 2022-0 MD (SULFONA Class 1-05 Anderso MIDE 00:00: n ANTIBIOT 00 ICS) CODEINE DRUG Active Low Itching 2022-0 MD INGREDI 1-05 Anderso 00:00: n 00 SULFA Drug Active Low Itching 2022-0 MD (SULFONA Class 1-05 Anderso MIDE 00:00: n ANTIBIOT 00 ICS) CODEINE DRUG Active Low Itching 2022-0 MD INGREDI 1-05 Anderso 00:00: n 00 SULFA Drug Active Low Itching 2022-0 MD (SULFONA Class 1-05 Anderso MIDE 00:00: n ANTIBIOT 00 ICS) CODEINE DRUG Active Low Itching 2022-0 MD INGREDI 1-05 Anderso 00:00: n 00 SULFA Drug Active Low Itching 2022-0 MD (SULFONA Class 1-05 Anderso MIDE 00:00: n ANTIBIOT 00 ICS) CODEINE DRUG Active Low Itching 2022-0 MD INGREDI 1-05 Anderso 00:00: n 00 SULFA Drug Active Low Itching 2022-0 MD (SULFONA Class 1-05 Anderso MIDE 00:00: n ANTIBIOT 00 ICS) CODEINE DRUG Active Low Itching 2022-0 MD INGREDI 1-05 Anderso 00:00: n 00 SULFA Drug Active Low Itching 2022-0 MD (SULFONA Class 1-05 Anderso MIDE 00:00: n ANTIBIOT 00 ICS) CODEINE DRUG Active Low Itching 2022-0 MD INGREDI 1-05 Anderso 00:00: n 00 SULFA Drug Active Low Itching 2022-0 MD (SULFONA Class 1-05 Anderso MIDE 00:00: n ANTIBIOT 00 ICS) CODEINE DRUG Active Low Itching 2022-0 MD INGREDI 1-05 Anderso 00:00: n 00 SULFA Drug Active Low Itching 2022-0 MD (SULFONA Class 1-05 Anderso MIDE 00:00: n ANTIBIOT 00 ICS) CODEINE DRUG Active Low Itching 2022-0 MD INGREDI 1-05 Anderso 00:00: n 00 SULFA Drug Active Low Itching 2022-0 MD (SULFONA Class 1-05 Anderso MIDE 00:00: n ANTIBIOT 00 ICS) CODEINE DRUG Active Low Itching 2022-0 MD INGREDI 1-05 Anderso 00:00: n 00 SULFA Drug Active Low Itching 2022-0 MD (SULFONA Class 1-05 Anderso MIDE 00:00: n ANTIBIOT 00 ICS) CODEINE DRUG Active Low Itching 2022-0 MD INGREDI 1-05 Anderso 00:00: n 00 SULFA Drug Active Low Itching 2022-0 MD (SULFONA Class 1-05 Anderso MIDE 00:00: n ANTIBIOT 00 ICS) CODEINE DRUG Active Low Itching 2022-0 MD INGREDI 1-05 Anderso 00:00: n 00 SULFA Drug Active Low Itching 2022-0 MD (SULFONA Class 1-05 Anderso MIDE 00:00: n ANTIBIOT 00 ICS) CODEINE DRUG Active Low Itching 2022-0 MD INGREDI 1-05 Anderso 00:00: n 00 SULFA Drug Active Low Itching 2022-0 MD (SULFONA Class 1-05 Anderso MIDE 00:00: n ANTIBIOT 00 ICS) CODEINE DRUG Active Low Itching 2022-0 MD INGREDI 1-05 Anderso 00:00: n 00 SULFA Drug Active Low Itching 2022-0 MD (SULFONA Class 1-05 Anderso MIDE 00:00: n ANTIBIOT 00 ICS) CODEINE DRUG Active Low Itching 2022-0 MD INGREDI 1-05 Anderso 00:00: n 00 SULFA Drug Active Low Itching 2022-0 MD (SULFONA Class 1-05 Anderso MIDE 00:00: n ANTIBIOT 00 ICS) CODEINE DRUG Active Low Itching 2022-0 MD INGREDI 1-05 Anderso 00:00: n 00 SULFA Drug Active Low Itching 2022-0 MD (SULFONA Class 1-05 Anderso MIDE 00:00: n ANTIBIOT 00 ICS) CODEINE DRUG Active Low Itching MD INGREDI 1-05 Anderso 00:00: n 00 SULFA Drug Active Low Itching (SULFONA Class 1-05 Anderso MIDE 00:00: n ANTIBIOT 00 ICS[place] Active Info Not Porfirio zainab Heel Heel Available 08-26 l 00:00: [place] 00 Codeine Codeine Active Info Not Memori a Sulfate Sulfate Available 628 l 00:00: [place] 00 Family History Family Member Diagnosis Comments Start Date Stop Date Source Natural father Melanoma [facility] Maternal grandfather Lung cancer [facility] Natural mother Colon cancer [facility] Paternal grandmother Colon cancer [facility] Natural sister Breast cancer [facility] Social History Social Habit Start Date Stop Date Quantity Comments Source History of tobacco Smokes tobacco Un iversity of use daily Marquis Severino morena [facility] Alcohol intake 2022-08-24 2022-08-24 Current drinker Unive rsity of 00:00:00 00:00:00 of alcohol Marquis Severino [facility] Exposure to 2022-08-06 2022-08-16 Not sure University of SARS-CoV-2 (event) 00:00:00 09:55:[address] [facility] Cigarettes smoked 2021-03-05 2021-03-05 Univers ity of current (pack per 00:00:00 00:00:00 [place] Sharan Whitney ) - Reported Cancer Ce nter Cigarette 2021-03-05 2021-03-05 University of pack-years 00:00:00 00:00:00 [place] Severino [facility] Tobacco use and 2021-03-05 2021-03-05 Smokeless Universit y of exposure 00:00:00 00:00:00 tobacco non-user [facility] Worship: 2015-08-27 2015-08-27 [facility] jim 00:00:00 00:00:00 Sex Assigned At [id number] F Universit y of 00:00:00 00:00:00 Marquis berg [facility] Smoking Status Start Date Stop Date Source Smokes tobacco daily 2021-03-05 00:00:00 [facility] [place] [facility] Medications Ordered Filled Start Stop Current Ordering Indication Dosage Frequency Signature Comments Components Source Medication Medication Date Date Medication? Clinician (SIG) Name Name atorvastati Yes 20mg Take 1 Univ ers n (LIPITOR) 6-26 tablet (20 it y of 20 mg 08:09: mg) by [place] tablet 58 mouth daily. [facility] famotidine Yes 20mg Take 1 Unive rs (PEPCID) 20 6-26 tablet (20 it y of mg tablet 08:09: mg) by Marquis awan as MD needed. [facility] esomeprazol Yes 1{capsu Take 1 U nivers e (NexIUM) 6-26 le} capsule ity of 20 MG 08:09: (20 mg) by [place] capsule Ganesh mouth as MD needed. [facility] cetirizine Yes 10mg Take 1 Unive rs (ZyrTEC) 10 6-26 tablet (10 it y of mg tablet 08:09: mg) by Marquis awan as MD needed. [facility] loratadine Yes 10mg Take 1 Unive rs (CLARITIN) 6-26 tablet (10 ity of 10 mg 08:09: mg) by [place] tablet 58 mouth daily as Andcheri needed for n allergies. [facility] polyethylen Yes 17g Take 17 g U nivers e glycol 6-26 by mouth ity of (MIRALAX) 08:09: daily. Marquis 17 g packet 58 [facility] dextrometho Yes Take by Uni vers rphan-guaiF 6-26 mouth ity of ENesin 08:09: every 8 Marquis (ROBITUSSIN 58 (eight) -DM) 10 hours as Anderso mg-100 mg/5 needed for n mL liquid cough or Cancer congestion Center . 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 traMADol 2022- No Secondary 50mg Take 1 U nivers (Ultram) 50 06-22 malignant tablet (50 ity of mg tablet 00:00: 00:00 neoplasm of mg) by [place] 00 :00 brain mouth MD every 8 Anderso (eight) n hours as Cancer needed for Center moderate pain. prochlorper Yes Small cell 10mg Take 1 Univers azine 3-13 carcinoma tablet (10 ity of (Compazine) 00:00: mg) by Chaya her 10 mg 00 mouth MD tablet every 6 Anderso (six) n hours as Cancer needed for Center nausea or vomiting. prochlorper 2021-03- No Small cell 10mg Take 1 Univers azine 0-17 03-13 carcinoma tablet (10 it y of (Compazine) 00:00: 00:00 mg) by [place]one as 10 mg 00 :00 mouth MD tablet every 6 Anderso (six) n hours as Cancer needed for Center nausea or vomiting. promethazin 2021- No 5mL Take 5 mL Univers e-dextromet 11-24 by mouth 4 i ty of horphan 08:26: 00:00 (four) Marquis (PROMETHAZI 04 :00 times a MD ZAMBRANO) day as Anderso 6.25-15 needed for n mg/5 mL cough. 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 Cancer syrup Center traMADol 2022- No Secondary 50mg Take 1 U nivers (Ultram) 50 11-24 malignant tablet (50 ity of mg tablet 00:00: 00:00 neoplasm of mg) by [place] 00 :00 brain mouth MD every 8 [place] (eight) n hours as Cancer needed for Center moderate pain. ciprofloxac 2021- No Febrile 500mg Take 1 [facility] in HCl 10-27 neutropenia tablet ity of (Cipro) 500 00:00: 04:59 (500 mg) [place] mg tablet 00 :00 by mouth MD twice [place] daily for n 7 days. Cancer Center amoxicillin 2021- No Febrile 875mg Take 1 [facility] -clavulanat 10-27 neutropenia tablet ity of e 00:00: 04:59 (875 mg) [place] (Augmentin) 00 :00 by mouth MD 875 mg-125 daily for [place] rso mg per 7 days. n tablet Cancer Center ondansetron Yes Small cell 8mg Take 1 [facility] (Zofran) 8 -25 carcinoma tablet (8 ity of mg tablet 00:00: mg) by [place] 00 mouth MD every 8 [place] (eight) n hours as Cancer needed for Center nausea or vomiting. dexamethaso 2022- No Small cell 4mg Take 1 Univers ne 7- 06-18 carcinoma tablet (4 ity of (DECADRON) 00:00: 00:00 mg) by [place] s 4 mg tablet 00 :00 mouth MD twice [place] daily. On n days 2 and Cancer 3 of each Center chemothera py cycle. dexamethaso Yes TAKE 1 Univ ers ne 7-05 TABLET BY ity of (DECADRON) 00:00: MOUTH [place] 6 mg tablet 00 EVERY DAY MD FOR 5 DAYS [facility] n Cancer Center Ventolin Yes Small cell 1{puff} Inhale 1-2 [facility] HFA 90 5-31 carcinoma puffs by ity of mcg/actuati 00:00: mouth [place] on inhaler 00 every 6 MD (six) [place] hours as n needed for Cancer wheezing Center or shortness of breath. lidocaine-p Yes Small cell Apply to [facility] rilocaine 4-11 carcinoma [place] ity of (EMLA) 00:00: h area 30 [place] 2.5-2.5% 00 to 45 MD cream minutes [place] prior to n port Cancer access as Center directed (topical anesthetic use to the anterior chest only). cephalexin 2021- No TAKE 1 Univ ers (KEFLEX) 3-17 08-29 CAPSULE BY ity of 500 mg 00:00: 00:00 MOUTH [place] capsule 00 :00 EVERY 6 MD HOURS FOR [place] 10 DAYS n Cancer Center dexamethaso 2021- No Small cell Take 1 [facility] ne 03-17 carcinoma tablet (4 ity of (DECADRON) 00:00: 00:00 mg) by [place] her 4 mg tablet 00 :00 mouth MD twice a [place] day for 2 n doses on Cancer Day 4. Center ondansetron 2021- No Small cell 8mg Take 1 Univers (Zofran) 8 03-17 carcinoma tablet (8 ity of mg tablet 00:00: 00:00 mg) by Marquis 00 :00 mouth MD every 8 Anderso (eight) n hours as Cancer needed for Center nausea or vomiting. lisinopril 2020-03 Yes 10mg Take 1 Unive rs (PRINIVIL,Z 2-18 tablet (10 it y of ESTRIL) 10 00:00: mg) by Marquis mg tablet 00 mouth MD daily. Anderso n Cancer [place] Lisinopril Yes Lucille 1 tablet M emoria 7- Megha l 03:06: Go 34 Nexium Yes Lucille 1 capsule Porfirio zainab 7- [place] l 03:06: Go 34 Crestor Yes Lucille 1 tablet Porfirio zainab 7- [place] l 03:06: Go 34 Lisinopril Yes Lucille 1 tablet M emoria 7- Megha l 03:06: Go 34 Nexium Yes Lucille 1 capsule Porfirio zainab 7- [place] l 03:06: Go 34 Crestor Yes Lucille 1 tablet Porfirio zainab 7- [place] l 03:06: Go 34 Lisinopril 2015-0 Yes Lucille 1 tablet M emoria 7- [place] l 03:06: Go 34 Nexium Yes Lucille 1 capsule Porfirio zainab 7-02 [place] l 03:06: Go 34 Crestor Yes Lucille 1 tablet Porfirio zainab 7- [place] l 03:06: Go 34 Lisinopril 2016-0 Yes Lucille 1 tablet M emoria 7-02 Megha l 03:06: Go 34 Nexium 2016-0 Yes Lucille 1 capsule Porfirio zainab 7-02 [place] l 03:06: Go 34 Crestor 2016-0 Yes Lucille 1 tablet Porfirio zainab 7-02 [place] l 03:06: Go 34 Lisinopril 2016-0 Yes Lucille 1 tablet M emoria 7-02 [place] l 03:06: Go 34 Nexium 2016-0 Yes Lucille 1 capsule Porfirio zainab 7-02 [place] l 03:06: Go 34 Crestor 2016-0 Yes Luclile 1 tablet Porfirio zainab 7- [place] l 03:06: Go 34 Lisinopril 2016-0 Yes Lucille 1 tablet M emoria 7- [place] l 03:06: Go 34 Nexium 2016-0 Yes Lucille 1 capsule Porfirio zainab 7-02 [place] l 03:06: Go 34 Crestor 2015-0 Yes Lucille 1 tablet Porfirio zainab 7-02 [place] l 03:06: Go 34 Lisinopril 2016-0 Yes Lucille 1 tablet M emoria 7- [place] l 03:06: Go 34 Nexium 2016-0 Yes Lucille 1 capsule Porfirio zainab 7-02 [place] l 03:06: Go 34 Crestor 2016-0 Yes Lucille 1 tablet Porfirio zainab 7-02 [place] l 03:06: Go 34 Lisinopril 2016-0 Yes Lucille 1 tablet M emoria 7- [place] l 03:06: Go 34 Nexium 2016-0 Yes Lucille 1 capsule Porfirio zainab 7-02 [place] l 03:06: Go 34 Crestor 2016-0 Yes Lucille 1 tablet Porfirio zainab 7-02 [place] l 03:06: Go 34 Lisinopril 2016-0 Yes Lucille 1 tablet M emoria 7-02 [place] l 03:06: Go 34 Crestor 2016-0 Yes Lucille 1 tablet Porfirio zainab 7-02 [place] l 03:06: Go 34 Lisinopril 2016-0 Yes Lucille 1 tablet M emoria 7-02 [place] l 03:06: Go 34 Nexium 2016-0 Yes Lucille 1 capsule Porfirio zainab 7-02 [place] l 03:06: Go 34 Crestor 2016-0 Yes Lucille 1 tablet Porfirio zainab 7- [place] l 03:06: Go 34 Lisinopril 2016-0 Yes Lucille 1 tablet M emoria 7- [place] l 03:06: Go 34 Nexium 2016-0 Yes Lucille 1 capsule Porfirio zainab 7- [place] l 03:06: Go 34 Crestor 2016-0 Yes Lucille 1 tablet Porfirio zainab 7- [place] l 03:06: Go 34 Lisinopril 2016-0 Yes Lucille 1 tablet M emoria 7- [place] l 03:06: Go 34 Nexium 2016-0 Yes Lucille 1 capsule Porfirio zainab 7- [place] l 03:06: Go 34 Crestor 2015-0 Yes Lucille 1 tablet Porfirio zainab 7- [place] l 03:06: Go 34 Lisinopril 2016-0 Yes Lucille 1 tablet M emoria 7- [place] l 03:06: Go 34 Nexium 2016-0 Yes Lucille 1 capsule Porfirio zainab 7- [place] l 03:06: Go 34 Crestor 2015-0 Yes Lucille 1 tablet Porfirio zainab 7- [place] l 03:06: Go 34 Lisinopril 2016-0 Yes Lucille 1 tablet M emoria 7- [place] l 03:06: Go 34 Nexium 2016-0 Yes Lucille 1 capsule Porfirio zainab 7- [place] l 03:06: Go 34 Crestor 2016-0 Yes Lucille 1 tablet Porfirio zainab 7- [place] l 03:06: Go 34 Lisinopril 2016-0 Yes Lucille 1 tablet M emoria 7- [place] l 03:06: Go 34 Nexium 2016-0 Yes Lucille 1 capsule Porfirio zainab 7-02 [place] l 03:06: Go 34 Crestor 2016-0 Yes Lucille 1 tablet Porfirio zainab 7- [place] l 03:06: Go 34 Lisinopril 2016-0 Yes Lucille 1 tablet M emoria 7- [place] l 03:06: Go 34 Nexium 2016-0 Yes Lucille 1 capsule Porfirio zainab 7-02 [place] l 03:06: Go 34 Crestor 2016-0 Yes Lucille 1 tablet Porfirio zainab 7-02 [place] l 03:06: Go 34 Lisinopril 2016-0 Yes Lucille 1 tablet M emoria 7-02 [place] l 03:06: Go 34 Nexium 2016-0 Yes Lucille 1 capsule Porfirio zainab 7-02 [place] l 03:06: Go 34 Nexium 2016-0 Yes Lucille 1 capsule Porfirio zainab 7-02 [place] l 03:06: Go 34 Crestor 2016-0 Yes Lucille 1 tablet Porfirio zainab 7- [place] l 03:06: Go 34 Lisinopril 2016-0 Yes Lucille 1 tablet M emoria 7- [place] l 03:06: Go 34 Nexium 2016-0 Yes Lucille 1 capsule Porfirio zainab 7- [place] l 03:06: Go 34 Crestor 0 Yes Lucille 1 tablet Porfirio zainab 7- [place] l 03:06: Go 34 Lisinopril 2016-0 Yes Lucille 1 tablet M emoria 7- [place] l 03:06: Go 34 Nexium 2016-0 Yes Lucille 1 capsule Porfirio zainab 7-02 [place] l 03:06: Go 34 Crestor 2015-0 Yes Lucille 1 tablet Porfirio zainab 7- [place] l 03:06: Go 34 Lisinopril 2016-0 Yes Lucille 1 tablet M emoria 7- [place] l 03:06: Go 34 Nexium 2016-0 Yes Lucille 1 capsule Porfirio zainab 7-02 [place] l 03:06: Go 34 Crestor 2016-0 Yes Lucille 1 tablet Porfirio zainab 7-02 [place] l 03:06: Go 34 Lisinopril 2016-0 Yes Lucille 1 tablet M emoria 7-02 [place] l 03:06: Go 34 Nexium 2016-0 Yes Lucille 1 capsule Porfirio zainab 7-02 [place] l 03:06: Go 34 Crestor 2016-0 Yes Lucille 1 tablet Porfirio zainab 7-02 [place] l 03:06: Go 34 Lisinopril 2016-0 Yes Lucille 1 tablet M emoria 7-02 [place] l 03:06: Go 34 Nexium 2016-0 Yes Lucille 1 capsule Porfirio zainab 7-02 [place] l 03:06: Go 34 Crestor 2016-0 Yes Lucille 1 tablet Porfirio zainab 7- [place] l 03:06: Go 34 Lisinopril 2016-0 Yes Lucille 1 tablet M emoria 7- [place] l 03:06: Go 34 Nexium 2016-0 Yes Lucille 1 capsule Porfirio zainab 7- [place] l 03:06: Go 34 Crestor 2016-0 Yes Lucille 1 tablet Porfirio zainab 7- [place] l 03:06: Go 34 Lisinopril 2016-0 Yes Lucille 1 tablet M emoria 7- [place] l 03:06: Go 34 Nexium 2016-0 Yes Lucille 1 capsule Porfriio zainab 7- [place] l 03:06: Go 34 Crestor 0 Yes Lucille 1 tablet Porfirio zainab 7- [place] l 03:06: Go 34 Lisinopril 2016-0 Yes Lucille 1 tablet M emoria 7- [place] l 03:06: Go 34 Nexium 2016-0 Yes Lucille 1 capsule Porfirio zainab 7- [place] l 03:06: Go 34 Crestor [id number] Yes Lucille 1 tablet Porfirio zainab 7- [place] l 03:06: Go 34 Lisinopril 2016-0 Yes Lucille 1 tablet M emoria 7- [place] l 03:06: Go 34 Nexium 2016-0 Yes Lucille 1 capsule Porfirio zainab 7-02 [place] l 03:06: Go 34 Crestor 2016-0 Yes Lucille 1 tablet Porfirio zainab 7-02 [place] l 03:06: Go 34 Lisinopril 2016-0 Yes Lucille 1 tablet M emoria 7-02 [place] l 03:06: Go 34 Nexium 2016-0 Yes Lucille 1 capsule Porfiiro zainab 7-02 [place] l 03:06: Go 34 Crestor 2016-0 Yes Lucille 1 tablet Porfirio zainab 7-02 [place] l 03:06: Go 34 Lisinopril 2016-0 Yes Lucille 1 tablet M emoria 7-02 [place] l 03:06: Go 34 Nexium 2016-0 Yes Lucille 1 capsule Porfirio zainab 7-02 [place] l 03:06: Go 34 Crestor 2016-0 Yes Lucille 1 tablet Porfirio zainab 7-02 [place] l 03:06: Go 34 Lisinopril 2016-0 Yes Lucille 1 tablet M emoria 7- [place] l 03:06: Go 34 Nexium 2016-0 Yes Lucille 1 capsule Porfirio zainab 7-02 [place] l 03:06: Go 34 Crestor 2016-0 Yes Lucille 1 tablet Porfirio zainab 7- [place] l 03:06: Go 34 Lisinopril 2016-0 Yes Lucille 1 tablet M emoria 7- [place] l 03:06: Go 34 Nexium 2016-0 Yes Lucille 1 capsule Porfirio zainab 7- [place] l 03:06: Go 34 Crestor 2016-0 Yes Lucille 1 tablet Porfirio zainab 7- [place] l 03:06: Go 34 Lisinopril 2016-0 Yes Lucille 1 tablet M emoria 7- [place] l 03:06: Go 34 Nexium 2016-0 Yes Lucille 1 capsule Porfirio zainab 7-02 [place] l 03:06: Go 34 Crestor 2016-0 Yes Lucille 1 tablet Porfirio zainab 7-02 [place] l 03:06: Go 34 Lisinopril 2016-0 Yes Lucille 1 tablet M emoria 7- Meg[place] l 03:06: Go 34 Nexium 2016-0 Yes Lucille 1 capsule Porfirio zainab 7-02 [place] l 03:06: Go 34 Crestor 2016-0 Yes Lucille 1 tablet Porfirio zainab 7-02 [place] l 03:06: Go 34 rosuvastati 2016-0 Yes Univer s n (CRESTOR) 08-30 ity of 10 mg 00:00: [place] tablet 00 MD [facility] Immunizations Ordered Filled Immunization Date Status Comments Sourc e Immunization Name Name Christian SARS-CoV-2 2020-06-10 Completed Univer sity of Vaccination 00:00:00 [facility] Moderna SARS-CoV-2 2020-05-13 Completed Univer sity of Vaccination 00:00:00 Marquis Allen [facility] Vital Signs Vital Name Observation Time Observation Value Comments Source Systolic blood 2022-08-24 18:03:00 117 mm[Hg] Univer sity of pressure [facility] Diastolic blood 2022-08-24 18:03:00 70 mm[Hg] Unive rsity of pressure [facility] Heart rate 2022-08-24 18:03:00 81 /min [facility] MD [facility] Body temperature 2022-08-24 18:03:00 36.89 Karoline [facility] ersRemi [facility] Respiratory rate 2022-08-24 18:03:00 18 [facility] Oxygen saturation in 2022-08-24 18:03:00 94 /min [facility] Arterial blood by Marquis moreno Pulse oximetry [facility] Body weight 2022-08-24 14:58:00 59.5 kg [facility] BMI 2022-08-24 14:58:00 23.99 kg/m2 [facility] Body height 2022-07-10 14:45:00 157.5 cm Universi ty [facility] Weight 2015-08-27 15:00:00 [facility] Rate 2015-08-27 15:00:00 [facility] Diastolic (mm Hg) 2015-08-27 15:00:00 Mem orial Go Systolic (mm Hg) 2015-08-27 15:00:00 Porfirio rial Go Weight 2015-02-25 15:45:00 [facility] Heart Rate 2015-02-25 15:45:00 [facility] Diastolic (mm Hg) 2015-02-25 15:45:00 Mem orial [place] Systolic (mm Hg) 2015-02-25 15:45:00 Porfirio rial Go Procedures Procedure Date / Time Performing Clinician Source Performed COMPLETE BLOOD COUNT W/ 2022-08-24 12:15:[address] [facility] COMPREHENSIVE METABOLIC 2022-08-24 12:15:00 Iris Wynn [facility] [place] PANEL [facility] AMYLASE LEVEL 2022-08-24 12:15:00 Iris Wynnit y of [facility] GAMMA GLUTAMYL TRANSFERASE 2022-08-24 12:15:00 Iris Wynn [facility] GLUCOSE, FASTING 2022-08-24 12:15:00 Iris Wynni ty of [facility] LACTATE DEHYDROGENASE 2022-08-24 12:15:00 Iris Wynn versity [facility] MAGNESIUM LEVEL 2022-08-24 12:15:00 Iris Wynn y of [facility] PHOSPHORUS LEVEL 2022-08-24 12:15:00 Iris Wynn ty of [facility] URINALYSIS MICROSCOPIC 2022-08-24 12:15:00 Iris Wynn [facility] LIPASE LEVEL 2022-08-24 12:15:00 Iris Wynn y of [facility] Results CBC 2022-08-24 12:15:00 Iris Wynn y of [facility] MANUAL DIFFERENTIAL 2022-08-24 12:15:00 Iris yWnn rsity of [facility] BLOOD UREA NITROGEN 2022-08-24 12:15:00 Iris Wynn [facility] ELECTROLYTE PANEL 2022-08-24 12:15:00 Iris Wynn ity of [facility] SERUM CREATININE 2022-08-24 12:15:00 Iris Wynn ty of [facility] .GLOMERULAR FILTRATION 2022-08-24 12:15:00 Iris Wynn [facility] [place] RATE [facility] CALCIUM LEVEL TOTAL 2022-08-24 12:15:00 Iris Wynn [facility] ALBUMIN LEVEL 2022-08-24 12:15:00 Iris Wynn [facility] ALKALINE PHOSPHATASE 2022-08-24 12:15:00 Iris Wynn [facility] ALANINE AMINOTRANSFERASE 2022-08-24 12:15:00 Iris Wynn [facility] ASPARTATE AMINOTRANSFERASE 2022-08-24 12:15:00 Iris Wynn [facility] TOTAL PROTEIN 2022-08-24 12:15:00 Iris Wynn [facility] FRACTIONATED BILIRUBIN 2022-08-24 12:15:00 [facility], 12-LEAD 2022-08-24 00:00:00 Iris Wynn [facility] CT ABDOMEN PELVIS W 2022-08-16 18:27:16 Estevan Patton [facility] CONTRAST [facility] POC CHEM 8 2022-08-16 16:14:00 Estevan Patton [facility] COMPLETE BLOOD COUNT W/ 2022-08-16 16:13:00 Estevan Patton [facility] DIFFERENTIAL [facility] COMPREHENSIVE METABOLIC 2022-08-16 16:13:00 Estevan Patton [facility] PANEL [facility] MAGNESIUM LEVEL 2022-08-16 16:13:00 Estevan Patton [facility] PHOSPHORUS LEVEL 2022-08-16 16:13:00 Estevan Patton [facility] PROTHROMBIN TIME 2022-08-16 16:13:00 Estevan Patton [facility] APTT 2022-08-16 16:13:00 Estevan Patton [facility] URINALYSIS WITH 2022-08-16 16:13:00 Estevan Patton [facility] MICROSCOPIC IF INDICATED MD [facility] Results CBC 2022-08-16 16:13:00 Estevan Patton [facility] MANUAL DIFFERENTIAL 2022-08-16 16:13:00 Estevan Patton [facility] GLUCOSE LEVEL 2022-08-16 16:13:00 Estevan Patton [facility] BLOOD UREA NITROGEN 2022-08-16 16:13:00 Estevan Patton [facility] ELECTROLYTE PANEL 2022-08-16 16:13:00 Estevan Patton [facility] SERUM CREATININE 2022-08-16 16:13:00 Estevan Patton [facility] .GLOMERULAR FILTRATION 2022-08-16 16:13:00 Estevan Patton [facility] CALCIUM LEVEL TOTAL 2022-08-16 16:13:00 Estevan Patton [facility] ALBUMIN LEVEL 2022-08-16 16:13:00 Estevan Patton [facility] ALKALINE PHOSPHATASE 2022-08-16 16:13:00 Estevan Patton [facility] ALANINE AMINOTRANSFERASE 2022-08-16 16:13:00 Estevan Patton [facility] ASPARTATE AMINOTRANSFERASE 2022-08-16 16:13:00 Estevan Patton [facility] TOTAL PROTEIN 2022-08-16 16:13:00 Estevan Patton [facility] FRACTIONATED BILIRUBIN 2022-08-16 16:13:00 [facility]an Pat[facility] URINALYSIS MICROSCOPIC 2022-08-16 16:13:00 Estevan Patton [facility] EXAM [facility] LIPASE LEVEL 2022-08-10 15:42:00 Iris Wynn [facility] COMPLETE BLOOD COUNT W/ 2022-08-10 15:42:00 Iris Wynn [facility] DIFFERENTIAL [facility] COMPREHENSIVE METABOLIC 2022-08-10 15:42:00 Iris Wynn [facility] [place] PANEL [facility] AMYLASE LEVEL 2022-08-10 15:42:00 Iris Wynnit y of [facility] GAMMA GLUTAMYL TRANSFERASE 2022-08-10 15:42:00 Iris Wynn [facility] GLUCOSE, FASTING 2022-08-10 15:42:00 Iris Wynni ty of [facility] LACTATE DEHYDROGENASE 2022-08-10 15:42:00 Iris Wynn versity [facility] MAGNESIUM LEVEL 2022-08-10 15:42:00 Iris Wynn y of [facility] PHOSPHORUS LEVEL 2022-08-10 15:42:00 Iris Wynn ty of [facility] URINALYSIS MICROSCOPIC 2022-08-10 15:42:00 Iris Wynn [facility] Results CBC 2022-08-10 15:42:00 Iris Wynn y of [facility] MANUAL DIFFERENTIAL 2022-08-10 15:42:00 Iris Wynn [facility] BLOOD UREA NITROGEN 2022-08-10 15:42:00 Iris Wynn rsity of [facility] ELECTROLYTE PANEL 2022-08-10 15:42:00 Iris Wynn y of [facility] SERUM CREATININE 2022-08-10 15:42:00 Iris Wynn ty of [facility] .GLOMERULAR FILTRATION 2022-08-10 15:42:00 Iris Wynn [facility] [place] RATE [facility] CALCIUM LEVEL TOTAL 2022-08-10 15:42:00 Iris Wynn rsity of [facility] ALBUMIN LEVEL 2022-08-10 15:42:00 [facility] ALKALINE PHOSPHATASE 2022-08-10 15:42:00 Iris Wynn [facility] ALANINE AMINOTRANSFERASE 2022-08-10 15:42:00 Iris Wynn [facility] ASPARTATE AMINOTRANSFERASE 2022-08-10 15:42:00 Iris Wynn [facility] TOTAL PROTEIN 2022-08-10 15:42:00 [facility] FRACTIONATED BILIRUBIN 2022-08-10 15:42:00 [facility], 12-LEAD 2022-08-10 00:00:00 Iris Wynn [facility] URINALYSIS MICROSCOPIC 2022-08-05 16:55:00 [facility] B SURFACE 2022-08-05 15:58:00 Iris Wynn [facility] ANTIBODY, SERUM [facility] HEPATITIS B SURFACE 2022-08-05 15:58:00 Iris Wynn [facility] ANTIGEN, SERUM [facility] HEPATITIS B CORE ANTIBODY 2022-08-05 15:58:00 Iris Wynn [facility] HEPATITIS C VIRUS ANTIBODY 2022-08-05 15:58:00 Iris Wynn [facility] HIV-1/2 ANTIGEN AND 2022-08-05 15:58:00 Iris Wynn [facility] ANTIBODIES, FOURTH [facility] C ancer GENERATION Center PROTHROMBIN TIME 2022-08-05 15:58:00 [facility] 2022-08-05 15:58:00 [facility] FREE T3 2022-08-05 15:58:00 Vo, Iris Alida [facility] FREE THYROXINE 2022-08-05 15:58:00 Vo, [facility] THYROID STIMULATING 2022-08-05 15:58:00 Iris Wynn [facility] HORMONE [facility] LIPASE LEVEL 2022-08-05 15:58:00 [facility] FOLLICLE STIMULATING 2022-08-05 15:58:[address] [facility] HORMONE LEVEL [facility] COMPLETE BLOOD COUNT W/ 2022-08-05 15:58:00 Iris Wynn [facility] DIFFERENTIAL [facility] COMPREHENSIVE METABOLIC 2022-08-05 15:58:[facility] PANEL [facility] AMYLASE LEVEL 2022-08-05 15:58:00 [facility] GAMMA GLUTAMYL TRANSFERASE 2022-08-05 15:58:00 Iris Wynn [facility] GLUCOSE, FASTING 2022-08-05 15:58:00 [facility] LACTATE DEHYDROGENASE 2022-08-05 15:58:00 Iris Wynn [facility] MAGNESIUM LEVEL 2022-08-05 15:58:00 [facility] PHOSPHORUS LEVEL 2022-08-05 15:58:00 [facility] BLOOD UREA NITROGEN 2022-08-05 15:58:00 Iris Wynn [facility] ELECTROLYTE PANEL 2022-08-05 15:58:00 Iris Wynn [facility] SERUM CREATININE 2022-08-05 15:58:00 [facility] .GLOMERULAR FILTRATION 2022-08-05 15:58:00 Iris Wynn [facility] [place] RATE [facility] CALCIUM LEVEL TOTAL 2022-08-05 15:58:00 Iris Wynn [facility] ALBUMIN LEVEL 2022-08-05 15:58:00 Iris Wynn [facility] ALKALINE PHOSPHATASE 2022-08-05 15:58:00 Iris Wynn [facility] ALANINE AMINOTRANSFERASE 2022-08-05 15:58:00 Iris Wynn [facility] Results CBC 2022-08-05 15:58:00 Iris Wynn [facility] ASPARTATE AMINOTRANSFERASE 2022-08-05 15:58:00 Iris Wynn [facility] MANUAL DIFFERENTIAL 2022-08-05 15:58:00 Iris Wynn [facility] TOTAL PROTEIN 2022-08-05 15:58:00 Iris Wynn [facility] FRACTIONATED BILIRUBIN 2022-08-05 15:58:00 [facility] 2022-08-05 12:50:58 Iris Wynn [facility] EKG, 12-LEAD (SCHEDULED) 2022-08-05 00:00:00 Iris Wynn [facility] COMPLETE BLOOD COUNT W/ 2022-07-13 12:15:00 Noemi Myrick [facility] DIFFERENTIAL [facility] COMPREHENSIVE METABOLIC 2022-07-13 12:15:00 Noemi Myrick [facility] PANEL [facility] MAGNESIUM LEVEL 2022-07-13 12:15:00 Noemi Myrick [place] [facility] PHOSPHORUS LEVEL 2022-07-13 12:15:00 Noemi Myrick [facility] Results CBC 2022-07-13 12:15:00 Noemi Myrick [facility] MANUAL DIFFERENTIAL 2022-07-13 12:15:00 Noemi Myrick [facility] GLUCOSE LEVEL 2022-07-13 12:15:00 Noemi Myrick [place] [facility] BLOOD UREA NITROGEN 2022-07-13 12:15:00 Noemi Myrick [facility] ELECTROLYTE PANEL 2022-07-13 12:15:00 Ramez Noemi [facility] SERUM CREATININE 2022-07-13 12:15:00 Ramez [facility] .GLOMERULAR FILTRATION 2022-07-13 12:15:00 Noemi Myrick [facility] RATE [facility] CALCIUM LEVEL TOTAL 2022-07-13 12:15:00 Noemi Myrick [facility] ALBUMIN LEVEL 2022-07-13 12:15:00 Noemi Myrick [facility] ALKALINE PHOSPHATASE 2022-07-13 12:15:00 Noemi Myrick [facility] ALANINE AMINOTRANSFERASE 2022-07-13 12:15:00 Noemi [facility] ASPARTATE AMINOTRANSFERASE 2022-07-13 12:15:00 Noemi [facility] TOTAL PROTEIN 2022-07-13 12:15:00 Noemi Myrick [facility] FRACTIONATED BILIRUBIN 2022-07-13 12:15:00 Noemi Myrick [facility] PETCT SUBSEQUENT TREATMENT 2022-07-10 16:28:34 Iris Wynn [facility] STRATEGY [facility] COMPLETE BLOOD COUNT W/ 2022-06-22 16:09:20 Yulissa Baker [facility] DIFFERENTIAL [facility] COMPREHENSIVE METABOLIC 2022-06-22 16:09:20 Yulissa Baker [facility] PANEL [facility] MAGNESIUM LEVEL 2022-06-22 16:09:20 Yulissa Baker [facility] PHOSPHORUS LEVEL 2022-06-22 16:09:20 Samuel Yulissa [facility] Results CBC 2022-06-22 16:09:20 Yulissa Baker [facility] MANUAL DIFFERENTIAL 2022-06-22 16:09:20 Yulissa Baker [facility] GLUCOSE LEVEL 2022-06-22 16:09:20 Yulissa Baker [facility] BLOOD UREA NITROGEN 2022-06-22 16:09:20 Yulissa Baker [facility] ELECTROLYTE PANEL 2022-06-22 16:09:20 Samuel Yulissa [facility] SERUM CREATININE 2022-06-22 16:09:20 Samuel [facility] .GLOMERULAR FILTRATION 2022-06-22 16:09:20 [facility] CALCIUM LEVEL TOTAL 2022-06-22 16:09:20 Yulissa Baker [facility] ALBUMIN LEVEL 2022-06-22 16:09:20 Yulissa Baker [facility] ALKALINE PHOSPHATASE 2022-06-22 16:09:20 Yulissa Baker [facility] ALANINE AMINOTRANSFERASE 2022-06-22 16:09:20 Yulissa Baker [facility] ASPARTATE AMINOTRANSFERASE 2022-06-22 16:09:20 Yulissa Baker [facility] TOTAL PROTEIN 2022-06-22 16:09:20 Yulissa Baker [facility] FRACTIONATED BILIRUBIN 2022-06-22 16:09:20 Yulissa Baker [facility] MRI BRAIN W WO CONTRAST 2022-06-09 13:44:31 Lazaro Pedersen [facility] COMPLETE BLOOD COUNT W/ 2022-06-01 14:00:00 Yulissa Baker [facility] DIFFERENTIAL [facility] COMPREHENSIVE METABOLIC 2022-06-01 14:00:00 Yulissa Baker [facility] PANEL [facility] MAGNESIUM LEVEL 2022-06-01 14:00:00 Yulissa Baker [place] [facility] PHOSPHORUS LEVEL 2022-06-01 14:00:00 Yulissa Baker [facility] Results CBC 2022-06-01 14:00:00 Yulissa Baker [facility] MANUAL DIFFERENTIAL 2022-06-01 14:00:00 Yulissa Baker [facility] GLUCOSE LEVEL 2022-06-01 14:00:00 Yulissa Baker [facility] BLOOD UREA NITROGEN 2022-06-01 14:00:00 Yulissa Baker [facility] ELECTROLYTE PANEL 2022-06-01 14:00:00 Yulissa Baker [facility] SERUM CREATININE 2022-06-01 14:00:00 Yulissa Baker [facility] .GLOMERULAR FILTRATION 2022-06-01 14:00:00 Yulissa Baker rscharly [facility] RATE [facility] CALCIUM LEVEL TOTAL 2022-06-01 14:00:00 Yulissa Baker [facility] ALBUMIN LEVEL 2022-06-01 14:00:00 Yulissa Baker o [facility] ALKALINE PHOSPHATASE 2022-06-01 14:00:00 [facility] ALANINE AMINOTRANSFERASE 2022-06-01 14:00:00 Yulissa Baker [facility] ASPARTATE AMINOTRANSFERASE 2022-06-01 14:00:00 Yulissa Baker [facility] TOTAL PROTEIN 2022-06-01 14:00:00 Yulissa Baker [facility] FRACTIONATED BILIRUBIN 2022-06-01 14:00:00 [facility]ulissa [facility] PETCT SUBSEQUENT TREATMENT 2022-05-29 14:29:19 Yulissa Baker [facility] STRATEGY [facility] COMPLETE BLOOD COUNT W/ 2022-05-11 16:16:33 Yulissa Baker [facility] DIFFERENTIAL [facility] COMPREHENSIVE METABOLIC 2022-05-11 16:16:33 Yulissa Baker [facility] PANEL [facility] MAGNESIUM LEVEL 2022-05-11 16:16:33 Samuel Yulissa [facility] PHOSPHORUS LEVEL 2022-05-11 16:16:33 Samuel [facility] Results CBC 2022-05-11 16:16:33 Samuel Yulissa [facility] MANUAL DIFFERENTIAL 2022-05-11 16:16:33 Yulissa Baker [facility] GLUCOSE LEVEL 2022-05-11 16:16:33 Samuel Yulissa [facility] BLOOD UREA NITROGEN 2022-05-11 16:16:33 Yulissa Baker [facility] ELECTROLYTE PANEL 2022-05-11 16:16:33 Samuel [facility] SERUM CREATININE 2022-05-11 16:16:33 Samuel [facility] .GLOMERULAR FILTRATION 2022-05-11 16:16:33 Yulissa Baker [facility] [place] RATE [facility] CALCIUM LEVEL TOTAL 2022-05-11 16:16:33 Samuel Yulissa [facility] ALBUMIN LEVEL 2022-05-11 16:16:33 Samuel Yulissa [facility] Center ALKALINE PHOSPHATASE 2022-05-11 16:16:33 Yulissa Baker [facility] ALANINE AMINOTRANSFERASE 2022-05-11 16:16:33 Yulissa [facility] ASPARTATE AMINOTRANSFERASE 2022-05-11 16:16:33 Yulissa Baker [facility] TOTAL PROTEIN 2022-05-11 16:16:33 Yulissa Baker [place] [facility] FRACTIONATED BILIRUBIN 2022-05-11 16:16:33 Yulissa Baker [facility] COMPLETE BLOOD COUNT W/ 2022-04-20 14:11:[address] [facility] DIFFERENTIAL [facility] COMPREHENSIVE METABOLIC 2022-04-20 14:11:[address] [facility] PANEL [facility] MAGNESIUM LEVEL 2022-04-20 14:11:00 Samuel Yulissa [facility] PHOSPHORUS LEVEL 2022-04-20 14:11:00 Samuel Yulissa [facility] Results CBC 2022-04-20 14:11:00 Samuel Yulissa [place] [facility] MANUAL DIFFERENTIAL 2022-04-20 14:11:00 Yulissa Baker [facility] GLUCOSE LEVEL 2022-04-20 14:11:00 Yulissa Baker [facility] BLOOD UREA NITROGEN 2022-04-20 14:11:00 Yulissa Baker [facility] ELECTROLYTE PANEL 2022-04-20 14:11:00 Samuel Yulissa [facility] SERUM CREATININE 2022-04-20 14:11:00 Samuel [facility] .GLOMERULAR FILTRATION 2022-04-20 14:11:00 Yulissa Baker [facility] RATE [facility] CALCIUM LEVEL TOTAL 2022-04-20 14:11:00 Yulissa Baker [facility] ALBUMIN LEVEL 2022-04-20 14:11:00 [facility] ALKALINE PHOSPHATASE 2022-04-20 14:11:00 Yulissa Baker [facility] ALANINE AMINOTRANSFERASE 2022-04-20 14:11:00 Yulissa Baker verscharly [facility] ASPARTATE AMINOTRANSFERASE 2022-04-20 14:11:00 Yulissa Baker [facility] TOTAL PROTEIN 2022-04-20 14:11:00 Yulissa Baker [facility] FRACTIONATED BILIRUBIN 2022-04-20 14:11:00 Yulissa Bakere rscharly [facility] PETCT SUBSEQUENT TREATMENT 2022-04-17 15:02:35 Yulissa Baker [facility] STRATEGY [facility] COMPLETE BLOOD COUNT W/ 2022-03-30 15:01:19 Yulissa Baker [facility] DIFFERENTIAL [facility] COMPREHENSIVE METABOLIC 2022-03-30 15:01:19 Yulissa Baker [facility] PANEL [facility] MAGNESIUM LEVEL 2022-03-30 15:01:19 Samuel [facility] PHOSPHORUS LEVEL 2022-03-30 15:01:19 Samuel Yulissa [facility] Results CBC 2022-03-30 15:01:19 Samuel Yulissa [facility] MANUAL DIFFERENTIAL 2022-03-30 15:01:19 Yulissa Baker [facility] GLUCOSE LEVEL 2022-03-30 15:01:19 Samuel Yulissa [facility] BLOOD UREA NITROGEN 2022-03-30 15:01:19 Samuel Yulissa [facility] ELECTROLYTE PANEL 2022-03-30 15:01:19 Samuel Yulissa [facility] SERUM CREATININE 2022-03-30 15:01:19 Samuel Yulissa [facility] .GLOMERULAR FILTRATION 2022-03-30 15:01:19 Yulissa Baker [facility] [place] RATE [facility] CALCIUM LEVEL TOTAL 2022-03-30 15:01:19 Yulissa Baker [facility] Center ALBUMIN LEVEL 2022-03-30 15:01:19 Yulissa Baker o f [facility] Center ALKALINE PHOSPHATASE 2022-03-30 15:01:19 Yulissa Bkaer [facility] Center ALANINE AMINOTRANSFERASE 2022-03-30 15:01:19 Yulissa Baker [facility] Center ASPARTATE AMINOTRANSFERASE 2022-03-30 15:01:19 Yulissa Baker [facility] [place] TOTAL PROTEIN 2022-03-30 15:01:19 Yulissa Baker [place] [facility] FRACTIONATED BILIRUBIN 2022-03-30 15:01:19 Yulissa Baker [facility] MRI BRAIN W WO CONTRAST 2022-03-11 20:51:33 Huma Tabor [facility] PETCT SUBSEQUENT TREATMENT 2022-02-24 17:46:48 Yulissa Baker [facility] [place] STRATEGY [facility] Center COMPLETE BLOOD COUNT W/ 2022-02-24 15:47:19 Yulissa Baker [facility] DIFFERENTIAL [facility] COMPREHENSIVE METABOLIC 2022-02-24 15:47:19 Yulissa Baker [facility] [place] PANEL [facility] MAGNESIUM LEVEL 2022-02-24 15:47:[address] [facility] Center PHOSPHORUS LEVEL 2022-02-24 15:47:19 Yulissa Baker [facility] er Center Results CBC 2022-02-24 15:47:19 Yulissa Baker [facility] MANUAL DIFFERENTIAL 2022-02-24 15:47:19 Yulissa Baker [facility] Center GLUCOSE LEVEL 2022-02-24 15:47:19 Yulissa Baker [facility] BLOOD UREA NITROGEN 2022-02-24 15:47:19 Yulissa Baker [facility] ELECTROLYTE PANEL 2022-02-24 15:47:19 Samuel Yulissa [facility] SERUM CREATININE 2022-02-24 15:47:19 Samuel Yulissa [facility] .GLOMERULAR FILTRATION 2022-02-24 15:47:19 Yulissa Baker [facility] RATE [facility] CALCIUM LEVEL TOTAL 2022-02-24 15:47:19 Yulissa Baker [facility] ALBUMIN LEVEL 2022-02-24 15:47:19 Samuel Yulissa [facility] ALKALINE PHOSPHATASE 2022-02-24 15:47:19 Yulissa Baker [facility] ALANINE AMINOTRANSFERASE 2022-02-24 15:47:19 Yulissa Baker [facility] ASPARTATE AMINOTRANSFERASE 2022-02-24 15:47:19 [facility]OTAL PROTEIN 2022-02-24 15:47:19 Samuel Yulissa [facility] FRACTIONATED BILIRUBIN 2022-02-24 15:47:19 Yulissa Baker [facility] COMPLETE BLOOD COUNT W/ 2022-02-02 14:57:18 Yulissa Baker [facility] DIFFERENTIAL [facility] COMPREHENSIVE METABOLIC 2022-02-02 14:57:18 Yulissa Baker [facility] PANEL [facility] MAGNESIUM LEVEL 2022-02-02 14:57:18 Yulissa Baker [facility] PHOSPHORUS LEVEL 2022-02-02 14:57:18 Samuel Yulissa [facility] Results CBC 2022-02-02 14:57:18 Yulissa Baker [facility] MANUAL DIFFERENTIAL 2022-02-02 14:57:18 Yulissa Baker [facility] GLUCOSE LEVEL 2022-02-02 14:57:18 Yulissa Baker [place] f [facility] BLOOD UREA NITROGEN 2022-02-02 14:57:18 Yulissa Baker [facility] ELECTROLYTE PANEL 2022-02-02 14:57:18 Samuel Yulissa [facility] SERUM CREATININE 2022-02-02 14:57:18 Samuel Yulissa [facility] .GLOMERULAR FILTRATION 2022-02-02 14:57:18 Yulissa Baker [facility] RATE [facility] CALCIUM LEVEL TOTAL 2022-02-02 14:57:18 Yulissa Baker [facility] ALBUMIN LEVEL 2022-02-02 14:57:18 Yulissa Baker [facility] ALKALINE PHOSPHATASE 2022-02-02 14:57:18 Yulissa Baker [facility] ALANINE AMINOTRANSFERASE 2022-02-02 14:57:18 [facility]ulissa [facility]ATE AMINOTRANSFERASE 2022-02-02 14:57:18 Yulissa [facility] TOTAL PROTEIN 2022-02-02 14:57:18 Yulissa Baker [facility] FRACTIONATED BILIRUBIN 2022-02-02 14:57:18 uYlissa Baker [facility] COVID-19 (SARS-COV-2) 2021-12-26 13:05:00 Laly Rao [facility] [place] PCR-ASYMPTOMATIC [facility] COMPLETE BLOOD COUNT W/ 2021-12-15 13:53:35 Yulissa Baker [facility] [place] DIFFERENTIAL [facility] COMPREHENSIVE METABOLIC 2021-12-15 13:53:35 Yulissa Baker [facility] PANEL [facility] MAGNESIUM LEVEL 2021-12-15 13:53:35 Yulissa Baker [facility] PHOSPHORUS LEVEL 2021-12-15 13:53:35 Yulissa Baker [facility] Results CBC 2021-12-15 13:53:35 Yulissa Baker [facility] MANUAL DIFFERENTIAL 2021-12-15 13:53:35 Yulissa Baker [facility] GLUCOSE LEVEL 2021-12-15 13:53:35 Yulissa Baker [facility] BLOOD UREA NITROGEN 2021-12-15 13:53:35 Yulissa Baker [facility] ELECTROLYTE PANEL 2021-12-15 13:53:35 Saumel Yulissa [facility] SERUM CREATININE 2021-12-15 13:53:35 Samuel Yulissa [facility] .GLOMERULAR FILTRATION 2021-12-15 13:53:35 Yulissa Baker [facility] CALCIUM LEVEL TOTAL 2021-12-15 13:53:35 Yluissa Baker [facility] ALBUMIN LEVEL 2021-12-15 13:53:35 Yulissa Baker [facility] ALKALINE PHOSPHATASE 2021-12-15 13:53:35 Yulissa Baker [facility] ALANINE AMINOTRANSFERASE 2021-12-15 13:53:35 Yulissa Baker [facility] ASPARTATE AMINOTRANSFERASE 2021-12-15 13:53:35 Yulissa Baker n[facility] TOTAL PROTEIN 2021-12-15 13:53:35 Yulissa Baker [facility] FRACTIONATED BILIRUBIN 2021-12-15 13:53:35 Yulissa Baker [facility] PETCT SUBSEQUENT TREATMENT 2021-12-12 14:51:17 Yulissa Baker niverscharly of [facility] MRI BRAIN W WO CONTRAST 2021-12-04 14:56:40 Cinda Hicks [facility] COMPLETE BLOOD COUNT W/ 2021-11-24 12:43:40 Noemi Myrick [facility] DIFFERENTIAL [facility] COMPREHENSIVE METABOLIC 2021-11-24 12:43:40 Noemi Myrick [facility] PANEL [facility] Center MAGNESIUM LEVEL 2021-11-24 12:43:40 Ramez [facility] PHOSPHORUS LEVEL 2021-11-24 12:43:40 Ramez [facility] CORTISOL FREE 2021-11-24 12:43:40 Ramez [facility] THYROID STIMULATING 2021-11-24 12:43:40 Noemi Myrick [facility] HORMONE [facility] Center THYROXINE 2021-11-24 12:43:40 Ramez [facility] Results CBC 2021-11-24 12:43:40 Ramez [facility] MANUAL DIFFERENTIAL 2021-11-24 12:43:[address] [facility] GLUCOSE LEVEL 2021-11-24 12:43:40 Ramez [facility] BLOOD UREA NITROGEN 2021-11-24 12:43:40 Noemi Myrick [facility] ELECTROLYTE PANEL 2021-11-24 12:43:40 Ramez [facility] SERUM CREATININE 2021-11-24 12:43:40 Ramez [facility] .GLOMERULAR FILTRATION 2021-11-24 12:43:[address] [facility] R[facility] CALCIUM LEVEL TOTAL 2021-11-24 12:43:40 Noemi Myrick [facility] ALBUMIN LEVEL 2021-11-24 12:43:40 Ramez [facility] ALKALINE PHOSPHATASE 2021-11-24 12:43:40 Noemi Myrick [facility] Center ALANINE AMINOTRANSFERASE 2021-11-24 12:43:40 Noemi Myrick [facility] ASPARTATE AMINOTRANSFERASE 2021-11-24 12:43:40 Noemi Myrick [facility] TOTAL PROTEIN 2021-11-24 12:43:40 Noemi Myrick [place] [facility] FRACTIONATED BILIRUBIN 2021-11-24 12:43:40 Noemi Myrick [facility] PETCT CONTRAST ENHANCED 2021-11-04 18:06:19 Noemi Myrick [facility] SUBSEQUENT TREATMENT [facility] STRATEGY Center COMPLETE BLOOD COUNT W/ 2021-11-04 15:36:[address] [facility] DIFFERENTIAL [facility] COMPREHENSIVE METABOLIC 2021-11-04 15:36:[address] [facility] PANEL [facility] MAGNESIUM LEVEL 2021-11-04 15:36:00 Ramez Noemi [facility] PHOSPHORUS LEVEL 2021-11-04 15:36:00 [facility] Results CBC 2021-11-04 15:36:00 Noemi Myrick [facility] MANUAL DIFFERENTIAL 2021-11-04 15:36:00 Noemi Myrick [facility] GLUCOSE LEVEL 2021-11-04 15:36:00 Noemi Myrick [facility] BLOOD UREA NITROGEN 2021-11-04 15:36:00 Noemi Myrick [facility] ELECTROLYTE PANEL 2021-11-04 15:36:00 Ramez [facility] SERUM CREATININE 2021-11-04 15:36:00 Ramez [facility] .GLOMERULAR FILTRATION 2021-11-04 15:36:00 Noemi Myrick [facility] RATE [facility] CALCIUM LEVEL TOTAL 2021-11-04 15:36:00 Noemi Myrick [facility] ALBUMIN LEVEL 2021-11-04 15:36:00 Ramez Noemi [facility] ALKALINE PHOSPHATASE 2021-11-04 15:36:00 Noemi Myrick [facility] ALANINE AMINOTRANSFERASE 2021-11-04 15:36:00 Noemi Myrick [facility] ASPARTATE AMINOTRANSFERASE 2021-11-04 15:36:00 Noemi Myrick [facility] TOTAL PROTEIN 2021-11-04 15:36:00 Ramez [facility] FRACTIONATED BILIRUBIN 2021-11-04 15:36:00 Noemi Myrick [facility] VANCOMYCIN LEVEL TROUGH 2021-10-27 14:12:00 Colin [facility] COMPLETE BLOOD COUNT W/ 2021-10-27 13:34:00 Colin [facility] DIFFERENTIAL [facility] BASIC METABOLIC PANEL, 2021-10-27 13:34:00 Colin [facility] CALCIUM TOTAL [facility] GLUCOSE LEVEL 2021-10-27 13:34:00 [facility] BLOOD UREA NITROGEN 2021-10-27 13:34:[address] [facility] [place] [place] ELECTROLYTE PANEL 2021-10-27 13:34:00 Colin [facility] SERUM CREATININE 2021-10-27 13:34:00 Colin [facility] .GLOMERULAR FILTRATION 2021-10-27 13:34:00 Colin [facility] RATE [facility] CALCIUM LEVEL TOTAL 2021-10-27 13:34:[address] [facility] [place] [place] Results CBC 2021-10-27 13:34:00 Colin [facility] MANUAL DIFFERENTIAL 2021-10-27 13:34:00 Colin, Princey [facility] LOWER RESPIRATORY CULTURE 2021-10-26 18:48:00 Hallie Vega [facility] W/ GRAM STAIN [facility] MRSA SCREENING CULTURE 2021-10-26 15:07:00 Karina Shaw [facility] COMPLETE BLOOD COUNT W/ 2021-10-26 10:56:00 Tashia Cameron [facility] DIFFERENTIAL [facility] COMPREHENSIVE METABOLIC 2021-10-26 10:56:00 Tashia Cameron [facility] PANEL [facility] GLUCOSE LEVEL 2021-10-26 10:56:00 Tashia Cameron [place] [facility] BLOOD UREA NITROGEN 2021-10-26 10:56:00 Tashia Cameron [facility] ELECTROLYTE PANEL 2021-10-26 10:56:00 Tashia Cameron [facility] SERUM CREATININE 2021-10-26 10:56:00 Tashia Cameron [facility] .GLOMERULAR FILTRATION 2021-10-26 10:56:00 Tashia Cameron [facility] RATE [facility] CALCIUM LEVEL TOTAL 2021-10-26 10:56:00 Tashia Cameron [facility] ALBUMIN LEVEL 2021-10-26 10:56:00 Tashia Cameron o [facility] ALKALINE PHOSPHATASE 2021-10-26 10:56:00 Tashia Cameron ity [facility] ALANINE AMINOTRANSFERASE 2021-10-26 10:56:00 Tashia Cameron [facility] ASPARTATE AMINOTRANSFERASE 2021-10-26 10:56:00 Tashia Cameron [facility] TOTAL PROTEIN 2021-10-26 10:56:00 Tashia Cameron o f [facility] FRACTIONATED BILIRUBIN 2021-10-26 10:56:00 Tashia Cameron [facility] Results CBC 2021-10-26 10:56:00 Rakesh, [facility] MANUAL DIFFERENTIAL 2021-10-26 10:56:00 Tashia Cameron [facility] BLOODCULTURE 2021-10-25 04:49:00 [facility] URINE CULTURE 2021-10-25 04:12:00 [facility] URINALYSIS WITH 2021-10-25 04:12:00 Holl[facility] MICROSCOPIC IF INDICATED MD Alejandro king [facility] XR CHEST 1 VW 2021-10-25 04:08:04 [facility] LACTIC ACID, VENOUS 2021-10-25 02:58:00 Elida Shafer [facility] BLOODCULTURE 2021-10-25 02:57:00 [facility]IR[facility] VIRAL 2021-10-25 02:57:00 Hollis [facility] MULTIPLEX PCR PANEL, [facility] NASOPHARYNGEAL SWAB Center COMPLETE BLOOD COUNT W/ 2021-10-25 02:57:00 [facility] DI[facility] COMPREHENSIVE METABOLIC 2021-10-25 02:57:00 Hollis [facility] PANEL [facility] MAGNESIUM LEVEL 2021-10-25 02:57:00 [facility] PHOSPHORUS LEVEL 2021-10-25 02:57:00 Holl[facility] LACTATE DEHYDROGENASE 2021-10-25 02:57:00 Elida Shafer [facility] C REACTIVE PROTEIN 2021-10-25 02:57:00 Elida Shafer [facility] PROCALCITONIN 2021-10-25 02:57:00 Elida Shafer [facility] Results CBC 2021-10-25 02:57:00 Hollis [facility] MANUAL DIFFERENTIAL 2021-10-25 02:57:00 Elida Shafer [facility] GLUCOSE LEVEL 2021-10-25 02:57:00 Elida Shafer [place] [facility] BLOOD UREA NITROGEN 2021-10-25 02:57:00 Elida Shafer [facility] ELECTROLYTE PANEL 2021-10-25 02:57:00 Elida Shafer [facility] SERUM CREATININE 2021-10-25 02:57:00 Elida Shafer [facility] .GLOMERULAR FILTRATION 2021-10-25 02:57:00 Elida Shafer [facility] CALCIUM LEVEL TOTAL 2021-10-25 02:57:00 Elida Shafer [facility] ALBUMIN LEVEL 2021-10-25 02:57:00 Elida Shafer [place] [facility] ALKALINE PHOSPHATASE 2021-10-25 02:57:00 Elida Shafer [facility] ALANINE AMINOTRANSFERASE 2021-10-25 02:57:00 Elida Shafer [facility] ASPARTATE AMINOTRANSFERASE 2021-10-25 02:57:00 Elida Shafer [facility] TOTAL PROTEIN 2021-10-25 02:57:00 Elida Shafer [place] [facility] FRACTIONATED BILIRUBIN 2021-10-25 02:57:00 Elida Shafer [facility] MRI BRAIN WITH AND WITHOUT 2021-10-23 17:08:21 Cinda Hicks [facility] CONTRAST - FRAMELESS GAMMA MD [facility] COVID-19 (SARS-COV-2) 2021-10-23 14:54:00 Aurora Rich [facility] PCR-ASYMPTOMATIC [facility] COMPLETE BLOOD COUNT W/ 2021-10-13 12:48:11 Noemi Myrick [facility] DIFFERENTIAL [facility] COMPREHENSIVE METABOLIC 2021-10-13 12:48:11 Noemi Myrick [facility] MAGNESIUM LEVEL 2021-10-13 12:48:11 Ramez Noemi [facility] PHOSPHORUS LEVEL 2021-10-13 12:48:11 Noemi Myrick [facility] Results CBC 2021-10-13 12:48:11 Noemi Myrick [facility] MANUAL DIFFERENTIAL 2021-10-13 12:48:11 Noemi Myrick [facility] GLUCOSE LEVEL 2021-10-13 12:48:11 Noemi Myrick [facility] BLOOD UREA NITROGEN 2021-10-13 12:48:11 Noemi Myrick [facility] ELECTROLYTE PANEL 2021-10-13 12:48:11 Noemi Myrick [facility] SERUM CREATININE 2021-10-13 12:48:11 Ramez [facility] .GLOMERULAR FILTRATION 2021-10-13 12:48:11 Noemi Myrick [facility] RATE [facility] CALCIUM LEVEL TOTAL 2021-10-13 12:48:11 Noemi Myrick [facility] ALBUMIN LEVEL 2021-10-13 12:48:11 Noemi Myrick [facility] ALKALINE PHOSPHATASE 2021-10-13 12:48:11 Noemi Myrick [facility] ALANINE AMINOTRANSFERASE 2021-10-13 12:48:11 Noemi Myrick [facility] ASPARTATE AMINOTRANSFERASE 2021-10-13 12:48:11 Noemi Myrick [facility] TOTAL PROTEIN 2021-10-13 12:48:11 Noemi Myrick [facility] FRACTIONATED BILIRUBIN 2021-10-13 12:48:11 Noemi Myrick [facility] MRI BRAIN W WO CONTRAST 2021-09-30 15:55:00 Yulissa Baker [facility] THYROID STIMULATING 2021-09-22 12:29:00 Yulissa Baker [facility] HORMONE [facility] FREE THYROXINE 2021-09-22 12:29:00 Yulissa Baker [place] [facility] COMPLETE BLOOD COUNT W/ 2021-09-22 12:29:00 Yulissa Baker [facility] DIFFERENTIAL [facility] COMPREHENSIVE METABOLIC 2021-09-22 12:29:00 Yulissa Baker [facility] PANEL [facility] PHOSPHORUS LEVEL 2021-09-22 12:29:00 Yulissa Baker [facility] MAGNESIUM LEVEL 2021-09-22 12:29:00 Yulissa Baker [facility] Results CBC 2021-09-22 12:29:00 Yulissa Baker [facility] MANUAL DIFFERENTIAL 2021-09-22 12:29:00 Yulissa Baker [facility] GLUCOSE LEVEL 2021-09-22 12:29:00 Yulissa Baker [facility] BLOOD UREA NITROGEN 2021-09-22 12:29:00 Yulissa Baker [facility] ELECTROLYTE PANEL 2021-09-22 12:29:00 Yulissa Baker [facility] SERUM CREATININE 2021-09-22 12:29:00 Yulissa Baker [facility] .GLOMERULAR FILTRATION 2021-09-22 12:29:00 [facility] CALCIUM LEVEL TOTAL 2021-09-22 12:29:00 Yulissa Baker [facility] ALBUMIN LEVEL 2021-09-22 12:29:00 Yulissa Baker [facility] ALKALINE PHOSPHATASE 2021-09-22 12:29:00 Yulissa Baker [facility] ALANINE AMINOTRANSFERASE 2021-09-22 12:29:00 Yulissa Baker [facility] ASPARTATE AMINOTRANSFERASE 2021-09-22 12:29:00 Yulissa Baker [facility] TOTAL PROTEIN 2021-09-22 12:29:00 Yulissa Baker o f [facility] FRACTIONATED BILIRUBIN 2021-09-22 12:29:00 Yulissa Baker rscharly [facility] PETCT SUBSEQUENT TREATMENT 2021-09-19 18:15:02 Yulissa Baker [facility] Plan of Care Planned Activity Planned Date Details Comments Source Future Scheduled 2022-08-30 COVID-19 Vaccination [facility] Test 09:24:50 (3 - Moderna risk MD Kamaljit amaro Cancer series) [code = Center COVID-19 Vaccination (3 - Moderna risk series)] Encounters Start End Encounter Admission Attending Care Care Encounter Source Date/Time Date/Time Type Type Clinicians Facility Department ID 2021-11-06 Outpatient SYSTEM, [facility] SUGAR [id number] 10:53:52 PROVIDER Daren o prem 2021-06-05 Outpatient [facility] [id number] 13:39:17 Andcheri amaro 2021-04-02 Outpatient SYSTEM, [facility] [id number] 10:02:21 PROVIDER Daren o prem 2021-02-26 Outpatient SYSTEM, [facility] [id number] 14:33:19 PROVIDER Daren o prem 2022-08-27 2022-08-27 Education Robel 1.2.840.1 [id number] Univers 00:00:00 00:00:00 Luis Enrique Townsend 75631.1.1 it y of 3.412.2.7 [place] .3.176410 MD Azevedo8 [facility] 2022-08-24 2022-08-24 [facility] Iris Wynn 1.2.840.1 [id number] [facility] 09:24:57 23:59:00 Encounter Yana Valdivia 49846.1.1 ity of 3.412.2.7 [place] .3.370849 MD Azevedo8 Kamaljit amaro [facility] 2022-08-24 2022-08-24 Outpatient [facility], [facility] MDA [id number] 09:24:57 23:59:00 IRIS Alejandrokamar holm n 2022-08-24 2022-08-24 [facility], 1.2.840.1 [id number] Univers 09:00:00 09:23:00 Encounter Iris 79017.1.1 ity of [place] 3.412.2.7 [place] .3.282549 MD Elisabeth Mari [facility] 2022-08-24 2022-08-24 Outpatient [facility], [facility] MDA [id number] 09:00:00 09:23:00 IRIS Alejandro rso prem 2022-08-24 2022-08-24 [facility], 1.2.840.1 [id number] [facility] 08:00:00 09:19:07 Mary 92525.1.1 ity of 3.412.2.7 [place] .3.760662 MD Azevedo8 [facility] 2022-08-24 2022-08-24 Outpatient [facility] MDA [id number] 07:50:16 09:19:07 MARY amaro 2022-08-24 2022-08-24 [facility], 1.2.840.1 [id number] [facility] 06:45:13 08:59:00 Encounter Iris 98623.1.1 ity of [place] 3.412.2.7 [place] .3.263965 MD Azevedo8 [facility] 2022-08-24 2022-08-24 Outpatient [facility], [facility] MDA [id number] 06:45:13 08:59:00 IRIS Alejandro rso n 2022-08-24 2022-08-24 Lemuel Barlow 1.2.840.1 [id number] Univers 00:00:00 00:00:00 ion Jesus 10845.1.1 ity of 3.412.2.7 [place] .3.631052 MD Elisabeth Mari [facility] 2022-08-24 2022-08-24 Orders Prabhakar, 1.2.840.1 [id number] Univers 00:00:00 00:00:00 Only Ramiro 09870.1.1 ity of 3.412.2.7 [place] .3.726997 MD Barber [facility] 2022-08-24 2022-08-24 Travel 1.2.840.1 1.2.847.914 [id number] Univers 00:00:00 00:00:00 44474.1.1 350.1.13.41 ity of 3.412.2.7 [place]7.3.698 [place] .3.377910 084.8 MD Barber [facility] 2022-08-21 2022-08-21 Orders Tianna, 1.2.840.1 [id number] Univers 00:00:00 00:00:00 Only Iris 56610.1.1 it y of [place] 3.412.2.7 [place] .3.840037 MD Barber [facility] 2022-08-16 2022-08-16 Emergency Estevan Patton 1.2.840.1 [id number] Univers 10:05:00 16:03:00 A 40216.1.1 ity of 3.412.2.7 [place] .3.241208 MD Barber [facility] 2022-08-16 2022-08-16 Emergency UR ESTEVAN PATTON MDA Emergency [id number] [place] 10:05:00 16:03:00 [facility] 2022-08-16 2022-08-16 Travel 1.2.840.1 1.2.197.518 [id number] Univers 00:00:00 00:00:00 91444.1.1 350.1.13.41 ity of 3.412.2.7 2.[place]7.3.698 [place] .3.750602 084.8 MD Barber [facility] 2022-08-12 2022-08-12 Orders Jeffrey, 1.2.840.1 [id number] Univers 00:00:00 00:00:00 Only Jayashree Jeevan 84992.1.1 ity of 3.412.2.7 [place] .3.310270 MD Azevedo8 [facility] 2022-08-10 2022-08-10 [facility], 1.2.840.1 [id number] [facility] 13:28:17 23:59:00 Encounter Iris 99278.1.1 ity of [place] 3.412.2.7 [place] .3.933304 .8 [facility] 2022-08-10 2022-08-10 Outpatient [facility], [facility] MDA [id number] [place] 13:28:17 23:59:00 IRIS Alejandro rso 2022-08-10 2022-08-10 [facility], Iris Vickerse 1.2.840.1 [id number] [facility] 13:28:03 23:59:00 Encounter Sophie Barlow 90451.1.1 ity of 3.412.2.7 [place] .3.109090 .8 [facility] 2022-08-10 2022-08-10 Outpatient [facility] MDA [id number] MD 13:28:03 23:59:00 IRIS Alejandro rso 2022-08-10 2022-08-10 [facility], 1.2.840.1 [id number] Univers 10:29:45 13:27:00 Encounter Irsi 17941.1.1 ity of [place] 3.412.2.7 [place] .3.345250 MD Azevedo8 [facility] 2022-08-10 2022-08-10 Outpatient [facility], [facility] MDA [id number] MD 10:29:45 13:27:00 IRIS Alejandro rso n 2022-08-10 2022-08-10 Follow-Up Ramez 1.2.840.1 [id number] [facility] 12:30:00 13:19:38 Noemi 76131.1.1 ity of 3.412.2.7 [place] .3.866118 MD Azevedo8 [facility] 2022-08-10 2022-08-10 Outpatient KRISTIN MYRICK MDA [facility] [id number] 11:58:59 13:19:38 NOEMI amaro 2022-08-10 2022-08-10 Documentat Cain, 1.2.840.1 [id number] Univers 00:00:00 00:00:00 ion Jesus 07409.1.1 ity of 3.412.2.7 [place] .3.760702 MD Azevedo8 [facility] 2022-08-10 2022-08-10 Documentat Cain, 1.2.840.1 [id number] Univers 00:00:00 00:00:00 ion Jesus 13260.1.1 ity of 3.412.2.7 [place] .3.486100 MD Azevedo8 [facility] 2022-08-10 2022-08-10 Eunice Prabhakar, 1.2.840.1 [id number] Univers 00:00:00 00:00:00 Only Kaiwen 12688.1.1 ity of 3.412.2.7 [place] .3.970900 MD Azevedo8 [facility] 2022-08-10 2022-08-10 Travel 1.2.840.1 1.2.852.212 [id number] Univers 00:00:00 00:00:00 88892.1.1 350.1.13.41 ity of 3.412.2.7 2.[place]7.3.698 [place] .3.119165 084.8 MD Barber [facility] 2022-08-07 2022-08-07 Documentat Shima, 1.2.840.1 [id number] Univers 00:00:00 00:00:00 ion Genesis 14027.1.1 ity of 3.412.2.7 [place] .3.682693 MD Barber [facility] 2022-08-06 2022-08-06 Eunice Colon, 1.2.840.1 [id number] Univers 00:00:00 00:00:00 Only Cindy 83354.1.1 ity of 3.412.2.7 [place] .3.883768 .8 [facility] 2022-08-05 2022-08-05 [facility], 1.2.840.1 [id number] [facility] 10:44:44 23:59:00 Encounter Iris 18869.1.1 ity of [place] 3.412.2.7 [place] .3.391205 .8 [facility] 2022-08-05 2022-08-05 Outpatient VO, MDA MDA [id number] 10:44:44 23:59:00 IRIS Alejandro rso n 2022-08-05 2022-08-05 [facility], 1.2.840.1 [id number] [facility] 10:44:28 23:59:00 Encounter Iris 56900.1.1 ity of [place] 3.412.2.7 [place] .3.681441 .8 [facility] 2022-08-05 2022-08-05 Outpatient [facility], MDA MDA [id number] 10:44:28 23:59:00 IRIS Alejandro rso n 2022-08-05 2022-08-05 [facility], 1.2.840.1 [id number] [facility] 10:44:15 23:59:00 Encounter Iris 73665.1.1 ity of [place] 3.412.2.7 [place] .3.914420 .8 [facility] 2022-08-05 2022-08-05 Outpatient [facility], MDA MDA [id number] 10:44:15 23:59:00 IRIS Alejandro rso n 2022-08-05 2022-08-05 Outpatient VO, MDA MDA [id number] 07:46:20 07:46:20 IRIS Alejandro rso n 2022-08-05 2022-08-05 [facility], 1.2.840.1 [id number] [facility] 00:00:00 00:00:00 Only Richard Soto 39193.1.1 ity of 3.412.2.7 [place] .3.351734 MD Barber [facility] 2022-08-05 2022-08-05 Telephone Bush, 1.2.840.1 [id number] Univers 00:00:00 00:00:00 Patty 75579.1.1 ity of 3.412.2.7 [place] .3.431829 MD Barber [facility] 2022-08-05 2022-08-05 Travel 1.2.840.1 1.2.679.233 [id number] Univers 00:00:00 00:00:00 50161.1.1 350.1.13.41 ity of 3.412.2.7 2.[place].7.3.698 [place] .3.476745 084.8 MD Barber [facility] 2022-08-03 2022-08-03 Orders Tianna, 1.2.840.1 [id number] Univers 00:00:00 00:00:00 Only Iris 62730.1.1 it y of [place] 3.412.2.7 [place] .3.149784 MD Barber [facility] 2022-07-31 2022-07-31 Telephone Ronquillo, 1.2.840.1 [id number] Univers 00:00:00 00:00:00 Genesis 32875.1.1 ity of 3.412.2.7 [place] .3.644484 MD Barber [facility] 2022-07-28 2022-07-28 Documentat Cain, 1.2.840.1 [id number] Univers 00:00:00 00:00:00 ion Jesus 76102.1.1 ity of 3.412.2.7 [place] .3.891059 MD Barber [facility] 2022-07-13 2022-07-13 Hospital Ramez, 1.2.840.1 [id number] Univers 06:43:51 23:59:00 Encounter Noemi 64166.1.1 it y of 3.412.2.7 [place] .3.883300 MD .8 [facility] 2022-07-13 2022-07-13 Outpatient KRISTIN MYRICK [facility] [id number] 06:43:51 23:59:00 NOEMI Darenjose amaro 2022-07-13 2022-07-13 Follow-Up Vomisty, 1.2.840.1 [id number] Univers 08:30:00 09:28:23 Noemi 77911.1.1 ity of 3.412.2.7 [place] .3.150773 MD Barber [facility] 2022-07-13 2022-07-13 Outpatient KRISTIN MYRICK [facility] [id number] 07:55:14 09:28:23 NOEMI aamro 2022-07-13 2022-07-13 Orders Myers 1.2.840.1 [id number] Univers 00:00:00 00:00:00 Only Greco, 27169.1.1 ity of Joelyann 3.412.2.7 [place] .3.625659 MD Barber [facility] 2022-07-13 2022-07-13 Travel 1.2.840.1 1.2.859.572 [id number] [id number] Univers 00:00:00 00:00:00 53414.1.1 350.1.13.41 ity of 3.412.2.7 2.2[place]7.3.698 [place] .3.803208 084.[address] [facility] [facility] 2022-07-10 2022-07-10 Ancillary Vo, 1.2.840.1 [id number] [facility] 10:00:00 12:30:00 Procedure Iris 95698.1.1 ity of [place] 3.412.2.7 [place] .3.507571 MD Barber [facility] 2022-07-10 2022-07-10 Outpatient [facility] [id number] 09:28:33 09:28:33 IRIS amaro 2022-07-10 2022-07-10 Travel 1.2.840.1 1.2.132.291 [id number] [id number] Univers 00:00:00 00:00:00 89060.1.1 350.1.13.41 ity of 3.412.2.7 2.2.7.3.698 [place] .3.499626 084.8 MD Azevedo8 [facility] 2022-06-22 2022-06-22 Outpatient BAKER [facility] [id number] 13:00:17 15:34:39 YULISSA amaro 2022-06-22 2022-06-22 Infusion Baker, 1.2.840.1 [id number] [facility] 13:00:00 15:34:39 Yulissa 16136.1.1 ity of 3.412.2.7 [place] .3.660288 MD Barber [facility] 2022-06-22 2022-06-22 Outpatient KRISTIN TIANNAMISTY [facility] [id number] 12:54:00 13:01:17 NOEMI amaro 2022-06-22 2022-06-22 Telemediclucia Myrick, 1.2.840.1 [id number] [facility] 12:30:00 13:01:17 servando Pro 02561.1.1 ity of 3.412.2.7 [place] .3.281648 MD Azevedo8 [facility] 2022-06-22 2022-06-22 Outpatient SAMUEL [facility] [id number] [place] 11:01:13 11:10:28 YULISSA amaro 2022-06-22 2022-06-22 Orders Robel, 1.2.840.1 [id number] Univers 00:00:00 00:00:00 Only Erlinda 60184.1.1 it[place] of [place].412.2.7 [place] .3.336935 MD Azevedo8 [facility] 2022-06-22 2022-06-22 Travel 1.2.840.1 1.2.083.759 [id number] Univers 00:00:00 00:00:00 72211.1.1 350.1.13.41 ity of 3.412.2.7 2.[place].7.3.698 [place] .3.660634 084.8 MD Barber [facility] 2022-06-11 2022-06-11 [facility] Rich, 1.2.840.1 [id number] [facility] 11:45:00 23:59:00 Encounter Aurora 50785.1.1 it y of 3.412.2.7 [place] .3.073518 MD Azevedo8 [facility] 2022-06-11 2022-06-11 Outpatient [facility] [id number] [place] 11:45:00 23:59:00 AURORA [facility] 2022-06-09 2022-06-09 Charlie Pedersen 1.2.840.1 [id number] [facility] 07:15:00 09:00:00 Procedure Lazaro 21077.1.1 it y of [place]caraz 3.412.2.7 [place] .3.900417 MD Barber [facility] 2022-06-09 2022-06-09 Outpatient NUVIA [facility] [id number] 06:57:22 06:57:22 LAZARO amaro 2022-06-09 2022-06-09 Travel 1.2.840.1 1.2.856.712 [id number] [facility] 00:00:00 00:00:00 93578.1.1 350.1.13.41 ity of 3.412.2.7 2.[place].7.3.698 [place] .3.222522 084.8 MD Barber [facility] 2022-06-03 2022-06-03 Orders Samuel, 1.2.840.1 [id number] [facility] 00:00:00 00:00:00 Only Yulissa 35629.1.1 ity of 3.412.2.7 [place] .3.405135 MD Barber [facility] 2022-06-01 2022-06-01 Infusion Samuel, 1.2.840.1 [id number] [facility] 10:30:00 13:14:21 Yulissa 61487.1.1 ity of 3.412.2.7 [place] .3.618873 MD Barber [facility] 2022-06-01 2022-06-01 Outpatient KRISTIN BAKER [facility] MDA [id number] 09:57:19 13:14:21 YULISSA Mercedes o n 2022-06-01 2022-06-01 Telemedici Samuel 1.2.840.1 [id number] [facility] 09:30:00 10:00:00 ne Yulissa 24521.1.1 ity of 3.412.2.7 [place] .3.715909 MD Barber [facility] 2022-06-01 2022-06-01 Outpatient KRISTIN BAKER [facility] MDA [id number] 08:45:32 09:00:15 YULISSA Daren o n 2022-06-01 2022-06-01 Orders Samuel, 1.2.840.1 [id number] [facility] 00:00:00 00:00:00 Only Yulissa 39105.1.1 ity of 3.412.2.7 [place] .3.294476 MD Barber [facility] 2022-06-01 2022-06-01 Travel 1.2.840.1 1.2.950.206 [id number] [facility] 00:00:00 00:00:00 94191.1.1 350.1.13.41 ity of 3.412.2.7 2.2.7.3.698 [place] .3.159470 08Atif Barber [facility] 2022-05-31 2022-05-31 Orders Samuel 1.2.840.1 [id number] Univers 00:00:00 00:00:00 Only Yulissa 23282.1.1 ity of 3.412.2.7 [place] .3.819953 MD Barber [facility] 2022-05-29 2022-05-29 Ancillary Samuel, 1.2.840.1 [id number] Univers 08:00:00 10:30:00 Procedure Yulissa 47902.1.1 it y of 3.412.2.7 [place] .3.975642 MD Barber [facility] 2022-05-29 2022-05-29 Outpatient KRISTIN ROLONBAKERSUGAR MDA [id number] 07:32:47 07:32:47 YULISSA john prem 2022-05-29 2022-05-29 Travel 1.2.840.1 1.2.253.232 [id number] Univers 00:00:00 00:00:00 21459.1.1 350.1.13.41 ity of 3.412.2.7 2.2.7.3.698 [place] .3.467498 084.8 MD Azevedo8 [facility] 2022-05-13 2022-05-13 Orders Samuel, 1.2.840.1 [id number] Univers 00:00:00 00:00:00 Only Yulissa 25206.1.1 ity of 3.412.2.7 [place] .3.499762 MD Azevdeo8 [facility] 2022-05-12 2022-05-12 Eunice Baker, 1.2.840.1 [id number] Univers 00:00:00 00:00:00 Only Yulissa 98833.1.1 ity of 3.412.2.7 [place] .3.360445 MD Azevedo8 [facility] 2022-05-12 2022-05-12 Eunice Baker, 1.2.840.1 [id number] Univers 00:00:00 00:00:00 Only Yulissa 64853.1.1 ity of 3.412.2.7 [place] .3.626405 MD Azevedo8 [facility] 2022-05-12 2022-05-12 Dayday Myrick, 1.2.840.1 [id number] Univers 00:00:00 00:00:00 Noemi 06132.1.1 ity of 3.412.2.7 [place] .3.179308 MD Azevedo8 [facility] 2022-05-11 2022-05-11 Infusion Baker, 1.2.840.1 [id number] Univers 13:00:00 15:28:00 Yulissa 44959.1.1 ity of 3.412.2.7 [place] .3.070829 MD Azevedo8 [facility] 2022-05-11 2022-05-11 Outpatient SAMUEL [facility] MDA [id number] 12:37:42 15:28:00 YULISSAHAILEE john prem 2022-05-11 2022-05-11 Telemedici Ramez, 1.2.840.1 [id number] [facility] 12:30:00 13:00:00 ne Noemi 78439.1.1 ity of 3.412.2.7 [place] .3.339973 MD Barber [facility] 2022-05-11 2022-05-11 Outpatient SAMUEL [facility] MDA [id number] 11:11:39 11:17:43 YULISSA Daren john prem 2022-05-11 2022-05-11 Eunice Prabhakar, 1.2.840.1 [id number] Univers 00:00:00 00:00:00 Only Ramiro 35721.1.1 ity of 3.412.2.7 [place] .3.521693 MD Barber [facility] 2022-05-11 2022-05-11 Travel 1.2.840.1 1.2.315.147 [id number] [employer] 00:00:00 00:00:00 71164.1.1 350.1.13.41 ity of 3.412.2.7 2.[place].3.698 [place] .3.087469 084.8 MD Azevedo8 [facility] 2022-05-11 2022-05-11 Orders Samuel, 1.2.840.1 [id number] Univers 00:00:00 00:00:00 Only Yulissa 75595.1.1 ity of 3.412.2.7 [place] .3.369297 MD Azevedo8 [facility] 2022-04-21 2022-04-21 [facility] Baker, 1.2.840.1 [id number] [facility] 00:00:00 00:00:00 Only Yulissa 63148.1.1 ity of 3.412.2.7 [place] .3.319506 .8 [facility] 2022-04-20 2022-04-20 [facility], 1.2.840.1 [id number] [facility] 07:42:53 23:59:00 Encounter Yulissa 80817.1.1 it y of 3.412.2.7 [place] .3.042249 .8 [facility] 2022-04-20 2022-04-20 Outpatient KRISTIN BAKER [place] [id number] 07:42:53 23:59:00 YULISSA amaro 2022-04-20 2022-04-20 Yulissa Gloria 1.2.840.1 [id number] [facility] 11:00:00 13:00:12 Deandre Amezcua 37393.1.1 ity of 3.412.2.7 [place] .3.770131 .8 [facility] 2022-04-20 2022-04-20 Outpatient [facility] [id number] 10:14:41 13:00:12 YULISSA amaro 2022-04-20 2022-04-20 Follow-Up Ramez 1.2.840.1 [id number] [facility] 09:30:00 09:58:43 Noemi 97458.1.1 ity of 3.412.2.7 [place] .3.337863 .8 [facility] 2022-04-20 2022-04-20 Outpatient KRISTIN MYRICK MDA MDA [id number] 08:54:29 09:58:43 NOEMI amaro 2022-04-20 2022-04-20 Orders Kyle 1.2.840.1 [id number] [facility] 00:00:00 00:00:00 Only Shannon Morris 64586.1.1 ity of 3.412.2.7 [place] .3.786624 MD Barber [facility] 2022-04-20 2022-04-20 Orders Baker, 1.2.840.1 [id number] [id number] [employer] 00:00:00 00:00:00 Only Yulissa 73744.1.1 ity of 3.412.2.7 [place] .3.940538 MD Barber [facility] 2022-04-20 2022-04-20 Travel 1.2.840.1 1.2.208.300 [id number] [facility] 00:00:00 00:00:00 88811.1.1 350.1.13.41 ity of 3.412.2.7 2.[place]7.3.698 [place] .3.705166 084.8 MD Barber [facility] [facility] 2022-04-19 2022-04-19 Eunice Baker, 1.2.840.1 [id number] [id number] [facility] 00:00:00 00:00:00 Only Yulissa 80917.1.1 ity of 3.412.2.7 [place] .3.897325 MD Barber [facility] 2022-04-17 2022-04-17 Charlie Baker, 1.2.840.1 [id number] 11 [id number] [facility] 07:30:00 10:00:00 Procedure Yulissa 17115.1.1 it y of 3.412.2.7 [place] .3.936616 MD Barber [facility] 2022-04-17 2022-04-17 Outpatient KRISTIN BAKER MDA MDA [id number] 07:26:29 07:26:29 YULISSA Daren [facility] 2022-04-17 2022-04-17 Travel 1.2.840.1 1.2.198.942 1658 [id number] [facility] 00:00:00 00:00:00 07691.1.1 350.1.13.41 ity of 3.412.2.7 [place].3.698 [place] .3.8266[place] 084.8 .8 [facility] 2022-04-07 2022-04-07 Orders Baker, 1.2.840.1 [id number] 1102 [id number] [facility] 00:00:00 00:00:00 Only Yulissa 80902.1.1 ity of 3.412.2.7 [place] .3.306879 MD Azevedo8 [facility] 2022-04-06 2022-04-06 TelemedicNoemi Lay 1.2.840.1 [id number] Univers 10:30:00 11:00:00 servando Nelsonchandler Didi 47747.1.1 ity of 3.412.2.7 [place] .3.685724 MD Azevedo8 [facility] 2022-04-06 2022-04-06 Outpatient KRISTIN MYRICK MDA MDA [id number] 08:38:14 08:38:14 NOEMI amaro 2022-04-06 2022-04-06 Orders Baker, 1.2.840.1 [id number] 1102 [id number] Univers 00:00:00 00:00:00 Only Yulissa 58242.1.1 ity of 3.412.2.7 [place] .3.477253 MD Azevedo8 [facility] 2022-04-01 2022-04-01 Orders Baker, 1.2.840.1 [id number] 1102 [id number] Univers 00:00:00 00:00:00 Only Yulissa 63788.1.1 ity of 3.412.2.7 [place] .3.755949 MD Azevedo8 [facility] 2022-03-30 2022-03-30 Infusion Baker, 1.2.840.1 [id number] 763 [id number] Univers 10:45:00 11:47:40 Yulissa 76855.1.1 ity of 3.412.2.7 [place] .3.965691 MD Barber [facility] 2022-03-30 2022-03-30 Outpatient KRISTIN BAKER MDA MDA [id number] 09:08:09 11:47:40 YULISSA amaro 2022-03-30 2022-03-30 Telemedici Samuel, 1.2.840.1 [id number] 1 [id number] Univers 09:30:00 10:00:00 ne Yulissa 06564.1.1 ity of 3.412.2.7 [place] .3.733727 MD Azevedo8 [facility] 2022-03-30 2022-03-30 Outpatient KRISTIN BAKER, [facility] [id number] 08:47:39 09:01:31 YULISSA Daren o n 2022-03-30 2022-03-30 Orders Fraire, 1.2.840.1 [id number] [id number] Univers 00:00:00 00:00:00 Only Don 45598.1.1 ity of 3.412.2.7 [place] .3.421346 MD Azevedo8 [facility] 2022-03-30 2022-03-30 Orders Myers 1.2.840.1 [id number] Univers 00:00:00 00:00:00 Only Greco, 74937.1.1 ity of Joelyann 3.412.2.7 [place] .3.734713 MD Azevedo8 [facility] 2022-03-30 2022-03-30 Orders Vomisty, 1.2.840.1 [id number] Univers 00:00:00 00:00:00 Only Noemi 32770.1.1 ity of 3.412.2.7 [place] .3.394770 MD Azevedo8 [facility] 2022-03-30 2022-03-30 Orders Baker, 1.2.840.1 [id number] 1102 [id number] Univers 00:00:00 00:00:00 Only Yulissa 33137.1.1 ity of 3.412.2.7 [place] .3.511466 MD Azevedo8 [facility] 2022-03-30 2022-03-30 Travel 1.2.840.1 1.2.098.306 0355 [id number] Univers 00:00:00 00:00:00 28577.1.1 350.1.13.41 ity of 3.412.2.7 [place]7.3.698 [place] .3.783529 084.8 MD Azevedo8 [facility] 2022-03-29 2022-03-29 Orders Baker, 1.2.840.1 [id number] 1102 [id number] Univers 00:00:00 00:00:00 Only Yulissa 77022.1.1 ity of 3.412.2.7 [place] .3.149279 MD Azevedo8 [facility] 2022-03-26 2022-03-26 Orders Baker, 1.2.840.1 [id number] 1102 [id number] Univers 00:00:00 00:00:00 Only Yulissa 17590.1.1 ity of 3.412.2.7 [place] .3.518342 MD Azevedo8 [facility] 2022-03-25 2022-03-25 Orders Baker, 1.2.840.1 [id number] 1101 [id number] Univers 00:00:00 00:00:00 Only Yulissa 91074.1.1 ity of 3.412.2.7 [place] .3.725877 MD Azevedo8 [facility] 2022-03-25 2022-03-25 Orders Baker, 1.2.840.1 [id number] 1101 [id number] Univers 00:00:00 00:00:00 Only Yulissa 09817.1.1 ity of 3.412.2.7 [place] .3.359265 MD Azevedo8 [facility] 2022-03-25 2022-03-25 Orders Baker, 1.2.840.1 [id number] 1101 [id number] Univers 00:00:00 00:00:00 Only Yulissa 37592.1.1 ity of 3.412.2.7 [place] .3.250179 MD Azevedo8 [facility] 2022-03-24 2022-03-24 Orders Baker, 1.2.840.1 [id number] 1101 [id number] Univers 00:00:00 00:00:00 Only Yulissa 84358.1.1 ity of 3.412.2.7 [place] .3.463941 MD Azevedo8 [facility] 2022-03-23 2022-03-23 Orders Samuel, 1.2.840.1 [id number] 1101 [id number] Univers 00:00:00 00:00:00 Only Yulissa 77776.1.1 ity of 3.412.2.7 [place] .3.528039 MD Azevedo8 [facility] 2022-03-20 2022-03-20 Orders Samuel, 1.2.840.1 [id number] 1101 [id number] Univers 00:00:00 00:00:00 Only Yulissa 80406.1.1 ity of 3.412.2.7 [place] .3.885315 MD Azevedo8 [facility] 2022-03-12 2022-03-12 [facility], 1.2.840.1 [id number] 1098 [id number] [facility] 11:30:00 23:59:00 Encounter Aurora 50471.1.1 it y of 3.412.2.7 [place] .3.399866 MD Azevedo8 [facility] 2022-03-12 2022-03-12 Outpatient KRISTIN RICH [facility] MDA [id number] 11:30:00 23:59:00 AURORA amaro 2022-03-11 2022-03-11 Charlie Tabor 1.2.840.1 [id number] [id number] [facility] 12:45:00 14:30:00 Procedure Huma 45028.1.1 it y of 3.412.2.7 [place] .3.957887 [facility] 2022-03-11 Outpatient KRISTIN TABOR MDA MDA [id number] 12:20:25 12:20:25 HUMA amaro 2022-03-11 2022-03-11 Travel 1.2.840.1 1.2.845.217 9419 [id number] Univers 00:00:00 00:00:00 10661.1.1 350.1.13.41 ity of 3.412.2.7 [place]7.3.698 [place] .3.544507 084.8 MD Barber [facility] 2022-02-25 2022-02-25 Infusion Baker, 1.2.840.1 [id number] Univers 09:15:00 11:31:03 Yulissa 22679.1.1 ity of 3.412.2.7 [place] .3.301946 MD Barber [facility] 2022-02-25 2022-02-25 Outpatient SAMUEL [facility] MDA [id number] 09:04:39 11:31:03 YULISSA amaro 2022-02-25 2022-02-25 Travel 1.2.840.1 1.2.306.837 0710 [id number] Univers 00:00:00 00:00:00 23184.1.1 350.1.13.41 ity of 3.412.2.7 [place].7.3.698 [place] .3.983252 084.8 MD Barber [facility] 2022-02-24 2022-02-24 Telemedici Vokes, 1.2.840.1 [id number] 059 [id number] Univers 14:00:00 14:30:00 ne Noemi 79839.1.1 ity of 3.412.2.7 [place] .3.430668 MD Barber [facility] 2022-02-24 2022-02-24 Ancillary Baker, 1.2.840.1 [id number] 11 [id number] Univers 10:30:00 13:00:00 Procedure Yulissa 55620.1.1 it y of 3.412.2.7 [place] .3.951646 MD Barber [facility] 2022-02-24 2022-02-24 Outpatient BAKER, [facility] MDA [id number] 09:49:59 09:49:59 YULISSA amaro 2022-02-24 2022-02-24 Outpatient SAMUEL MDA MDA [id number] 09:25:06 09:48:36 YULISSA amaro 2022-02-24 2022-02-24 Travel 1.2.840.1 1.2.653.376 1150 [id number] Univers 00:00:00 00:00:00 66763.1.1 350.1.13.41 ity of 3.412.2.7 2.[place].7.3.698 [place] .3.955367 084.8 MD Azevedo8 [facility] 2022-02-24 2022-02-24 Orders Lucia 1.2.840.1 [id number] Univers 00:00:00 00:00:00 Only Greco, 34294.1.1 ity of Joelyann 3.412.2.7 [place] .3.260989 MD Azevedo8 [facility] 2022-02-06 2022-02-06 Telephone Jarrett 1.2.840.1 [id number] 1 [id number] Univers 00:00:00 00:00:00 Yulissa L 26265.1.1 ity of 3.412.2.7 [place] .3.868723 MD Azevedo8 [facility] 2022-02-03 2022-02-03 Orders Samuel, 1.2.840.1 [id number] 1100 [id number] Univers 00:00:00 00:00:00 Only Yulissa 29347.1.1 ity of 3.412.2.7 [place] .3.005116 MD Azevedo8 [facility] 2022-02-03 2022-02-03 Orders Baker, 1.2.840.1 [id number] 1100 [id number] Univers 00:00:00 00:00:00 Only Yulissa 87640.1.1 ity of 3.412.2.7 [place] .3.929180 MD Azevedo8 [facility] 2022-02-03 2022-02-03 Orders Baker, 1.2.840.1 [id number] 1100 [id number] Univers 00:00:00 00:00:00 Only Yulissa 40827.1.1 ity of 3.412.2.7 [place] .3.668028 MD Azevedo8 [facility] 2022-02-02 2022-02-02 Outpatient KRISTIN BAKER MDA MDA [id number] 09:36:12 12:34:56 YULISSA amaro 2022-02-02 2022-02-02 Infusion Samuel, 1.2.840.1 [id number] [id number] Univers 09:30:00 12:34:56 Yulissa 47308.1.1 ity of 3.412.2.7 [place] .3.723835 MD Barber [facility] 2022-02-02 2022-02-02 Telempavan Myrick, 1.2.840.1 [id number] Univers 09:00:00 09:30:00 ne Noemi 88553.1.1 ity of 3.412.2.7 [place] .3.046155 MD Barber [facility] 2022-02-02 2022-02-02 Outpatient KRISTIN MYRICK MDA [facility] [id number] 09:10:40 09:10:40 NOEMI amaro 2022-02-02 2022-02-02 Outpatient KRISTIN BAKER MDA [facility] [id number] 08:41:49 08:49:14 YULISSA amaro 2022-02-02 2022-02-02 Orders Greco, 1.2.840.1 [id number] Univers 00:00:00 00:00:00 Only Lance 66556.1.1 ity of 3.412.2.7 [place] .3.001775 MD Elisabeth amaro [facility] 2022-02-02 2022-02-02 Orders Samuel, 1.2.840.1 [id number] Univers 00:00:00 00:00:00 Only Yulissa 57835.1.1 ity of 3.412.2.7 [place] .3.448541 MD Barber [facility] 2022-02-02 2022-02-02 Travel 1.2.840.1 1.2.667.196 9408 [id number] Univers 00:00:00 00:00:00 39704.1.1 350.1.13.41 ity of 3.412.2.7 2.2.7.3.698 [place] .3.103979 084.8 MD .8 [facility] 2022-01-26 2022-01-26 [facility], 1.2.840.1 [id number] 02685 [id number] Univers 12:42:24 23:59:00 Encounter Noemi 95292.1.1 it y of 3.412.2.7 [place] .3.818422 MD Azevedo8 [facility] 2022-01-26 2022-01-26 Outpatient KRISTIN MYRICK [facility] [id number] 12:42:24 23:59:00 NOEMIROLAND Mercedes eliza amaro 2022-01-26 2022-01-26 Documentat [place], 1.2.840.1 [id number] 1 [id number] Univers 00:00:00 00:00:00 ion Laly 29404.1.1 ity of 3.412.2.7 [place] .3.216580 MD Azevedo8 [facility] 2022-01-26 2022-01-26 Travel 1.2.840.1 1.2.986.550 9887 [id number] Univers 00:00:00 00:00:00 00330.1.1 350.1.13.41 ity of 3.412.2.7 2.2.7.3.698 [place] .3.199769 084.8 .8 [facility] 2022-01-21 2022-01-21 [facility], 1.2.840.1 [id number] Univers 11:43:03 23:59:00 Encounter Noemi 98132.1.1 it y of 3.412.2.7 [place] .3.239213 MD Azevedo8 [facility] 2022-01-21 2022-01-21 Outpatient KRISTIN MYRICK [facility] [id number] 11:43:03 23:59:00 NOEMI Daren eliza amaro 2022-01-21 2022-01-21 Travel 1.2.840.1 1.2.366.785 1101 [id number] Univers 00:00:00 00:00:00 38612.1.1 350.1.13.41 ity of 3.412.2.7 2.[place].7.3.698 [place] .3.203454 084.8 .8 [facility] 2022-01-20 2022-01-20 [facility], 1.2.840.1 [id number] [facility] 11:37:43 23:59:00 Encounter Noemi 18982.1.1 it y of 3.412.2.7 [place] .3.365268 MD Azevedo8 [facility] 2022-01-20 2022-01-20 Outpatient [facility] [id number] 11:37:43 23:59:00 NOEMIROLAND john prem 2022-01-20 2022-01-20 [facility], 1.2.840.1 [id number] [facility] 10:58:40 11:36:00 Encounter Laly 65478.1.1 it y of 3.412.2.7 [place] .3.951940 MD Azevedo8 [facility] 2022-01-20 2022-01-20 [facility] [id number] [place] 10:58:40 11:36:00 LALY Daren john prem 2022-01-20 2022-01-20 Travel 1.2.840.1 1.2.943.418 5995 [id number] [facility] 00:00:00 00:00:00 43102.1.1 350.1.13.41 ity of 3.412.2.7 2.2.7.3.698 [place] .3.090384 084.8 MD Azevedo8 [facility] 2022-01-19 2022-01-19 [facility], 1.2.840.1 [id number] [facility] 12:36:26 23:59:00 Encounter Noemi 81287.1.1 it y of 3.412.2.7 [place] .3.343049 MD Barber [facility] 2022-01-19 2022-01-19 Outpatient [facility] [id number] 12:36:26 23:59:00 NOEMI Daren john prem 2022-01-19 2022-01-19 [facility], 1.2.840.1 [id number] Univers 10:30:00 11:00:00 ne Noemi 98533.1.1 ity of 3.412.2.7 [place] .3.855696 MD Barber [facility] 2022-01-19 2022-01-19 Travel 1.2.840.1 1.2.247.563 1701 [id number] Univers 00:00:00 00:00:00 26015.1.1 350.1.13.41 ity of 3.412.2.7 2.2.7.3.698 [place] .3.996911 084.8 MD Azevedo8 [facility] 2022-01-18 2022-01-18 [facility], 1.2.840.1 [id number] Univers 09:40:09 23:59:00 Encounter Noemi 26496.1.1 it y of 3.412.2.7 [place] .3.520255 MD Barber [facility] 2022-01-18 2022-01-18 Outpatient KRISTIN MYRICK MDA MDA [id number] 09:40:09 23:59:00 NOEMI [facility] 2022-01-18 2022-01-18 Travel 1.2.840.1 1.2.847.173 0508 [id number] [facility] 00:00:00 00:00:00 57630.1.1 350.1.13.41 ity of 3.412.2.7 2.2.7.3.698 [place] .3.301048 084.8 MD Azevedo8 [facility] 2022-01-16 2022-01-16 [facility], 1.2.840.1 [id number] [id number] Univers 12:43:58 23:59:00 Encounter Noemi 35040.1.1 it y of 3.412.2.7 [place] .3.590203 MD Azevedo8 [facility] 2022-01-16 2022-01-16 Outpatient KRISTIN MYRICK MDA MDA [id number] 12:43:58 23:59:00 NOEMI amaro 2022-01-16 2022-01-16 Travel 1.2.840.1 1.2.924.250 8562 [id number] Univers 00:00:00 00:00:00 17568.1.1 350.1.13.41 ity of 3.412.2.7 2.2.7.3.698 [place] .3.031771 084.8 .8 [facility] 2022-01-15 2022-01-15 [facility], 1.2.840.1 [id number] Univers 12:41:07 23:59:00 Encounter Noemi 23958.1.1 it y of 3.412.2.7 [place] .3.777261 MD Azevedo8 [facility] 2022-01-15 2022-01-15 Outpatient KRISTIN MYRICK [facility] [id number] 12:41:07 23:59:00 NOEMI john prem 2022-01-15 2022-01-15 Travel 1.2.840.1 1.2.993.182 7222 [id number] [facility] 00:00:00 00:00:00 58193.1.1 350.1.13.41 ity of 3.412.2.7 2.2.7.3.698 [place] .3.611766 084.8 MD Azevedo8 [facility] 2022-01-14 2022-01-14 [facility], 1.2.840.1 [id number] [id number] Univers 13:10:57 23:59:00 Encounter Noemi 75461.1.1 it y of 3.412.2.7 [place] .3.459554 MD Azevedo8 [facility] 2022-01-14 2022-01-14 Outpatient KRISTIN MYRICK [facility] [id number] 13:10:57 23:59:00 NOEMI john prem 2022-01-14 2022-01-14 Travel 1.2.840.1 1.2.601.644 9474 [id number] Univers 00:00:00 00:00:00 16090.1.1 350.1.13.41 ity of 3.412.2.7 2.2.7.3.698 [place] .3.214994 084.8 MD Azevedo8 [facility] 2022-01-13 2022-01-13 [facility], 1.2.840.1 [id number] [facility] 14:24:05 23:59:00 Encounter Noemi 88048.1.1 it y of 3.412.2.7 [place] .3.110743 MD Azevedo8 [facility] 2022-01-13 2022-01-13 Outpatient RAMEZ [facility] [id number] [place] 14:24:05 23:59:00 NOEMIROLAND john 2022-01-13 2022-01-13 [facility], 1.2.840.1 [id number] [facility] 14:22:37 14:23:00 Encounter Laly 94234.1.1 it y of 3.412.2.7 [place] .3.440638 MD Azevedo8 [facility] 2022-01-13 2022-01-13 Outpatient [facility] [id number] [place] 14:22:37 14:23:00 LALY amaro 2022-01-13 2022-01-13 Travel 1.2.840.1 1.2.363.005 0031 [id number] [facility] 00:00:00 00:00:00 06804.1.1 350.1.13.41 ity of 3.412.2.7 2.2.7.3.698 [place] .3.526111 084.8 MD Azevedo8 [facility] 2022-01-12 2022-01-12 [facility], 1.2.840.1 [id number] [facility] 13:28:25 23:59:00 Encounter Noemi 13122.1.1 it y of 3.412.2.7 [place] .3.246495 MD Azevedo8 [facility] 2022-01-12 2022-01-12 Outpatient [facility] MDA [id number] 618 13:28:25 23:59:00 NOEMI amaro 2022-01-12 2022-01-12 Travel 1.2.840.1 1.2.358.631 4423 [id number] [facility] 00:00:00 00:00:00 13290.1.1 350.1.13.41 ity of 3.412.2.7 2.2.7.3.698 [place] .3.856896 084.8 .8 [facility] 2022-01-09 2022-01-09 [facility], 1.2.840.1 [id number] [facility] 12:29:48 23:59:00 Encounter Noemi 39813.1.1 it y of 3.412.2.7 [place] .3.166125 MD Azevedo8 [facility] 2022-01-09 2022-01-09 Outpatient RAMEZ [facility] [id number] [place] 12:29:48 23:59:00 NOEMI amaro 2022-01-09 2022-01-09 Travel 1.2.840.1 1.2.749.409 1508 [id number] [facility] 00:00:00 00:00:00 03429.1.1 350.1.13.41 ity of 3.412.2.7 2.2.7.3.698 [place] .3.854901 084.8 MD Azevedo8 [facility] 2022-01-08 2022-01-08 [facility], 1.2.840.1 [id number] [facility] 14:48:48 23:59:00 Encounter Noemi 38182.1.1 it y of 3.412.2.7 [place] .3.282440 .8 [facility] 2022-01-08 2022-01-08 Outpatient [facility] [id number] [place] 14:48:48 23:59:00 NOEMI amaro 2022-01-08 2022-01-08 Travel 1.2.840.1 1.2.309.646 0978 [id number] [facility] 00:00:00 00:00:00 76025.1.1 350.1.13.41 ity of 3.412.2.7 2.2.7.3.698 [place] .3.941303 084.8 MD Barber [facility] 2022-01-07 2022-01-07 [facility], 1.2.840.1 [id number] [facility] 14:46:02 23:59:00 Encounter Noemi 22937.1.1 it y of 3.412.2.7 [place] .3.569006 MD Azevedo8 [facility] 2022-01-07 2022-01-07 Outpatient [facility] [id number] [place] 14:46:02 23:59:00 NOEMIROLADN john prem 2022-01-07 2022-01-07 Travel 1.2.840.1 1.2.329.518 2479 [id number] [facility] 00:00:00 00:00:00 59956.1.1 350.1.13.41 ity of 3.412.2.7 2.2.7.3.698 [place] .3.656768 084.8 MD Barber [facility] 2022-01-07 2022-01-07 Orders Baker, 1.2.840.1 [id number] 1099 [id number] Univers 00:00:00 00:00:00 Only Yulissa 34122.1.1 ity of 3.412.2.7 [place] .3.250247 MD Barber [facility] 2022-01-07 2022-01-07 Orders Baker, 1.2.840.1 [id number] 1099 [id number] Univers 00:00:00 00:00:00 Only Yulissa 18217.1.1 ity of 3.412.2.7 [place] .3.951938 MD Azevedo8 [facility] 2022-01-06 2022-01-06 [facility], 1.2.840.1 [id number] [facility] 12:11:17 23:59:00 Encounter Noemi 45632.1.1 it y of 3.412.2.7 [place] .3.141553 .8 [facility] 2022-01-06 2022-01-06 Outpatient [facility] [id number] 12:11:17 23:59:00 NOEMI john prem 2022-01-06 2022-01-06 [facility], 1.2.840.1 [id number] [facility] 10:59:59 12:10:00 Encounter Laly 17144.1.1 it y of 3.412.2.7 [place] .3.252824 .8 [facility] 2022-01-06 2022-01-06 Outpatient [facility] [id number] [place] 10:59:59 12:10:00 LALY Daren eliza amaro 2022-01-06 2022-01-06 Travel 1.2.840.1 1.2.138.331 5843 [id number] [facility] 00:00:00 00:00:00 40714.1.1 350.1.13.41 ity of 3.412.2.7 2.2.7.3.698 [place] .3.744719 084.8 .8 [facility] 2022-01-05 2022-01-05 [facility], 1.2.840.1 [id number] [facility] 14:31:23 23:59:00 Encounter Noemi 56979.1.1 it y of 3.412.2.7 [place] .3.339435 MD Azevedo8 [facility] 2022-01-05 2022-01-05 Outpatient [facility] [place] [id number] 14:31:23 23:59:00 NOEMI Daren eliza amaro 2022-01-05 2022-01-05 [facility], 1.2.840.1 [id number] [facility] 15:30:00 16:00:00 ne Noemi 76185.1.1 ity of 3.412.2.7 [place] .3.554507 MD Azevedo8 [facility] 2022-01-05 2022-01-05 Travel 1.2.840.1 1.2.035.119 [id number] [facility] 00:00:00 00:00:00 19152.1.1 350.1.13.41 ity of 3.412.2.7 [place]3.698 [place] .3.691238 084.8 MD Barber [facility] 2022-01-02 2022-01-02 Documentat [facility], 1.2.840.1 [id number] Univers 00:00:00 00:00:00 ion Laly 16680.1.1 ity of 3.412.2.7 [place] .3.186656 MD Azevedo8 [facility] 2021-12-29 2021-12-29 [facility], 1.2.840.1 [id number] [facility] 15:30:00 23:59:00 Encounter Noemi 12589.1.1 it y of 3.412.2.7 [place] .3.243044 MD Barber [facility] 2021-12-29 2021-12-29 Outpatient [facility] [id number] [place] 15:30:00 23:59:00 NOEMI Darenjose amaro 2021-12-26 2021-12-26 [facility], 1.2.840.1 [id number] [facility] 09:40:41 23:59:00 Encounter Laly 49786.1.1 it y of 3.412.2.7 [place] .3.246867 MD Azevedo8 [facility] 2021-12-26 2021-12-[address] [facility] MDA [id number] [place] 09:40:41 23:59:00 LALY amaro 2021-12-26 2021-12-26 [facility], 1.2.840.1 [id number] [facility] 08:27:18 09:39:00 Encounter Laly 28341.1.1 it y of 3.412.2.7 [place] .3.588207 MD Barber [facility] 2021-12-26 2021-12-26 Outpatient [facility] [id number] 08:27:18 09:39:00 LALY amaro 2021-12-26 2021-12-26 Clinical Laly Rao 1.2.840.1 [id number] [facility] 08:15:00 08:15:00 Support Awais Arguello 81447.1.1 ity of 3.412.2.7 [place] .3.088656 MD Barber [facility] 2021-12-26 2021-12-26 Outpatient KRISTIN RAO [facility] [id number] 07:58:12 08:07:05 LALY amaro 2021-12-26 2021-12-26 Documentat Maira, 1.2.840.1 [id number] [facility] 00:00:00 00:00:00 ion Laly 01164.1.1 ity of 3.412.2.7 [place] .3.626262 MD Barber [facility] 2021-12-26 2021-12-26 Documentat Maira 1.2.840.1 [id number] [facility] 00:00:00 00:00:00 markel Butcher 35490.1.1 ity of 3.412.2.7 [place] .3.108438 MD Barber [facility] 2021-12-26 2021-12-26 Travel 1.2.840.1 1.2.776.114 [id number] [facility] 00:00:00 00:00:00 01179.1.1 350.1.13.41 ity of 3.412.2.7 2.[place]7.3.698 [place] .3.166999 084.8 MD Barber [facility] 2021-12-22 2021-12-22 Nancy Otto 1.2.840.1 [id number] [facility] 00:00:00 00:00:00 Yesy Soto 88019.1.1 ity of 3.412.2.7 [place] .3.787906 MD Barber [facility] 2021-12-19 2021-12-19 Orders Aki, 1.2.840.1 [id number] [facility] 00:00:00 00:00:00 Only Adavanessa 72225.1.1 ity of 3.412.2.7 [place] .3.555343 MD Azevedo8 [facility] 2021-12-19 2021-12-19 Eunice Baker, 1.2.840.1 [id number] [facility] 00:00:00 00:00:00 Only Yulissa 93739.1.1 ity of 3.412.2.7 [place] .3.524342 .8 [facility] 2021-12-18 2021-12-18 Orders Maira, 1.2.840.1 [id number] [employer] 00:00:00 00:00:00 Only Laly 01655.1.1 ity of 3.412.2.7 [place] .3.927167 MD Azevedo8 [facility] 2021-12-18 2021-12-18 Refflynn Myrick, 1.2.840.1 [id number] [facility] 00:00:00 00:00:00 Noemi 21888.1.1 ity of 3.412.2.7 [place] .3.038121 .8 [facility] 2021-12-17 2021-12-17 Dayday Myrick, 1.2.840.1 [id number] Univers 00:00:00 00:00:00 Noemi 06293.1.1 ity of 3.412.2.7 [place] .3.235857 MD Azevedo8 [facility] 2021-12-16 2021-12-16 Refflynn Myrick, 1.2.840.1 [id number] Univers 00:00:00 00:00:00 Noemi 83680.1.1 ity of 3.412.2.7 [place] .3.172656 .8 [facility] 2021-12-15 2021-12-15 Outpatient KRISTIN BAKER MDA MDA [id number] 10:35:00 13:09:11 YULISSA Daren eliza n 2021-12-15 2021-12-15 Infusion Baker, 1.2.840.1 [id number] [facility] 10:30:00 13:09:11 Yulissa 90030.1.1 ity of 3.412.2.7 [place] .3.641117 MD Azevedo8 [facility] 2021-12-15 2021-12-15 Telemedici Ramez, 1.2.840.1 [id number] [facility] 10:00:00 10:30:00 ne Noemi 62336.1.1 ity of 3.412.2.7 [place] .3.076098 MD Barber [facility] 2021-12-15 2021-12-15 Outpatient EL SAMUEL, [facility] [id number] 08:41:04 08:48:04 YULISSA amaro 2021-12-15 2021-12-15 Orders Baker, 1.2.840.1 [id number] Univers 00:00:00 00:00:00 Only Yulissa 82026.1.1 ity of 3.412.2.7 [place] .3.664516 MD Barber [facility] 2021-12-15 2021-12-15 Orders Greco, 1.2.840.1 [id number] Univers 00:00:00 00:00:00 Only Lance 35114.1.1 ity of 3.412.2.7 [place] .3.917567 MD Barber [facility] 2021-12-15 2021-12-15 Travel 1.2.840.1 1.2.799.756 [id number] [id number] Univers 00:00:00 00:00:00 04390.1.1 350.1.13.41 ity of 3.412.2.7 [place].3.698 [place] .[place].7[place] 084.8 MD Barber [facility] 2021-12-12 2021-12-12 Ancillary Samuel, 1.2.840.1 [id number] Univers 08:00:00 10:30:00 Procedure Yulissa 78160.1.1 it y of 3.412.2.7 [place] .3.668271 MD Barber [facility] 2021-12-12 2021-12-12 Outpatient KRISTIN ROLONBAKERSUGAR MDA [id number] 07:55:52 07:55:52 YULISSA amaro 2021-12-12 2021-12-12 Travel 1.2.840.1 1.2.622.904 2540 [id number] [facility] 00:00:00 00:00:00 90338.1.1 350.1.13.41 ity of 3.412.2.7 [place].3.698 [place] .3.987702 084.8 MD Barber [facility] 2021-12-09 2021-12-09 Orders Lucretia, 1.2.840.1 [id number] [facility] 00:00:00 00:00:00 Only Rami 12078.1.1 ity of 3.412.2.7 [place] .3.380867 MD Barber [facility] 2021-12-05 2021-12-05 [facility] Rich, 1.2.840.1 [id number] [facility] 09:09:22 23:59:00 Encounter Aurora 17640.1.1 it y of 3.412.2.7 [place] .3.652649 MD Barber [facility] 2021-12-05 2021-12-05 Outpatient KRISTIN RICH [facility] [id number] [place] 09:09:22 23:59:00 AURORA amaro 2021-12-05 2021-12-05 Travel 1.2.840.1 1.2.446.466 3065 [id number] [facility] 00:00:00 00:00:00 48181.1.1 350.1.13.41 ity of 3.412.2.7 [place]7.3.698 [place] .3.0488[place] 084.8 MD Barber [facility] 2021-12-042021-12-04 Ancillary Fabiola, 1.2.840.1 [id number] [facility] 08:15:00 10:00:00 Procedure Cinda Tsang 53532.1.1 ity of 3.412.2.7 [place] .3.207926 MD Barber [facility] 2021-12-04 2021-12-04 Outpatient FABIOLA [facility] [id number] 08:19:58 08:19:58 CINDA amaro 2021-12-04 2021-12-04 Travel 1.2.840.1 1.2.854.738 [id number] [facility] 00:00:00 00:00:00 61218.1.1 350.1.13.41 ity of 3.412.2.7 [place]7.3.698 [place] .3.301814 084.8 MD Azevedo8 [facility] 2021-11-25 2021-11-25 Eunice Baker, 1.2.840.1 [id number] [facility] 00:00:00 00:00:00 Only Yulissa 49885.1.1 ity of 3.412.2.7 [place] .3.308302 MD Azevedo8 [facility] 2021-11-24 2021-11-24 Outpatient KRISTIN MYRICK MDA [facility] [id number] 13:51:16 13:51:16 NOEMI amaro 2021-11-24 2021-11-24 Tello Myrick 1.2.840.1 [id number] [facility] 09:15:00 12:37:11 Noemi 77719.1.1 ity of 3.412.2.7 [place] .3.800474 MD Azevedo8 [facility] 2021-11-24 2021-11-24 Outpatient KRISTIN MYRICK MDA [facility] [id number] 08:35:47 12:37:11 NOEMI amaro 2021-11-24 2021-11-24 Telemediclucia Myrick 1.2.840.1 [id number] [facility] 08:00:00 08:30:00 servando Pro 58110.1.1 ity of 3.412.2.7 [place] .3.352856 MD Azevedo8 [facility] 2021-11-24 2021-11-24 Outpatient KRISTIN MYRICK MDA MDA [id number] 07:22:43 07:31:30 NOEMI Darenjose amaro 2021-11-24 2021-11-24 [facility], 1.2.840.1 [id number] Univers 00:00:00 00:00:00 Only Ramiro 64676.1.1 ity of 3.412.2.7 [place] .3.815873 MD Azevedo8 [facility] 2021-11-24 2021-11-24 [facility] 1.2.840.1 1.2.914.071 [id number] [id number] Univers 00:00:00 00:00:00 68267.1.1 350.1.13.41 ity of 3.412.2.7 [place]7.3.698 [place] .3.222411 084.8 MD Azevedo8 [facility] 2021-11-04 2021-11-04 [facility] 1.2.840.1 [id number] [facility] 10:53:28 23:59:00 Encounter Noemi 13355.1.1 it y of 3.412.2.7 [place] .3.233696 MD Azevedo8 [facility] 2021-11-04 2021-11-04 Outpatient KRISTIN MYRICK [facility] [id number] 10:53:28 23:59:00 NOEMI amaro 2021-11-04 2021-11-04 [facility] TiannamistyNoemi 1.2.840.1 [id number] [facility] 16:15:00 19:35:48 Mo, Hugh 40518.1.1 i ty of 3.412.2.7 [place] .3.145893 MD Azevedo8 [facility] 2021-11-04 2021-11-04 Outpatient KRISTIN MYRICK MDA [facility] [id number] [place] 14:53:31 19:35:48 NOEMI amaro 2021-11-04 2021-11-04 Telemedici [facility], 1.2.840.1 [id number] [facility] 15:00:00 15:30:00 ne Noemi 55566.1.1 ity of 3.412.2.7 [place] .3.305286 MD Azevedo8 [facility] 2021-11-04 2021-11-04 [facility], 1.2.840.1 [id number] [facility] 10:09:04 10:52:00 Encounter Noemi 58596.1.1 it y of 3.412.2.7 [place] .3.379844 MD Azevedo8 [facility] 2021-11-04 2021-11-04 Outpatient KRISTIN MYRICK MDA MDA [id number] 10:: 10:52:00 NOEMI Mercedes prem 2021-11-04 2021-11-04 Outpatient KRISTIN MYRICK MDA [facility] [id number] 10::09 10:06:09 NOEMI [facility] 2021-11-04 2021-11-04 Orders Baker, 1.2.840.1 [id number] Univers 00:00:00 00:00:00 Only Yulissa 60670.1.1 ity of 3.412.2.7 [place] .3.625180 MD Azevedo8 [facility] 2021-11-04 2021-11-04 Orders Baker, 1.2.840.1 [id number] [id number] Univers 00:00:00 00:00:00 Only Yulissa 81426.1.1 ity of 3.412.2.7 [place] .3.530245 MD Azevedo8 [facility] 2021-11-04 2021-11-04 Orders Baker, 1.2.840.1 [id number] [id number] Univers 00:00:00 00:00:00 Only Yulissa 73842.1.1 ity of 3.412.2.7 [place] .3.088717 MD Azevedo8 [facility] 2021-11-04 2021-11-04 Orders Baker, 1.2.840.1 [id number] 1096 [id number] Univers 00:00:00 00:00:00 Only Yulissa 22544.1.1 ity of 3.412.2.7 [place] .3.488861 MD Azevedo8 [facility] 2021-11-04 2021-11-04 Orders Greco, 1.2.840.1 [id number] Univers 00:00:00 00:00:00 Only Lance 56975.1.1 ity of 3.412.2.7 [place] .3.638999 MD Azevedo8 [facility] 2021-11-04 2021-11-04 Travel 1.2.840.1 1.2.732.441 8458 [id number] Univers 00:00:00 00:00:00 09472.1.1 350.1.13.41 ity of 3.412.2.7 [place]7.3.698 [place] .3.795[place] 084.8 MD Azevedo8 [facility] 2021-10-28 2021-10-28 Documentat Layla, 1.2.840.1 [id number] Univers 00:00:00 00:00:00 ion Aurora 70679.1.1 ity of 3.412.2.7 [place] .3.414968 MD Barber [facility] 2021-10-24 2021-10-27 [facility] 1.2.840.1 [id number] Univers 22:37:00 15:57:00 Encounter Richard Cooley 82646.1.1 ity of Hallie Vega 3.412.2.7 [place] .3.597386 MD Azevedo8 [facility] 2021-10-24 2021-10-27 Inpatient ER LUZ WILSON [facility]osp [facility] [id number] MD 22:37:00 15:57:00 HALLIE amaro 2021-10-27 2021-10-27 Telephone Tenzin 1.2.840.1 [id number] Univers 00:00:00 00:00:00 Deborah 38404.1.1 ity of 3.412.2.7 [place] .3.023061 MD Azevedo8 [facility] 2021-10-27 2021-10-27 Orders Tristanarmando, 1.2.840.1 [id number] Univers 00:00:00 00:00:00 Only Shannon Morris 91493.1.1 ity of 3.412.2.7 [place] .3.911529 MD Azevedo8 [facility] 2021-10-26 2021[facility]10-26 [facility] [id number] Univers 00:00:00 00:00:00 Only Noemi 83184.1.1 ity of 3.412.2.7 [place] .3.833273 MD Azevedo8 [facility] 2021-10-25 2021-10-25 Travel 1.2.840.1 1.2.082.572 2956 [id number] Univers 00:00:00 00:00:00 17825.1.1 350.1.13.41 ity of 3.412.2.7 2.2.7.3.698 [place] .3.820990 084.8 MD Azevedo8 [facility] 2021-10-24 2021-10-24 [facility], 1.2.840.1 [id number] Univers 08:00:00 22:36:00 Encounter Noemi 61873.1.1 it y of 3.412.2.7 [place] .3.124751 MD Barber [facility] 2021-10-24 2021-10-24 Outpatient KRISTIN MYRICK MDA MDA [id number] 08:00:00 22:36:00 NOEMI amaro 2021-10-24 2021-10-24 Outpatient KRISTIN RICH MDA MDA [id number] 08:16:38 09:49:08 AURORA amaro 2021-10-24 2021-10-24 Documentat Layla, 1.2.840.1 [id number] Univers 00:00:00 00:00:00 ion Aurora 64291.1.1 ity of 3.412.2.7 [place] .3.400476 MD Azevedo8 [facility] 2021-10-24 2021-10-24 Documentat Layla, 1.2.840.1 [id number] 10 [id number] Univers 00:00:00 00:00:00 ion Aurora 48150.1.1 ity of 3.412.2.7 [place] .3.496061 MD Azevedo8 [facility] 2021-10-24 2021-10-24 Documentat Layla, 1.2.840.1 [id number] 10 [id number] Univers 00:00:00 00:00:00 ion Aurora 85704.1.1 ity of 3.412.2.7 [place] .3.606563 MD Azevedo8 [facility] 2021-10-24 2021-10-24 Documentat Layla, 1.2.840.1 [id number] 10 [id number] Univers 00:00:00 00:00:00 ion Aurora 85837.1.1 ity of 3.412.2.7 [place] .3.146674 MD Azevedo8 [facility] 2021-10-24 2021-10-24 Nurse Danie, 1.2.840.1 [id number] Univers 00:00:00 00:00:00 Triage Alejandra E 12563.1.1 it y of 3.412.2.7 [place] .3.835475 MD Azevedo8 [facility] 2021-10-24 2021-10-24 Documentat Cain, 1.2.840.1 [id number] Univers 00:00:00 00:00:00 ion Yunior 44002.1.1 ity of 3.412.2.7 [place] .3.410460 MD Azevedo8 [facility] 2021-10-24 2021-10-24 Travel 1.2.840.1 1.2.140.909 5400 [id number] Univers 00:00:00 00:00:00 97670.1.1 350.1.13.41 ity of 3.412.2.7 2.[place].7.3.698 [place] .3.176780 084.8 MD Barber [facility] 2021-10-23 2021-10-23 Ancillary Fabiola 1.2.840.1 [id number] [facility] 10:15:00 12:00:00 Procedure Cinda Tsang 90043.1.1 ity of 3.412.2.7 [place] .3.878585 MD Barber [facility] 2021-10-23 2021-10-23 Outpatient KRISTIN HICKS [facility] MDA [id number] 10:10:14 10:10:14 CINDA Mercedes o prem 2021-10-23 2021-10-23 Outpatient KRISTIN HICKS [facility] MDA [id number] 09:43:32 10:00:46 CINDA amaro 2021-10-23 2021-10-23 Clinical Cinda Hicks 1.2.840.1 [id number] [facility] 09:30:00 10:00:46 Support Evi Palacios 21287.1.1 ity of 3.412.2.7 [place] .3.196801 MD Barber [facility] 2021-10-23 2021-10-23 Telephone Emanuel 1.2.840.1 [id number] Univers 00:00:00 00:00:00 Madhav Bellamy 84932.1.1 ity of 3.412.2.7 [place] .3.078185 MD Barber [facility] 2021-10-23 2021-10-23 Travel 1.2.840.1 1.2.285.445 2437 [id number] [facility] 00:00:00 00:00:00 81209.1.1 350.1.13.41 ity of 3.412.2.7 2.2.7.3.698 [place] .3.780513 084.8 MD Barber [facility] 2021-10-22 2021-10-22 Eunice Rich 1.2.840.1 [id number] Univers 00:00:00 00:00:00 Only Aurora 47397.1.1 ity of 3.412.2.7 [place] .3.594244 MD Barber [facility] 2021-10-21 2021-10-21 Orders Cain, 1.2.840.1 [id number] Univers 00:00:00 00:00:00 Only Yunior 68500.1.1 ity of 3.412.2.7 [place] .3.587571 MD Azevedo8 [facility] 2021-10-20 2021-10-20 [facility], 1.2.840.1 [id number] [facility] 06:00:00 23:59:00 Encounter Noemi 48717.1.1 it y of 3.412.2.7 [place] .3.738879 MD Barber [facility] 2021-10-20 2021-10-20 [facility], [facility] [id number] [place] 06:00:00 23:59:00 NEOMI amaro 2021-10-20 2021-10-20 Documentat Cain, 1.2.840.1 [id number] Univers 00:00:00 00:00:00 ion Yunior 15779.1.1 ity of 3.412.2.7 [place] .3.362425 MD Barber [facility] 2021-10-20 2021-10-20 Orders Maycol, 1.2.840.1 [id number] Univers 00:00:00 00:00:00 Only Carolina Her 98448.1.1 ity of 3.412.2.7 [place] .3.693720 MD Barber [facility] 2021-10-20 2021-10-20 Orders Fabiola, 1.2.840.1 [id number] [id number] Univers 00:00:00 00:00:00 Only Cinda Tsang 76562.1.1 it y of 3.412.2.7 [place] .3.269117 MD Barber [facility] 2021-10-17 2021-10-17 [facility] Layla 1.2.840.1 [id number] [id number] [facility] 10:59:57 23:59:00 Encounter Aurora 31379.1.1 it y of 3.412.2.7 [place] .3.774605 MD Azevedo8 [facility] 2021-10-17 2021-10-17 Outpatient KRISTIN RICH MDA MDA [id number] 10:59:57 23:59:00 AURORA Darenjose amaro 2021-10-17 2021-10-17 Travel 1.2.840.1 1.2.269.184 0499 [id number] Univers 00:00:00 00:00:00 18596.1.1 350.1.13.41 ity of 3.412.2.7 2.2.7.3.698 [place] .3.374741 084.8 MD Azevedo8 [facility] 2021-10-14 2021-10-14 Eunice Solorio, 1.2.840.1 [id number] Univers 00:00:00 00:00:00 Only Skye 82970.1.1 ity of 3.412.2.7 [place] .3.374119 MD Azevedo8 [facility] 2021-10-13 2021-10-13 Infusion Ramez, 1.2.840.1 [id number] [facility] 09:45:00 11:33:32 Nomei 15081.1.1 ity of 3.412.2.7 [place] .3.325560 MD Barber [facility] 2021-10-13 2021-10-13 Outpatient KRISTIN MYRICK MDA MDA [id number] 08:34:51 11:33:32 NOEMI amaro 2021-10-13 2021-10-13 Telemedici Ramez, 1.2.840.1 [id number] Univers 08:00:00 08:30:00 ne Noemi 34486.1.1 ity of 3.412.2.7 [place] .3.424579 MD Barber [facility] 2021-10-13 2021-10-13 Outpatient KRISTIN MYRICK MDA MDA [id number] 07:59:12 07:59:12 NOEMI amaro 2021-10-13 2021-10-13 Outpatient KRISTIN MYRICK [facility] [id number] 07:40:39 07:41:32 NOEMI Darenjose amaro 2021-10-13 2021-10-13 Orders Ramez, 1.2.840.1 [id number] Univers 00:00:00 00:00:00 Only Noemi 62355.1.1 ity of 3.412.2.7 [place] .3.051479 MD Azevedo8 [facility] 2021-10-13 2021-10-13 Eunice Solorio, 1.2.840.1 [id number] Univers 00:00:00 00:00:00 Only Skye 23344.1.1 ity of 3.412.2.7 [place] .3.260564 MD Barber [facility] 2021-10-13 2021-10-13 Travel 1.2.840.1 1.2.987.254 8258 [id number] Univers 00:00:00 00:00:00 41094.1.1 350.1.13.41 ity of 3.412.2.7 2.[place]7.3.698 [place] .3.964020 084.8 MD Barber [facility] 2021-09-30 2021-09-30 Ancillary Samuel 1.2.840.1 [id number] Univers 09:45:00 11:30:00 Procedure Yulissa 89910.1.1 it y of 3.412.2.7 [place] .3.806024 MD Barber [facility] 2021-09-30 2021-09-30 Outpatient KRISTIN BAKER MDA [facility] [id number] 09:48:09 09:48:09 YULISSA amaro 2021-09-30 2021-09-30 Travel 1.2.840.1 1.2.942.491 5424 [id number] Univers 00:00:00 00:00:00 17586.1.1 350.1.13.41 ity of 3.412.2.7 2.[place].7.3.698 [place] .3.180064 084.8 MD Barber [facility] 2021-09-25 2021-09-25 Outpatient SALIMA_SYLVIA KHAN 960 [place] 00:00:00 00:00:00 _WEN 727 da [facility] h Program 2021-09-23 2021-09-23 Outpatient KRISTIN MYRICK, SUGAR [facility] [id number] 08:47:30 12:03:14 NOEMI john n 2021-09-23 2021-09-23 Infusion Ramez, 1.2.840.1 [id number] [facility] 08:45:00 12:03:14 Noemi 77873.1.1 ity of 3.412.2.7 [place] .3.516412 MD Barber [facility] 2021-09-23 2021-09-23 Travel 1.2.840.1 1.2.524.182 4262 [id number] Univers 00:00:00 00:00:00 30237.1.1 350.1.13.41 ity of 3.412.2.7 2.2.7.3.698 [place] .3.475000 084.8 MD Barber [facility] 2021-09-23 2021-09-23 Orders Fiona, 1.2.840.1 [id number] [id number] Univers 00:00:00 00:00:00 Only Hitesh Whitney 38125.1.1 it y of 3.412.2.7 [place] .3.375646 MD Barber [facility] 2021-09-23 2021-09-23 Orders Samuel, 1.2.840.1 [id number] 1095 [id number] Univers 00:00:00 00:00:00 Only Yulissa 61299.1.1 ity of 3.412.2.7 [place] .3.864570 MD Barber [facility] 2021-09-22 2021-09-22 [facility] Samuel, 1.2.840.1 [id number] Univers 07:12:56 23:59:00 Encounter Yulissa 29711.1.1 it y of 3.412.2.7 [place] .3.738253 MD Barber [facility] 2021-09-22 2021-09-22 Outpatient KRISTIN BAKER MDA MDA [id number] 07:12:56 23:59:00 YULISSA amaro 2021-09-22 2021-09-22 Office Ramez, 1.2.840.1 [id number] [facility] 15:00:00 15:00:00 Visit Noemi 13347.1.1 ity of 3.412.2.7 [place] .3.420429 MD Azevedo8 [facility] 2021-09-22 2021-09-22 Outpatient KRISTIN MYRICK MDA MDA [id number] 08:18:07 09:08:35 NOEMI amaro 2021-09-22 2021-09-22 Orders Samuel, 1.2.840.1 [id number] [facility] 00:00:00 00:00:00 Only Yulissa 58520.1.1 ity of 3.412.2.7 [place] .3.461503 MD Barber [facility] 2021-09-22 2021-09-22 Travel 1.2.840.1 1.2.730.191 0745 [id number] [facility] 00:00:00 00:00:00 28122.1.1 350.1.13.41 ity of 3.412.2.7 2.2[place]7.3.698 [place] .3.594300 084.[address] [facility] 2021-09-19 2021-09-19 Ancillary Samuel, 1.2.840.1 [id number] [facility] 11:30:00 14:00:00 Procedure Yulissa 79199.1.1 it y of 3.412.2.7 [place] .3.983319 MD Barber [facility] 2021-09-19 2021-09-19 Outpatient KRISTIN BAKER MDA MDA [id number] 11:11:27 11:11:27 YULISSA amaro 2021-09-19 2021-09-19 Travel 1.2.840.1 1.2.473.739 5387 [id number] Univers 00:00:00 00:00:00 47580.1.1 350.1.13.41 ity of 3.412.2.7 2.[place].7.3.698 [place] .3.584454 084.8 .8 [facility] 2021-09-03 2021-09-03 Orders Baker, 1.2.840.1 [id number] [id number] Univers 00:00:00 00:00:00 Only Yulissa 17221.1.1 ity of 3.412.2.7 [place] .3.755178 .8 [facility] 2021-06-20 2021-06-20 Outpatient [facility], MDA MDA [id number] MD 14:00:00 23:59:00 Soy amaro 2021-06-19 2021-06-19 [facility] MDA [id number] MD 10:11:42 16:05:46 DEBRA amaro 2021-06-18 2021-06-18 [facility] MDA [id number] MD 10:16:43 13:48:55 DEBRA amaro 2021-06-17 2021-06-17 [facility] MDA [id number] MD 10:06:54 15:11:12 DEBRA amaro 2021-06-17 2021-06-17 Outpatient [facility], MDA MDA [id number] MD 07:38:01 07:38:01 NOEMI amaro 2021-06-16 2021-06-16 [facility] MDA [id number] MD 11:25:50 11:25:50 DEBRA amaro 2021-06-16 2021-06-16 [facility] MDA [id number] MD 11:25:36 11:25:36 DEBRA amaro 2021-06-16 2021-06-16 [facility] MDA [id number] MD 11:03:28 11:05:45 DEBRA stahl n 2021-06-06 2021-06-06 Outpatient KRISTIN GR, MDA MDA [id number] 08:25:46 23:59:00 DEBRA stahl n 2021-06-05 2021-06-05 Outpatient PAM, MDA MDA [id number] 13:22:08 23:59:00 ANASTASIOS And erso n 2021-06-05 2021-06-05 Outpatient EL JOHN, MDA MDA [id number] 07:52:00 07:52:00 ASTER john n 2021-06-04 2021-06-04 Outpatient KASIA, MDA MDA [id number] 11:25:40 11:28:56 KAITLIN john n 2021-06-04 2021-06-04 Outpatient PAM, MDA MDA [id number] 10:47:28 11:24:59 ANASTASIOS And erso n 2021-05-29 2021-05-29 Outpatient KRISTIN MYRICK, MDA MDA [id number] 11:23:10 14:59:14 NOEMI john n 2021-05-28 2021-05-28 Outpatient RAMEZ, MDA MDA [id number] 10:58:43 17:04:44 NOEMI amaro 2021-05-27 2021-05-27 Outpatient RAMEZ, MDA MDA [id number] 07:08:12 23:59:00 NOEMI john n 2021-05-27 2021-05-27 Outpatient RAMEZ, MDA MDA [id number] MD 10:21:17 16:23:31 NOEMI john n 2021-05-27 2021-05-27 Outpatient RAMEZ, MDA MDA [id number] 07:52:08 07:59:39 NOEMI amaro 2021-05-02 2021-05-02 Outpatient LAYLA, MDA MDA [id number] 09:30:00 23:59:00 AURORA amaro 2021-05-01 2021-05-01 Outpatient MAILE, MDA MDA [id number] MD 12:34:00 16:29:50 DEBRA stahl n 2021-04-30 2021-04-30 Outpatient EL GR, MDA MDA [id number] 12:25:33 17:10:30 DEBRA Haq so n 2021-04-29 2021-04-29 Outpatient EL GR, MDA MDA [id number] 12:48:12 17:18:54 DEBRA Haq so n 2021-04-29 2021-04-29 Outpatient EL VOMISTY, MDA MDA [id number] 11:55:54 12:47:27 NOEMI john n 2021-04-29 2021-04-29 Outpatient EL GR, MDA MDA [id number] 09:14:53 09:14:53 DEBRA Haq so n 2021-04-29 2021-04-29 Outpatient EL GR, MDA MDA [id number] 08:10:52 08:13:50 DEBRA Haq so n 2021-04-28 2021-04-28 Outpatient KRISTIN GR, MDA MDA [id number] 09:36:46 09:36:46 DEBRA Haq so n 2021-04-10 2021-04-10 Outpatient KRISTIN GR, MDA MDA [id number] 11:31:49 15:37:14 DEBRA Haq so n 2021-04-09 2021-04-09 Outpatient KRISTIN GR, MDA MDA [id number] 11:06:24 11:06:24 DEBRA Haq so n 2021-04-08 2021-04-08 Outpatient EL GR, MDA MDA [id number] 07:02:04 23:59:00 DEBRA Haq so n 2021-04-08 2021-04-08 Outpatient EL GR, MDA MDA [id number] 10:29:42 10:29:42 DEBRASILVIA Haq so n 2021-04-08 2021-04-08 Outpatient EL BARRAGAN, BLADIMIR MDA MDA [id number] 08:09:48 08:56:21 Daren amaro 2021-03-28 2021-03-28 Outpatient EL GR, MDA MDA [id number] 11:07:41 23:59:00 DEBRASILVIA Haq so n 2021-03-28 2021-03-28 Outpatient KRISTIN GR, MDA MDA [id number] MD 11:00:00 11:06:00 DEBRA Haq so n 2021-03-28 2021-03-28 Outpatient KRISTIN RICH, MDA MDA [id number] MD 09:44:44 10:59:00 AURORA amaro 2021-03-20 2021-03-20 Outpatient KRISTIN MYRICK, MDA MDA [id number] MD 10:28:53 15:20:18 NOEMI amaro 2021-03-19 2021-03-19 Outpatient KRISTIN MYRICK, MDA MDA [id number] MD 09:21:50 14:13:18 NOEMI amaro 2021-03-18 2021-03-18 Outpatient KRISTIN MYRICK, MDA MDA [id number] MD 08:10:50 15:27:54 NOEMI amaro 2021-03-18 2021-03-18 Outpatient KRISTIN MYRICK, MDA MDA [id number] MD 08:42:06 08:42:06 NOEMI amaro 2021-03-18 2021-03-18 Outpatient KRISTIN MYRICK, MDA MDA [id number] MD 07:30:35 07:31:29 NOEMI amaro 2021-03-14 2021-03-14 Outpatient KRISTIN RICH, MDA MDA [id number] MD 01:28:28 01:28:28 AURORA amaro 2021-03-14 2021-03-14 Outpatient KRISTIN RICH, MDA MDA [id number] MD 01:28:25 01:28:25 AURORA amaro 2021-03-11 2021-03-11 Outpatient KRISTIN MYRICK, MDA MDA [id number] 12:45:00 23:59:00 NOEMI amaro 2021-03-11 2021-03-11 Outpatient KRISTIN HORTON, MDA MDA [id number] MD 10:31:22 12:40:53 AYE amaro 2021-03-11 2021-03-11 Outpatient ElizaINNA, MDA MDA [id number] 07:20:48 07:20:48 LALY amaro 2021-03-07 2021-03-07 Outpatient YAJAIRA GOODSON MDA MDA [id number] 14:46:57 23:59:00 Daren o n 2021-03-05 2021-03-05 Outpatient KRISTIN OROZCO MDA MDA [id number] 08:20:28 23:59:00 ANASTASIOS And erso n 2021-03-05 2021-03-05 Outpatient YAJAIRA GOODSON MDA MDA [id number] 10:43:34 10:43:34 Daren o n 2021-03-05 2021-03-05 Outpatient KRISTIN OROZCO MDA MDA [id number] 08:15:46 08:15:46 ANASTASIOS And erso n 2021-03-03 2021-03-03 Outpatient KRISTIN OROZCO MDA MDA [id number] 11:36:23 12:15:05 ANASTASIOS And erso n 2020-09-09 2020-09-10 Outpatient nullFlavo MNA [id number] Memoria 13:15:00 04:59:59 r Neurology 00 l Galo Stiles 2020-09-09 2020-09-10 Outpatient nullFlavo MNA [id number] Memoria 13:15:00 04:59:59 r Neurology 00 l Galo Stiles 2020-09-09 2020-09-09 [id number] 08:15:00 23:59:59 Kiran 00 Larry 2020-09-09 2020-09-09 Outpatient MHIE IE [id number] Memoria 08:15:00 08:15:00 00 l Go 2015-08-27 2015-08-27 6 mo f/u nullFlavo [place] 2ca27 55b-8 Memoria 15:00:00 15:00:00 r Breast [id number]-6t18-4 JASSON Quevedo [id number] [facility] wen [id number] 2015-08-27 2015-08-27 6 mo f/u nullFlavo Megha 2ca27 55b-8 Memoria 15:00:00 15:00:00 r Breast i5a-0f20-3 JASSON Quevedo [id number] [facility] [id number] 2015-08-27 2015-08-27 Outpatient Megha [place] [id number] eClinic 10:00:00 10:00:00 Breast Breast alWork s Care, PA Care, PA 2015-02-25 2015-02-25 3 month fu nullFlavo [place] 64e [id number]-[id number] Memoria 15:45:00 15:45:00 r Breast 0bf-40fb-9 l Care, PA [id number] Herm wen [id number] 2015-02-25 2015-02-25 3 month fu nullFlavo [place] 64e n3650-k Memoria 15:45:00 15:45:00 r Breast 0bf-40fb-9 l Care, PA [id number] Herm wen [id number] 2015-02-25 2015-02-25 3 month fu nullFlavo [place] e0c 26w47-2 Memoria 14:45:00 14:45:00 r Breast h53-0804-8 l Care, PA [id number] Herm wen [id number] 2015-02-25 2015-02-25 3 month fu nullFlavo [place] e0c 24j72-2 Memoria 14:45:00 14:45:00 r Breast j09-6973-1 l Care, PA [id number] Herm wen [id number] 2015-02-25 2015-02-25 Out[place] [id number] eClinic 09:45:00 09:45:00 Breast Breast alWork s Care, PA Care, PA 2014-11-27 2014-11-27 Post-Op nullFlavo [place] [id number] 97-1 Memoria 16:30:00 16:30:00 Follow-Up r Breast 8o8-2l11-l l Care, PA [id number] Herm wen 0b4fb1 2014-11-27 2014-11-27 Post-Op nullFlavo [place] [id number] 97-1 Memoria 16:30:00 16:30:00 Follow-Up r Breast 4j9-2s99-a l Care, PA [id number] Herm wen 0b4fb1 2014-11-27 2014-11-27 Post-Op nullFlavo [place] [id number] 6e-5 Memoria 15:30:00 15:30:00 Follow-Up r Breast 21e-433f-9 l Care, PA [id number] Herm wen aa47ec 2014-11-27 2014-11-27 Post-Op nullFlavo Megha [id number] 6e-5 Memoria 15:30:00 15:30:00 Follow-Up r Breast 21e-433f-9 l Care, PA [id number]-[id number] Herm wen aa47ec 2014-11-15 2014-11-15 Unknown nullFlavo Megha [id number] fd-5 Memoria 21:26:00 21:26:00 r Breast bda-4941-8 l Care, PA [id number] Herm wen [id number] 2014-11-15 2014-11-15 Unknown nullFlavo Megha [id number] fd-5 Memoria 21:26:00 21:26:00 r Breast bda-4941-8 l Care, PA [id number] Herm wen e15e9c 2014-11-15 2014-11-15 Unknown nullFlavo Megha 94dde7 1b-a Memoria 20:26:00 20:26:00 r Breast l27-63c5-s l Care, PA [id number]-[id number] Herm wen b0cfb6 2014-11-15 2014-11-15 Unknown nullFlavo Megha 94dde7 1b-a Memoria 20:26:00 20:26:00 r Breast w31-23z6-v l Care, PA [id number]-[id number] Herm wen b0cfb6 2014-11-14 2014-11-14 RT needle nullFlavo [place] 6698 18c9-2 Memoria 20:30:00 20:30:00 loc r Breast h06-0z26-u l partial Care, PA [id number] Herm wen mastectomy 8a00a2 2014-11-14 2014-11-14 RT needle nullFlavo [place] 6698 18c9-2 Memoria 20:30:00 20:30:00 loc r Breast i93-5a82-s l partial Care, PA [id number] Herm wen mastectomy 8a00a2 2014-11-14 2014-11-14 RT needle nullFlavo Mehga 4690 2b34-3 Memoria 19:30:00 19:30:00 loc r Breast 88a-4aa0-8 l partial Care, JASSON ecc-[id number] Herm wen mastectomy [id number] 2014-11-14 2014-11-14 RT needle nullFlavo [place] 4690 2b34-3 Memoria 19:30:00 19:30:00 loc r Breast 88a-4aa0-8 l partial Care, JASSON ecc-[id number] Herm wen mastectomy [id number] 2014-10-30 2014-10-30 Breast nullFlavo Megha [id number] b0-4 Memoria 15:45:00 15:45:00 Cancer r Breast fbd-4f21-9 l Care, JASSON [id number] Herm wen [id number] 2014-10-30 2014-10-30 Breast nullFlavo Megha 1hi594 b0-4 Memoria 15:45:00 15:45:00 Cancer r Breast fbd-4f21-9 l Care, JASSON [id number] Herm wen 31b47d 2014-10-30 2014-10-30 Breast nullFlavo Megha a17f49 5e-e Memoria 14:45:00 14:45:00 Cancer r Breast 450-4896-b l Care, JASSON [id number] Herm wen [id number] 2014-10-30 2014-10-30 Breast nullFlavo [place] a17f49 5e-e Memoria 14:45:00 14:45:00 Cancer r Breast 450-4896-b l Care, JASSON [id number] Herm wen [id number] 2014-10-16 2014-10-16 DCIS nullFlavo [place] 1ff5fc 04-f Memoria 22:00:00 22:00:00 r Breast 3h8-5a07-2 l Care, JASSON abd-ec73ae Herm wen [id number] 7750-08-18 2014-10-16 DCIS nullFlavo [place] 1ff5fc 04-f Memoria 22:00:00 22:00:00 r Breast 9z5-7f88-1 l Care, JASSON abd-ec73ae Herm wen [id number] 3143-08-18 2014-10-16 DCIS nullFlavo [place] [id number] 97-1 Memoria 21:00:00 21:00:00 r Breast 2e6-4f30-2 l Care, JASSON [id number] Herm wen [id number] 2014-10-16 2014-10-16 DCIS nullFlavo [place] [id number] 97-1 Memoria 21:00:00 21:00:00 r Breast 8f7-2x29-6 JASSON Quevedo [id number] [facility] [id number] Results Test Description Test Time Test Comments Results Result Comments Source Fractionated Bilirubin 2022-08-24 13:19:18 Test Item Value Reference Range Interpretation Comme nts Bili Total (test code = 0.3 mg/dL <=1.2 Indo cyanine Green (ICG) may cause 1974-04) falsely elevate d bilirubin results. Total and direc t bilirubin must not be measured fro m samples containing indocyanine gre en. False elevation of total biliru bin can be seen in patients with I gG concentrations above 28 g/L. Bili Direct (test code = <=0.3 Ind ocyanine Green (ICG) may cause 1967-08) falsely elevate d bilirubin results. Total and direc t bilirubin must not be measured fro m samples containing indocyanine gre en. Bili Indirect (test code = See Note 0.0-0.9 U nable to calculate Indirect 1970-03) Bilirubin resul t due to some parameters are outside reportable range [facility] [place] 2022-08-24 13:19:16 Test Item Value Reference Range Interpretation Comments eGFR (test code = 95 See_Comment The eGFRcr is calculated with 21369-7) the 2020 CKD-EP I creatinine equation using creatinine, patient's age, and sex for adults 18 years of age and older. Other fa ctors, especially musc le mass, may affect accuracy and need to be considered.A ccording to the Kidney Dise ase: Improving Global Outcomes (KDIGO) CKD Work Group 2012 Clinical Practice Guidel ine, chronic kidney disease (CKD) is defined as the abnormalities of kidney struc ture or function, prese nt for more than 3 months, with implications fo r health. CKD should be class ified by cause, GFR hailee gory, and albuminuria cat egory. KDIGO guidelines prov jaguar the following GFR c ategoriesStage Description GFR mL/min/1.73 m2G1* Normal or high >= 90G2* Mildly decrease d 60-89G3a Mildly to moder ately decreased 45-59 G3b Moderately to severely dec reased 30-44G4 Severely decrea sed 15-29G5 Kidney failure <15*In the absence of evid ence of kidney damage, neither G1 nor G2 fulfill criteri a for CKD. [Automated mess age] The system which ge nerated this result transmit manuela reference range: >=60 mL/ min/1.73 sq. m. The referenc e range was not used to int erpret this result as bola l/abnormal. [facility] CenterMagn[facility] [id number] 13:19:15 Test Item Value Reference Range Interpretation Comments Magnesium (test code = 49288-4) 2.1 mg/dL 1.6-2.6 [facility] CenterAmylase [id number] 13:19:14 Test Item Value Reference Range Interpretation Comments Amylase Lvl (test code = 1798-8) 57 U/L 28-100 [facility] CenterAlkaline Agsihfgpods0850-83-57 13:19:13 Test Item Value Reference Range Interpretation Comments Alk Phos (test code = 6768-6) 98 U/L 35-104 [facility] CenterAlbumin Qlwkc3859-69-87 13:19:12 Test Item Value Reference Range Interpretation Comments Albumin Lvl (test code 4.3 See_Comment [Aut omated message] The = 175-7) system which ge nerated this result tra nsmitted reference range : 3.5 - 5.2 gm/dL. The refe rence range was not used to interpret this result as normal/abnormal . [facility] CenterAspartate Aminotransferase 2022-08-24 13:19:11 Test Item Value Reference Range Interpretation Comments AST (test code = 1920-8) 18 U/L <=32 [facility] CenterElectrolyte Joqju5234-11-42 13:19:10 Test Item Value Reference Range Interpretation Comments Sodium Lvl (test code = 138 See_Comment [Au tomated message] The 295-2) system which ge nerated this result tra nsmitted reference range : 136 - 145 mEq/L. The reference range was not u sed to interpret this result as normal/abnormal . Potassium Lvl (test 4.5 See_Comment [Automa manuela message] The code = 2823-3) system which generated this result tra nsmitted reference range : 3.5 - 5.1 mEq/L. The reference range was not u sed to interpret this result as normal/abnormal . Chloride (test code = 103 See_Comment [Auto mated message] The ) system which ge nerated this result tra nsmitted reference range : 98 - 107 mEq/L. The refe rence range was not u sed to interpret this result as normal/abnormal . CO2 (test code = 29 See_Comment [Automated message] The 2027-10) system which ge nerated this result tra nsmitted reference range : 22 - 29 mEq/L. The refe rence range was not u sed to interpret this result as normal/abnormal . Anion Gap (test code = 6 See_Comment [Aut omated message] The ) system which ge nerated this result tra nsmitted reference range : 4 - 14 mEq/L. The refe rence range was not u sed to interpret this result as normal/abnormal . [facility].Serum Kfxktwczul9430-67-35 13:19:08 Test Item Value Reference Range Interpretation Comments Creatinine (test code = 2160-0) 0.63 mg/dL 0.51-0.95 [facility] CenterGlucose, [id number] 13:19:07 Test Item Value Reference Range Interpretation Comments Glucose Fasting (test 105 mg/dL 70-99 H Impair ed fasting code = 1558-6) glucose (incr eased risk for diabet es or prediabetes) : 100-125 mg/dLDiabetes mellitus: >= 12 6 mg/dL Lab Interpretation (test Abnormal code = 37744-6) [facility] CenterTotal [id number] 13:19:06 Test Item Value Reference Range Interpretation Comments Total Protein (test code = 2885-2) 7.1 g/dL 6.4-8.3 [facility] CenterPhosphorus [id number] 13:19:05 Test Item Value Reference Range Interpretation Comments Phosphorus (test code = 2777-1) 4.1 mg/dL 2.5-4.5 [facility] CenterLipase [id number] 13:19:04 Test Item Value Reference Range Interpretation Comments Lipase Lvl (test code = 3040-3) 24 U/L 13-60 [facility] CenterGGT2023-06-26 13:19:03 Test Item Value Reference Range Interpretation Comments GGT (test code = 2324-2) 26 U/L 5-36 [facility] CenterCalcium [id number] 13:19:02 Test Item Value Reference Range Interpretation Comments Calcium Lvl (test code = 49351-5) 9.6 mg/dL 8.4-10.2 [facility] CenterALT2023-06-26 13:19:01 Test Item Value Reference Range Interpretation Comments ALT (test code = 1742-6) 19 U/L <=33 [facility] CenterBUN2023-06-26 13:19:00 Test Item Value Reference Range Interpretation Comments BUN (test code = 3094-0) 10 mg/dL 6-23 [facility] CenterLDH2023-06-26 13:11:16 Test Item Value Reference Range Interpretation Comments LDH (test code = 148 U/L 135-214 Results gre ater than 1651 07815-7) U/L may not be reliable due to matrix effec t with extended diluti on as it exceeds the man ufacturer's recommended rosado it. Caution should be exerc ised when interpreting ingram ch values and done in con junction with clinical c ontext. [facility] CenterUrinalysis with Microscopic 2022-08-24 13:03:05 Test Item Value Reference Range Interpretation Comments UA Color (test code = Straw Straw-Yellow 67781-1) UA Appear (test code = Clear Clear 52331-6) UA Glucose (test code NEG NEG mg/dL = 5792-7) UA Bili (test code = NEG NEG 5770-3) UA Ketones (test code NEG NEG mg/dL = 5797-6) UA Spec Grav (test 1.006 1.003-1.035 code = 5810-7) UA Blood (test code = NEG NEG 5794-3) UA pH (test code = 6.0 5.0-9.0 5803-2) UA Protein (test code NEG NEG mg/dL = 5804-0) UA Urobilinogen (test NEG NEG code = 5818-0) UA Nitrite (test code NEG NEG = 5802-4) UA Leuk Est (test code NEG NEG = 5799-2) UA WBC (test code = NOT SEEN See_Comment Some rep orting 96838-8) parameters with in the Urinalysis test have changed due to the implementation of new instrumentation in the [facility], [facility] greater sensiti vity of measurement. Urinalysis resu lts reported by the [facility] enters using existing instrumentation , as well as Urinaly sis testing perform ed manually or by backup methodology at the [facility] viry l remain relative ly unchanged. New reporting anastacia eters and units will not be reported for al l campuses. [Auto mated message] The sy stem which generated this result transmit manuela reference range : 0 - 2 /HPF. The refer ence range was not u sed to interpret this result as normal/abnor mal. UA RBC (test code = NOT SEEN See_Comment [Automa manuela message] 09202-8) The system [employer] generated this result transmitted ref erence range: 0 - 2 /H PF. The reference range was not used to int erpret this result as normal/abnormal . UA Mucous (test code = NOT SEEN Not Seen-Trace 46947-6) /HPF UA Bacteria (test code OCC NOT SEEN /HPF A = 67785-7) UA Squam Epi (test OCC None-Occasional code = 18021-6) /HPF Lab Interpretation Abnormal (test code = 64639-7) [facility] YphbbyVppvxrpmyyki6503-79-89 12:45:01 Test Item Value Reference Range Interpretation Comments Neutrophil % (test code = 58.0 % 42.0-66.0 770-8) Lymphocyte % (test code = 17.9 % 24.0-44.0 L 736-9) Monocyte % (test code = 13.9 % 2.0-7.0 H 5905-5) Eosinophil % (test code = 8.4 % 1.0-4.0 H 713-8) Basophil % (test code = 1.4 % 0.0-1.0 H 706-2) IGRE % (test code = 0.4 % 0.0-0.4 IGRE % c ount 07721-7) includes Metamyelocytes, Myelocytes, and Promyelocytes. Neutrophil Abs (test code 2.89 K/uL 1.70-7.30 = 751-8) Lymphocyte Abs (test code 0.89 K/uL 1.00-4.80 L = 731-0) Monocyte Abs (test code = 0.69 K/uL 0.08-0.70 742-7) Eosinophil Abs (test code 0.42 K/uL 0.04-0.40 H = 711-2) Basophil Abs (test code = 0.07 K/uL 0.00-0.10 704-7) IG Abs (test code = 0.02 K/uL 0.00-0.04 73082-8) Lab Interpretation (test Abnormal code = 70086-2) [facility] [place].KNB0947-94-92 12:44:48 Test Item Value Reference Range Interpretation Comments WBC (test code = 5.0 K/uL 4.0-11.0 6690-2) RBC (test code = 4.51 See_Comment [Automated message] The 789-8) system which Honestly Now nerated this result tra nsmitted reference range : 4.00 - 5.50 M/uL. The reference range was not u sed to interpret this result as normal/abnormal . Hgb (test code = 13.4 See_Comment [Automated message] The 718-7) system which Honestly Now nerated this result tra nsmitted reference range : 12.0 - 16.0 gm/dL. The reference range was not u sed to interpret this result as normal/abnormal . Hct (test code = 41.2 % 37.0-47.0 4544-3) MCV (test code = 91 fL 82-98 787-2) MCH (test code = 29.7 pg 27.0-31.0 785-6) MCHC (test code = 32.5 See_Comment [Automate d message] The 786-4) system which Honestly Now nerated this result tra nsmitted reference range : 31.0 - 36.0 gm/dL. The reference range was not u sed to interpret this result as normal/abnormal . RDW-SD (test code = 45.0 fL 35.1-46.3 03943-5) RDW-CV (test code = 13.4 % 12.0-15.5 788-0) Platelet count (test 304 K/uL 140-440 code = 777-3) MPV (test code = 10.0 fL 4.0-10.4 32580-4) INRBC (test code = 0.0 % <=0.0 The INRBC (instrument 63097-4) NRBC) value ref lects the enumerationof n ucleated red blood cells contained in a 200uL samp leof whole blood analyzed by the instrument. Thi s value maydiffer from the NRBC value reported in a manual differen tial,which is based on a 1 00 cell differential. [facility] CenterUrinalysis Microscopic Exam 2022-08-16 18:29:53 Test Item Value Reference Range Interpretation Comments UA WBC (test code = 1 See_Comment Some rep orting 23657-0) parameters with in the Urinalysis test have changed due to the implementation of new instrumentation in the [facility], [facility] greater sensiti vity of measurement. Urinalysis resu lts reported by the [facility] C enters using existing instrumentation , as well as Urinaly sis testing perform ed manually or by backup methodology at the [facility] viry l remain relative ly unchanged. New reporting anastacia eters and units will not be reported for al l campuses. [Auto mated message] The sy stem which generated this result transmit manuela reference range : 0 - 2 /HPF. The refer ence range was not u sed to interpret this result as normal/abnor mal. UA RBC (test code = 1 See_Comment [Automa manuela message] 04926-7) The system Curis h generated this result transmitted ref erence range: 0 - 2 /H PF. The reference range was not used to int erpret this result as normal/abnormal . UA Mucous (test code = NOT SEEN Not Seen-Trace 90813-5) /HPF UA Bacteria (test code OCC NOT SEEN /HPF A = 91953-1) UA Squam Epi (test OCC None-Occasional code = 13993-4) /HPF Lab Interpretation Abnormal (test code = 53256-6) [facility] CenterGlucose [id number] 17:20:30 Test Item Value Reference Range Interpretation Comments Glucose Level (test 99 mg/dL 70-99 Effectiv e 09/25/15, the code = 2345-7) glucose refer ence intervals have been updated based o n [place] [employer] ramy delines (Standards of M edical Care in Diabete s 2016. Diabetes Care 2 016; 39: S13-S22).Fastin g blood glucose:Normal: 70-99 mg/dLImpaired f asting glucose (increa sed risk for diabetes or pre-diabetes): 100-125 mg/dLDiabetes m ellitus: >/=126 mg/dL Ra ndom blood glucose:N ormal: 70-199 mg/dLNot e: Random glucose >100 mg /dL is associated with increased risk for diabetes [facility] CenteraPTT2023-06-18 17:06:07 Test Item Value Reference Range Interpretation Comments aPTT (test code = 47.6 See_Comment H Repeated a nd Verified 98039-8) [Automated mess age] The system Curis h generated this result transmitted ref erence range: 24.1 - 3 5.5 second(s). The reference range was not used to int erpret this result as normal/abnormal . Lab Interpretation (test Abnormal code = 70164-8) [facility] CenterProthrombin Time with [id number] 17:06:06 Test Item Value Reference Range Interpretation Comments PT (test code = 13.1 See_Comment Repeated and Verified 5902-2) [Automated mess age] The system which ge nerated this result transmit manuela reference range : 11.9 - 14.5 second(s). The reference range was not used to interpr et this result as bola l/abnormal. INR (test code = 1.00 0.87-1.12 Repeated an d Verified 6301-6) [facility] CenterUrinalysis w/Microscopic if [id number] 16:25:26 Test Item Value Reference Range Interpretation Comments UA Color (test code = 89398-6) Colorless Straw-Yellow A UA Appear (test code = 55783-5) Clear Clear UA Glucose (test code = 5792-7) NEG NEG mg/dL UA Bili (test code = 5770-3) NEG NEG UA Ketones (test code = 5797-6) NEG NEG mg/dL UA Spec Grav (test code = 5810-7) 1.006 1.003-1.035 UA Blood (test code = 5794-3) NEG NEG UA pH (test code = 5803-2) 6.5 5.0-9.0 UA Protein (test code = 5804-0) NEG NEG mg/dL UA Urobilinogen (test code = NEG NEG 5818-0) UA Nitrite (test code = 5802-4) NEG NEG UA Leuk Est (test code = 5799-2) Small NEG A Lab Interpretation (test code = Abnormal 80493-6) [facility] Chem 8 without Hemoglobin and Nzfozaqvfi0123-29-53 16:18:21 Test Item Value Reference Range Interpretation Comments POC NA (test code = 135 See_Comment L [Automa manuela message] 294-0) The system Weddingful generated this result transmitted ref erence range: 138 - 14 6 mEq/L. The refe rence range was not u sed to interpret this result as normal/abnor mal. POC K (test code = 4.2 See_Comment Method de scription: 6298-4) The i-STAT is a n analyzer used f or in vitro quantific ation of various anal ytes in whole blood. The device uses a s [employer] disposable cart ridge which contains microfabricated sensors, a calibration radhika ution, fluidics system , and a waste chamber . Each test cartridge contains chemic ally sensitive biose nsors on a [employer] ip that are config ured to perform spec ific tests. The microfabricated sensors measure analyte concent ration by an electroch emical assay. [Automat ed message] The sy stem which generated this result transmit manuela reference range : 3.5 - 4.9 mEq/L. Th e reference range was not used to int erpret this result as normal/abnormal . POC CL (test code = 100 See_Comment [Automa manuela message] 2068-04) The system Weddingful generated this result transmitted ref erence range: 98 - 109 mEq/L. The refe rence range was not u sed to interpret this result as normal/abnor mal. POC VTCO2 (test code 25 See_Comment [Autom ated message] = 2026-03) The system Wedding[employer] generated this result transmitted ref erence range: 24 - 29 mEq/L. The reference r meg was not used to interpret this result as normal/abnor mal. POC Anion Gap (test 16 mmol/L 10-20 code = 53968) POC BUN (test code = 11 mg/dL 10-24 6299-2) POC Crea (test code 0.5 mg/dL 0.6-1.3 L Medicati ons, = 09613-4) especially hydroxyurea or supplements, ingram ch as ascorbate, can interfere with test results causing a falsely and significantly h igher result than exp ected. If a problem is suspected with a patient's resul t, a sample should b e sent to the laborato for confirmatory te sting. Method descript ion: The i-STAT is a n analyzer used f or in vitro quantific ation of various anal ytes in whole blood. The device uses a s linda disposable cart ridge which contains microfabricated sensors, a calibration radhika ution, fluidics system , and a waste chamber . Each test cartridge contains chemic ally sensitive biose nsors on a silicon Simmr ip that are config ured to perform spec ific tests. The microfabricated sensors measure analyte concent ration by an electroch emical assay. POC EGFR (test code 101 See_Comment The eGFR cr is = 28349) calculated with the 2020 CKD-EPI creatinine equa tion using creatinin e, patient's age, and sex for adults 18 years of age an d older. Other fa ctors, especially musc le mass, may affec t accuracy and ne ed to be considered.Acco rding to the Kidney Disease: Improv ing Global Outcomes (KDIGO) CKD Wor k Group 2012 Clin ical Practice Guidel ine, chronic kidney disease (CKD) i s defined as the abnormalities o f kidney structur e or function, prese nt for more than 3 mon ths, with implicatio ns for health. CKD messi uld be classified by c ause, GFR category, a nd albuminuria cat egory. KDIGO guideline s provide the fol lowing GFR categoriesS tage Description GFR mL/min/1.73 m2G 1* Normal or high >= 90G2* Mildly decreased 60-89 G3a Mildly to moder ately decreased 45-59 G3b Moderately to severely decrea sed 30-44G4 Severel y decreased 15-29 G5 Kidney failure <15*In the absence of evidence of kid keisha damage, neither G1 nor G2 fulfill criteria for CK D. [Automated mess age] The system Wedding[employer] generated this result transmitted ref erence range: >=60 mL/min/1.73 sq. m. The reference r meg was not used to interpret this result as normal/abnor mal. POC Glucose (test 98 mg/dL 70-99 Medication s, code = 2339-0) especially hydroxyurea, ca n interfere with test results causing a falsely and significantly h igher result than exp ected. If a problem is suspected with a patient's resul t, a sample should b e sent to the laborato for confirmatory te sting. POC Ion Ca (test 1.23 mmol/L 1.12-1.32 code = 1993-04) POC Sample Type Venous (test code = 6690) POC Clean Dev (test Yes code = 6672) Performing Lab (test MDA Main Main Ca mpus code = 81796) [facility] Cli nical Lab, [facility], [facility], [place] [address]; Greenskeeper: Barbara Antunez MD; Waived Point of Care Testing - Pau jorge MD Lab Interpretation Abnormal (test code = 90216-9) [facility] and Antibodies, Fourth [id number] 04:13:37 Test Item Value Reference Range Interpretation Comments HIV Ag/Ab, NON-REACTIVE NON-REACTIVE HIV-1 antigen a nd 4TH Gen (test HIV-1/HIV-2 an tibodies were code = 25734) notdetected. T here is no laboratory evid ence of HIVinfection. P AURORA NOTE: This informatio n has been disclosed toyou from records whose confident iality may beprotected by state law. If your state requ ires suchprotection, then the state law prohi bits you frommaking any further disclosure of t he informationwith out the specific writte n consent of the personto om it pertains, or as otherwise permitted by ulises Flores general authorization f or the release of medi memo orother information is NOT sufficient for this purpose. For additional information please refer tohttp://educat ion.[employer].Ganos/faq /QCS402(This link is being p rovided for informational/e ducational purposes only.) The performance of this assay has not been clinicallyvalid ated in patients less t valdiv[place] 2 years old. Lab test p erformed by:Lab Mnemonic : Cogo HAMIDA [id number] [place] [id number] Igor ANAYA MD [facility] CenterHepatitis B Total Ig Core Ab (SCREENING) (anti-HBc total Ig; HBcAb total Ig)2022-08-05 20:04:32 Test Item Value Reference Range Interpretation Comments HBcAb. (test code = 5742) Reactive Non Reactive A Lab Interpretation (test code = Abnormal 07646-6) [facility] C Virus Antibody 2022-08-05 18:08:08 Test Item Value Reference Range Interpretation Comments HCVAb. (test Non Reactive Non Reactive Antibody detect ion in the code = 5762) immunocompromis ed and immunosuppresse d population may be delayed or absent entirely. There fore serial testing, correl ation with other clinical findings, and supplementa l testing (if available) should be taken into cons ideration when interpreti ng the results. [facility] B Surface Antibody 2022-08-05 18:07:39 Test Item Value Reference Range Interpretation Comments HBs Ab (test code = 88405) Reactive Non Reactive A Lab Interpretation (test code = Abnormal 60638-4) [facility] Surface B [id number] 18:07:14 Test Item Value Reference Range Interpretation Comments HBsAg. (test code = 5747) Non Reactive Non Reactive [facility] CenterFree [id number] 18:01:13 Test Item Value Reference Range Interpretation Comments Free T3 (test code = 3051-0) 2.9 pg/mL 2.0-4.4 [facility] CenterFSH [id number] 18:01:12 Test Item Value Reference Range Interpretation Comments FSH (test code = 71.4 mIU/mL Female Foll icle Stimulating 5571) Hormone Referen ce Ranges: LOW HIGHFollicular 3.5 12.5Ovulation 4 .7 21.5Luteal 1.7 7.7Postmen opause 25.8 134.8 [facility] CenterFree [id number] 17:27:00 Test Item Value Reference Range Interpretation Comments T4 Free (test code = 3024-7) 1.14 ng/dL 0.93-1.70 [facility] CenterTSH2023-06-07 17:26:59 Test Item Value Reference Range Interpretation Comments TSH (test code = 0.82 See_Comment [Automated message] The 04763-7) system which ge nerated this result transmit manuela reference range : 0.27 - 4.20 mcunit/mL. The reference range was not used to interpr et this result as bola l/abnormal. [facility] CenterCOVID-19 (SARS-CoV-2) PCR- Asymptomatic [id number] 21:21:17 Test Item Value Reference Range Interpretation Comments COVID19 (SARS Not Detected Not Detected CoV-2) Result (test code = __This test is a 45649-0) qualitative reverse-transcr iptase polymerase andrews n reaction (RT-PC R) developed for t he Ava PANDA 680 0 system and inte nded for qualitative detection of SA RS CoV-2 RNA in nasopharyngeal and oropharyngeal s wab specimens colle cted from any indivi duals, including those suspected of CO VID-19 by their health care provider, and t hose without symptom s or other reasons t o suspect COVID-1 9. A fact sheet for patients provid ed by the manufacture r ([employer]) c an be reviewed at:https://www. fda.gov /media/042997/d ownload . A fact sheet for Health Care pro viders is provided by the web ui designer ([employer]) and can be reviewed at: https://www.fda .gov/me ezequiel/467744/down load Results must be interpreted wit hin the context of all relevant clinic al and laboratory find ings and should not form the sole basis for a diagnosis or tr eatment decision. Posit mari results do not rule out bacterial infection or co-infection wi th other viruses. Negative result s do not rule out SARS-CoV-2 and must be combined with c linical observations, p atient history, and/or epidemiological information. "Presumptive Po sitive" results are due to partial amplifi cation of SARS-CoV-2 t argets and indicates l ow amounts of viru s present in the specimen at or near the limit of detection. Rega rdless, individuals wit h "Presumptive Po sitive" results should be managed per institutional guidelines as individuals pos itive for SARS-CoV-2 virus, including use o f appropriate inf ection control protoco ls. Internal contro ls are included to ass ess for possible amplif ication inhibitors. If inhibition is detected, testi ng is repeated and if inhibition is confirmed the s pecimen is resulted as "Invalid". When an "Invalid" resul t occurs, it is recommended to wait 3 days before sub mitting a new specimen for testing if clin ically indicated. This assay has been approv ed by the FDA for use only under Emergency Use Authorization ( EUA) in laboratories th at have been CLIA-certi fied to perform moderate-comple xity and high-comple xity tests. The perf ormance characteristics of this assay were verified by the Microbiology Laboratory at [facility], CLIA Accreditation # : [id number] and CAP Accreditation # : [id number]. COVID19 SARS HORSERADISH MAKER Swab Source (test code = 29334) COVID19 SARS Pre-Radiation Indication (test Therapy code = 96735) [facility] CenterLower Respiratory Culture w/Gram [id number] 12:02:10 Test Item Value Reference Range Interpretation Comments Final Report (test code Normal site jai A = 8488) present.Generally of low significance.Correlate with clinical data and culture history. Path Review (test code The results have been A = 8492) reviewed and electronically signed by Pathologist:Mat Rush MD, PhD #[id number] Gram Stain Report (test No WBC's A code = 648-6) seen.Epithelial cells seenModerate Gram Negative RodsFew Gram Positive Cocci Lab Interpretation Abnormal (test code = 00704-6) [facility] CenterMRSA Screening [id number] 11:37:42 Test Item Value Reference Range Interpretation Comments Final Report (test No Methicillin resistant code = 8488) Staphylococcus aureus isolated. Path Review (test Culture yield may be code = 8492) affected by sample quality, prior treatment, and transportation conditions....The results have been reviewed and electronically signed by Pathologist:Mat Rush MD, PhD #[id number] [facility] CenterBlood [id number] 11:35:37 Test Item Value Reference Range Interpretation Comments Final Report (test No growth code = 8488) Path Review - Culture yield may be Bottle/Isolator affected by sample (test code = 8499) quality, prior treatment, and transportation conditions....The results have been reviewed and electronically signed by Pathologist:Mat Rush MD, PhD #[id number] JEREMIAH (test code = If patient has a Central JEREMIAH) Venous Catheter please draw a blood culture from the line. If no central line, draw a second peripheral culture. [facility] CenterUrine [id number] 16:56:41 Test Item Value Reference Range Interpretation Comments Final Report (test code <10,000 cfu/ml Gram A = 8488) Negative Rods<10,000 cfu/ml Normal site jai present. Path Review - Urine The results have been A (test code = 8483) reviewed and electronically signed by Pathologist:SHERRILL MOSQUEDA MD #[id number] Lab Interpretation Abnormal (test code = 66922-7) [facility] CenterVancomycin [id number] 15:25:50 Test Item Value Reference Range Interpretation Comments Vanco Trough (test 11.1 See_Comment Toxic Tro ugh Level: >20 code = 4092-3) mcg/mL [Autom ated message] The sy stem which generated this result transmit manuela reference range : 5.0 - 20.0 mcg/mL. Th e reference range was not used to interpr et this result as normal/abnormal . Vanco Tr Dose Time 20 (test code = 57909-5) Vanco Tr Dose Date 10/27/2021 (test code = 59484-4) [facility] CenterRespiratory Viral Panel + COVID-19, Nasopharyngeal [id number] 04:41:58 Test Item Value Reference Range Interpretation Comments RMP Source (test code = Not Applicable 1553) Adenovirus (test code = Not Detected Not Detected 3038) Coronavirus 229E (test Not Detected Not Detected code = 5349) Coronavirus HKU1 (test Not Detected Not Detected code = 5350) Coronavirus NL63 (test Not Detected Not Detected code = 5351) Coronavirus OC43 (test Not Detected Not Detected code = 5352) COVID19 (SARS-CoV-2) Not Detected Not Detected (test code = 80685-8) Human Metapneumovirus Not Detected Not Detected (test code = 6401) Human Not Detected Not Detected Rhinovirus/Enterovirus (test code = 7212) Influenza A (test code Not Detected Not Detected = 5618) Influenza A H1 (test Not Detected Not Detected code = 5619) Influenza A H1 2009 Not Detected Not Detected (test code = 5620) Influenza A H3 (test Not Detected Not Detected code = 5621) Influenza B (test code Not Detected Not Detected = 5622) Parainfluenza 1 (test Not Detected Not Detected code = 6779) Parainfluenza 2 (test Not Detected Not Detected code = 6780) Parainfluenza 3 (test Not Detected Not Detected code = 6781) Parainfluenza 4 (test Not Detected Not Detected code = 6782) Respiratory Syncytial Not Detected Not Detected Virus (test code = 7157) Bordetella Not Detected Not Detected Parapertussis (test code = 99101) Bordetella pertussis Not Detected Not Detected (test code = 4854) Chlamydiophila Not Detected Not Detected pneumoniae (test code = 5139) Mycoplasma pneumoniae Not Detected Not Detected (test code = 6203) JEREMIAH (test code = JEREMIAH) The [employer] RP2.1 is a real-time, nested multiplexed polymerase chain reaction test designed to simultaneously identify nucleic acids from 22 different viruses and bacteria associated with respiratory tract infection, including SARS-CoV-2, from a single nasopharyngeal swab (ADULT DAY CARE WORKER) specimen obtained from individuals suspected of respiratory tract infections, including COVID-19. Results must be interpreted within the context of all relevant clinical and laboratory findings and should not form the sole basis for a diagnosis or treatment decision. Positive results do not rule out coninfection with other organisms. Negative results in the setting of a respiratory illness may be due to infection with pathogens that are not detected by this panel, or a lower respiratory tract infection that may not be detected by an ADULT DAY CARE WORKER specimen. Internal controls are used to monitor all stages of the test process and assess for possible amplification inhibitors. If inhibition is detected, testing is repeated and if inhibition is confirmed the specimen is resulted as "Invalid". When an "Invalid" result occurs, it is recommended to wait 3 days before submitting a new specimen for testing if clinically indicated. This assay has been approved by the FDA for use in laboratories that have been CLIA-certified to perform moderate-complexity and high-complexity tests. The Microbiology Laboratory at [facility], CLIA Accreditation #[id number] and CAP Accreditation #[id number], verified the performance characteristics of this assay. Microbiology Laboratory at [facility] performs the assay using the [employer] System. The SelligyFire RP2.1 is a real-time, nested multiplexed polymerase chain reaction test designed to simultaneously identify nucleic acids from 22 different viruses and bacteria associated with respiratory tract infection, including SARS-CoV-2, from a single nasopharyngeal swab (ADULT DAY CARE WORKER) specimen obtained from individuals suspected of respiratory tract infections, including COVID-19. Results must be interpreted within the context of all relevant clinical and laboratory findings and should not form the sole basis for a diagnosis or treatment decision. Positive results do not rule out coninfection with other organisms. Negative results in the setting of a respiratory illness may be due to infection with pathogens that are not detected by this panel, or a lower respiratory tract infection that may not be detected by an ADULT DAY CARE WORKER specimen. Internal controls are used to monitor all stages of the test process and assess for possible amplification inhibitors. If inhibition is detected, testing is repeated and if inhibition is confirmed the specimen is resulted as "Invalid". When an "Invalid" result occurs, it is recommended to wait 3 days before submitting a new specimen for testing if clinically indicated. This assay has been approved by the FDA for use in laboratories that have been CLIA-certified to perform moderate-complexity and high-complexity tests. The Microbiology Laboratory at [facility], CLIA Accreditation #[id number] and CAP Accreditation #[id number], verified the performance characteristics of this assay. Microbiology Laboratory at [facility] performs the assay using the [employer] System. [facility] CenterCRP (C-reactive protein)2021-10-25 04:06:27 Test Item Value Reference Range Interpretation Comments CRP (test code = 5.09 mg/L Reference [place] CRP 63958-3) assay are as fo llows: Reference range s when used to assess cardi ac risk: <1.00 mg/L Low cardiovascular risk 1.00-3.00 mg/L Average cardiovascular risk >3.00 mg/L High cardi ovascular risk.Reference ranges when used to assess inflammatory responses: Less than or equal to 10.00 mg/L. [facility] CenterProcalcitonin (PCT)2021-10-25 03:53:40 Test Item Value Reference Range Interpretation Comments Procalcitonin (test 0.09 ng/mL <=0.08 H Procalci tonin > 2.00 code = 96394-9) ng/mL: Proca lcitonin levels above 2. 00 ng/mL are highl y suggestive of a high risk for system atic bacterial infec tion/ severe sepsis a nd/or septic shock. Procalcitonin < 0.50 ng/mL: Procalci tonin levels below 0. 50 ng/mL are at lo w risk for progression to severe sepsis a nd/ or septic shock. Procalcitonin ( ProCT) between 0.15 an d 2.0 ng/mL do not ex clude infection, steffanie use localized infec tions (without system ic signs) may be associated with such low levels. Res ults greater than 40 0 ng/mL may not b e reliable due to the matrix effect w ith extended diluti on as it exceeds the web ui designer's recommended rosado it. Caution should be exercised when interpreting ingram ch values and done in conjunction wit h clinical contex t. Lab Interpretation Abnormal (test code = 47157-1) [facility] CenterVB [id number] 03:08:39 Test Item Value Reference Range Interpretation Comments V Lactate (test code = 2519-7) 1.2 mmol/L 0.5-1.6 [facility]
[2022-08-30] MEDS ORDERED: FAMOTIDINE 20 MG TAB ONE (10:36)
[2022-08-30] MEDS ORDERED: dexAMETHasone 10 MG/ML VIAL ONE (10:36)
--- NOTE | 2022-08-30 10:46 | ER ---
Nurse's Notes [facility] Name: Lucille Parekh Age: 71 yrs Sex: Female : 1950 Arrival Date: 08/30/2022 Time: 10:16 Bed IW1 Private MD: Diagnosis: Rash and other nonspecific skin eruption Presentation: 08/30 10:38 Chief complaint: Patient states: itchy rash all over that became worse Wednesday. 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 Denies SOB. Coronavirus screen: Client denies travel out of the [place] in the last 14 days. Ebola Screen: Patient denies exposure to infectious person. Patient denies travel to an Ebola-affected area in the 21 days before illness onset. 10:38 Method Of Arrival: Ambulatory ss 10:44 Initial Sepsis Screen: Does the patient meet any 2 criteria? No. Patient's initial ss sepsis screen is negative. Does the patient have a suspected source of infection? No. Patient's initial sepsis screen is negative. Risk Assessment: Do you want to hurt yourself or someone else? Patient reports no desire to harm self or others. Onset of symptoms is unknown. 10:44 Acuity: CHOLO 4 ss Historical: - Allergies: 10:40 Codeine; ss 10:40 Sulfa (Sulfonamide Antibiotics); ss - PMHx: 10:40 CHEMO; Lung CA; ss Screenin:38 [facility] ED Fall Risk Assessment (Adult) History of falling in the last 3 months, ss including since admission No falls in past 3 months (0 pts). Abuse screen: Denies threats or abuse. Denies injuries from another. Nutritional screening: No deficits noted. Tuberculosis screening: Never had TB. Assessment: 10:38 General: Appears in no apparent distress. comfortable, Behavior is calm, cooperative. ss Neuro: Level of Consciousness is awake, alert, obeys commands. Respiratory: Airway is patent Respiratory effort is even, unlabored. Derm: Skin is intact, is healthy with good turgor, Skin is dry, Skin is pink, warm \T\ dry. normal. Vital Signs: 10:38 BP 108 / 67; Pulse 96; Resp 16; Pulse Ox 97% on R/A; Weight 58.51 kg; Height 5 ft. 0 ss in. ; 10:38 Body Mass Index 25.19 (58.51 kg, 152.4 cm) ss ED Course: 10:17 Patient arrived in ED. rg4 10:18 Bettye Nunes FNP-C is [facility]. kb 10:18 Chi Knapp MD is Attending Physician. kb 10:38 Patricia Upton, RN is Primary Nurse. ss 10:38 Patient has correct armband on for positive identification. ss 10:38 No provider procedures requiring assistance completed. ss 10:44 Arm band placed on right wrist. ss 10:45 Triage completed. ss 10:46 Patient did not have IV access during this emergency room visit. ss Administered Medications: 10:30 Drug: Dexamethasone IM 10 mg Route: IM; Site: right gluteus; ss 10:46 Follow up: Response: Medication administered at discharge. ss 10:30 Drug: Famotidine PO 20 mg Route: PO; ss 10:46 Follow up: Response: Medication administered at discharge. ss Medication: 10:38 VIS not applicable for this client. ss Outcome: 10:23 Discharge ordered by MD. kb 10:46 Discharged to home ambulatory. ss 10:46 Condition: good 10:46 Discharge instructions given to patient, Instructed on discharge instructions, follow up and referral plans. medication usage, Demonstrated understanding of instructions, follow-up care, medications, Prescriptions given X 2. 10:46 Patient left the ED. ss Signatures: Bettye Nunes FNP-C FNP-Ckb Patricia Utpon, RN RN Jerry Kimber rg4
[2022-08-30 11:06] VITALS: BP 108/67; O2SAT 97
== END 2022-08-30 10:46 | disposition home or self-care (01) ==
LOC: ER 10:16
DX: R21 Rash and other nonspecific skin eruption (principal); Z88.2 Allergy status to sulfonamides; Z88.5 Allergy status to narcotic agent; Z85.118 Personal history of other malignant neoplasm of bronchus and lung
CPT/HCPCS: 96372; 99284; J1100